=== PATIENT | female | born 1950 | race Hispanic/Latino ===

== ENCOUNTER 2019-12-11 06:14 | Inpatient (IN) | payer OTHER, BC ==
[2019-12-11] MEDS ORDERED: MORPHINE 2 MG/ML SYR ONE ×2 (06:40→07:09)
[2019-12-11] MEDS ORDERED: ONDANSETRON 4 MG/2 ML VIAL ONE (06:41)
[2019-12-11 06:45] LABS: Protime INR 0.9
[2019-12-11 06:46] LABS: Absolute Lymphocytes (CBC) 1.1 K/uL (0.7-4.9); Basophils % 0.1 % (0-1.3); Hematocrit 46.4 % (36.0-45.0); MPV 8.4 fL (7.6-11.3); RBC Red Blood Cell Count 4.88 M/uL (3.86-4.86)
[2019-12-11 06:58] LABS: ALT/SGPT 19 U/L (12-78); AST/SGOT 13 U/L (15-37); Albumin 3.8 g/dL (3.4-5.0); Alkaline Phosphatase 100 U/L (45-117); BUN Blood Urea Nitrogen 26 mg/dL (7-18); Bicarbonate 29 mmol/L (21-32); Bilirubin Direct 0.2 mg/dL (0-0.2); Bilirubin Total 0.6 mg/dL (0.2-1.0); Glucose Level 258 mg/dL (74-106); Magnesium 2.6 mg/dL (1.8-2.4); NT PRO-BNP 312 pg/mL (<125); Potassium 4.3 mmol/L (3.5-5.1); Protein, Total 7.5 g/dL (6.4-8.2); Sodium Level 135 mmol/L (136-145); Troponin (Emerg Dept Use Only) < 0.02 ng/mL (0.0-0.045)
[2019-12-11] MEDS ORDERED: MORPHINE 4 MG/ML SYR ONE (07:51)
[2019-12-11] MEDS ORDERED: METHYLPREDNISOLONE 125 MG INJ ONE (08:07)
[2019-12-11] MEDS ORDERED: FAMOTIDINE 20 MG/2 ML VIAL IV ONE (08:07)
[2019-12-11] MEDS ORDERED: DIPHENHYDRAMINE 50 MG/ML VIAL ONE (08:07)
--- NOTE | 2019-12-11 08:44 | RAD REPORT ---
EXAM DESCRIPTION: Abbi Single View12/11/2019 6:45 am CLINICAL HISTORY: Chest pain COMPARISON: 2017 FINDINGS: Lungs are moderately hyperaerated consistent with COPD The lungs appear clear of acute infiltrate. The heart is normal size IMPRESSION: No acute abnormalities displayed
--- NOTE | 2019-12-11 08:51 | RAD REPORT ---
EXAM DESCRIPTION: CT - Chest For Pe Angio - 12/11/2019 8:21 am CLINICAL HISTORY: Chest pain COMPARISON: None. TECHNIQUE: Dynamically enhanced axial 3 mm thick images of the chest were obtained during administra tion of <100> mL Isovue 370 IV contrast. Coronal and oblique reconstruction images were generated and reviewed. Exam utilizes a protocol for optimal evaluation of pulmonary arterial tree. Maximum intensity projections 3D imaging was utilized All CT scans are performed using dose optimization technique as appropriate and may include automated exposure control or mA/KV adjustment according to patient size. FINDINGS: A pulmonary embolus is not seen. A thoracic aortic aneurysm is not noted. A pleural effusion is not seen. A pericardial effusion is not seen. A lung consolidation is not present. Lungs are moderately hyperaerated IMPRESSION: Negative for a pulmonary embolism.
--- NOTE | 2019-12-11 09:33 | EDPHYS ---
Physician Documentation [facility] Name: Kerry Early Age: 69 yrs Sex: Female : 1950 Arrival Date: 12/11/2019 Time: 06:15 Bed 6 Private MD: ED Physician Pacheco Salazar HPI: 12/10 06:32 This 69 yrs old Female presents to ER via Ambulatory with complaints of Chest jmm Pain, High Blood Pressure. 06:32 The patient or guardian reports chest pain that is located primarily in the substernal jmm area. Onset: this morning, at 05:00. The pain radiates to the left arm. Associated signs and symptoms: Pertinent negatives: shortness of breath. The chest pain is described as aching, a pressure. Duration: The patient or guardian reports a single episode, that is still ongoing. This is a 69 year old female with a history of DM, HTN that presents to the ED with complaints of chest pain which radiates to her left arm. Patient states she was moving furniture yesterday. Patient states pain is not worsened with exertion. . Historical: - Allergies: 06:27 Iodine; bb - Home Meds: 06:27 metformin 500 mg Oral tab 1 tab daily [Active]; nortriptyline 50 mg Oral cap 1 cap bb nightly [Active]; metoprolol tartrate 50 mg Oral tab 1 tab once daily [Active]; Cartia XT 300 mg Oral cp24 1 cap once daily [Active]; - PMHx: 06:27 brain aneurysm; COPD; Diabetes - NIDDM; Hypertension; Seizures; bb - PSHx: 06:27 brain aneurysm; Cholecystectomy; Tonsillectomy; bb - Immunization history:: Adult Immunizations up to date. - Social history:: Smoking status: Patient denies any tobacco usage or history of. ROS: 06:32 Constitutional: Negative for fever, chills, and weight loss, Respiratory: Negative for jmm shortness of breath, cough, wheezing, and pleuritic chest pain. 06:32 Cardiovascular: Positive for chest pain. 06:32 All other systems are negative. Exam: 06:32 Constitutional: This is a well developed, well nourished patient who is awake, alert, jmm and in no acute distress. Head/Face: atraumatic. Eyes: EOMI, no conjunctival erythema appreciated ENT: Moist Mucus Membranes Neck: Trachea midline, Supple 06:32 Abdomen/GI: Non distended, soft Back: Normal ROM Skin: General appearance color normal MS/ Extremity: Moves all extremities, no obvious deformities appreciated, no edema noted to the lower extremities Neuro: Awake and alert, normal gait Psych: Behavior is normal, Mood is normal, Patient is cooperative and pleasant 06:32 Chest/axilla: Inspection: normal, Palpation: tenderness, that is moderate, that totally reproduces the patient's complaints. 06:32 Cardiovascular: Rate: normal, Rhythm: regular, Pulses: no pulse deficits are appreciated. 06:32 Respiratory: the patient does not display signs of respiratory distress, Respirations: normal, Breath sounds: are clear throughout. Vital Signs: 06:23 BP 204 / 87; Pulse 65; Resp 16 S; Temp 96.9(TE); Pulse Ox 100% on R/A; Weight 72.57 kg bb (R); Height 5 ft. 2 in. (157.48 cm) (R); Pain 10/10; 07:05 BP 195 / 80; Pulse 68; Resp 16 S; Pulse Ox 97% on R/A; Pain 8/10; jl7 07:41 BP 201 / 86; Pulse 87; Resp 16 S; Pulse Ox 97% on R/A; Pain 8/10; jl7 07:53 BP 175 / 77 LA; jl7 07:55 BP 161 / 67 RA; jl7 08:36 BP 127 / 98; Pulse 64; Resp 16; Pulse Ox 98% on R/A; tw2 09:30 BP 152 / 60; Pulse 63; Resp 16 S; Pulse Ox 98% on R/A; Pain 4/10; jl7 06:23 Body Mass Index 29.26 (72.57 kg, 157.48 cm) bb MDM: 06:27 Patient medically screened. [facility] 09:31 The patient was given aspirin in the Emergency Department. Data reviewed: vital signs, [facility] nurses notes, lab test result(s), EKG, radiologic studies, CT scan, plain films. ED course: I discussed the patient with Dr. Ventura whom accepted admission. . 12/10 06:28 Order name: Basic Metabolic Panel [facility] 12/10 06:28 Order name: CBC with Diff [facility] 12/10 06:28 Order name: LFT's [facility] 12/10 06:28 Order name: Magnesium [facility] 12/10 06:28 Order name: NT PRO-BNP [facility] 12/10 06:28 Order name: PT-INR [facility] 12/10 06:28 Order name: Troponin (emerg Dept Use Only) [facility] 12/10 06:54 Order name: CBC with Automated Diff; Complete Time: 07:46 EDMS 12/10 06:59 Order name: Basic Metabolic Panel; Complete Time: 07:46 EDMS 12/10 06:59 Order name: Liver (Hepatic) Function; Complete Time: 07:46 EDMS 12/10 06:59 Order name: Troponin (Emerg Dept Use Only); Complete Time: 07:46 EDMS 12/10 06:59 Order name: NT PRO-BNP; Complete Time: 07:46 EDMS 12/10 06:59 Order name: Magnesium; Complete Time: 07:46 EDMS 12/10 07:02 Order name: Protime (+INR); Complete Time: 07:46 EDMS 12/10 06:28 Order name: XRAY Chest (1 view) [facility] 12/10 06:28 Order name: EKG; Complete Time: 06:29 [facility] 12/10 06:28 Order name: Cardiac monitoring; Complete Time: 06:30 [facility] 12/10 06:28 Order name: EKG - Nurse/Tech; Complete Time: 06:30 m 12/10 06:28 Order name: IV Saline Lock; Complete Time: 06:30 [facility] 12/10 06:28 Order name: Labs collected and sent; Complete Time: 06:30 [facility] 12/10 07:58 Order name: CT Chest For PE Angio [facility] 12/10 08:51 Order name: RAD; Complete Time: 10:48 EDMS 12/10 08:54 Order name: CT; Complete Time: 10:48 EDMS 12/10 06:28 Order name: O2 Per Protocol; Complete Time: 06:30 m 12/10 06:28 Order name: O2 Sat Monitoring; Complete Time: 06:30 jmm Administered Medications: 06:42 Drug: morphine 2 mg Route: IVP; Site: left antecubital; jd3 06:42 Drug: Zofran (Ondansetron) 4 mg Route: IVP; Site: left antecubital; jd3 09:05 Follow up: Response: No adverse reaction jl7 07:11 Drug: morphine 2 mg Route: IVP; Site: left antecubital; jl7 07:43 Follow up: Response: No adverse reaction; Pain is unchanged, physician notified jl7 07:50 Drug: morphine 4 mg Route: IVP; Site: left antecubital; jl7 08:20 Follow up: Response: No adverse reaction; Pain is decreased jl7 08:02 Drug: SOLU-Medrol 125 mg Route: IVP; Site: left antecubital; jl7 09:04 Follow up: Response: No adverse reaction jl7 08:04 Drug: diphenhydrAMINE 50 mg Route: IVP; Site: left antecubital; jl7 09:04 Follow up: Response: No adverse reaction jl7 08:06 Drug: Pepcid 20 mg Route: IVP; Site: left antecubital; jl7 09:04 Follow up: Response: No adverse reaction jl7 09:44 Drug: Aspirin Chewable Tablet 324 mg Route: PO; jl7 09:44 Follow up: Response: No adverse reaction jl7 Disposition: 16:38 Co-signature as Attending Physician, Pacheco Salazar MD I agree with the assessment and tw4 plan of care. Disposition: 12/11/19 09:33 Hospitalization ordered by Smith Ventura for Observation. Preliminary diagnosis is Chest pain, unspecified. - Bed requested for Telemetry/MedSurg (observation). - Status is Observation. jl7 - Condition is Stable. - Problem is new. - Symptoms have worsened. Signatures: Dispatcher [employer] EDMS Jacques Lopez PA PA [facility] Ruchi Caicedo RN RN Betsy Brumfield RN RN jl7 Shahid Cruz RN RN jd3 Wadley, Terrence, MD MD tw4 Lucero Mireles Corrections: (The following items were deleted from the chart) 09:46 09:33 Hospitalization Ordered by Smith Ventura MD for Observation. Preliminary diagnosis eb is Chest pain, unspecified. Bed requested for Telemetry/MedSurg (observation). Status is Observation. Condition is Stable. Problem is new. Symptoms have worsened. [facility] 10:10 09:46 12/11/2019 09:33 Hospitalization Ordered by Smith Ventura MD for Observation. jl7 Preliminary diagnosis is Chest pain, unspecified. Bed requested for Telemetry/MedSurg (observation). Status is Observation. Condition is Stable. Problem is new. Symptoms have worsened. eb
--- NOTE | 2019-12-11 09:33 | ER ---
Nurse's Notes [facility] Name: Kerry Early Age: 69 yrs Sex: Female : 1950 Arrival Date: 12/11/2019 Time: 06:15 Bed 6 Private MD: Diagnosis: Chest pain, unspecified Presentation: 12/10 06:23 Chief complaint: Patient states: she has been having chest pain this morning radiating bb to her left arm the pain is 10/10 and she is nauseous and light-headed. Coronavirus screen: The patient has NOT traveled to a country currently being monitored by the [facility] within the last 14 days. Proceed with normal triage procedures. Ebola Screen: No symptoms or risks identified at this time. Initial Sepsis Screen: Does the patient meet any 2 criteria? No. Patient's initial sepsis screen is negative. Does the patient have a suspected source of infection? No. Patient's initial sepsis screen is negative. Risk Assessment: Do you want to hurt yourself or someone else? Patient reports no desire to harm self or others. 06:23 Method Of Arrival: Ambulatory bb 06:23 Acuity: CLAUDIA 2 bb 06:40 Onset of symptoms was December 11, 2019. jd3 Historical: - Allergies: 06:27 Iodine; bb - Home Meds: 06:27 metformin 500 mg Oral tab 1 tab daily [Active]; nortriptyline 50 mg Oral cap 1 cap bb nightly [Active]; metoprolol tartrate 50 mg Oral tab 1 tab once daily [Active]; Cartia XT 300 mg Oral cp24 1 cap once daily [Active]; - PMHx: 06:27 brain aneurysm; COPD; Diabetes - NIDDM; Hypertension; Seizures; bb - PSHx: 06:27 brain aneurysm; Cholecystectomy; Tonsillectomy; bb - Immunization history:: Adult Immunizations up to date. - Social history:: Smoking status: Patient denies any tobacco usage or history of. Screenin:39 Abuse screen: Denies threats or abuse. Nutritional screening: No deficits noted. jd3 Tuberculosis screening: No symptoms or risk factors identified. Fall Risk IV access (20 points). Ambulatory Aid- None/Bed Rest/Nurse Assist (0 pts). Gait- Weak (10 pts.). Mental Status- Oriented to own ability (0 pts). Total Flowers Fall Scale indicates Low Risk Score (25-44 pts). Fall prevention measures have been instituted. Side Rails Up X 2 Placed close to Nursing Station Frequent Obs/Assesments occuring Family Present and informed to notify staff if they need to leave bedside. Assessment: 06:37 General: Appears in no apparent distress. uncomfortable, Behavior is calm, cooperative, jd3 appropriate for age. Pain: Complains of pain in chest Pain radiates to left scapular area and left arm Quality of pain is described as pressure, radiating, sharp, tender, Pain began suddenly. Neuro: Level of Consciousness is awake, alert, obeys commands, Oriented to person, place, time, situation. Cardiovascular: Reports chest pain, Heart tones S1 S2 present Capillary refill < 3 seconds Patient's skin is warm and dry. Rhythm is regular. Respiratory: Reports shortness of breath at rest Airway is patent Respiratory effort is even, unlabored, Respiratory pattern is regular, symmetrical, Breath sounds are clear bilaterally. Denies cough. GI: Abdomen is round non-distended, Bowel sounds present X 4 quads. Abd is soft and non tender X 4 quads. Reports nausea, Patient currently denies abdominal pain, constipation, diarrhea, vomiting. : No signs and/or symptoms were reported regarding the genitourinary system. EENT: No signs and/or symptoms were reported regarding the EENT system. Derm: Skin is intact, Skin is dry, Skin is normal, Skin temperature is warm. Musculoskeletal: Circulation, motion, and sensation intact. Range of motion: intact in all extremities. 07:10 Reassessment: Pain rated 8/10, medicated as ordered. jl7 07:55 Reassessment: Pt reports stabbing midsternal chest pain that is radiating to the left jl7 arm and straight through to under posterior left shoulder. Last BP checked, ERP notified and at bedside to assess pt. 08:30 Reassessment: Pain rated 6/10 Patient states feeling better. Patient states symptoms jl7 have improved. 09:30 Reassessment: Patient appears in no apparent distress at this time. Patient and/or jl7 family updated on plan of care and expected duration. Pain level reassessed. Patient is alert, oriented x 3, equal unlabored respirations, skin warm/dry/pink. pain rated 4/10 Patient states feeling better. Vital Signs: 06:23 BP 204 / 87; Pulse 65; Resp 16 S; Temp 96.9(TE); Pulse Ox 100% on R/A; Weight 72.57 kg bb (R); Height 5 ft. 2 in. (157.48 cm) (R); Pain 10/10; 07:05 BP 195 / 80; Pulse 68; Resp 16 S; Pulse Ox 97% on R/A; Pain 8/10; jl7 07:41 BP 201 / 86; Pulse 87; Resp 16 S; Pulse Ox 97% on R/A; Pain 8/10; jl7 07:53 BP 175 / 77 LA; jl7 07:55 BP 161 / 67 RA; jl7 08:36 BP 127 / 98; Pulse 64; Resp 16; Pulse Ox 98% on R/A; tw2 09:30 BP 152 / 60; Pulse 63; Resp 16 S; Pulse Ox 98% on R/A; Pain 4/10; jl7 06:23 Body Mass Index 29.26 (72.57 kg, 157.48 cm) ED Course: 06:15 Patient arrived in ED. cl3 06:16 Jacques Lopez PA is PHCP. jmm 06:16 Pacheco Salazar MD is Attending Physician. jmm 06:18 Shahid Cruz, HAYDEN is Primary Nurse. jd3 06:24 Triage completed. bb 06:27 Arm band placed on. EKG completed in triage. Results shown to MD. bb 06:36 Inserted saline lock: 20 gauge in left antecubital area, using aseptic technique. Blood jd3 collected. placed by Ruth ROSS. 06:39 Patient has correct armband on for positive identification. Placed in gown. Bed in low jd3 position. Call light in reach. Side rails up X 1. Adult w/ patient. monitoring specialist on. Pulse ox on. NIBP on. 06:39 Patient maintains SpO2 saturation greater than 95% on room air. jd3 09:30 No provider procedures requiring assistance completed. Patient admitted, IV remains in jl7 place. intact, No redness/swelling at site. 09:33 Smith Ventura MD is Hospitalizing Provider. [facility] Administered Medications: 06:42 Drug: morphine 2 mg Route: IVP; Site: left antecubital; jd3 06:42 Drug: Zofran (Ondansetron) 4 mg Route: IVP; Site: left antecubital; jd3 09:05 Follow up: Response: No adverse reaction jl7 07:11 Drug: morphine 2 mg Route: IVP; Site: left antecubital; jl7 07:43 Follow up: Response: No adverse reaction; Pain is unchanged, physician notified jl7 07:50 Drug: morphine 4 mg Route: IVP; Site: left antecubital; jl7 08:20 Follow up: Response: No adverse reaction; Pain is decreased jl7 08:02 Drug: SOLU-Medrol 125 mg Route: IVP; Site: left antecubital; jl7 09:04 Follow up: Response: No adverse reaction jl7 08:04 Drug: diphenhydrAMINE 50 mg Route: IVP; Site: left antecubital; jl7 09:04 Follow up: Response: No adverse reaction jl7 08:06 Drug: Pepcid 20 mg Route: IVP; Site: left antecubital; jl7 09:04 Follow up: Response: No adverse reaction jl7 09:44 Drug: Aspirin Chewable Tablet 324 mg Route: PO; jl7 09:44 Follow up: Response: No adverse reaction jl7 Outcome: 09:33 Decision to Hospitalize by Provider. renetta 10:01 Admitted to Tele accompanied by tech, via wheelchair, room 414, with chart, Report jl7 called to [place] 10:01 Condition: stable 10:01 Discharge instructions given to patient, family, Instructed on the need for admit, Demonstrated understanding of instructions. 10:10 Patient left the ED. jl7 Signatures: Jacques Lopez PA PA jmm Ballard, Brenda RN H[place]DEN bb Cassy Haynes RN RN tw2 Betsy Patterson RN RN jl7 Shahid Cruz RN RN jd3 Xuan Amos cl3 Corrections: (The following items were deleted from the chart) 06:42 06:37 Pain: Complains of pain in chest Pain radiates to left arm Quality of pain is jd3 described as pressure, radiating, sharp, tender, Pain began suddenly, jd3
[2019-12-11] MEDS ORDERED: MORPHINE 4 MG/ML SYR IV PRN (09:35)
[2019-12-11] MEDS ORDERED: ASPIRIN 81 MG CHEWABLE TABLET ONE (09:39)
[2019-12-11 10:44] VITALS: BMI 29.2
[2019-12-11] MEDS ORDERED: HYDRALAZINE HCL 20 MG/ML VIAL IV PRN (11:08)
[2019-12-11] MEDS: ALBUTEROL INHALER 60 PUFF/8 GM IH SCH ×3 (12:23→23:25)
[2019-12-11] MEDS ORDERED: GLUCAGON 1 MG/VIAL IM PRN (13:26)
[2019-12-11] MEDS ORDERED: D50W 25 GM/50 ML SYRINGE/VIAL IV PRN (13:26)
--- NOTE | 2019-12-11 13:45 | EKG ---
Test Date: 2019-12-11 Test Time: 06:25:00 Geophysical Laboratory Director: LAZARO MEASUREMENT RESULTS: Intervals: Rate: 68 LA: 104 QRSD: 80 QT: 394 QTc: 418 [place]: P: 41 LA: 104 QRS: 42 T: 31 INTERPRETIVE STATEMENTS: Sinus rhythm with short LA Otherwise normal ECG Compared to ECG 10/04/2016 03:18:04 Short LA interval now present Electronically Signed On 12-11-19 13:43:47 PRINTING TECHNICIAN by Kilo Alonso
[2019-12-11] MEDS: ACETAMINOPHEN 500 MG TAB PO PRN ×2 (15:27→22:30)
[2019-12-11] MEDS: INSULIN -REGULAR HUMAN 50 UNIT/0.5 ML ML SQ SCH ×2 (17:07→23:00)
--- NOTE | 2019-12-11 18:16 | CON ---
Identification: Ms. Early is 69. Reason For Consultation: Chest pain with abnormal troponin. History Of Present Illness: Ms. Early has a remote history of subarachnoid hemorrhage. She underwent an aneurysm clipping. This was all more than 20 years ago. Since then, there has been no central n ervous system problems. She has underlying diabetes. She has never had myocardial infarction or any cardiac surgeries or stents. She has underlying seizure disorder, diabetes, hypertension. Outpatient Medications: Metformin, Keppra, diltiazem, albuterol, Methylcobalamin and another multivi tamin, B6 complex with coenzyme Q10. Allergies: SHE REPORTS DRUG INTOLERANCE TO SPINACH, IODINE, NAPROXEN, AND TYLENOL. Physical Examination: General: She is 5 feet 2 inches, 160 pounds. Alert, oriented, pleasant, not in distress. Lungs: Clear. Cardiac: Within normal limits. Abdomen: Soft. Extremities: Normal. Diagnostic Data: Her electrocardiogram shows nonspecific changes. Her troponin when she first prese nted to the emergency room about 4 hours after the onset of her chest pain was 0.02 and 6 hours after that, it is 0.73. Impression And Plan: Ms. Early has had a non-ST elevation myocardial infarction and the recommendatio n is that she undergo a cardiac catheterization, possible stent. The patient seems to understand jennifer t and she seems to accept the potential benefits, indications, and risks of the procedure. She seems t o understand her diagnosis. LEIA/SAM Voice ID: [id number] Report ID: [id number]
--- NOTE | 2019-12-11 20:58 | HP ---
Date of Admission: 12/11/2019 Chief Complaint: Chest pain. History Of Present Illness: A 69-year-old female who is known to have multiple medical problems, was brought to the emergency room because of precordial chest pain and dizziness. The patient had a wor kup in the emergency room. She had normal troponin initially, however, it went up to 0.7. The patie nt has high risk factors including diabetes, previous stroke, hypertension. The patient is admitted. Past Medical History: Positive for type 2 diabetes, hypertension, hyperlipidemia, and CVA. Family History: Diabetes, hypertension present. Allergies: IODINE. Home Medicines: Metformin, nortriptyline, metoprolol, cardia. Other Medical Problems: Include history of brain aneurysm for which she had surgery, gallbladder robina steffany, tonsillectomy. Review of Systems: No history of fever, chills, rigors. Physical Examination: General: Revealed a 69-year-old female, alert and oriented for her age. HEENT: Negative. Neck: Supple. JVD negative. Chest: Clear. Heart: Regular. Abdomen: Soft, nontender. Extremities: No edema. Neurological: No deficits. Laboratory Data: White count normal. Chem profile, troponin 0.7, random blood sugar of 258. EKG report is not available. CT chest done in the emergency room negative for PE. Assessment: 1.Chest pain with mild elevation of troponin. 2.Hypertension. 3.Type 2 diabetes. 4.History of cerebrovascular accident and cerebral aneurysm. 5.Hyperlipidemia. Plan: The patient is already seen by Cardiology Service. The patient very likely will have cardiac cath Saturday. Meanwhile, the patient will be treated with beta blockers, aspirin. CHARITY/SAM Voice ID: [id number]
[2019-12-11] MEDS: ATORVASTATIN 80 MG TAB PO SCH (21:00)
[2019-12-11] MEDS: ENOXAPARIN 80 MG/0.8 ML SQ SCH (22:59)
[2019-12-11] MEDS: levETIRAcetam 500 MG TAB PO SCH (23:00)
[2019-12-11] MEDS: METOPROLOL TAR 50 MG TAB PO SCH (23:01)
[2019-12-12 05:57] LABS: Absolute Lymphocytes (CBC) 0.7 K/uL (0.7-4.9); Basophils % 0.3 % (0-1.3); Hematocrit 44.5 % (36.0-45.0); MPV 8.7 fL (7.6-11.3); RBC Red Blood Cell Count 4.68 M/uL (3.86-4.86)
[2019-12-12 06:03] LABS: Potassium 4.6 mmol/L (3.5-5.1)
[2019-12-12 08:22] LABS: Platelet Estimate ADEQ
[2019-12-12 08:23] LABS: Blood Morphology Comment NOT SEEN (NOT SEEN)
[2019-12-12] MEDS: INSULIN -REGULAR HUMAN 50 UNIT/0.5 ML ML SQ SCH ×4 (08:26→20:55)
[2019-12-12] MEDS: ACETAMINOPHEN 500 MG TAB PO PRN ×2 (08:29→20:50)
[2019-12-12] MEDS: METOPROLOL TAR 50 MG TAB PO SCH ×2 (08:29→20:51)
[2019-12-12] MEDS: AMLODIPINE 5 MG TAB PO SCH (08:30)
[2019-12-12] MEDS: ENOXAPARIN 80 MG/0.8 ML SQ SCH ×2 (08:30→20:49)
[2019-12-12] MEDS: ASPIRIN EC 81 MG TAB PO SCH (08:30)
[2019-12-12] MEDS: levETIRAcetam 500 MG TAB PO SCH ×2 (08:30→20:52)
[2019-12-12] MEDS: ALBUTEROL INHALER 60 PUFF/8 GM IH SCH ×4 (08:31→21:00)
[2019-12-12] MEDS ORDERED: DILTIAZEM HCL 120 MG SR CAP PO SCH (09:00)
--- NOTE | 2019-12-12 10:00 | PN ---
Mrs. Early is stable today. No further chest pain. Her troponins are staying about where they are. They are less than 1 and she is not having further chest pains. Our plan to do a cardiac cath Saturday is still viable. Her creatinine is 0.92. She seems to understand the procedure, its potential bene fits, indications, risks, and agrees to proceed. LEIA/SAM Voice ID: [id number] Report ID: [id number]
[2019-12-12] MEDS: ONDANSETRON 4 MG/2 ML VIAL IV PRN (15:14)
[2019-12-12] MEDS: ATORVASTATIN 80 MG TAB PO SCH (20:50)
--- NOTE | 2019-12-13 06:29 | EKG ---
Test Date: 2019-12-11 Test Time: 21:51:22 Ornamental Machine Operator: DINORAH MEASUREMENT RESULTS: Intervals: Rate: 56 TN: 96 QRSD: 76 QT: 412 QTc: 397 [place]: P: 25 TN: 96 QRS: 56 T: 102 INTERPRETIVE STATEMENTS: Sinus bradycardia with short TN T wave abnormality, consider lateral ischemia Abnormal ECG Compared to ECG 12/11/2019 21:48:59 T-wave abnormality now present Possible ischemia now present ST (T wave) deviation no longer present Electronically Signed On 12-13-19 06:28:37 CDT by Kilo Alonso
--- NOTE | 2019-12-13 06:29 | EKG ---
Test Date: 2019-12-11 Test Time: 21:48:59 Director For Beauty School: DINORAH MEASUREMENT RESULTS: Intervals: Rate: 56 GA: 94 QRSD: 78 QT: 424 QTc: 409 [place]: P: 25 GA: 94 QRS: 54 T: 98 INTERPRETIVE STATEMENTS: Sinus bradycardia with short GA Nonspecific ST and T wave abnormality Abnormal ECG Compared to ECG 12/11/2019 06:25:00 ST (T wave) deviation now present Sinus rhythm no longer present Electronically Signed On 12-13-19 06:28:40 CDT by Kilo Alonso
[2019-12-13] MEDS: ACETAMINOPHEN 500 MG TAB PO PRN (09:22)
[2019-12-13] MEDS: AMLODIPINE 5 MG TAB PO SCH (09:23)
[2019-12-13] MEDS: METOPROLOL TAR 50 MG TAB PO SCH ×2 (09:23→21:19)
[2019-12-13] MEDS: levETIRAcetam 500 MG TAB PO SCH ×2 (09:23→21:19)
[2019-12-13] MEDS: ASPIRIN EC 81 MG TAB PO SCH (09:23)
[2019-12-13] MEDS: INSULIN -REGULAR HUMAN 50 UNIT/0.5 ML ML SQ SCH ×4 (09:24→21:00)
[2019-12-13] MEDS: ENOXAPARIN 80 MG/0.8 ML SQ SCH (09:24)
[2019-12-13] MEDS: ALBUTEROL INHALER 60 PUFF/8 GM IH SCH ×4 (09:25→21:00)
--- NOTE | 2019-12-13 12:48 | EKG ---
Test Date: 2019-12-13 Test Time: 00:52:36 Utility Worker [employer]: RT MEASUREMENT RESULTS: Intervals: Rate: 65 OR: 100 QRSD: 82 QT: 410 QTc: 426 [place]: P: 35 OR: 100 QRS: 63 T: 108 INTERPRETIVE STATEMENTS: Sinus rhythm with short OR ST abnormality, possible digitalis effect Abnormal ECG Compared to ECG 12/11/2019 21:51:22 ST (T wave) deviation now present Sinus bradycardia no longer present T-wave abnormality no longer present Possible ischemia no longer present Electronically Signed On 12-13-19 12:48:14 CDT by Kilo Alonso
--- NOTE | 2019-12-13 17:50 | PN ---
Ms. Early has no more chest pain. She remains in sinus rhythm, mildly hypertensive and she has eviden ce of a recent myocardial infarction. We will plan to do a cardiac cath and possible stent tomorrow. I have described the procedure, its potential benefits, indications, risks, alternatives, and she a grees to proceed. We plan to do a cardiac cath tomorrow morning using the radial approach. We will give Mucomyst preop. We will keep her blood sugars under good control as we can. The lowest blood s ugar she has had in the hospital was 171. The patient seems to understand the procedure, its potenti al benefits, indications, risks, and agrees to proceed. LEIA/SAM Voice ID: [id number] Report ID: [id number]
[2019-12-13] MEDS: ONDANSETRON 4 MG/2 ML VIAL IV PRN (21:16)
[2019-12-13] MEDS: ATORVASTATIN 80 MG TAB PO SCH (21:18)
[2019-12-14] MEDS: ONDANSETRON 4 MG/2 ML VIAL IV PRN (06:22)
[2019-12-14] MEDS ORDERED: NA CHLORIDE 0.9% 1,000 ML ONE (06:23)
[2019-12-14] MEDS: METOPROLOL TAR 50 MG TAB PO SCH (06:23)
[2019-12-14] MEDS: ASPIRIN EC 81 MG TAB PO SCH (06:23)
[2019-12-14] MEDS: AMLODIPINE 5 MG TAB PO SCH (06:23)
[2019-12-14] MEDS: INSULIN -REGULAR HUMAN 50 UNIT/0.5 ML ML SQ SCH ×2 (07:30→11:30)
[2019-12-14] MEDS: levETIRAcetam 500 MG TAB PO SCH (08:04)
[2019-12-14] MEDS: ALBUTEROL INHALER 60 PUFF/8 GM IH SCH ×2 (08:04→13:00)
[2019-12-14] MEDS ORDERED: predniSONE 20 MG TAB PO ONE (10:14)
[2019-12-14] MEDS ORDERED: LIDOCAINE 1% MPF 30 ML VIAL ONE (12:16)
[2019-12-14] MEDS ORDERED: HEPA 1000U/500MLS 2,000 UNIT/1,000 ML BAG IV ONE (12:16)
[2019-12-14] MEDS ORDERED: HEPARIN 5000 UNIT/ML 1 ML VIAL ONE (13:40)
[2019-12-14] MEDS ORDERED: NICARDIPINE HCL 25 MG/10 ML IV ONE (13:41)
[2019-12-14] MEDS ORDERED: NA CHLORIDE 0.9% 0 ML ONE (13:41)
[2019-12-14] MEDS ORDERED: MIDAZOLAM HCL 2 MG/2 ML INJ ONE (13:41)
[2019-12-14] MEDS ORDERED: ATROPINE SULF 1 MG/10 ML SYR IV ONE (13:41)
[2019-12-14] MEDS ORDERED: NITROGLYCERIN 100 MCG/ML SYR (for cath lab use only) IV ONE (13:41)
[2019-12-14] MEDS ORDERED: FENTANYL CITR 100 MCG/2 ML ONE (13:41)
[2019-12-14] MEDS ORDERED: METHYLPREDNISOLONE 125 MG INJ ONE (13:43)
[2019-12-14] MEDS ORDERED: NITROGLYCERIN 0.4 MG/TAB SL PRN (14:11)
[2019-12-14 16:30] VITALS: O2SAT 98
[2019-12-14 16:32] VITALS: BP 148/65; TEMP 97.1
--- NOTE | 2019-12-14 23:30 | OP ---
Surgeon: Kilo Alonso MD Procedures: Left heart catheterization with coronary left ventricular angiography. Findings: Normal coronary arteries, normal left ventricular ejection fraction, mild systolic hyperte nsion, normal left ventricular end-diastolic pressure. Final Diagnoses: Myocardial infarction, acute coronary syndrome without atherosclerosis. The most l ikely diagnosis is coronary spasm. We will treat her as an outpatient with calcium blockers and p.r. n. nitroglycerin. Procedure In Detail: The patient was brought to the cardiac lab specialist in a fasting state sedated with Versed and fentanyl. Right radial approach was used. Tissues around the right radial artery were a nesthetized with 1% lidocaine. The artery was entered using a 21-gauge needle, cannulated with a 0.0 21 inch diameter guidewire, and a 5/6-Tongan Terumo radial sheath was placed. The wire and introduce r were removed. The sheath was flushed and a radial cocktail was given consisting of nicardipine, he clement, nitroglycerin. We guided a TIG catheter into the ascending aorta using fluoroscopy and a shor t radius J-tip Glidewire. We were able to use the TIG catheter to angiogram right and left coronarie s and left ventricle. At the end of the procedure, the catheter was withdrawn over the wire. The sh eath was flushed. Arterial waveforms were taken through the side port of the sheath and the sheath w as removed and the arteriotomy closed with a TR band. Complications: From the procedure, none. Estimated Blood Loss: 5 mL. LEIA/SAM Voice ID: [id number] Report ID: [id number]
== END 2019-12-14 17:23 | disposition home or self-care (01) | DRG 282 ==
LOC: ER 06:14 → ERHOLD 09:34 → 4TH 10:03 → OBSVTOIN 12-12 11:18
PROVIDERS: ADMIT Internal Medicine; ATTEND Internal Medicine
PROC: 4A023N7 Measurement of Cardiac Sampling and Pressure, Left Heart, Percutaneous Approach (ICD-10-PCS; principal; 2019-12-14)
PROC: B205YZZ Plain Radiography of Left Heart using Other Contrast (ICD-10-PCS; 2019-12-14)
PROC: B201YZZ Plain Radiography of Multiple Coronary Arteries using Other Contrast (ICD-10-PCS; 2019-12-14)
DX: I21.4 Non-ST elevation (NSTEMI) myocardial infarction (principal); I24.9 Acute ischemic heart disease, unspecified; E11.9 Type 2 diabetes mellitus without complications; I10 Essential (primary) hypertension; E78.5 Hyperlipidemia, unspecified; Z86.73 Personal history of transient ischemic attack (TIA), and cerebral infarction without residual deficits
CPT/HCPCS: 36415; 71045; 71275; 80048; 80076; 82947; 83735; 83880; 84484; 85025; 85610; 93005; 93458; 96374; 96375; 99285; C1893; G0378; J0583; J1200; J1644; J1650; J2250; J2270; J2405; J2930; J3010; J7030; J7512; Q9967

== ENCOUNTER 2020-08-26 17:09 | Emergency (ER) | payer OTHER, BC ==
--- OUTSIDE RECORDS SUMMARY | 2020-08-26 17:14 | XMS REPORT | Summary of Care ---
:1950 Author Organization [facility] Address [address] [place] [address] Care Team Providers Name Role Phone Pcp, Does Not Have A Primary Care Provider Reason for Referral Radiology Services (Routine) Status Reason Specialty Diagnoses / Referred By Referred To Procedures Contact Contact New Request Diagnostic Diagnoses Acute pain of left knee Savanah Cevallos, Radiology Procedures XR KNEE 3 VW LEFT [address] [address] Radiology Services (Routine) Status Reason Specialty Diagnoses / Referred By Referred To Procedures Contact Contact New Request Diagnostic Diagnoses Left leg pain Savanah Cevallos, Radiology Procedures XR TIBIA FIBULA 2 VW LEFT [address] [address] Reason for Visit Reason Comments INJECTION nora/shoulder depo (Routine) Status Reason Specialty Diagnoses / Referred By Referred To Procedures Contact Contact Authorized Orthopedic Surgery Diagnoses Right shoulder pain, unspecified chronicity Belcher, Procedures CONSULT/REFERRAL ORTHOPAEDIC SURGERY MD Dorita [address] [place] [address] Encounter Details Date Type Department Care Team Description 07/05/2020 Office Visit [facility] Orthopaedic Savanah Cevallos L eft leg pain (Primary Dx); Surgery- Patti Barcenas MD Acute pain of left knee [place] [address] [facility] [address] [facility] [id number] [place] [address] [phone] Allergies Active Allergy Reactions Severity Noted Date Comments Cauliflower Nausea and/or Vomiting 01/22/2017 Iodine And Iodide Anaphylaxis 11/29/2014 Containing Products Propoxyphene Rash 09/27/2014 N-Acetaminophen Iodine Rash 09/27/2014 Naproxen Anaphylaxis 01/21/2017 Spinach Hives 01/21/2017 Terazosin Unknown - See comments 08/10/2019 Muscl e ache, low blood pressure documented as of this encounter (statuses as of 07/06/2020) Medications Medication Sig Dispensed Refills Start Date End Date Status metFORMIN (GLUCOPHAGE) 0 11/17/2015 Active 500 mg tablet metoprolol succinate XL 0 11/16/2015 Active (TOPROL XL) 50 mg 24 hr tablet albuterol (PROVENTIL Inhale 2 Puffs 8.5 g 0 11/29/2015 Active HFA) 90 mcg/actuation every 6 (six) inhaler hours as needed for Wheezing or Shortness of Breath. nortriptyline 50 mg Take 1 capsule 30 capsule 6 07/27/2019 Active capsuleIndications: by mouth daily. 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 cyclobenzaprine 10 mg Take 10 mg by 0 Active tablet mouth 3 (three) times daily. amLODIPine 5 mg tablet TAKE 1 TABLET BY 0 12/16/2019 Active MOUTH ONCE DAILY IN THE MORNING CONTOUR NEXT TEST USE 1 STRIP TO 0 12/25/2019 Active STRIPS strip CHECK GLUCOSE ONCE DAILY IN THE MORNING nitroglycerin 0.4 mg DISSOLVE ONE 0 12/16/2019 Active sublingual tablet TABLET UNDER THE TONGUE EVERY 5 MINUTES NEEDED FOR CHEST PAIN. DO NOT EXCEED A TOTAL OF 3 DOSES IN 15 MINUTES Hospital, Clinic, or Ordered Dose Route Frequency Start Date End D ate Status Other Facility Administered Medication methylPREDNISolone 80 mg Intra-artic ONCE 07/05/2020 07/05/20 2 Ended acetate (DEPO-MEDROL) u 0 injection 80 mg methylPREDNISolone 80 mg Intra-artic ONCE 07/05/2020 07/05/20 2 Ended acetate (DEPO-MEDROL) u 0 injection 80 mg documented as of this encounter (statuses as of 07/06/2020) Active Problems Problem Noted Date COPD, moderate 01/19/2020 Seizure 01/21/2017 Esophageal reflux 03/16/2015 documented as of this encounter (statuses as of 07/06/2020) Immunizations Name Administration Dates Next Due Pneumococcal Polysaccharide, PPSV23 (PNEUMOVAX) 01/25/2017 documented as of this encounter Social History Tobacco Use Types Packs/Day Years Used Date Never Smoker Smokeless Tobacco: Never Used Alcohol Use Drinks/Week oz/Week Comments No Sex Assigned at Date Recorded Not on file COVID-19 Exposure Response Date Recorded In the last month, have you been in contact with No / Unsure 07/05/2020 1:28 PM CDT someone who was confirmed or suspected to have Coronavirus / COVID-19? documented as of this encounter Last Filed Vital Signs Vital Sign Reading Time Taken Comments Blood Pressure - - Pulse - - Temperature - - Respiratory Rate - - Oxygen Saturation - - Inhaled Oxygen Concentration - - Weight 74.3 kg (163 lb 12.8 oz) 07/05/2020 1:29 PM CDT Height 162.6 cm (5' 4.02") 07/05/2020 1:29 PM CDT Body Mass Index 28.1 07/05/2020 1:29 PM CDT documented in this encounter Progress Notes During, Mariela Reed - 07/05/2020 1:40 PM CDT CHIEF COMPLAINT: We were asked to see this patient to give my opinion regarding Becca Early, a female who presents with bilateral shoulder pain. HISTORY OF PRESENT ILLNESS Patient reports continued chronic pain of the bilateral shoulder. Patient has treated these symptomswith injections in the past with relief and presents for repeat Depo injection to the bilateral shoulder. Patient reports a recent fall and complains of left knee pain. Date of Injury/Duration: 2 years Mechanism of Injury: gradual Occupation: Disabled (nursing) Specific Shoulder Complaints Pain Location of Pain- Anterior Shoulder Extension: Elbow and Hand Previous [place]- none Previous Injury- none Past Medical History Past Medical History: Diagnosis Date Aneurysm, cerebral COPD (chronic obstructive pulmonary disease) Diabetes mellitus Diarrhea Gallstone Hypertension SLE (systemic lupus erythematosus) Stroke Past Surgical History Past Surgical History: Procedure Laterality Date ANEURYSM COILING CHOLECYSTECTOMY COILING (SHX) cerebral aneurism HYSTERECTOMY partil Allergies Allergies Allergen Reactions Cauliflower Nausea and/or Vomiting Contrast [Iodine And Iodide Containing Products] Anaphylaxis Darvocet A500 [Propoxyphene N-Acetaminophen] Rash Iodine Rash Naproxen Anaphylaxis Spinach Hives Terazosin Unknown - See comments Muscle ache, low blood pressure Medications Current Outpatient Medications Medication Sig Dispense Refill amLODIPine 5 mg tablet TAKE 1 TABLET BY MOUTH ONCE DAILY IN THE MORNING CONTOUR NEXT TEST STRIPS strip USE 1 STRIP TO CHECK GLUCOSE ONCE DAILY IN THE MORNING cyclobenzaprine 10 mg tablet Take 10 mg by mouth 3 (three) times daily. esomeprazole (NEXIUM) 20 mg capsule Take 40 mg by mouth daily before a meal. nitroglycerin 0.4 mg sublingual tablet DISSOLVE ONE TABLET UNDER THE TONGUE EVERY 5 MINUTES NEEDED FOR CHEST PAIN. DO NOT EXCEED A TOTAL OF 3 DOSES IN 15 MINUTES nortriptyline 50 mg capsule Take 1 capsule by mouth daily. 30 capsule 6 albuterol (PROVENTIL HFA) 90 mcg/actuation inhaler Inhale 2 Puffs every 6 (six) hours as needed for Wheezing or Shortness of Breath. 8.5 g metFORMIN (GLUCOPHAGE) 500 mg tablet 0 metoprolol succinate XL (TOPROL XL) 50 mg 24 hr tablet 0 No current facility-administered medications for this visit. Social History Social History Tobacco Use Smoking status: Never Smoker Smokeless tobacco: Never Used Substance Use Topics Alcohol use: No Drug use: No Family History Family History Problem Relation Age of Onset Coronary Heart Disease Father stomach Cancer Sister Mutiple cousins from brain tumor REVIEW OF SYSTEMS Neck Complaints: none Motor Sensory Complaints: none Elbow: none Wrist:none Hand: negative Cardio-Pulm: negative GI: negative : negative Constitutional: negative REVIEW OF SYSTEMS Patient denies constitutional symptoms, motor or sensory changes, cardiac and pulmonary symptoms, gastrointestinal and urinary symptoms or difficulties, and reports no calf pain or swelling. No acute changes in respiration, neurologic status, or psychiatric behavior. No acute changes to skin, vision, or mental status. PHYSICAL EXAMINATIONS Constitutional: alert and oriented x 3; no apparent distress, normal temperature HEENT: PERRLA; moist mucous membranes, appropriate muscular symmetry Respiratory: normal, without labor, appropriate exchange volumes, no rales Cardiovascular: appropriate capillary refill of extremities, regular rate, rhythm Abdomen: soft and non-tender, non-distressed, no abdominal extension Skin: skin color, texture and turgor are normal; no abnormal bruising, no rashes noted Neurologic: cranial nerves grossly intact; sensation grossly intact Psychiatric : no abnormal affect, appropriate, able to cooperate to baseline level Shoulder Examination: Skin: normal General Appearance: normal Muscle Tone: normal Atrophy Deltoid: negative Biceps (pipe): negative Spraspinatus Fossa: negative Infraspinatus Fossa: negative Palpation-Tenderness: Acromion: negative AC Joint: negative SC Joint: negative Clavicle: negative Subacromial: negative Deltoid Insertion: negative Proximal Biceps: negative Scapular: negative Range of Motion Passive Active FE ER IR Crepitation: Subacromial: negative Acromio-Clavicular: negative Glenohumeral: negative Scapular: negative Pain with Resisted Motion: Resisted Supraspinatus: Resisted External Rotation: Internal Rotation Behind Back: negative Shoulder Extension: negative Speeds Test: not done Yerguson's Test: negative Strength: Supraspinatus: External Rotators at Side: External Rotators at 90: Internal Rotation (lift off): normal Napoleons: normal Deltoids (three heads): normal Biceps: normal Triceps: normal Pectoralis H/F: normal Neurovascular Exam: Paresthesias to Distal Hands B/l Axillary Nerve: normal Suprascapular Nerve: normal Winging: normal Radial/Ulnar/Mediun Nerves: normal Impingement Tests: Neer: negative Dominguez: negative Cross Chest: negative Sub-acromial Inj. Test: negative Instability Exam: Anterior Apprehension /Relocation: normal Position of Humerus: normal Anterior Translation: normal Labral Click: negative Posterior-Superior Impingement: negative Posterior Apprehension / Relocation: negative Posterior Translation: normal Inferior Translation (Sulcus): normal Flowers's Test: negative 45 ABD: External Rotation test: negative and Internal Rotation test: negative Superior Labral Click Test: negative Medina: negative RADIOLOGY Xr Left Tibia Fibula 2v and Left knee 3v ordered 07/05/2020 ASSESSMENT R Shoulder Rotator cuff strain versus tear (MRI; SS, interstitial, partial) R Shoulder Impingement syndrome R Shoulder Anterior-inferior acromial spur R Shoulder Stiffness R Shoulder Adhesive capsulitis (r/o) L Shoulder Impingement syndrome R Cervical spine Upper extremity radiculopathy (r/o; MRI completed 2016) R Knee Contusion 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 Depo Medrol 80 mg (generic) injection performed to bilateral shoulder utilizing standard sterile technique. Non-operative and surgical care discussed in detail and offered. Patient desires to pursue/continuenon-operative measures. Precautions and instructions were discussed and reviewed in detail with patient and family/companions with patient at visit. These were understood by the patient and the important role of patient compliance in obtaining and optimizing successful outcome and avoiding complications of condition was emph asized. Patient, family/companions present at clinic visit, instructed on appropriate activity modification involving no aggressive/strenuous activities, indicated home exercises, indicated anti-inflammatory medicine or other over the counter analgesic, rest, and modalities following injection therapy. Patient will return to clinic in 12 weeks for re-evaluation and discussion of treatment options. Allfindings and diagnosis were discussed with patient at time of visit. Patient states they understand and are in agreement with the treatment plan at this time. Scribe's Attestation Mariela Strauss am scribing for, and in the presence of, Savanah Cevallos MD who performed the services described here-in. Mariela Glynn, July 05, 2020, 1:47 PM documented in this encounter Plan of Treatment Date Type Specialty Care Team Description 07/11/2020 Office Visit Pain Medicine Patti Aguilar MD [address] [facility] [address] [place] [phone] 08/01/2020 Office Visit Neurology Doirta Belcher MD [address] [place] [phone] 10/25/2020 Office Visit Orthopedic Surgery Savanah Cevallos MD [address] [facility] [address] [place] [phone] Health Maintenance Due Date Last Done Comments HEPATITIS C (HCV) SCREEN 1950 DTaP,Tdap,and Td Vaccines (1 - Tdap) 1970 COLON CANCER SCREENING ANNUAL FIT/FOBT 2001 COLON CANCER SCREENING FIT DNA EVERY 3 2001 YEARS COLON CANCER SCREENING SIGMOIDOSCOPY EVERY 2001 5 YEARS Zoster Recombinant Vaccine (SHINGRIX) (1 2001 of 2) Medicare Wellness Visit 2016 Osteoporosis Screening 2016 Breast Cancer Screening (MAMMOGRAM) 01/14/2018 01/14/2017, 08/05/2012 INFLUENZA VACCINE (#1) 2020 Depression Screening 12/06/2020 12/07/2019 COLONOSCOPY 10/08/2024 10/08/2014 Colorectal Cancer Screening 10/08/2024 PNEUMOCOCCAL VACCINES 65+ Completed 01/25/2017 documented as of this encounter Results XR KNEE 3 VW LEFT (07/05/2020 2:26 PM CDT) Specimen Impressions Performed At Impression: PACS/VR/DOSE 1. No acute osseous abnormality of the left knee is identified. RL: [id number] Electronically signed by Mauro Vega MD at 020 2:46 PM Narrative Performed At ORDERING PHYSICIAN: SAVANAH CEVALLOS PACS/VR/DOSE THREE VIEWS OF LEFT KNEE. DATE: 07/05/2020 CLINICAL HISTORY: Left knee pain. COMPARISON: None. FINDINGS: 3 views of the left knee demon strate no evidence for acute fracture, subluxation or destructive osseous lesion. No significant joint effusion is identified. Procedure Note [facility], Radiant Results Inft User - 2019 2:47 PM CDT ORDERING PHYSICIAN: SAVANAH CEVALLOS THREE VIEWS OF LEFT KNEE. DATE: 07/05/2020 CLINICAL HISTORY: Left knee pain. COMPARISON: None. FINDINGS: 3 views of the left knee demon strate no evidence for acute fracture, subluxation or destructive oss eous lesion. No significant joint effusion is identified. IMPRESSION Impression: 1. No acute osseous abnormality of the left knee is identified. RL: 2831 Performing Organization Address City/State/Zipcode Phone Number PACS/VR/DOSE XR TIBIA FIBULA 2 VW LEFT (07/05/2020 2:26 PM CDT) Specimen Impressions Performed At Impression: PACS/VR/DOSE 1. No acute osseous abnormality of the left tibia and fibula. RL: 2831 Electronically signed by Mauro Vega MD at 020 2:46 PM Narrative Performed At ORDERING PHYSICIAN: SAVANAH CEVALLOS PACS/VR/DOSE TWO VIEWS OF THE LEFT TIBIA-FIBULA DATE: 07/05/2020 CLINICAL INDICATIONS: Left lower leg yakelin n. COMPARISON: None FINDINGS: Frontal and lateral views of t he left tibia and fibula demonstrate no evidence for acute fractu re, subluxation or destructive osseous lesion. No significant soft tissue swelling or radiopaque foreign body is identified. Procedure Note [facility], Radiant Results Inft User - 2019 2:47 PM CDT ORDERING PHYSICIAN: SAVANAH CEVALLOS TWO VIEWS OF THE LEFT TIBIA-FIBULA DATE: 07/05/2020 CLINICAL INDICATIONS: Left lower leg yakelin n. COMPARISON: None FINDINGS: Frontal and lateral views of t he left tibia and fibula demonstrate no evidence for acute fractu re, subluxation or destructive osseous lesion. No significant soft tis shantell swelling or radiopaque foreign body is identified. IMPRESSION Impression: 1. No acute osseous abnormality of the left tibia and fibula. RL: 2831 Performing Organization Address [facility] PACS/VR/DOSE documented in this encounter Visit Diagnoses Diagnosis Left leg pain - Primary Pain in limb Acute pain of left knee documented in this encounter Administered Medications Medication Order MAR Action Action Date Dose Rate Site methylPREDNISolone acetate Given by Provider 07/05/2020 80 mg Left Shoulder (DEPO-MEDROL) injection 80 1:42 PM CDT mg 80 mg, Intra-articular, ONCE, 1 dose, 07/05/20 at 1445, Routine methylPREDNISolone acetate Given by Provider 07/05/2020 1:42 80 mg Right Shoulder (DEPO-MEDROL) injection 80 PM CDT mg 80 mg, Intra-articular, ONCE, 1 dose, 07/05/20 at 1445, Routine documented in this encounter Insurance Payer Benefit Plan / Subscriber ID Effective Phone Address T [facility] Group Dates MEDICARE MEDICARE PART A [id number] 2016-Pres [phone] [address] Medicare & B ent [id number] HAL[place] HAN[place] [phone] BCBS OF [facility] [id number] 2016-Pres [phone] [facility] ent [phone] [place] [address] documented as of this encounter
--- OUTSIDE RECORDS SUMMARY | 2020-08-26 17:14 | XMS REPORT | Summary of Care ---
:1950 Author Organization [facility] Address [address] [place] [address] Care Team Providers Name Role Phone Pcp, Does Not Have A Primary Care Provider Reason for Referral Radiology Services (Routine) Status Reason Specialty Diagnoses / Referred By Referred To Procedures Contact Contact New Request Diagnostic Diagnoses Acute pain of left knee Savanah Cevallos, Radiology Procedures XR KNEE 3 VW LEFT [address] [address] Radiology Services (Routine) Status Reason Specialty Diagnoses / Referred By Referred To Procedures Contact Contact New Request Diagnostic Diagnoses Left leg pain Savanah Cevallos, Radiology Procedures XR TIBIA FIBULA 2 VW LEFT [address] [address] Reason for Visit Reason Comments INJECTION nora/shoulder depo (Routine) Status Reason Specialty Diagnoses / Referred By Referred To Procedures Contact Contact Authorized Orthopedic Surgery Diagnoses Right shoulder pain, unspecified chronicity Belcher, Procedures CONSULT/REFERRAL ORTHOPAEDIC SURGERY MD Dorita [address] [place] [address] Encounter Details Date Type Department Care Team Description 07/05/2020 Office Visit [facility] Orthopaedic Savanah Cevallos L eft leg pain (Primary Dx); Surgery- Patti Barcenas MD Acute pain of left knee [place] [address] [facility] [address] [facility] [id number] [place] [address] [phone] Allergies Active Allergy Reactions Severity Noted Date [...] h/o Lupus (Rheumatology) Occ: Disabled (nursing) Resides: [place] Meds: Tramadol (seizures) Treatments: PT ([facility]), Injection B-SH PLAN/OPTIONS After full disclosure of [...] Visit Pain Medicine Patti Aguilar MD [address] [facility] [address] [place] [phone] 08/01/2020 Office Visit Neurology Dorita Belcher MD [address] [place] [phone] 10/25/2020 Office Visit Orthopedic Surgery Savanah Cevallos MD [address] [facility] [address] [place] [phone] Health Maintenance Due Date Last Done [...] and fibula. RL: 2831 Performing Organization Address City[facility]State[facility] PACS/VR/DOSE documented in this [...] / Subscriber ID Effective Phone Address T [facility] Group Dates MEDICARE MEDICARE PART A [id number] 2016-Pres [phone] [address] Medicare & B ent [id number] [place]AN[place] [address] BCBS OF [facility] [id number] 2016-Pres [phone] [facility] ent [phone] [place] [address] documented as of this encounter
--- OUTSIDE RECORDS SUMMARY | 2020-08-26 17:14 | XMS REPORT | Summary of Care ---
:1950 Author Organization [facility] Address [address] [place] [id number] Care Team Providers Name Role Phone Pcp, Does Not Have A Primary Care Provider Reason for Referral Radiology Services (Routine) Status Reason Specialty Diagnoses / Referred By Referred To Procedures Contact Contact New Request Diagnostic Diagnoses Acute pain of left knee Amari Cevallos, Radiology Procedures XR KNEE 3 VW LEFT [phone] [address] Radiology Services (Routine) Status Reason Specialty Diagnoses / Referred By Referred To Procedures Contact Contact New Request Diagnostic Diagnoses Left leg pain Amari Cevallos, Radiology Procedures XR TIBIA FIBULA 2 VW LEFT [phone] [address] Reason for Visit Radiology Services (Routine) Status Reason Specialty Diagnoses / Referred By Referred To Procedures Contact Contact New Request Diagnostic Diagnoses Left leg pain Amari Cevallos, Radiology Procedures XR TIBIA FIBULA 2 VW LEFT [phone] [address] Encounter Details Date Type Department Care Team Description 07/05/2020 Hospital Encounter [facility] Amari Cevallos MD Arrived [facility] Radiolo gy [address] [facility] [id number] [place] [address] [place], [place] [phone] Allergies Active Allergy Reactions Severity Noted Date [...] TOTAL OF 3 DOSES IN 15 MINUTES documented as of this encounter (statuses as [...] of this encounter Last Filed Vital Signs Not on filedocumented in this encounter Plan of Treatment Date Type Specialty Care Team Description 07/11/2020 Office Visit Pain Medicine Patti Aguilar MD [address] [place], [place] [address] 08/01/2020 Office Visit Neurology Dorita Belcher MD [address] [place], [place] [phone] 10/25/2020 Office Visit Orthopedic Surgery Amari Cevallos MD [address] [place], [place] [address] Health Maintenance Due Date Last Done [...] Completed 01/25/2017 documented as of this encounter Procedures Procedure Name Priority Date/Time Associated Diagnosis Comme nts XR TIBIA FIBULA 2 Routine 07/05/2020 2:26 PM Left leg pain Re sults for this VW LEFT CDT procedure are i n the results section. XR KNEE 3 VW LEFT Routine 07/05/2020 2:26 PM Acute pain of le ft Results for this CDT knee procedure are i n the results section. documented in this encounter Results XR KNEE 3 VW LEFT (07/05/2020 2:26 PM CDT) Specimen Impressions Performed At Impression: PACS/VR/DOSE 1. No acute osseous abnormality of the left knee is identified. RL: [id number] Electronically signed by Mauro Vega MD at 020 2:46 PM Narrative Performed At ORDERING PHYSICIAN: AMARI CEVALLOS PACS/VR/DOSE THREE VIEWS OF LEFT KNEE. DATE: 07/05/2020 CLINICAL HISTORY: Left knee pain. COMPARISON: None. FINDINGS: 3 views of the left knee demon strate no evidence for acute fracture, subluxation or destructive osseous lesion. No significant joint effusion is identified. Procedure Note [facility], Radiant Results Inft User - 2019 2:47 PM CDT ORDERING PHYSICIAN: AMARI CEVALLOS THREE VIEWS OF LEFT KNEE. DATE: [...] 2:46 PM Narrative Performed At ORDERING PHYSICIAN: AMARI CEVALLOS PACS/VR/DOSE TWO VIEWS OF THE LEFT [...] - 2019 2:47 PM CDT ORDERING PHYSICIAN: AMARI CEVALLOS TWO VIEWS OF THE LEFT TIBIA-FIBULA [...] and fibula. RL: [id number] Performing Organization Address City/State/Zipcode Phone Number PACS/VR/DOSE documented in this encounter Visit Diagnoses Diagnosis Left leg pain Pain in limb Acute pain of left knee documented in this encounter Insurance Payer Benefit Plan / Subscriber ID Effective Phone Address T ype Group Dates MEDICARE MEDICARE PART A [id number] 2016-Pres [phone] [address] Medicare & B ent [phone] [place] [id number] [employer] OF [employer] [id number] 2016-Pres [phone] [facility] TRADITIONAL ent [phone] [place] [address] documented as of this encounter
--- OUTSIDE RECORDS SUMMARY | 2020-08-26 17:14 | XMS REPORT | Continuity of Care Document ---
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 12/12/[address] Snoring (Symptom) Active 02/02/2014 [facility] Excessive Active 02/02/2014 [place] Sleepiness During Ph ysicians The Day (Daytime Somnolence) Ischemic Stroke Active 02/02/2014 [place] [facility] Systemic Lupus Active 02/02/2014 [place] Erythematosus Physic ians 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 [facility] aneurysm using Medic al bifurcation graft Ce ntevan, (procedure) OPIClemencia Ventura claros Cerebrovascular Resolved Problem 03/25/2018 [facility] accident [facility] (disorder) [place], YU Mooney nn Hypertensive Resolved Problem 03/25/2018 Adi as disorder, systemic M edical arterial Center, (disorder) YU Herm litzy Lupus Resolved Problem 03/25/2018 [facility] erythematosus Medica l (disorder) Center, YU Mooney nn AAA - Repair of Resolved Problem 12/15/2012 [facility] abdominal aortic Med ical aneurysm using Cente r bifurcation graft CVA - Resolved Problem 12/15/2012 [facility] Cerebrovascular [facility] accident Center HTN - Hypertension Resolved Problem 12/15/2012 [facility] [place] Lupus Resolved Problem 12/15/2012 [facility] [place] CVA Active [facility] [place] DORSOPATHY, Active [facility] SYSTEMIC LUPUS Active [facility] [place] ERYTHEMATOSUS, Medic al UNSPECIFIE Center Medications Medication Details Route Status Patient Ordering Order Source Instructions Provider Date Lisinopril 10 ; Start Active 01/16/ [place] MG Oral Tablet Date: 2012 Physician s 01/16/2013; End Date: (Active) ciprofloxacin 500 mg, 1 PO Active [place] [place] 500 mg oral tab, PO, 2012 Medical tablet [id number], 6 Center tab, Substitution Allowed, TAB atorvastatin 40 40 mg, 1 PO Active [facility] 12/13[facility] [place] mg oral tablet tab, PO, 2012 Medical QPM, 30 tab, Center Substitution Allowed, TAB aspirin 325 mg 325 mg, 1 PO Active [facility] 12/13[facility] [place] tablet, enteric tab, PO, 2012 Medical coated Daily, 30 Center tab, Substitution Allowed, ECTAB Toprol-XL 50 mg 50 mg, 1 PO No [facility] 12/13[facility] [place] oral tablet, tab, Route: Longer 2012 Medical extended PO, Drug Active Center release form: ERTAB, Daily, Start date: 12/13/12 9:00:00, Duration: 30 day, Stop date: 01/11/13 9:00:00 ciprofloxacin 500 mg, 1 PO No [facility] 12/13[facility] [place] tab, Route: Longer 2012 Medical PO, Drug Active Center form: TAB, [id number], Dosing Weight 78.182, kg, Start date: 12/13/12 8:00:00, Duration: 30 day, Stop date: 01/11/13 20:00:00 nortriptyline 75 mg, 3 PO No [facility] cap, Route: Longer 2012 Medical PO, Drug Active Center form: CAP, Bedtime, Dosing Weight 78.182, kg, Start date: 12/12/12 21:00:00, Duration: 30 day, Stop date: 01/10/13 21:00:00 atorvastatin 40 mg, 1 PO No Mike 12/12[facility] tab, Route: Longer 2012 Medical PO, Drug Active Center form: TAB, QPM, Dosing Weight 78.182, kg, Start date: 12/12/12 17:00:00, Duration: 30 day, Stop date: 01/10/13 17:00:00 Protonix 40 mg, 1 PO No [place] 12/12[facility] tab, Route: Longer 2012 Medical PO, Drug Active Center form: ECTAB, Before Dinner, Start date: 12/12/12 16:30:00, Duration: 30 day, Stop date: 01/10/13 16:30:00 Prevacid 30 mg, PO No [place] 03/08[facility] Route: PO, Longer 2012 Medical Drug form: Active Center DRC, Daily, Dosing Weight 78.182, kg, Start date: 12/12/12 9:00:00, Duration: 30 day, Stop date: 01/10/13 9:00:00 metFORmin 500 500 mg, 1 PO No [place] mg oral tablet tab, Route: Longer 2012 Medic al PO, Drug Active Center form: TAB, QAM, Dosing Weight 78.182, kg, Start date: 12/12/12 9:00:00, Duration: 30 day, Stop date: 01/10/13 9:00:00 famotidine 20 mg, 1 PO No [place] Bob[place] tab, Route: Longer 2012 Medical PO, Drug Active Center form: TAB, Q12H, Dosing Weight 78.182, kg, Start date: 12/12/12 9:00:00, Duration: 30 day, Stop date: 01/10/13 21:00:00 Saline Flush 5 ml, Route: IVP No [place] Adi as 0.9% IVP, Drug Longer 2012 Medical Form: INJ, Active Center Dosing Weight 78.182, kg, Q12H, Start date: 12/12/12 9:00:00, Duration: 30 day, Stop date: 01/10/13 21:00:00 aspirin 325 mg 325 mg, 1 PO No [place] Adia s tablet, enteric tab, Route: Longer 2012 Medi gina coated PO, Drug Active Center form: ECTAB, Daily, Dosing Weight 78.182, kg, Start date: 12/12/12 9:00:00, Duration: 30 day, Stop date: 01/10/13 9:00:00 Lovenox 40 mg, 0.4 SUB-Q No [place] Bobbi mL, Route: Longer 2012 Medical SUB-Q, Drug Active Center form: INJ, Q24H, Dosing Weight 78.182, kg, Start date: 12/12/12 8:00:00, Duration: 30 day, Stop date: 01/10/13 8:00:00 Rocephin 1 gm, Route: IVPB No [facility] [place] IVPB, Drug Longer 2012 Medical form: Active Center PDR/INJ, [id number], Dosing Weight 78.182, kg, Start date: 12/12/12 3:00:00, Duration: 30 day, Stop date: 01/10/13 3:00:00 insulin regular 5 unit, 0.05 SUB-Q No [place] 100 units/mL mL, Route: Longer 2012 Medical human SUB-Q, Drug Active Center recombinant form: SOLN, PRN, Dosing Weight 78.182, kg, PRN Abnormal Lab Result, Start date: 12/12/12 2:08:00, Duration: 30 day, Stop date: 01/11/13 3:07:00 Dextrose 50% 6.25 gm, IVP No [place] [facility] Syringe 12.5 mL, Longer 2012 Medical Route: IVP, Active [place] Drug Form: INJ, Dosing Weight 78.182, kg, PRN, PRN Abnormal Lab Result, Start date: 12/12/12 2:08:00, Duration: 30 day, Stop date: 01/11/13 3:07:00 tramadol 50 mg 50 mg, 1 PO No [place] [facility] oral tablet tab, Route: Longer 2012 Medical PO, Drug Active Center form: TAB, TID, Dosing Weight 78.182, kg, PRN as needed for pain, Start date: 12/12/12 2:05:00, Duration: 30 day, Stop date: 01/11/13 2:04:00 Ventolin HFA 90 3 puff, INHALATION No [place] mcg/inh Route: Longer 2012 Medical inhalation INHALATION, Active Center aerosol with Drug Form: adapter AERO/A, Dosing Weight 78.182, kg, Daily, PRN as needed for wheezing, Start date: 12/12/12 2:03:00, Duration: 30 day, Stop date: 01/11/13 2:02:00 ondansetron 4 mg, 2 mL, IVP No [place] [facility] Route: IVP, Longer 2012 Medical Drug form: Active Center INJ, Q8H, Dosing Weight 78.182, kg, PRN Nausea & Vomiting, Start date: 12/12/12 0:29:00, Duration: 30 day, Stop date: 01/11/13 0:28:00 bisacodyl 10 mg, 1 [place] No [place] [facility] supp, Route: Longer 2012 Medical [place], Drug Active Center form: SUPP, Daily, Dosing Weight 78.182, kg, PRN Constipation , Start date: 12/12/12 0:29:00, Duration: 30 day, Stop date: 01/11/13 0:28:00 acetaminophen 650 mg, 2 PO No [place] [facility] tab, Route: Longer 2012 Medical PO, Drug Active Center form: TAB, Q4H, Dosing Weight 78.182, kg, PRN Pain/Fever, Start date: 12/12/12 0:29:00, Duration: 30 day, Stop date: 01/11/13 0:28:00 Saline Flush 5 ml, Route: IVP No [place] Adi as 0.9% IVP, Drug Longer 2012 Medical Form: INJ, Active Center Dosing Weight 78.182, kg, PRN, PRN Line Flush, Start date: 12/12/12 0:29:00, Duration: 30 day, Stop date: 01/11/13 1:28:00 labetalol 10 mg, 2 mL, IVP No [place] [facility] Route: IVP, Longer 2012 Medical Drug form: Active Center INJ, Q10Min, Dosing Weight 78.182, kg, PRN Hypertension , Start date: 12/12/12 0:29:00, Duration: 30 day, Stop date: 01/11/13 1:28:00, For SBP > 180mmHg and/or DBP > 105mmHg Sodium Chloride 1,000 mL, IV No [place] Adi as 0.9% IV 1,000 Rate: 100 Longer 2012 Medical mL ml/hr, Active Center Infuse over: 10 hr, Route: IV, kg, Total Volume: 1,000, Start date: 12/12/12 0:29:00, Duration: 30 day, Stop date: 01/11/13 0:28:00 Omnipaque 80 mL, IVP No [place] [facility] 350mg/ml Route: IVP, Longer 2012 Medical Drug Form: Active Center SOLN, Dosing Weight 78.182, kg, ONCALL, STAT, Start date: 12/12/12 0:28:00, Duration: 1 doses or times, Dose = 2.2ml/kg, Max dose = 100ml -- "To be infused by Radiology Staff ONLY"Dose = 2.2ml/kg, Max dose = 100ml -- "To be infused by Radiology Staff ONLY" Unknown Home pre forte, BOTH EYES Active Adi as Medication BOTH EYES, 2012 Medical qWeek, Center Substitution Allowed Ventolin HFA 3 puff, INHALATION Active [place] INHALATION, 2012 Medical Daily, PRN, Center as needed for wheezing, Substitution Allowed, Maintenance tramadol 50 mg 50 mg, 1 PO Active [place] oral tablet tab, PO, 2012 Medical TID, PRN, 60 Center tab, for pain, Substitution Allowed, TAB Flexeril 10 mg 10 mg, 1 PO Active [place] oral tablet tab, PO, 2012 Medical Q8H, PRN, 30 Center tab, for spasm, Substitution Allowed, TAB promethazine 25 25 mg, 1 PO Active [place] mg oral tablet tab, PO, 2012 Medical TID, PRN, 60 Center tab, for motion sickness, Substitution Allowed, TAB nortriptyline 50 mg, 1 PO Active [place] 50 mg oral cap, PO, 2012 Medical capsule Bedtime, 270 Center cap, Substitution Allowed, CAP Prevacid 30 mg 30 mg, 1 PO Active [place] oral delayed cap, PO, 2012 Medical release capsule Daily, Center Substitution Allowed metoprolol 100 100 mg, 1 PO Active [place] mg oral tablet, tab, PO, 2012 Medical extended QAM, 30 tab, Center release Substitution Allowed metFORmin 500 500 mg, 1 PO Active [place] mg oral tablet tab, PO, 2012 Medical QAM, 30 tab, Center Substitution Allowed Cyclobenzaprine ; Start Active HCl 5 MG Oral Date: 2011 [facility] Tablet 08/11/2012; End Date: (Active) PredniSONE 5 MG ; Start Active Oral Tablet Date: 2007 [facility] 07/16/2008 (Active) Lansoprazole 30 ; Start Active MG Oral Capsule Date: 2005 Physicia ns Delayed Release 08/12/2006; End Date: (Active) TraMADol HCl ER ; Start Active 11/06/ [place] 100 MG Oral Date: 2005 [facility] Tablet Extended 08/12/2006; Release 24 Hour End Date: (Active) TraMADol HCl ER ; Start Active 08/12/ [place] 100 MG Oral Date: 2005 [facility] Tablet Extended 08/12/2006; Release 24 Hour End Date: (Active) Nortriptyline (Active) Active [place] HCl 50 MG Oral Physician s Capsule Ventolin HFA (Active) Active [place] 108 (90 Base) Physicians MCG/ACT Inhalation Aerosol Solution MetFORMIN HCl (Active) Active [place] 500 MG Oral [facility] Tablet Promethazine (Active) Active [place] HCl 25 MG Oral Physician s Tablet Carafate 1 (Active) Active [place] GM/10ML Oral [facility]icians Suspension Metoprolol (Active) Active [place] Succinate ER 50 Physicia ns MG Oral Tablet Extended Release 24 Hour Pravastatin (Active) Active [place] Sodium 40 MG [facility] Oral Tablet Allergies, Adverse Reactions, Alerts Substance Category Reaction Severity Reaction Status Date Comments S ource type Reported Prevacid CPDR drug drug Active [place] allergy allergy Physicia ns Aleve TABS drug drug Active [place] allergy allergy Physicia ns Iodine drug drug Active [facility] Crystals allergy allergy Physici ans nonsteroidal Assertion nausea Drug Active M H OPID antiinflammat allergy He rmann ory agent povidone Assertion rash Drug Active OP ID iodine allergy Nick topical Darvocet N Assertion rash Drug Active OPID allergy [place] Immunizations No Data Provided for This Section Results Order Name Results Value Reference Date Interpretation Comments Shira rce Range Microbiolog Culture: 12/13 [facility] y [facility] Center BEDSIDE Comment1 Notify 12/13 NA Bobbi GLUCOSE HAYDEN/ /2012 Medical TESTING Center BEDSIDE Gluc POC 129 70 - 99 12/13 HI <sup>1</sup>In [facility] terpretive Medical TESTING Data: Center Upper Reportable Limit: 200 mg/dL. BEDSIDE Comment1 Notify 12/13 NA [place] GLUCOSE HAYDEN/ /2012 Medical TESTING Center BEDSIDE Gluc POC 133 70 - 99 12/13 HI <sup>2</sup>In [facility] terpretive Medical TESTING Data: Center Upper Reportable Limit: 200 mg/dL. CHEMISTRY Hgb A1C 6.9 12/13 NA <sup>10</sup>I [place] nterpretive Medical Data: HbA1C% Center eAG(mg/dL) Interpretation
6.0 126 Very good control
6.5 140 Very good control
7.0 154 Good Control
7.5 169 Good Control
8.0 183 Marginal Control, take action to lower
8.5 197 Marginal Control, take action to lower
9.0 212 Poor Control, take action to lower
9.5 226 Poor Control, take action to lower
10.0 240 Poor Control, take action to lower CHEMISTRY Ca Norm 1.11 1.16 - 12/13 LOW [facility] 1. [facility] CHEMISTRY Ca Ion 1.12 1.16 - 12/13 [facility] . [facility] CHEMISTRY Ca Ion mgdL 4.48 4.65 - 12/13 [facility] . [facility] CHEMISTRY Ca Norm mgdL 4.44 4. - 12/13 [facility] . [facility] CHEMISTRY Phosphorus 3.4 2.5 - 4.5 12/13 Normal [facility] CHEMISTRY eGFR 69 12/13 NA <sup>4</sup>Re [facility] sulsarath Comment: Medical The eGFR is Center calculated using the CKD-EPI formula. In most young, healthy individuals the eGFR will be >90 mL/min/1.73m2. The eGFR declines with age. An eGFR of 60-89 may be normal in some populations, particularly the elderly, for whom the CKD-EPI formula has not been extensively validated. Use of the eGFR is not recommended in the following populations:&l t;br/>
Ind ividuals with unstable creatinine concentrations , including patients and those with serious co-morbid conditions.

Patient s with extremes in muscle mass or diet.

The data above are obtained from the National Kidney Disease Education Program (NKDEP) which additionally recommends that when the eGFR is used in patients with extremes of body mass index for purposes of drug dosing, the eGFR should be multiplied by the estimated BMI. CHEMISTRY Chloride Lvl 106 95 - 109 12/13 Normal [facility] CHEMISTRY CO2 26 24 - 32 12/13 Normal [facility] CHEMISTRY Sodium Lvl 143 135 - 145 03/ Normal Medical Center CHEMISTRY Calcium Lvl 8.4 8.5 - 10.5 03 LOW s Medical Center CHEMISTRY Glucose Lvl 119 70 - 99 12/13 [place] <sup>7</sup>In terpretive Medical Data: Adult Center reference range values reflect the clinical guidelines<br/ >of the [place] [employer]. CHEMISTRY Potassium Lvl 4.0 3.5 - 5.1 12/13 Normal Adi [facility] Center CHEMISTRY Creatinine 0.9 0.5 - 1.4 12/13 Normal [place] [facility] CHEMISTRY BUN 12 7 - 22 12/13 Normal [facility] CHEMISTRY AGAP 15.0 10.0 - 03 Normal [place] 20.0 [facility] Center CHEMISTRY Magnesium Lvl 2.2 1.8 - 2.4 12/13 Normal Medical [place] HEMATOLOGY Platelet 258 133 - 450 12/13 Normal Medical [place] HEMATOLOGY RDW 14.6 11.5 - 03 HI [place] 14.5 /2012 Medical Center HEMATOLOGY MCHC 34.4 32.0 - 03 Normal [place] 36.0 /2012 Medical Center HEMATOLOGY MPV 8.2 7.4 - 10.4 12/13 Normal [facility] HEMATOLOGY RBC 4.14 4.20 - 03/ LOW [place] 5.40 /2012 Medical Center HEMATOLOGY WBC 5.0 3.7 - 10.4 12/13 Normal Medical [place] HEMATOLOGY Hct 38.1 36.0 - 03 Normal [place] 48.0 /2012 Medical Center HEMATOLOGY Hgb 13.1 12.0 - 03/ Normal [place] 16.0 /2012 Medical Center HEMATOLOGY MCH 31.7 27.0 - 03/09 HI [place] 31.0 /2012 Medical Center HEMATOLOGY MCV 92.1 81.0 - 03/ Normal [place] 99.0 /2012 Medical Center HEMATOLOGY Monocytes # 0.3 0.0 - 0.8 03 Normal [facility] HEMATOLOGY Lymphocytes # 1.1 1.0 - 5.5 03 Normal [place] [facility] HEMATOLOGY Basophils # 0.1 0.0 - 0.2 03 Normal s [facility] HEMATOLOGY Eosinophils # 0.3 0.0 - 0.5 03 Normal [place] [facility] [place] HEMATOLOGY Segs 63.5 45.0 - 03 Normal [place] 75.0 /2012 Medical [place] HEMATOLOGY Monocytes 6.9 2.0 - 12.0 03/ Normal [facility] HEMATOLOGY Lymphocytes 21.6 20.0 - 03 Normal [place] 40.0 /2012 Medical [place] HEMATOLOGY Segs-Bands # 3.2 1.5 - 8.1 12/13 Normal Medical [place] HEMATOLOGY Basophils 1.1 0.0 - 1.0 03/ HI Medical [place] HEMATOLOGY Eosinophils 6.9 0.0 - 4.0 12/13 HI [facility] CHEMISTRY Ca Norm 1.17 1.16 - 12/13 Normal [place] 1. [facility] CHEMISTRY Ca Ion 1.15 1.16 - 12/13 LOW [place] 1. [facility] CHEMISTRY Ca Norm mgdL 4.68 4.65 - 12/13 Normal [facility] 5. [facility] CHEMISTRY Ca Ion mgdL 4.60 4.65 - 03 LOW [facility] 5. [facility] Center CHEMISTRY Phosphorus 3.3 2.5 - 4.5 12/13 Normal [facility] CHEMISTRY Chloride Lvl 104 95 - 109 12/13 Normal [facility] CHEMISTRY CO2 23 24 - 32 12/13 LOW [facility] CHEMISTRY Calcium Lvl 8.5 8.5 - 10.5 12/13 Normal [facility] CHEMISTRY AGAP 18.5 10.0 - 03 Normal 20.0 [facility] CHEMISTRY BUN 12 7 - 22 12/13 Normal [facility] CHEMISTRY Glucose Lvl 115 70 - 99 12/13 [place] <sup>8</sup>In terpretive Medical Data: Adult Center reference range values reflect the clinical guidelines<br/ >of the [place] [employer]. CHEMISTRY Creatinine 0.5 0.5 - 1.4 12/13 Normal [facility] CHEMISTRY eGFR 105 12/13 NA <sup>5</sup>Re sult Comment: Medical The eGFR is Center calculated using the CKD-EPI formula. In most young, healthy individuals the eGFR will be >90 mL/min/1.73m2. The eGFR declines with age. An eGFR of 60-89 may be normal in some populations, particularly the elderly, for whom the CKD-EPI formula has not been extensively validated. Use of the eGFR is not recommended in the following populations:&l t;br/>
Ind ividuals with unstable creatinine concentrations , including patients and those with serious co-morbid conditions.

Patient s with extremes in muscle mass or diet.

The data above are obtained from the National Kidney Disease Education Program (NKDEP) which additionally recommends that when the eGFR is used in patients with extremes of body mass index for purposes of drug dosing, the eGFR should be multiplied by the estimated BMI. CHEMISTRY Sodium Lvl 141 135 - 145 12/13 Normal [facility] CHEMISTRY Potassium Lvl 4.5 3.5 - 5.1 12/13 Normal [facility] CHEMISTRY Magnesium Lvl 2.2 1.8 - 2.4 12/13 Normal [facility] Medical [place] BEDSIDE Gluc POC 145 70 - 99 12/13 [place] <sup>3</sup>In [facility] GLUCOSE [facility] terpretive Medical TESTING Data: Center Upper Reportable Limit: 200 mg/dL. BEDSIDE Comment1 Notify 12/13 Located within [facility] GLUCOSE RN/MD Medical TESTING Center URINALYSIS UA 0.1 - 1.0 12/12 Located within [facility] Urobilinogen [facility] URINALYSIS UA RBC <1 0 - 2 12/12 Normal [facility] URINALYSIS UA Sq Epi Few /LPF Few 12/12 NA [facility] *NA* /2012 Medical (12/12/2012 05:40:02) Ce nter URINALYSIS UA WBC 1 0 - 5 12/12 Normal [facility] URINALYSIS UA Nitrite Negative Negative 12/12 Normal [facility] (12/12/2012 05:40:02) [facility] URINALYSIS UA Leuk Est Trace Negative 12/12 ABN [facility] *ABN* [facility] (12/12/2012 05:40:02) Ce nter URINALYSIS UA Blood Negative Negative 12/12 Normal [facility] (12/12/2012 05:40:02) [facility] URINALYSIS UA Bili Negative Negative 12/12 NA [facility] *NA Medical (12/12/2012 05:40:02) Ce nter URINALYSIS UA Ketones Negative mg/dL Negative 12/12 NA [facility] * Medical (12/12/2012 05:40:02) Ce nter URINALYSIS UA Glucose Negative mg/dL Negative 12/12 NA [facility] * [facility] (12/12/2012 05:40:02) Ce nter URINALYSIS UA Protein Negative mg/dL Negative 12/12 Normal [facility] (12/12/2012 05:40:02) Mt dical Center URINALYSIS UA pH 7.5 5.0 - 8.0 12/12 Normal [facility] URINALYSIS UA Spec Grav 1.046 <=1.030 12/12 HI [facility] URINALYSIS UA Turbidity Clear Clear 12/12 Normal [facility] (12/12/2012 05:40:02) [facility] UA Color Light Yellow Yellow 12/12 [facility] s * [facility] (12/12/2012 05:40:02) Ce nter CHEMISTRY CHD Risk 2.52 3.90 - 12/12 LOW [facility] 5.80 [facility] CHEMISTRY LDL 74 0 - 129 12/12 Normal [facility] CHEMISTRY Trig 115 0 - 200 12/12 Normal [facility] CHEMISTRY HDL 64 >=35 12/12 Normal [facility] CHEMISTRY Chol 161 120 - 200 12/12 Normal [facility] CHEMISTRY eGFR 69 12/12 NA <sup>6</sup>Re sult Comment: Medical The eGFR is Center calculated using the CKD-EPI formula. In most young, healthy individuals the eGFR will be >90 mL/min/1.73m2. The eGFR declines with age. An eGFR of 60-89 may be normal in some populations, particularly the elderly, for whom the CKD-EPI formula has not been extensively validated. Use of the eGFR is not recommended in the following populations:&l t;br/>
Ind ividuals with unstable creatinine concentrations , including patients and those with serious co-morbid conditions.

Patient s with extremes in muscle mass or diet.

The data above are obtained from the National Kidney Disease Education Program (NKDEP) which additionally recommends that when the eGFR is used in patients with extremes of body mass index for purposes of drug dosing, the eGFR should be multiplied by the estimated BMI. CHEMISTRY Chloride Lvl 104 95 - 109 03/ Normal [facility] CHEMISTRY CO2 27 24 - 32 03/ Normal [facility] CHEMISTRY Potassium Lvl 4.3 3.5 - 5.1 12/12 Normal [facility] CHEMISTRY Bili Total 0.3 0.2 - 1.3 / Normal [facility] CHEMISTRY AST 20 0 - 37 / Normal [facility] CHEMISTRY Total Protein 7.1 6.4 - 8.4 12/12 Normal [facility] CHEMISTRY Calcium Lvl 8.5 8.5 - 10.5 12/12 [facility] [place] CHEMISTRY Glucose Lvl 113 70 - 99 12/12 [place] <sup>9</sup>In terpretive Medical Data: Adult Center reference range values reflect the clinical guidelines<br/ >of the [place] [employer]. CHEMISTRY Alk Phos 111 39 - 136 / Normal [facility] CHEMISTRY Sodium Lvl 138 135 - 145 / Normal [facility] CHEMISTRY Creatinine 0.9 0.5 - 1.4 12/12 Normal [facility] l [facility] CHEMISTRY BUN 10 7 - 22 12/12 Normal [facility] CHEMISTRY Albumin Lvl 3.4 3.5 - 5.0 / LOW [facility] CHEMISTRY ALT 18 0 - 65 03/ Normal [facility] CHEMISTRY Globulin 3.7 2.0 - 4.0 / Normal [facility] CHEMISTRY AGAP 11.3 10.0 - 03/08 Normal [facility] 20.0 [facility] CHEMISTRY B/C Ratio 11 6 - 25 03/ Normal [facility] CHEMISTRY A/G Ratio 0.9 0.7 - 1.6 03/ Normal [facility] HEMATOLOGY Eosinophils # 0.3 0.0 - 0.5 / Normal [facility] HEMATOLOGY Lymphocytes # 1.1 1.0 - 5.5 03/ Normal [facility] HEMATOLOGY Monocytes # 0.4 0.0 - 0.8 03/ [place] [facility] HEMATOLOGY Basophils # 0.1 0.0 - 0.2 03/ [place] [facility] HEMATOLOGY Eosinophils 6.1 0.0 - 4.0 03/ [place] [facility] HEMATOLOGY Basophils 1.0 0.0 - 1.0 03/ Normal Medical [place] HEMATOLOGY Segs-Bands # 3.6 1.5 - 8.1 03/ Normal [facility] HEMATOLOGY Monocytes 6.4 2.0 - 12.0 03/ Normal Medical Center HEMATOLOGY Segs 65.9 45.0 - 03 Normal [place] 75.0 [facility] HEMATOLOGY Lymphocytes 20.6 20.0 - 03/08 Normal [place] 40.0 /2012 [facility] HEMATOLOGY WBC 5.5 3.7 - 10.4 12/12 [facility] HEMATOLOGY Hgb 13.5 12.0 - 03/08 Normal [place] 16.0 /2012 [facility] HEMATOLOGY RBC 4.38 4.20 - 0308 Normal [place] 5.40 /2012 [facility] HEMATOLOGY MCH 30.8 27.0 - 03/08 Normal [place] 31.0 /2012 [facility] HEMATOLOGY RDW 14.6 11.5 - 03 HI [place] 14.5 /2012 [facility] HEMATOLOGY MCHC 33.4 32.0 - 03/08 Normal [place] 36.0 /2012 [facility] HEMATOLOGY Hct 40.3 36.0 - 0308 Normal [place] 48.0 /2012 [facility] HEMATOLOGY MCV 92.0 81.0 - 03/08 Normal [place] 99.0 /2012 [facility] HEMATOLOGY MPV 8.2 7.4 - 10.4 03 Normal [facility] HEMATOLOGY Platelet 258 133 - 450 03 Normal [facility] Microbiolog Culture: 12/12 [place] [facility] [place] HEMATOLOGY Lymphocytes # 1.1 1.0 - 5.5 03/ [facility] HEMAT[facility]Y Monocytes # 0.3 0.0 - 0.8 03/ [facility] [place] [facility]EM[facility] Basophils # 0.0 0.0 - 0.2 03/ [place] [facility] HEMATOLOGY Eosinophils # 0.3 0.0 - 0.5 03/ [place] [facility] HEMATOLOGY Segs-Bands # 3.7 1.5 - 8.1 03/ Normal [place] /2012 [facility] HEMATOLOGY Basophils 0.7 0.0 - 1.0 / Normal /2012 [facility] HEMATOLOGY Eosinophils 5.7 0.0 - 4.0 / [place] [facility] HEMATOLOGY Monocytes 6.0 2.0 - 12.0 / Normal /2012 [facility] HEMATOLOGY Lymphocytes 21.2 20.0 - 03 Normal [place] 40.0 /2012 [facility] HEMATOLOGY Segs 66.4 45.0 - 03 Normal [place] 75.0 /2012 [facility] HEMATOLOGY PT 13.4 12.0 - 03 Normal [place] 14.7 /2012 [facility] HEMATOLOGY PTT 35.7 22.9 - 03 Normal <sup>12</sup>I [place] 35.8 /2012 nterpretive Medical Data: Heparin Center Therapeutic Range: 57 - 92 Seconds HEMATOLOGY INR 1.00 0.85 - 12/12 Normal <sup>11</sup>I [place] 1.17 /2012 nterpretive Medical Data: Center RECOMMENDED RANGES FOR PROTIME INR:
2.0-3.0 for most medical and surgical thromboembolic states.
2.5-3.5 for artificial heart valves and recurrent embolism.

INR SHOULD BE USED ONLY FOR PATIENTS ON STABLE ANTICOAGULANT THERAPY. HEMATOLOGY Platelet 292 133 - 450 / Normal /2012 [facility] HEMATOLOGY RDW 13.6 11.5 - 03 Normal [place] 14.5 /2012 [facility] HEMATOLOGY MCHC 33.5 32.0 - 03/ Normal [place] 36.0 /2012 [facility] HEMATOLOGY MCH 30.5 27.0 - 03/ Normal [place] 31.0 /2012 [facility] HEMATOLOGY RBC 4.45 4.20 - 03 Normal [place] 5.40 /2012 [facility] HEMATOLOGY WBC 5.4 3.7 - 10.4 / Normal /2012 [facility] HEMATOLOGY MPV 8.3 7.4 - 10.4 12/12 Normal [facility] /2012 [facility] HEMATOLOGY MCV 91.0 81.0 - 12/12 Normal [facility] 99.0 /2012 [facility] HEMATOLOGY Hct 40.5 36.0 - 12/12 Normal [facility] 48.0 /2012 [facility] HEMATOLOGY Hgb 13.6 12.0 - 12/12 Normal [facility] 16.0 /2012 [facility] Pathology Reports No Data Provided for This Section Diagnostic Reports Report Value Date Source Pelvis Transvaginal US EXAM: US PELVIS TRANSABDOMINAL 01/23/2018 [facility] Nick EXAM: US PELVIS TRANSVAGINAL DATE: 01/23/2018 12:40 PM CDT INDICATION: R19.00 Intra-a bdominal and pelvic swelling, mass and lump, unspecified site - R19.00 Intra-abdominal and pelvic swelling, mass and lump, unspecified site ADDITIONAL INFORMATION: A1 COMPARISON: None. TECHNIQUE: Multiplanar brenner scale and color Doppler ultrasound of the pelvis were obtained: Transabdominally through a distended urinary mendoza dder. Transvaginally postvoid. FINDINGS: Uterus/Myometrium: Size: 3.7 x 1.7 x 1.6 cm Orientation: Anteverted Echogenicity: Normal. Masses: Subcentimeter hypoec hoic structure in the uterine body measuring 4 x 3 x 5 mm. Cervix: Normal. Endometrium: Thickness: 0.4 cm; heterogenous Cysts/Masses: None. Right ovary: Surgically absent. Left ovary: Not definitely s een. Please see more details in the section titled adnexa below. Adnexa: Complex left adnexal cystic lesion with septations measuring 2.7 x 2.0 x 2.6 cm with no appreciable blood flow. There is also a solid structure in the region of the left adnexa measuring 2.8 x 1.8 x 2.8 cm with a suggestion of minimal flow. Free fluid: None. Other: None. IMPRESSION: 1. Left ovary is not defini tely seen, however there is a solid structure in the region in the region of the left adnexa measuring 2.8 x 1.8 x 2.8 cm with a suggestion of minimal flow could represent no rmal ovarian tissue or an ad nexal/ovarian mass. Recommend further evaluation with MR pelvis with and without contrast. 2. Complex left adnexal cys tic lesion containing septations measuring 2.7 x 2.0 x 2.6 cm could represent a complex cyst. This can be also be reassessed at the time of the MR pelvis as mentioned above in impression #1. 3. Subcentimeter uterine fibroid measuring up t o 5 mm. 4. Status post right oophorectomy. Spine lumbar wo contrast Exam: CT lumbar spine without contrast. 12/17/[address] DATE: 12/17/2017 INDICATION: Back pain and right hip pain. COMPARISON: MRI lumbar spine dated 01/09/2006 TECHNIQUE: Axial CT images o f the lumbar spine are obtained without contrast. Coronal and sagittal reformats are provided. FINDINGS: Vertebral bodies are of norm al height and shape. Mild levoscoliosis of the lumbar spine is centered at L4-L5. No acute fracture or subluxation. Cholecystectomy clips and he patic calcifications in the partially visualized prevertebral soft tissues. Calcification in the left upper quadrant lateral to the left adrenal gland on series 3 image 32 pr esumably a small calcified s plenic artery aneurysm versus vascular calcification. Note is made of the left adnexal hypodensity on series 3 image 112, measuring 2.8 x 2.6 x 2.1 cm. Levels not described below are deemed normal. L4-L5: Schmorl's node deform ity along the superior endplate of L5. The spinal canal is of normal caliber. Foramina are patent. L5-S1: Moderate loss of disc height is present posteriorly and on the right. Endplate osteophytes minimally indent the ventral thecal sac. Facet arthrosis is noted. Both foramina are patent. IMPRESSION: 1. No spinal canal stenosis or neural compromis e. 2. Left adnexal hypodensity likely represents ovarian cyst. Recommend pelvic ultrasound further evaluate and exclude neoplasm. Spine lumbar series DX EXAM: XR LUMBAR SPINE 5 VIEWS 04/25/2017 [facility] DATE: 04/25/2017 2:18 PM CDT Cent er INDICATION: Sciatica of the right side COMPARISON: Correlate with l umbar spine magnetic resonance imaging on 01/09/2006 TECHNIQUE: AP, lateral, con ed lateral, LPO and RPO radiographs of the lumbar spine FINDINGS: 5 non-rib bearing, lumbar-type vertebral bodies are present. Minimal disc height loss and marginal osteophyte formation is seen at the L4-L5 and L5- S1 vertebral levels, with disc height loss a symmetric to the right. Ther e is also mild facet arthrosis in the lower lumbar spine. Small osteophytes are present at the sacroiliac joints. Surgical clips are noted in the right upper quad rant. IMPRESSION: Mild degenerative disc disea se and facet arthrosis at the L4-L5 and L5-S1 vertebral levels, with disc height loss asymmetric to the right. Consultation Notes No Data Provided for This Section Discharge Summaries No Data Provided for This Section History and Physicals No Data Provided for This Section Vital Signs Vital Sign Value Date Comments Source Systolic (mm Hg) 133 12/13/2012 [facility] Respitory Rate 20 12/13/2012 [facility] Heart Rate 74 12/13/2012 [facility] Diastolic (mm Hg) 78 12/13/2012 [facility] Temperature Oral (F) 97.8 F 12/13/2012 [facility] Systolic (mm Hg) 155 12/13/2012 [facility] Diastolic (mm Hg) 86 12/13/2012 [facility] Systolic (mm Hg) 148 12/13/2012 [facility] Diastolic (mm Hg) 77 12/13/2012 [facility] Temperature Oral (F) 97.3 F 12/13/2012 [facility] Temperature Oral (F) 97.1 F 12/13/2012 [facility] Heart Rate 92 12/13/2012 [facility] Heart Rate 94 12/13/2012 [facility] Height 157.48 cm 12/12/2012 [facility] Weight 78.182 12/12/2012 [facility] [place] [facility] Height 157.48 cm 12/12/2012 [facility] [place] [facility] Weight 78.182 12/12/2012 [facility] [place] [facility] Encounters Location Location Encounter Encounter Reason Attending ADM DC Stat us Source Details Type Number For Provider Date Date Visit [facility] Inpatient [id number] GOKUL ESPINOZA 12/11 12/13 [place] [address] [employer] [facility] Center AUDIT [id number] 01/18 Physicia ns AUDIT [id number] 01/28 Physicia ns AUDIT [id number] 02/02 Physicia ns [facility] Outpatient [id number] Hitesh04/25 [place] 1 [facility] Outpt Diag [id number] Hitesh 07/01 07/02 [facility] [place] [facility] Outpt Diag [id number] Hitesh 12/17 12/18 [facility] Outpt Diag [id number] Hitesh 01/23 01/24 [facility] Procedures Procedure Code Date Perfomer Comments Source Gallbladder [id number] 10/07/2008 [place] [facility] Gallbladder [id number] 10/07/2008 [place] [facility] Abdomen [id number] 10/07/1996 cyst on tubes- [facility] incision<sup>1</[facility], [facility] [place] Ankle joint [id number] 10/07/1996 Tendon repair [facility] operations<sup>2</ Medica l sup> Center, [facility] [place] Abdomen incision [id number] 10/07/1996 1cyst on [facility] <sup>1</sup> tubes- [facility] Ankle joint [id number] 10/07/1996 2Tendon repair [facility] Medical <sup>2</sup> Center Exploratory [id number] 10/07/1974 ectopic [facility] laparotomy<sup>3</ pregnacy Medica l sup> Center, [facility] [place] Exploratory [id number] 10/07/1974 3ectopic [facility] laparotomy pregnacy Medical <sup>3</sup> Center Assessment and Plan No Data Provided for This Section Plan of Care Plan of Care Date Source [[facility]] LIPID PANEL 01/16/2013 01/18/2013 [place] [facility] Routine Social History Social History Date Source No data available for this 12/18/2017 [facility] [facility] section No data available for this 04/26/2017 [facility] section Never A Smoker (Active) 02/02/2014 [place] [facility] [place] Family History No Data Provided for This Section Advance Directives Order Name Results Value Date Source Advance Directives Advance Directives No Advance 02/02/2014 [place] [facility] Directives available. Advance Directives Advance Directives No Advance 01/28/2014 [place] [facility] Direct[place] available. Advance Directives Advance Directives No Advance 01/18/2013 [place] [facility] Direct[place] available. Functional Status No Data Provided for This Section
--- OUTSIDE RECORDS SUMMARY | 2020-08-26 17:14 | XMS REPORT | Summary of Care ---
:1950 Author Organization [facility] Address [address] [place] [address] Care Team Providers Name Role Phone Pcp, Does Not Have A Primary Care Provider Reason for Referral Radiology Services (Routine) Status Reason Specialty Diagnoses / Referred By Referred To Procedures Contact Contact New Request Diagnostic Diagnoses Acute pain of left knee Savanah Cevallos, Radiology Procedures XR KNEE 3 VW LEFT [address] [address] Radiology Services (Routine) Status Reason Specialty Diagnoses / Referred By Referred To Procedures Contact Contact New Request Diagnostic Diagnoses Left leg pain Savanah Cevallos, Radiology Procedures XR TIBIA FIBULA 2 VW LEFT [address] [address] Reason for Visit Reason Comments INJECTION nora/shoulder depo (Routine) Status Reason Specialty Diagnoses / Referred By Referred To Procedures Contact Contact Authorized Orthopedic Surgery Diagnoses Right shoulder pain, unspecified chronicity Belcher, Procedures CONSULT/REFERRAL ORTHOPAEDIC SURGERY MD Dorita [address] [place] [address] Encounter Details Date Type Department Care Team Description 07/05/2020 Office Visit [facility] Orthopaedic Savanah Cevallos L eft leg pain (Primary Dx); Surgery- Patti Barcenas MD Acute pain of left knee [place] [address] [facility] [address] [facility] [address] [place] [address] [phone] Allergies Active Allergy Reactions Severity Noted Date [...] h/o Lupus (Rheumatology) Occ: Disabled (nursing) Resides: [place] Meds: Tramadol (seizures) Treatments: PT ([facility]), Injection B-SH PLAN/OPTIONS After full disclosure [...] Visit Pain Medicine Patti Aguilar MD [address] [facility] [address] [place] [address] 08/01/2020 Office Visit Neurology Dorita Belcher MD [address] [place] [phone] 10/25/2020 Office Visit Orthopedic Surgery Savanah Cevallos MD [address] [facility] [address] [place] [address] Health Maintenance Due Date Last Done [...] / Subscriber ID Effective Phone Address T [employer] Dates MEDICARE MEDICARE PART A [id number] 2016-Pres [phone] [address] Medicare & B ent [id number] [place] [address] BCBS OF [facility] [id number] 2016-Pres [phone] [facility] ent [phone] [place] [address] documented as of this encounter
--- OUTSIDE RECORDS SUMMARY | 2020-08-26 17:15 | XMS REPORT | Summary of Care ---
:1950 Author Organization [facility] Address [address] [place] [address] Care Team Providers Name Role Phone Pcp, Does Not Have A Primary Care Provider Reason for Visit Reason Comments Notification Results Encounter Details Date Type Department Care Team Description 07/07/2020 Telephone [facility] Orthopaedic Eusebio Cevallos MD Notification; Results Surgery- [address] [facility] [place] [id number] [place] [address] [id number] [place] [id number] Allergies Active Allergy Reactions Severity Noted Date Comments Cauliflower Nausea and/or Vomiting 01/22/2017 Iodine And Iodide Anaphylaxis 11/29/2014 Containing Products Propoxyphene Rash 09/27/2014 N-Acetaminophen Iodine Rash 09/27/2014 Naproxen Anaphylaxis 01/21/2017 Spinach Hives 01/21/2017 Terazosin Unknown - See comments 08/10/2019 Muscl e ache, low blood pressure documented as of this encounter (statuses as of 07/08/2020) Medications Medication Sig Dispensed Refills Start Date [...] as of this encounter (statuses as of 07/08/2020) Active Problems Problem Noted Date COPD, moderate 01/19/2020 Seizure 01/21/2017 Esophageal reflux 03/16/2015 documented as of this encounter (statuses as of 07/08/2020) Immunizations Name Administration Dates Next Due Pneumococcal [...] Signs Not on filedocumented in this encounter Miscellaneous Notes Telephone Encounter - Carl Goins - 07/08/2020 10:58 AM CDTApt made for patient to come in to go over rad of left knee elephone Encounter - Owen Brower - 07/07/2020 2:13 PM CDTPatient called in regards to her Xray results . Please call patient documented in this encounter Plan of Treatment Date Type Specialty Care Team Description 07/11/2020 Office Visit Pain Medicine Doulatram, Gulsh an, MD [address] [facility] [address] [place], [place] [address] 07/26/2020 Office Visit Orthopedic Surgery Amari Cevallos MD [address] [facility] [address] [place], [place] [address] 08/01/2020 Office Visit Neurology Dorita Belcher MD [address] [place] [address] Jazmin Price ANP [address] [place] [phone] 10/25/2020 Office Visit Orthopedic Surgery Amari Cevallos MD [address] [facility] [address] [place], [place] [address] Health Maintenance Due Date [...] 01/25/2017 documented as of this encounter Results Not on filedocumented in this encounter Insurance Payer Benefit Plan / Subscriber ID Effective Phone Address T ype Group Dates MEDICARE MEDICARE PART A [id number] 2016-Pres [phone] [address] Medicare & B ent [id number] [place] [address] BS [facility] [id number] 2016-Pres [phone] [facility] [phone] [place] [address] documented as of this encounter
--- OUTSIDE RECORDS SUMMARY | 2020-08-26 17:15 | XMS REPORT | Summary of Care ---
:1950 Author Organization [facility] Address [address] [place] [address] Care Team Providers Name Role Phone Mitchell Mora MD Primary Care Provider Reason for Visit Reason Comments LAB WORK Auth/Cert Status Reason Specialty Diagnoses / Referred By Referred To Procedures Contact Contact Clinical Medical Procedures [facility] Lab Laboratory COVID TEST [address] [place] [address] Encounter Details Date Type Department Care Team Description 07/12/2020 Laboratory Only [facility] Megan Jensen MD [address] [place] [phone] COVID-19 (Primary Dx) Phlebotomy Only, Adc Test Lab-[address] [address] Allergies Active Allergy Reactions Severity Noted Date Comments Cauliflower Nausea and/or Vomiting 01/22/2017 Iodine And Iodide Anaphylaxis 11/29/2014 Containing Products Propoxyphene Rash 09/27/2014 N-Acetaminophen Iodine Rash 09/27/2014 Naproxen Anaphylaxis 01/21/2017 Spinach Hives 01/21/2017 Terazosin Unknown - See comments 08/10/2019 Muscl e ache, low blood pressure documented as of this encounter (statuses as of 07/12/2020) Medications Medication Sig Dispensed Refills Start Date [...] as of this encounter (statuses as of 07/12/2020) Active Problems Problem Noted Date COPD, moderate 01/19/2020 Seizure 01/21/2017 Esophageal reflux 03/16/2015 documented as of this encounter (statuses as of 07/12/2020) Immunizations Name Administration Dates Next Due Pneumococcal [...] Treatment Date Type Specialty Care Team Description 07/26/2020 Office Visit Orthopedic Surgery Amari Cevlalos MD [address] [place], [place] [address] 08/01/2020 Office Visit Neurology Dorita Belcher MD [address] [place] [address] Jazmin Price ANP [address] [place] [phone] 10/25/2020 Office Visit Orthopedic Surgery Amari Cevallos MD 301 [facility] [address] [place], [place] [address] [phone] Name Type Priority Associated Diagnoses Date/Ti me COVID-19 (PCR MOLECULAR LAB Routine COVID-19 03/2020 9:58 AM CDT TESTING) Name Type Priority Associated Diagnoses Order S chedule COVID-19 (PCR MOLECULAR LAB Routine COVID-19 Expe cted: 07/12/2020, TESTING) Expires: 2020 Health Maintenance Due Date Last Done Comments [...] Results Not on filedocumented in this encounter Visit Diagnoses Diagnosis COVID-19 - Primary documented in this encounter Additional Health Concerns Infection Onset Date Last Indicated Resolved Time COVID-19 Rule Out 07/12/2020 07/12/2020 documented as of this encounter Insurance Payer Benefit Plan / Subscriber ID Effective Phone Address T ype Group Dates MEDICARE MEDICARE PART A [id number] 2016-Pres [phone] [address] X Medicare & B ent [id number] HALI HANNA [address] BCBS [facility] [id number] 2016-Pres [phone] [facility] [employer] ent [phone] [place] [address] documented as of this encounter
--- OUTSIDE RECORDS SUMMARY | 2020-08-26 17:15 | XMS REPORT | Summary of Care ---
:1950 Author Organization [facility] Address [address] [place] [address] Care Team Providers Name Role Phone Mitchell Mora MD Primary Care Provider Reason for Visit Reason Comments LAB WORK Auth/Cert Status Reason Specialty Diagnoses / Referred By Referred To Procedures Contact Contact Clinical Medical Procedures [facility] Lab Laboratory COVID TEST [address] [place] [address] Encounter Details Date Type Department Care Team Description 07/12/2020 Laboratory Only [facility] Megan Jensen MD [address] [place] [phone] COVID-19 (Primary Dx) Phlebotomy Only, Adc Test Lab-[address] [address] Allergies Active Allergy Reactions Severity [...] Description 07/26/2020 Office Visit Orthopedic Surgery Amari Cevallos MD [address] [place], [place] [address] 08/01/2020 Office Visit Neurology Dorita Belcher MD [address] [place] [address] Jazmin Price ANP [address] [place] [phone] 10/25/2020 Office Visit Orthopedic Surgery Amari Cevallos MD 301 [facility] [address] [place], [place] [address] [phone] Name Type Priority Associated Diagnoses Date/Ti me [...] ype Group Dates MEDICARE MEDICARE PART A [id number] 2016-Pres [phone] [address] X Medicare & B ent [id number] [place] [address] BCBS [facility] [id number] 2016-Pres [phone] [address] [facility] TRADITIONAL ent [phone] [place] [address] documented as of this encounter
--- OUTSIDE RECORDS SUMMARY | 2020-08-26 17:16 | XMS REPORT | Summary of Care ---
:1950 Author Organization [facility] Address [address] [place] [id number] Care Team Providers Name Role Phone Mitchell Mora MD Primary Care Provider Reason for Referral (Routine) Status Reason Specialty Diagnoses / Referred By Referred To Procedures Contact Contact New Request Pain Medicine Diagnoses Acute pain of left knee Amari Cevallos, Procedures RE[facility]ERRAL [facility] [address] [place] [id number] MRI/CAT Scan (Routine) Status Reason Specialty Diagnoses / Referred By Referred To Procedures Contact Contact New Request Diagnostic Diagnoses Acute pain of left knee Amari Cevallos, Radiology Procedures MR KNEE LEFT WO CONTRAST [address] [place] [address] Reason for Visit Reason Comments Follow-up left knee pain Encounter Details Date Type Department Care Team Description 07/26/2020 Office Visit [facility] Orthopaedic Amari Cevallos A cute pain of left Surgery- [place] knee (Primary Dx) [place] [address] [place] [address] [address] [facility] [id number] [place] [phone] [id number] [phone] Allergies Active Allergy Reactions Severity Noted Date Comments Cauliflower Nausea and/or Vomiting 01/22/2017 Iodine And Iodide Anaphylaxis 11/29/2014 Containing Products Propoxyphene Rash 09/27/2014 N-Acetaminophen Iodine Rash 09/27/2014 Naproxen Anaphylaxis 01/21/2017 Spinach Hives 01/21/2017 Terazosin Unknown - See comments 08/10/2019 Muscl e ache, low blood pressure documented as of this encounter (statuses as of 07/26/2020) Medications Medication Sig Dispensed Refills Start Date [...] as of this encounter (statuses as of 07/26/2020) Active Problems Problem Noted Date COPD, moderate 01/19/2020 Seizure 01/21/2017 Esophageal reflux 03/16/2015 documented as of this encounter (statuses as of 07/26/2020) Immunizations Name Administration Dates Next Due Pneumococcal [...] Pressure - - Pulse - - Temperature 36.4 C (97.6 F) 07/26/2020 10:49 AM CDT Respiratory Rate - - Oxygen Saturation - - Inhaled Oxygen Concentration - - Weight 74.8 kg (165 lb) 07/26/2020 10:49 AM CDT Height 162.6 cm (5' 4.02") 07/26/2020 10:49 AM CDT Body Mass Index 28.3 07/26/2020 10:49 AM CDT documented in this encounter Progress Notes Lul Tavarez MD - 07/26/2020 10:50 AM CDTI, Lul Tavarez, personally interviewed, examined and/or ordered the services described in this doc umentation, as scribed by Mariela Glynn and it is both accurate and complete. Lul Tavarez MD uMariela gu - 07/26/2020 10:50 AM CDT CHIEF COMPLAINT: We were asked to see this patient to give my opinion regarding Becca Early, a female who presents with bilateral shoulder pain. HISTORY OF PRESENT ILLNESS Patient presents for follow up of bilateral shoulder. She reports her previous shoulder injections have been helpful. She complains of left knee pain after a fall in April 2020. She describes sciatic pain radiating fromthe lower back down to the ankle. Date of Injury/Duration: 2 years Mechanism of [...] appropriate, able to cooperate to baseline level Knee Exam: Knee Alignment: normal Skin / Temperature: normal Effusion: none Atrophy: negative Muscle Tone: normal ROM- Passive Extension: 0 Flexion: 105 ROM-Active Extension: 0 Flexion: 90 SLR: intact +Strength 5/5 +diffuse TTP at knee Instability (Hard / Soft end Points): General Ligament Laxity Anterior (Bao's / Drawer): normal AL (Pivot-Jerk Test): negative Varus (0/30): normal/normal Valgus (0/30): normal/normal Posterior (Lach / Drawer): normal PL ( 30 / 90 ): negative ERRT: negative Recurvatum: negative Anterior tibial step-off: normal Quad Active test: normal Flexibility: Hamstrings ( Ant. Pop. Angle): normal Heel Cords: normal Meniscal Exam: Joint Line Tenderness Medial: negative Joint Line Tenderness Lateral: negative Yvonne ( Sympt / Mech ): negative Stress Test: negative Patello-Femoral: Apprehension: negative Translation 0 ( Medial- normal/ Lateral- normal) 30 (Medial- normal/ Lateral- normal) Tracking: normal Q> 0: normal 90: normal FANNY: BAJA / ISHMAEL: VALG Fat Pad Tenderness: negative Plical Bands: negative Synovial Folds: negative Bone Palpation: Medial Femoral Condyle: negative Lateral Femoral Condyle: negative Fibular Head: negative Patella Femoral Articulation: negative medial/lateral Tibial Plateau: negative medial/lateral Epicondyles: negative medial/lateral Tibial Tubercle: negative Adduction Tibial Tubercle: negative Bursa/ Tendon Insertions/ Tendons: Patella Tenderness: negative Retinculum: negative medial/lateral VMO/VLO: negative Prepatella Bursa: negative Infrapatella Bursa: negative PES ANS: negative Popliteus: negative Biceps: negative Fibular Head: negative Semimembranosus: negative Gastrocnemius: negative medial/lateral Popliteal Space: negative Calf: negative Patella Femoral Crepitation: negative Tibial Femoral Crepitation: negative Neurovascular Status normal RADIOLOGY No New ASSESSMENT L LE Radiculopathy (MRI, 2019; L4-5 mild/mod, L NFN) Lumbar - sacral spine Degenerative disc disease L Knee Medial meniscus contusion versus tear L Knee Degenerative joint disease - moderate R Shoulder Rotator cuff strain versus tear [...] h/o Lupus (Rheumatology) Occ: Disabled (nursing) Resides: [place] Meds: Tramadol (seizures), Occasional prednisone Treatments: PT ([facility], [facility]), Injection B-SH, MRI LK, Anesthesia Pain (CLAUDIA) PLAN/OPTIONS MRI scan has been ordered for further evaluation/ assessment. Patient will follow-up in clinic for discussion with regard to study results, and for monitoring of clinical condition/ status. Left knee Patient referral for evaluation and definitive care to Anesthesia Pain Service - for evaluation and management of lower extremity radiculopathy; for consideration regarding CLAUDIA's / Patient agrees with referral for specific, specialist care, instructed to contact us if there is any delay or difficulties encountered in timely referral appointment and visit with specialist. Patient considering arthroscopy pending response to the implementation/continuation of non-operativemeasures, and status and desires upon follow-up evaluation. Knee Patient will return to clinic in 4-6 weeks for re-evaluation and discussion of treatment options. All findings and diagnosis were discussed with patient at time of visit. Patient states they understandand are in agreement with the treatment plan at this time. Scribe's Attestation Mariela Strauss am scribing for and in the presence of Amari Cevallos MD and resident Dr. Tavarez. Amari Cevallos MD performed the services described herein. Mariela Glynn, July 26, 2020, 11:47 AM documented in this encounter Plan of Treatment Date Type Specialty Care Team Description 08/01/2020 Office Visit Neurology Dorita Belcher MD [address] [place] [phone] Jazmin Price ANP [address] [place] [phone] 09/06/2020 Office Visit Orthopedic Surgery Amari Cevallos MD [address] [place], [place] [address] 10/25/2020 Office Visit Orthopedic Surgery Amari Cevallos MD [address] [place], [place] [address] Name Type Priority Associated Diagnoses Order S chedule MR KNEE LEFT WO IMAGING Routine Acute pain of left knee E xpected: 07/26/2020, CONTRAST Expires: 2020 Health Maintenance Due Date Last [...] filedocumented in this encounter Visit Diagnoses Diagnosis Acute pain of left knee - Primary documented in this encounter Insurance Payer Benefit Plan / Subscriber ID Effective Phone Address T ype Group Dates MEDICARE MEDICARE PART A [id number] 2016-Pres [phone] [address] Medicare & B ent [id number] HALI HANNA [phone] BCBS OF BCBS [id number] 2016-Pres [phone] O [address] [facility] TRADITIONAL ent [phone] [place] [address] documented as of this encounter
--- OUTSIDE RECORDS SUMMARY | 2020-08-26 17:16 | XMS REPORT | Summary of Care ---
:1950 Author Organization [facility] Address [address] [place] [address] Care Team Providers Name Role Phone Mitchell Mora MD Primary Care Provider Reason for Referral (Routine) Status Reason Specialty Diagnoses / Referred By Referred To Procedures Contact Contact New Request Pain Medicine Diagnoses Acute pain of left knee Amari Cevallos, Procedures [facility]AL [facility] [address] [place] [address] MRI/CAT Scan (Routine) Status Reason Specialty Diagnoses / Referred By Referred To Procedures Contact Contact New Request Diagnostic Diagnoses Acute pain of left knee Amari Cevallos, Radiology Procedures MR KNEE LEFT WO CONTRAST [address] [place] [address] Reason for Visit Reason Comments Follow-up left knee pain Encounter Details Date Type Department Care Team Description 07/26/2020 Office Visit [facility] Orthopaedic Amari Cevallos A cute pain of left Surgery- [place] knee (Primary Dx) [place] [address] [place] [address] 2240 [facility] [id number] [place] [phone] Allergies Active Allergy Reactions Severity Noted Date [...] MD - 07/26/2020 10:50 AM CDTI, Lul Taavrez, personally interviewed, examined and/or ordered the services [...] h/o Lupus (Rheumatology) Occ: Disabled (nursing) Resides: [place] Meds: Tramadol (seizures), Occasional prednisone Treatments: PT ([facility], [facility]), Injection B-SH, [...] 08/01/2020 Office Visit Neurology Dorita Belcher MD [address] [place] [phone] Jazmin Price ANP [address] [place] [phone] 09/06/2020 Office Visit Orthopedic Surgery Amari Cevallos MD [address] [place], [place] [address] 10/25/2020 Office Visit Orthopedic Surgery Amari Cevallos MD [address] [place], [place] [address] Name Type Priority Associated [...] ype Group Dates MEDICARE MEDICARE PART A [id number] 2016-Pres [phone] [address] [employer] [address] Medicare & B ent [id number] HAL[place] HAN[place] [phone] BCBS OF BCBS [id number] 2016-Pres [phone] [facility] TRADITIONAL ent [phone] [place] [address] documented as of this encounter
--- OUTSIDE RECORDS SUMMARY | 2020-08-26 17:16 | XMS REPORT | Summary of Care ---
:1950 Author Organization [facility] Address [address] [place] [address] Care Team Providers Name Role Phone Mitchell Mora MD Primary Care Provider Reason for Visit Reason Comments Follow-up Encounter Details Date Type Department Care Team Description 08/01/2020 Office Visit [facility] Dorita Belcher MD [address] [place] [address] Cervico-occipital neuralgia of left side (Primary Dx); Neurology, Jazmin Tyler ANP [address] [place] [address] Lumbosacral radiculopathy; [facility] Cervicalgia [address] [place] [address], 4th [place] [address] Allergies Active Allergy Reactions Severity Noted Date Comments Cauliflower Nausea and/or Vomiting 01/22/2017 Iodine And Iodide Anaphylaxis 11/29/2014 Containing Products Propoxyphene Rash 09/27/2014 N-Acetaminophen Iodine Rash 09/27/2014 Naproxen Anaphylaxis 01/21/2017 Spinach Hives 01/21/2017 Terazosin Unknown - See comments 08/10/2019 Muscl e ache, low blood pressure documented as of this encounter (statuses as of 08/25/2020) Medications Medication Sig Dispensed Refills Start Date [...] TOTAL OF 3 DOSES IN 15 MINUTES DULoxetine (CYMBALTA) Take 20 mg by 0 Active 20 mg capsule mouth daily. lidocaine 5 % (700 Apply 1 Patch to 30 Patch 08/01/2020 Active mg/patch) area(s) daily. patchIndications: Cervico-occipital neuralgia of left side cyclobenzaprine 10 mg Take 1 tablet by 90 tablet 11 08/01/2020 Active tabletIndications: mouth 3 (three) Cervico-occipital times daily as neuralgia of left side needed for Muscle Spasms. gabapentin 100 mg Take 1 capsule 90 capsule 11 08/01/2020 Active capsuleIndications: by mouth 3 Cervico-occipital (three) times neuralgia of left side, daily. Lumbosacral radiculopathy, Cervicalgia documented as of this encounter (statuses as of 08/25/2020) Active Problems Problem Noted Date COPD, moderate 01/19/2020 Seizure 01/21/2017 Esophageal reflux 03/16/2015 documented as of this encounter (statuses as of 08/25/2020) Immunizations Name Administration Dates Next Due Pneumococcal Polysaccharide, PPSV23 (PNEUMOVAX) 01/25/2017 documented as of this encounter Social History Tobacco Use Types Packs/Day Years Used Date Never Smoker Smokeless Tobacco: Never Used Alcohol Use Drinks/Week oz/Week Comments No Sex Assigned at Date Recorded Not on file COVID-19 Exposure Response Date Recorded In the last month, have you been in contact with No / Unsure 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 documented as of this encounter Last Filed Vital Signs Vital Sign Reading Time Taken Comments Blood Pressure 162/83 08/01/2020 10:43 AM CDT Pulse 76 08/01/2020 10:43 AM CDT Temperature 36.6 C (97.9 F) 08/01/2020 10:43 AM CDT Respiratory Rate - - Oxygen Saturation 95% 08/01/2020 10:43 AM CDT Inhaled Oxygen Concentration - - Weight 74.8 kg (164 lb 12.8 oz) 08/01/2020 10:43 AM CDT Height 157.5 cm (5' 2") 08/01/2020 10:43 AM CDT Body Mass Index 30.14 08/01/2020 10:43 AM CDT documented in this encounter Progress Notes Jazmin Price ANP - 08/01/2020 10:30 AM CDT NEUROLOGY CLINIC NOTE DATE OF SERVICE: 08/01/2020 11:00 VISIT TYPE: Follow up CHIEF COMPLAINTS: Headache, neck pain HISTORY OF PRESENT ILLNESS CURRENT HPI 08/01/2020: Kerry Early is a 70 year old female with PMH of chronic cervicalgia with right C5-C6 radiculopathy, chronic low back pain with left L4-L5 radiculopathy, and left paroxysmal trigeminal neuralgia seen today for follow up on same. Since last visit, she has been seen by orthopedic surgery for ongoing bilateral shoulder pain and referred to pain management for lumbar radiculopathy and chronic painissues. She has not seen pain management yet, but does have an appointment coming up for trigger point injections. She is no longer taking carbamazepine for left trigeminal neuralgia pain but continues to have frequent left facial pain shock like episodes as well as symptoms of cervico-occipital neuralgia, especially to the left side. In regard to her low back and neck pain with radicular symptoms, it has been unchanged since last visit, without reports of new or worsening weakness, saddle paraesthesias, gait difficulties, bowel/bladder incontinence or any other complaints. She is taking nortriptyline since last visit, without improvement of daily headaches that are holocranial and last hoursto all day without aggravating or alleviating factors. She would like to try something that would help her symptoms as they continue to impede her ability to perform ADLs and quality of life. PRIOR HPI 02/11/2020: Becca Early is a 69 year old female with Since the last visit, on 12/06/13 while doing PT, she fell across the fireplace and hit her head. Since than she has been having headaches, that are exacerbated by sleeping on the right side. No CT brainwas done. Facial pain: Well controlled. On tegretol. No side effects Neck pain radiating to the right arm: improved with therapy, but has mild symptoms. Back pain: Improved. Therapy has helped Headaches: Now after the fall, HAs on the right frontal area. Continues to take Nortriptyline 75 mg a dialy, Denies any side effects. No associated symptoms like vision changes, worsnening weakness and numbness or dizziness. Short term memory: Accepts to memory loss, lossing/misplacing things. Forgets conversations, and hasword finding difficulty: No worsening, Is taking the Vit B12 supplementation. Denies any other symptoms or concerns. Since the last 6 months, she has had multiple episodes that started with left leg "jordan horses" lasting an hour. Subsequently these progressed to cause intermittent episodes of intingling of the left face, difficulty swallowing, "electrical shock" like sensation that starts in the top of head and runs down the body, and left sided foot turning in and left arm "having no control". Before the onsetof tehse episodes she has a "hot and weird" feeling in throat. These were occuring a few times a week, but are getting more frequent now, and occur 3-4 times a day.She accepts to feelig confused and disoriented with some of tehse episodes. One of these events was witnessed by her PCP, and she was asked to follow with neurology RAYSHAWN. 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 She has had memeory problems, difficulty with coming up with names, residual right sided numbness since this event.In 2013, had lacunar stroke, with residual left sided weakness. (reports scanned in chart) PAST MEDICAL HISTORY Past Medical History: Diagnosis Date Aneurysm, cerebral COPD (chronic obstructive pulmonary disease) Diabetes mellitus Diarrhea Gallstone Hypertension SLE (systemic lupus erythematosus) Stroke PAST SURGICAL HISTORY Past Surgical History: Procedure Laterality Date ANEURYSM COILING CHOLECYSTECTOMY COILING (SHX) cerebral aneurism HYSTERECTOMY partil FAMILY HISTORY Family History Problem Relation Age of Onset Coronary Heart Disease Father stomach Cancer Sister Mutiple cousins from brain tumor SOCIAL HISTORY Social History Socioeconomic History Marital status: Spouse name: Not on file Number of children: Not on file Years of education: Not on file Highest education level: Not on file Occupational History Not on file Social Needs Financial resource strain: Not on file Food insecurity Worry: Not on file Inability: Not on file Transportation needs Medical: Not on file Non-medical: Not on file Tobacco Use Smoking status: Never Smoker Smokeless tobacco: Never Used Substance and Sexual Activity Alcohol use: No Drug use: No Sexual activity: Never Lifestyle Physical activity Days per week: Not on file Minutes per session: Not on file Stress: Not on file Relationships Social connections Talks on phone: Not on file Gets together: Not on file Attends judaism service: Not on file Active member of club or organization: Not on file Attends meetings of clubs or organizations: Not on file Relationship status: Not on file Intimate partner violence Fear of current or ex partner: Not on file Emotionally abused: Not on file Physically abused: Not on file Forced sexual activity: Not on file Other Topics Concern Not on file Social History Narrative Not on file Reviewed patient's family, surgical and social hx. HOME MEDICATIONS Current Outpatient Medications Medication Sig Dispense Refill DULoxetine (CYMBALTA) 20 mg capsule Take 20 mg by mouth daily. amLODIPine 5 mg tablet TAKE 1 [...] No current facility-administered medications for this visit. ALLERGY Allergies Allergen Reactions Cauliflower Nausea and/or Vomiting Contrast [Iodine And Iodide Containing Products] Anaphylaxis Darvocet A500 [Propoxyphene N-Acetaminophen] Rash Iodine Rash Naproxen Anaphylaxis Spinach Hives Terazosin Unknown - See comments Muscle ache, low blood pressure REVIEW OF SYSTEMS General: (-) fever, (-) chills, (-) weight change, (-) dizziness, (-) fatigue, (-) change in appetite Skin: (-) rash, (-) lesion HEENT: (+) headache, (-) change in hearing, (-) change in vision, (-) nasal discharge, (-) sore throat Neck: (+) pain, (-) difficulty swallowing, (-) mass Heme: (-) bleeding disorder Resp: (-) cough, (-) shortness of breath, (-) dyspnea on exertion Cardio: (-) chest pain, (-) palpitations, (-) syncope GI: (-) abdominal pain, (-) nausea, (-) vomiting, (-) diarrhea, (-) constipation, (-) melena, (-) hematochezia, (-) hematemesis : (-) dysuria, (-) hematuria, (-) increased frequency, (-) difficulty urinating, (-) difficulty initiating Endo: (-) heat intolerance, (-) diabetes, (-) cold intolerance, (-) polyuria, (- ) polydipsia, (-) renal insufficiency, (-) thyroid disease Neuro: See HPI Back: (+) pain, (-)spasms MONROE: (+) muscle pain, (-) joint pain, (-) claudication Psych: (-) anxiety, (-) depression, (-) psychiatric disorder PHYSICAL EXAM Vitals: 08/01/20 1043 BP: (!) 162/83 Pulse: 76 Temp: 36.6 C (97.9 F) TempSrc: Temporal Artery SpO2: 95% Weight: 164 lb 12.8 oz (74.8 kg) Height: 5' 2" (1.575 m) General: Alert and oriented x 4 (time, person, place and situation); no apparent distress. Mental Status: Consciousness, attention, concentration: normal, Stays focused and on task while being questioned. Speech/ Language: intact to comprehension, fluency, repetition and naming. Fund of knowledge: is congruent with level of education. Remote and recent memory: normal, can recall recent and distant memories Cranial Nerves: I. Not tested. II. PERRL. FOV full to confrontation. Discs visualized, no papilledema. III. IV., . Extraocular movements intact without nystagmus. V. Normal sensation in V1-3 distributions. VII. No facial droop noted. VIII. Hearing intact. IX., X. Palatal elevation and gag response present symmetrically. XI. Normal Strength of sternocleidomastoid and trapezius muscles bilaterally. XII. Tongue in midline. Motor: Tone: normal Bulk: normal STRENGTH Right Left Deltoid 5- 4+ Biceps 5- 4+ Triceps 5 - 4+ Wrist extensors 5- 4+ Interossei 5 5 Hip flexors 5 5 Knee flexors (hamstring) 5 5 Knee extensors (quadriceps) 5 5 Ankle dorsiflexors 5 5 Ankle plantar flexors 5 5 DTR's: Right Left Biceps 2+ 2+ Triceps 2+ 2+ Brachioradialis 2+ 2+ Patella 2+ 2+ Achilles 2+ 2+ Pathologic reflexes and signs: Simental: absent Babinski: absent Jaw Jerk: absent Cerebellar: Nystagmus: neg, FTN: nl, HTS:nl, Tremors: neg, Dysdiadochokinesia: neg Sensory: LT: intact, temperature: intact, PP: intact, proprioception: intact, Vibration: intact Gait: normal HEENT: pupils equal, round, reactive to light; extraocular movements intact; oropharynx clear; moistmucous membranes Lungs: clear to auscultation bilaterally Cardio: S1, S2 normal Extremities: no cyanosis, clubbing or edema Neck: supple, no carotid bruit, no JVD Abdomen: soft; non-tender; non-distended; normoactive bowel sounds heard LABS Laboratory Only on 07/12/2020 Component Date Value SARS-CoV-2 PCR 07/12/2020 Not Detected Student Teacher Visit on 02/25/2020 Component Date Value NA 02/25/2020 137 K 02/25/2020 5.0 CL 02/25/2020 103 CO2 TOTAL 02/25/2020 31 AGAP 02/25/2020 3 BUN 02/25/2020 17 GLUCOSE 02/25/2020 127* CREATININE 02/25/2020 0.76 TOTAL BILI 02/25/2020 0.5 CALCIUM 02/25/2020 9.4 T PROTEIN 02/25/2020 6.5 ALBUMIN 02/25/2020 3.9 ALK PHOS 02/25/2020 96 ALTv 02/25/2020 12 AST(SGOT) 02/25/2020 23 eGFR Calculation (Non-Af* 02/25/2020 75.7 eGFR Calculation (Macy* 02/25/2020 91.7 WBC 02/25/2020 5.66 RBC 02/25/2020 4.25 HGB 02/25/2020 13.5 HCT 02/25/2020 40.7 MCV 02/25/2020 95.8* MCH 02/25/2020 31.8 MCHC 02/25/2020 33.2 RDW-SD 02/25/2020 48.9 RDW-CV 02/25/2020 13.9 PLT 02/25/2020 261 MPV 02/25/2020 9.8 NRBC/100 WBC 02/25/2020 0.0 NRBC x10^3 02/25/2020 <0.01 GRAN MAT (NEUT) % 02/25/2020 69.5 IMM GRAN % 02/25/2020 0.40 LYMPH % 02/25/2020 19.8 MONO % 02/25/2020 7.6 EOS % 02/25/2020 1.8 BASO % 02/25/2020 0.9 GRAN MAT x10^3(ANC) 02/25/2020 3.94 IMM GRAN x10^3 02/25/2020 <0.03 LYMPH x10^3 02/25/2020 1.12* MONO x10^3 02/25/2020 0.43 EOS x10^3 02/25/2020 0.10 BASO x10^3 02/25/2020 0.05 RADIOLOGY Reviewed Xr Knee 3 Vw Left Result Date: 07/05/2020 Impression: 1. No acute osseous abnormality of the left knee is identified. RL: 2831 Electronicallysigned by Mauro Vega MD at 07/05/2020 2:46 PM Xr Tibia Fibula 2 Vw Left Result Date: 07/05/2020 Impression: 1. No acute osseous abnormality of the left tibia and fibula. RL: 2831 [employer] Kerry Early is a 70 year old female with: 1. Cervico-occipital neuralgia of left side - Continue duloxetine as per pain management - lidocaine 5 % (700 mg/patch) patch; Apply 1 Patch to area(s) daily. Dispense: 30 Patch; Refill: 11 - cyclobenzaprine 10 mg tablet; Take 1 tablet by mouth 3 (three) times daily as needed for Muscle Spasms. Dispense: 90 tablet; Refill: 11 - gabapentin 100 mg capsule; Take 1 capsule by mouth 3 (three) times daily. Dispense: 90 capsule; Refill: 11 2. Lumbosacral radiculopathy - gabapentin 100 mg capsule; Take 1 capsule by mouth 3 (three) times daily. Dispense: 90 capsule; Refill: 11 3. Cervicalgia - gabapentin 100 mg capsule; Take 1 capsule by mouth 3 (three) times daily. Dispense: 90 capsule; Refill: 11 RTC in 2 months documented in this encounter Plan of Treatment Date Type Specialty Care Team Description 09/06/2020 Office Visit Orthopedic Surgery Amari Cevallos MD [address] [facility] [address] [place] [address] 555 10/04/2020 Office Visit Neurology Jazmin Price A NP [address] [place] [phone] 10/25/2020 Office Visit Orthopedic Surgery Amari Cevallos MD [address] [facility] [address] [place] [address] 555 Health Maintenance Due Date Last Done [...] filedocumented in this encounter Visit Diagnoses Diagnosis Cervico-occipital neuralgia of left side - Primary Lumbosacral radiculopathy Thoracic or lumbosacral neuritis or radi culitis, unspecified Cervicalgia documented in this encounter Insurance Payer Benefit Plan / Subscriber ID Effective Phone Address T ype Group Dates MEDICARE MEDICARE PART A [id number] 2016-Pres [phone] [address] Medicare & B ent [phone] [id number] AIDE OJAIHALI [id number] BCBS OF BCBS [id number] 2016-Pres [phone] [facility] TRADITIONAL ent [id number] [id number] [place] [address] documented as of this encounter
--- OUTSIDE RECORDS SUMMARY | 2020-08-26 17:16 | XMS REPORT | Summary of Care ---
:1950 Author Organization [facility] Address [address] [place] [address] Care Team Providers Name Role Phone Mitchell Mora MD Primary Care Provider Reason for Referral MRI/CAT Scan (Routine) Status Reason Specialty Diagnoses / Referred By Referred To Procedures Contact Contact Closed Diagnostic Diagnoses Acute pain of left knee Amari Cevallos, Radiology Procedures MR KNEE LEFT WO CONTRAST [address] [address] Reason for Visit MRI/CAT Scan (Routine) Status Reason Specialty Diagnoses / Referred By Referred To Procedures Contact Contact Closed Diagnostic Diagnoses Acute pain of left knee Amari Cevallos, Radiology Procedures MR KNEE LEFT WO CONTRAST [address] [facility] [id number] [place], [place] [id number] Encounter Details Date Type Department Care Team Description 08/13/2020 [facility] Amari Cevallos MD Arrived [place] [facility] [address] [facility] [id number] [address] [place] [address] [place], [place] [phone] [address] [phone] Allergies Active Allergy Reactions Severity Noted Date Comments Cauliflower Nausea and/or Vomiting 01/22/2017 Iodine And Iodide Anaphylaxis 11/29/2014 Containing Products Propoxyphene Rash 09/27/2014 N-Acetaminophen Iodine Rash 09/27/2014 Naproxen Anaphylaxis 01/21/2017 Spinach Hives 01/21/2017 Terazosin Unknown - See comments 08/10/2019 Muscl e ache, low blood pressure documented as of this encounter (statuses as of 08/14/2020) Medications Medication Sig Dispensed Refills Start Date [...] as of this encounter (statuses as of 08/14/2020) Active Problems Problem Noted Date COPD, moderate 01/19/2020 Seizure 01/21/2017 Esophageal reflux 03/16/2015 documented as of this encounter (statuses as of 08/14/2020) Immunizations Name Administration Dates Next Due Pneumococcal Polysaccharide, PPSV23 (PNEUMOVAX) 01/25/2017 documented as of this encounter Social History Tobacco Use Types Packs/Day Years Used Date Never Smoker Smokeless Tobacco: Never Used Alcohol Use Drinks/Week oz/Week Comments No Sex Assigned at Date Recorded Not on file COVID-19 Exposure Response Date Recorded In the last month, have you been in contact with No / Unsure 08/01/2020 10:30 AM CDT someone who was confirmed or suspected to have Coronavirus / COVID-19? documented as of this encounter Last Filed Vital Signs Not on filedocumented in this encounter Plan of Treatment Date Type Specialty Care Team Description 09/06/2020 Office Visit Orthopedic Surgery Amari Cevallos MD [address] [facility] [address] [place] [address] 555 10/04/2020 Office Visit Neurology Jazmin Price A NP [address] [place] [address] [phone] 10/25/2020 Office Visit Orthopedic Surgery Amari Cevallos MD [address] [facility] [address] [place] [address] 555 Name Type Priority Associated Diagnoses Date/Ti me MR KNEE LEFT WO IMAGING Routine Acute pain of left knee 1 10/13/2019 5:59 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 Medicare & B ent [id number] HALI HANNA [phone] BCBS OF BCBS [id number] 2016-Pres [phone] [facility] TRADITIONAL ent [id number] [place] [address] documented as of this encounter
--- OUTSIDE RECORDS SUMMARY | 2020-08-26 17:16 | XMS REPORT | Summary of Care ---
:1950 Author Organization [facility] Address [address] [place] [address] Care Team Providers Name Role Phone Mitchell Mora MD Primary Care Provider Reason for Visit Reason Comments Follow-up Encounter Details Date Type Department Care Team Description 08/01/2020 Office Visit [facility] Dorita Belcher MD [address] [place] [address] Cervico-occipital neuralgia of left side (Primary Dx); Neurology, Jazmin Tyler ANP [address] [place] [address] Lumbosacral radiculopathy; [facility] Cervicalgia [address] [place] [address], 4[address] [place] [address] Allergies Active Allergy Reactions Severity [...] with No / Unsure 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 Medicare & B ent [id number] AIDE CHEYENNEHALI [phone] BCBS OF BCBS [id number] 2016-Pres [phone] [facility] TRADITIONAL ent [id number] [place] [address] documented as of this encounter
--- OUTSIDE RECORDS SUMMARY | 2020-08-26 17:17 | XMS REPORT | Summary of Care ---
:1950 Author Organization [facility] Address [address] [place] [address] Care Team Providers Name Role Phone Mitchell Mora MD Primary Care Provider Reason for Visit Reason Comments Follow-up Encounter Details Date Type Department Care Team Description 08/25/2020 Office Visit [facility] Jazmin Price A NP Visual hallucinations (Primary Dx); Neurology, [address] History o f cerebral aneurysm repair; [facility] History of ruptured arterial aneurysm; [address] [place] [address] [facility] 4th Floor [id number] [place] [address] [phone] [address] [phone] Allergies Active Allergy Reactions Severity Noted Date [...] (700 Apply 1 Patch to 30 Patch 11 08/01/2020 Active mg/patch) area(s) daily. patchIndications: Cervico-occipital [...] with No / Unsure 08/25/2020 3:29 PM FARMWORKER CRANBERRY someone who was confirmed or suspected to have Coronavirus / COVID-19? documented as of this encounter Last Filed Vital Signs Vital Sign Reading Time Taken Comments Blood Pressure 157/79 08/25/2020 3:28 PM FARMWORKER CRANBERRY Pulse 66 08/25/2020 3:28 PM FARMWORKER CRANBERRY Temperature 36.5 C (97.7 F) 08/25/2020 3:28 PM FARMWORKER CRANBERRY Respiratory Rate - - Oxygen Saturation 97% 08/25/2020 3:28 PM FARMWORKER CRANBERRY Inhaled Oxygen Concentration - - Weight 75.4 kg (166 lb 3.2 oz) 08/25/2020 3:28 PM FARMWORKER CRANBERRY Height 157.5 cm (5' 2") 08/25/2020 3:28 PM FARMWORKER CRANBERRY Body Mass Index 30.4 08/25/2020 3:28 PM FARMWORKER CRANBERRY documented in this encounter Progress Notes Jazmin Price ANP - 08/25/2020 3:00 PM CST NEUROLOGY CLINIC NOTE DATE OF SERVICE: 08/25/2020 15:31 VISIT TYPE: Follow up CHIEF COMPLAINTS: Visual changes HISTORY OF PRESENT ILLNESS CURRENT HPI 08/25/2020: Kerry Early is a 70 year old female with 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 She first noticed tracers at nighttime while watching TV and thought it was the television. However, when she closed he eyes, she saw large colorful flying insects, like very large mosquitos and spiders in both eyes, but predominantly the left. This has continued intermittently over the last 4 days but did progress to the daytime and seeing these insects with her eyes open (to both eyes, but again predominantly to the left). No associated aggravating or alleviating factors. No associated mentation changes; she is aware that hallucinations are not really there. No recent fever, illness, changes in urinary pattern or urine characteristics. Over the last 2 days she has been more off balance that usual; she noted yesterday evening when looking at the ground while walking that there appeared to be "paintball like" colorful splotches that were in both visual swan (L>>R) causing her to become concerned. She made an appointment with a local bridge mechanic and had an eye examinationthis morning which did not note any ocular pathology to explain her symptoms and was advised to follow up with neurologist today. She has also noted a worsening of pre-existing left upper outer quadrant visual field cut with a graying of this field, causing her to have to tilt her head to the right in order to see things in this region. No other focal neurological deficit; denies speech/swallowing difficulties, rotational vertigo, new/worsening weakness or sensory changes or any other neurologicalsymptom. She has been on low dose gabapentin that was started on 08/01/2020 and continues on 100mg TID in addition to cyclobenzaprine 10mg po TID prn for chronic neck and back pain with radicular symptoms. PRIOR HPI 08/01/2020: Kerry Early is a 70 [...] file Gets together: Not on file Attends buddhist service: Not on file Active member of [...] Current Outpatient Medications Medication Sig Dispense Refill cyclobenzaprine 10 mg tablet Take 1 tablet by mouth 3 (three) times daily as needed for Muscle Spasms. 90 tablet 11 gabapentin 100 mg capsule Take 1 capsule by mouth 3 (three) times daily. 90 capsule 11 lidocaine 5 % (700 mg/patch) patch Apply 1 Patch to area(s) daily. 30 Patch 11 DULoxetine (CYMBALTA) 20 mg capsule Take 20 [...] HEENT: (+) headache, (-) change in hearing, (+) change in vision, (-) nasal discharge, (-) [...] depression, (-) psychiatric disorder PHYSICAL EXAM Vitals: 08/25/20 1528 BP: (!) 157/79 Pulse: 66 Temp: 36.5 C (97.7 F) TempSrc: Temporal Artery SpO2: 97% Weight: 166 lb 3.2 oz (75.4 kg) Height: 5' 2" (1.575 m) General: [...] Not tested. II. PERRL. FOV full to confrontation with exception to visual field cut to left upper outer quadrant III. IV., . Extraocular movements intact without nystagmus. V. Normal sensation in V1-3 distributions. VII. No facial droop noted. VIII. Hearing intact. IX., X. Palatal elevation and gag response present symmetrically. XI. Normal Strength of sternocleidomastoid and trapezius muscles bilaterally. XII. Tongue in midline. Motor: Tone: normal Bulk: normal STRENGTH Right Left Deltoid 4+ 4+ Biceps 4+ 4+ Triceps 4+ 4+ Wrist extensors 4+ 4+ Interossei 4+ 4+ Hip flexors 5- 5- Knee flexors (hamstring) 5- 5- Knee extensors (quadriceps) 5- 5- Ankle dorsiflexors 5- 5- Ankle plantar flexors 5- 5- DTR's: Right Left Biceps 2+ 2+ Triceps [...] Date Value SARS-CoV-2 PCR 07/12/2020 Not Detected Chief Juvenile Probation Officer Visit on 02/25/2020 Component Date Value NA [...] 0.10 BASO x10^3 02/25/[address] head without contrast 02/25/2020:Redemonstration of the prior right frontal shunt tract with mineralization along its tract in the right anterior frontal lobe. Redemonstration of left occipital craniectomy with unchanged small pseudomeningocele and underlying left cerebellar encephalomalacia and left vertebral artery aneurysm clipping. Streak artifact from surgical clip limits the evaluation in the region. The ventricles and cerebral sulci are normal in caliber and configuration. No hydrocephalus and midline shift is present. The basal cisterns are unremarkable. There is no acute intracranial hemorrhage or significant mass effect. Scattered hypodensities in the periventricular and deep white matter are nonspecific, but likely represent microvascular ischemic changes. The mastoid air cells and paranasal air sinuses are clear. Bilateral pseudophakia. IMPRESSION No acute intracranial abnormality. No significant interval change compared to prior exam dated 02/18/18 CT head wo contrast 02/18/2018: Postsurgical changes of left occipital craniectomy for left vertebral artery aneurysm cliping and left cerebellar encephalomalacia are redemonstrated and unchanged. Streak artifact from the surgical clip limits the evaluation in the region. The ventricles and sulci are normal in caliber and configuration. No hydrocephalus. The basal cisterns are unremarkable. There is no acute intracranial abnormality such as hemorrhage, edema, mass effect, midline shift or pathological extra-axial fluid collection. The brenner-white matter differentiation is preserved. Aerated secretions noted in the right sphenoid sinus. The remainder of paranasal sinuses and mastoid air cells are clear. The calvarium and skull base are otherwise unremarkable. Personally interpreted by: ZENOBIA RAJAN MD /Signed/ ZENOBIA RAJAN MD IMPRESSION IMPRESSION: No acute intracranial abnormality. Unchanged left occipital craniectomy for left vertebral artery aneurysm clipping and left cerebellar encephalomalacia changes. . Xr Knee 3 Vw Left Result Date: [...] 70 year old female with PMH of left vertebral artery aneurysm with resultanthemorrhage/ICH/SAH s/p craniotomy and clipping with worsening of left upper outer quadrantanopsia, visual hallucinations and unsteady gait. Patient saw bridge mechanic today without ocular findings to explain symptoms. Will check CMP, CBC and UA now. We will also discontinue gabapentin, though unlikelyto be cause of symptoms as she is on low dose 100mg TID and has been taking for approximately 3 weeks without difficulties or side effects. If testing negative, advised to report to ED for further workup for stroke or BROADCAST DESIGNER pathology. : 1. Visual hallucinations - URINALYSIS; Future - COMP. METABOLIC PANEL (59769); Future - CBC WITH DIFF; Future - Stop gabapentin - Spoke with patient at 1909; given results of above labs. Advised to go to nearest hospital for further BROADCAST DESIGNER/stroke workup. Patient is agreeable to plan with all questions answered. 2. History of cerebral aneurysm repair 3. History of ruptured arterial aneurysm 4. Encephalomalacia RTC 10/04/2020 documented in this encounter Plan of Treatment Date Type Specialty Care Team Description 09/06/2020 Office Visit Orthopedic Surgery Amari Cevallos MD [address] [facility] [address] [place] [address] 77 555 10/04/2020 Office Visit Neurology Jazmin Price A [address] [phone] 10/25/2020 Office Visit Orthopedic Surgery Amari Cevallos MD [address] [facility] [address] [place] [address] 555 Health Maintenance Due Date Last Done [...] 01/25/2017 documented as of this encounter Results URINALYSIS (08/25/2020 4:25 PM FARMWORKER CRANBERRY) APPEARANCE Clear Clear [facility] COLOR Yellow Yellow [facility] PH 5.0 4.8 - 8.0 [facility] SP GRAVITY 1.028 1.003 - 1.030 [facility] GLU U QUAL Normal Normal [facility] BLOOD NegativeComment: Negative [facility] Interference from [facility] ascorbic acid [facility] cause false negative results. KETONES 5 mg/dL (A) Negative [facility] PROTEIN Negative Negative [facility] UROBILIN Normal Normal [facility] BILIRUBIN Negative Negative [facility] NITRITE Negative Negative [facility] LEUK BASHIR Negative Negative [facility] RBC/HPF 1 0 - 3 HPF [facility] WBC/HPF <1 0 - 5 HPF [facility] BACTERIA Negative Negative [facility] MUCOUS Moderate (A) Negative LPF [facility] SQ EPITH <1 <=2 HPF [facility] ASCORBIC ACID 40 mg/dL++ [facility] Specimen Urine - URINE, CLEAN CATCH Performing Organization Address City/State/Zipcode Phone Number [facility] CLIA: [id number] [place] [address] [facility] [address] CBC WITH DIFF (08/25/2020 4:21 PM FARMWORKER CRANBERRY) Pathologist Sig nature WBC 6.45 4.30 - 11.10 [facility] 10*3/L [facility] RBC 4.33 3.93 - 5.25 [facility] 10*6/L [facility] HGB 13.4 11.6 - 15.0 [facility] g/dL [facility] HCT 41.1 35.7 - 45.2 % [facility] MCV 94.9 80.6 - 95.5 fL [facility] MCH 30.9 25.9 - 32.8 pg [facility] MCHC 32.6 31.6 - 35.1 [facility] g/dL [facility] RDW-SD 47.8 39.0 - 49.9 fL [facility] RDW-CV 13.6 12.0 - 15.5 % [facility] PLT 288 166 - 358 [facility] 10*3/L [facility] MPV 9.8 9.5 - 12.9 fL [facility] NRBC/100 WBC 0.0 0.0 - 10.0 /100 [facility] WBCs [facility] NRBC x10^3 <0.01 10*3/L [facility] GRAN MAT (NEUT) % 74.8 % [facility] IMM GRAN % 0.50 % [facility] LYMPH % 16.7 % [facility] MONO % 5.6 % [facility] EOS % 1.6 % [facility] BASO % 0.8 % [facility] GRAN MAT x10^3(ANC) 4.83 1.88 - 7.09 [facility] 10*3/uL [facility] IMM GRAN x10^3 0.03 0.00 - 0.06 [facility] 10*3/uL [facility] LYMPH x10^3 1.08 (L) 1.32 - 3.29 [facility] 10*3/uL [facility] MONO x10^3 0.36 0.33 - 0.92 [facility] 10*3/uL [facility] EOS x10^3 0.10 0.03 - 0.39 [facility] 10*3/uL [facility] BASO x10^3 0.05 0.01 - 0.07 [facility] 10*3/uL [facility] Specimen Blood Performing Organization Address City/State/Zipcode Phone Number [facility] CLIA: [id number] [place] [address] [facility] [address] COMP. METABOLIC PANEL (19623) (08/25/2020 4:21 PM FARMWORKER CRANBERRY) [facility] NA 137 135 - 145 [facility] mmol/L [facility] K 4.3 3.5 - 5.0 [facility] mmol/L [facility] CL 99 98 - 108 mmol/L [facility] CO2 TOTAL 31 23 - 31 mmol/L [facility] AGAP 7 2 - 16 [facility] BUN 24 (H) 7 - 23 mg/dL [facility] GLUCOSE 118 (H) 70 - 110 mg/dL [facility] CREATININE 0.71 0.50 - 1.04 [facility] mg/dL [facility] TOTAL BILI 0.3 0.1 - 1.1 mg/dL [facility] CALCIUM 9.1 8.6 - 10.6 [facility] mg/dL [facility] T PROTEIN 6.8 6.3 - 8.2 g/dL [facility] ALBUMIN 4.1 3.5 - 5.0 g/dL [facility] ALK PHOS 101 34 - 122 U/L [facility] ALTv 12 5 - 35 U/L [facility] AST(SGOT) 21 13 - 40 U/L [facility] eGFR Calculation 81.6 mL/min/1.73m2 [facility] (Non- [facility] Nauruan) [facility] eGFR Calculation 98.9 mL/min/1.73m2 [facility] () [facility] Specimen Blood Narrative Performed At Association of Glomerular Filtration Rate [facility] (GFR) and Staging of Kidney Disease* [facility] + + --+ + | GFR (mL/min/1.73 m2) | With Kidney Damage | Without Kidney Damage + + --+ + | >90 | Stage one | Normal + + --+ + | 60-89 | Stage two | Decreased GFR + + --+ + | 30-59 | Stage three | Stage three + + --+ + | 15-29 | Stage four | Stage four + + --+ + | <15 (or dialysis) | Stage five | Stage five + + --+ + *Each stage assumes the associated GFR level has been in effect for at least three months. Stages 1 to 5, with or without kidney disease, indicate chronic kidney disease. Notes: Determination of stages one and two (with eGFR >59mL/min/1.73 m2) requires estimation of kidney damage for at least three months as defined by structural or functional abnormalities of the kidney, manifested by either: Pathological abnormalities or Markers of kidney damage (including abnormalities in the composition of the blood or urine or abnormalities in imaging tests). Performing Organization Address City/State/Zipcode Phone Number [facility] CLIA: [id number] [place] [address] [address] documented in this encounter Visit Diagnoses Diagnosis Visual hallucinations - Primary Psychophysical visual disturbances History of cerebral aneurysm repair Other postprocedural status History of ruptured arterial aneurysm Personal history of other diseases of ci rculatory system Encephalomalacia Other conditions of brain documented in this encounter Insurance Payer Benefit Plan / Subscriber ID Effective Phone Address T ype Group Dates MEDICARE MEDICARE PART A [id number] 2016-Pres [phone] [address] Medicare & B ent [phone] AIDE [place] [phone] BCBS [facility] [id number] 2016-Pres [phone] [facility] TRADITIONAL ent [phone] [place] [address] documented as of this encounter
--- OUTSIDE RECORDS SUMMARY | 2020-08-26 17:17 | XMS REPORT | Summary of Care ---
:1950 Author Organization [facility] Address [address] [place] [address] Care Team Providers Name Role Phone Mitchell Mora MD Primary Care Provider Reason for Visit Reason Comments LAB WORK Encounter Details Date Type Department Care Team Description 08/25/[address] [facility] Jazmin Price, ANP [address] [place] [address] Visual hallucinations Clinical Draw, [facility], [address] [phone] Allergies Active Allergy Reactions Severity Noted [...] with No / Unsure 08/25/2020 3:29 PM [employer]BEST[employer] SIDING MECHANIC someone who was confirmed or suspected to have Coronavirus / COVID-19? documented as of this encounter Last Filed Vital Signs Not on filedocumented in this encounter Nursing Notes Julia Aggarwal - 08/25/2020 4:30 PM CST Venipuncture collection performed by clean technique on the right anticubitus. Total of 1 attempts were made. Slight pressure and a bandage/dressing were applied to the site(s). The patient experiencedno complications. The following specimens were processed according to instructions and sent to [facility] laboratories per lab order on 08-25-20: Patient has been identified by and name and was provided with cup, antiseptic towelette, and clean catch instructions. 1 urine specimen(s) sent. Unpreserved 1 Urine Culture Aptima tube Other urine LT BLUE SST 1 RED LAV 1 PPT DK GREEN (LiHep) DK GREEN (SodH) PIKE DK BLUE (K2) DK BLUE (S) ACD Blood Culture NIPT/NTD documented in this encounter Plan of Treatment Date Type Specialty Care Team Description 09/06/2020 Office Visit Orthopedic Surgery Amari Cevallos MD [address] [facility] [address] [place] [address] 77 555 10/04/2020 Office Visit Neurology Jazmin Price A [employer] [address] [place] [address] [phone] 10/25/2020 Office Visit Orthopedic Surgery Amari Cevallos MD [address] [facility] [address] [place], [place] [address] 555 Name Type Priority Associated Diagnoses Date/Ti me CBC WITH DIFF LAB Routine Visual hallucinations 08/25 4:21 PM [employer]BE[employer] SIDING MECHANIC URINALYSIS LAB Routine Visual hallucinations 2019 4:25 PM [employer]BE[employer] SIDING MECHANIC COMP. METABOLIC PANEL LAB Routine Visual hallucinatio ns 08/25/2020 4:21 PM ASBESTOS SIDING MECHANIC ([id number]) Health Maintenance Due Date Last Done Comments [...] filedocumented in this encounter Visit Diagnoses Diagnosis Visual hallucinations Psychophysical visual disturbances documented in this encounter Insurance Payer Benefit Plan / Subscriber ID Effective Phone Address T ype Group Dates MEDICARE MEDICARE PART A [id number] 2016-Pres [phone] [address] Medicare & B ent [phone] [id number] HALI HAN[place] [address] BCBS OF [employer] [id number] 2016-Pres [phone] [facility] ent [phone] [place] [address] documented as of this encounter
--- OUTSIDE RECORDS SUMMARY | 2020-08-26 17:17 | XMS REPORT | Summary of Care ---
:1950 Author Organization [facility] Address [address] [place] [id number] Care Team Providers Name Role Phone Mitchell Mora MD Primary Care Provider Reason for Visit Reason Comments Follow-up Encounter Details Date Type Department Care Team Description 08/25/2020 Office Visit [facility] Jazmin Price A NP Visual hallucinations (Primary Dx); Neurology, [address] History o f cerebral aneurysm repair; [facility] History of ruptured arterial aneurysm; [address] [place] [address] [facility] 4[facility] [id number] [place] [address] [phone] Allergies Active Allergy Reactions Severity Noted Date [...] with No / Unsure 08/25/2020 3:29 PM RN GASTROENTEROLOGY someone who was confirmed or suspected to have Coronavirus / COVID-19? documented as of this encounter Last Filed Vital Signs Vital Sign Reading Time Taken Comments Blood Pressure 157/79 08/25/2020 3:28 PM RN GASTROENTEROLOGY Pulse 66 08/25/2020 3:28 PM RN GASTROENTEROLOGY Temperature 36.5 C (97.7 F) 08/25/2020 3:28 PM RN GASTROENTEROLOGY Respiratory Rate - - Oxygen Saturation 97% 08/25/2020 3:28 PM RN GASTROENTEROLOGY Inhaled Oxygen Concentration - - Weight 75.4 kg (166 lb 3.2 oz) 08/25/2020 3:28 PM RN GASTROENTEROLOGY Height 157.5 cm (5' 2") 08/25/2020 3:28 PM RN GASTROENTEROLOGY Body Mass Index 30.4 08/25/2020 3:28 PM RN GASTROENTEROLOGY documented in this encounter Progress Notes Jazmin [...] She made an appointment with a local m1a1 tank crewman and had an eye examinationthis morning which [...] file Gets together: Not on file Attends holiness service: Not on file Active member of [...] Date Value SARS-CoV-2 PCR 07/12/2020 Not Detected Professor Of Radiology Visit on 02/25/2020 Component Date Value NA [...] visual hallucinations and unsteady gait. Patient saw m1a1 tank crewman today without ocular findings to explain symptoms. Will check CMP, CBC and UA now. We will also discontinue gabapentin, though unlikelyto be cause of symptoms as she is on low dose 100mg TID and has been taking for approximately 3 weeks without difficulties or side effects. If testing negative, advised to report to ED for further workup for stroke or [employer] pathology. : 1. Visual hallucinations - URINALYSIS; Future - COMP. METABOLIC PANEL (99502); Future - CBC WITH DIFF; Future - Stop gabapentin - Spoke with patient at 1909; given results of above labs. Advised to go to nearest hospital for further [employer]/stroke workup. Patient is agreeable to plan with all questions answered. 2. History of cerebral aneurysm repair 3. History of ruptured arterial aneurysm 4. Encephalomalacia RTC 10/04/2020 documented in this encounter Plan of Treatment Date Type Specialty Care Team Description 09/06/2020 Office Visit Orthopedic Surgery Aamri Cevallos MD [address] [facility] [address] [place] [address] 77 [phone] 10/04/2020 Office Visit Neurology Jazmin Price A [address] [phone] 10/25/2020 Office Visit Orthopedic Surgery Amari Cevallos MD [address] [facility] [address] [place] [address] 555 Health Maintenance Due Date Last Done [...] this encounter Results URINALYSIS (08/25/2020 4:25 PM RN GASTROENTEROLOGY) APPEARANCE Clear Clear [facility] COLOR Yellow Yellow [facility] PH 5.0 4.8 - 8.0 [facility] SP GRAVITY 1.028 1.003 - 1.030 [facility] GLU U QUAL Normal Normal [facility] BLOOD NegativeComment: Negative [facility] Interference from [facility] ascorbic acid [place] [facility] cause false negative results. KETONES 5 mg/dL (A) Negative [facility] PROTEIN Negative Negative [facility] UROBILIN Normal Normal [facility] BILIRUBIN Negative Negative [facility] NITRITE Negative Negative [facility] LEUK BASHIR Negative Negative [facility] RBC/HPF 1 0 - 3 HPF [facility] WBC/HPF <1 0 - 5 HPF [facility] BACTERIA Negative Negative [facility] MUCOUS Moderate (A) Negative LPF [facility] SQ EPITH <1 <=2 HPF [facility] ASCORBIC ACID 40 mg/dL++ [facility] Specimen Urine - URINE, CLEAN CATCH Performing Organization Address City/State/Zipcode Phone Number [facility] CLIA: [id number] [place] [address] [facility] [address] CBC WITH DIFF (08/25/2020 4:21 PM RN GASTROENTEROLOGY) Pathologist Sig nature WBC 6.45 4.30 - 11.10 [facility] 10*3/L [facility] RBC 4.33 3.93 - 5.25 [facility] 10*6/L [facility] HGB 13.4 11.6 - 15.0 [facility] g/dL [facility] HCT 41.1 35.7 - 45.2 % [facility] MCV 94.9 80.6 - 95.5 fL [facility] MCH 30.9 25.9 - 32.8 pg [facility] MCHC 32.6 31.6 - 35.1 [facility] g/dL [facility] RDW-SD 47.8 39.0 - 49.9 fL [facility] RDW-CV 13.6 12.0 - 15.5 % [facility] PLT 288 166 - 358 [facility] 10*3/L [facility] MPV 9.8 9.5 - 12.9 fL [facility] NRBC/100 WBC 0.0 0.0 - 10.0 /100 [facility] WBCs [facility] NRBC x10^3 <0.01 10*3/L [facility] GRAN MAT (NEUT) % 74.8 % [facility] IMM GRAN % 0.50 % [facility] LYMPH % 16.7 % [facility] MONO % 5.6 % [facility] EOS % 1.6 % [facility] BASO % 0.8 % [facility] GRAN MAT x10^3(ANC) 4.83 1.88 - 7.09 [facility] 10*3/uL [facility] IMM GRAN x10^3 0.03 0.00 - 0.06 [facility] 10*3/uL [facility] LYMPH x10^3 1.08 (L) 1.32 - 3.29 [facility] 10*3/uL [facility] MONO x10^3 0.36 0.33 - 0.92 [facility] 10*3/uL [facility] EOS x10^3 0.10 0.03 - 0.39 [facility] 10*3/uL [facility] BASO x10^3 0.05 0.01 - 0.07 [facility] 10*3/uL [facility] Specimen Blood Performing Organization Address City/State/Zipcode Phone Number [facility] CLIA: [id number] [place] [address] [facility] [address] COMP. METABOLIC PANEL (03843) (08/25/2020 4:21 PM RN GASTROENTEROLOGY) [facility] NA 137 135 - 145 [facility] mmol/L [facility] K 4.3 3.5 - 5.0 [facility] mmol/L [facility] CL 99 98 - 108 mmol/L [facility] CO2 TOTAL 31 23 - 31 mmol/L [facility] AGAP 7 2 - 16 [facility] BUN 24 (H) 7 - 23 mg/dL [facility] GLUCOSE 118 (H) 70 - 110 mg/dL [facility] CREATININE 0.71 0.50 - 1.04 [facility] mg/dL [facility] TOTAL BILI 0.3 0.1 - 1.1 mg/dL [facility] CALCIUM 9.1 8.6 - 10.6 [facility] mg/dL [facility] T PROTEIN 6.8 6.3 - 8.2 g/dL [facility] ALBUMIN 4.1 3.5 - 5.0 g/dL [facility] ALK PHOS 101 34 - 122 U/L [facility] ALTv 12 5 - 35 U/L [facility] AST(SGOT) 21 13 - 40 U/L [facility] eGFR Calculation 81.6 mL/min/1.73m2 [facility] (Non- [facility] [place]) SARAH ANN eGFR Calculation 98.9 mL/min/1.73m2 [facility] () [facility] Specimen Blood Narrative Performed At Association of Glomerular Filtration Rate [facility] (GFR) and Staging of Kidney Disease* SARAH ANN + + --+ + | GFR (mL/min/1.73 [...] tests). Performing Organization Address City/State/Zipcode Phone Number [facility] CLIA: [id number] [place] [address] SERVICES-[address] documented in this encounter Visit Diagnoses [...] ype Group Dates MEDICARE MEDICARE PART A [id number] 2016-Pres [phone] P. O. RASTA X Medicare & B ent [phone] [place] [id number] BCBS [facility] [id number] 2016-Pres [phone] [facility] TRADITIONAL ent [phone] [place] [address] documented as of this encounter
[2020-08-26 19:48] LABS: Basophils % 0.7 % (0-1.3); Hematocrit 41.1 % (36.0-45.0); Lymphocytes % 18.7 % (15.3-44.8); MPV 8.2 fL (7.6-11.3); RBC Red Blood Cell Count 4.45 M/uL (3.86-4.86)
[2020-08-26 19:51] LABS: Protime INR 0.89
--- NOTE | 2020-08-26 19:55 | RAD REPORT ---
EXAM DESCRIPTION: CT - Head Brain Wo Cont - 08/26/2020 7:33 pm CLINICAL HISTORY: Headache;Visual disturbances COMPARISON: HEAD BRAIN W O CONTRAST dated 12/11/2012 TECHNIQUE: Axial 5 mm thick images of the head were obtained without IV contrast. All CT scans are performed using dose optimization technique as appropriate and may include automated exposure control or mA/KV adjustment according to patient size. FINDINGS: No intracranial hemorrhage, mass, edema or shift of mid-line structures. No acute cortical based infarction. No cortical edema or sulcal effacement. No significant atrophy or chronic ischemic changes seen. Physiologic calcifications are present. Left occipital and suboccipital craniectomy ch anges are present. There is volume loss in the left cerebellar hemisphere. Aneurysm clip is present n ear the expected path of the left vertebral artery. Posterior fossa findings are similar to the prior study. Mastoid air cells and visualized portions of the paranasal sinuses are clear. No acute bony findings. IMPRESSION: Negative non-contrast CT head examination for acute intracranial finding. Above detailed findings are similar to and 2013 study.
--- NOTE | 2020-08-26 19:58 | RAD REPORT ---
EXAM DESCRIPTION: RAD - Chest Single View - 08/26/2020 7:47 pm CLINICAL HISTORY: Hypertensive COMPARISON: Portable December 11, 2019 TECHNIQUE: AP portable chest image was obtained 08/26/2020 7:47 pm . FINDINGS: No focal mass or consolidation. No failure or volume overload findings. Interstitial clem ngs are mildly prominent but unchanged from comparison. Heart and vasculature are normal. No measurab le pleural effusion and no pneumothorax. No acute bony abnormality seen. No acute aortic findings tripp pected. IMPRESSION: No acute cardiopulmonary process. No significant interval change.
[2020-08-26 20:07] LABS: ALT/SGPT 19 U/L (12-78); AST/SGOT 18 U/L (15-37); Albumin 3.7 g/dL (3.4-5.0); Alkaline Phosphatase 104 U/L (45-117); BUN Blood Urea Nitrogen 21 mg/dL (7-18); Bicarbonate 31 mmol/L (21-32); Bilirubin Direct < 0.1 mg/dL (0-0.2); Bilirubin Total 0.2 mg/dL (0.2-1.0); Glucose Level 111 mg/dL (74-106); Magnesium 2.4 mg/dL (1.8-2.4); NT PRO-BNP 139 pg/mL (<125); Potassium 4.3 mmol/L (3.5-5.1); Protein, Total 7.3 g/dL (6.4-8.2); Sodium Level 142 mmol/L (136-145); Troponin (Emerg Dept Use Only) < 0.02 ng/mL (0.0-0.045)
--- NOTE | 2020-08-26 22:18 | EDPHYS ---
Physician Documentation [facility] Name: Kerry Early Age: 70 yrs Sex: Female : 1950 Arrival Date: 08/26/2020 Time: 17:13 Bed 17 Private MD: Smith Ventura R ED Physician Keshav Beasley HPI: 08/26 21:26 This 70 yrs old Female presents to ER via Ambulatory with complaints of Vision mh7 Problem, Nausea. 21:27 The patient presents to the emergency department with a vision problem, seeing variable mh7 objects. Onset: The symptoms/episode began/occurred 1 week(s) ago. Context: occurred at home, occurred while the patient was watching TV. Associated signs and symptoms: Pertinent positives: headache, nausea. Severity of symptoms: At their worst the symptoms were moderate 4 day(s) ago, in the emergency department the symptoms have improved moderately. The patient has been recently seen by a physician: cloth spreader screen printing, neurologist in the past 3 days. Historical: - Allergies: 17:39 Iodine; ss 17:39 Darvocet-N 100; ss 17:39 Naproxen; ss 17:39 Terazosin; ss - PMHx: 17:39 brain aneurysm; COPD; Diabetes - NIDDM; Hypertension; Seizures; GERD; ss - Immunization history:: Adult Immunizations up to date. - Social history:: Smoking status: Patient denies any tobacco usage or history of. ROS: 21:27 Constitutional: Negative for fever, chills, and weight loss, ENT: Negative for injury, mh7 pain, and discharge, Neck: Negative for injury, pain, and swelling, Cardiovascular: Negative for chest pain, palpitations, and edema, Respiratory: Negative for shortness of breath, cough, wheezing, and pleuritic chest pain, Back: Negative for injury and pain, : Negative for injury, bleeding, discharge, and swelling, MS/Extremity: Negative for injury and deformity, Skin: Negative for injury, rash, and discoloration, Psych: Negative for depression, anxiety, suicide ideation, homicidal ideation, and hallucinations, Allergy/Immunology: Negative for hives, rash, and allergies, Endocrine: Negative for neck swelling, polydipsia, polyuria, polyphagia, and marked weight changes, Hematologic/Lymphatic: Negative for swollen nodes, abnormal bleeding, and unusual bruising. Exam: 21:27 Constitutional: This is a well developed, well nourished patient who is awake, alert, mh7 and in no acute distress. Head/Face: Normocephalic, atraumatic. Eyes: Pupils equal round and reactive to light, extra-ocular motions intact. Lids and lashes normal. Conjunctiva and sclera are non-icteric and not injected. Cornea within normal limits. Periorbital areas with no swelling, redness, or edema. Neck: Trachea midline, no thyromegaly or masses palpated, and no cervical lymphadenopathy. Supple, full range of motion without nuchal rigidity, or vertebral point tenderness. No Meningismus. Chest/axilla: Normal chest wall appearance and motion. Nontender with no deformity. No lesions are appreciated. Cardiovascular: Regular rate and rhythm with a normal S1 and S2. No gallops, murmurs, or rubs. Normal PMI, no JVD. No pulse deficits. Respiratory: Lungs have equal breath sounds bilaterally, clear to auscultation and percussion. No rales, rhonchi or wheezes noted. No increased work of breathing, no retractions or nasal flaring. Abdomen/GI: Soft, non-tender, with normal bowel sounds. No distension or tympany. No guarding or rebound. No evidence of tenderness throughout. Back: No spinal tenderness. No costovertebral tenderness. Full range of motion. Skin: Warm, dry with normal turgor. Normal color with no rashes, no lesions, and no evidence of cellulitis. MS/ Extremity: Pulses equal, no cyanosis. Neurovascular intact. Full, normal range of motion. Neuro: Awake and alert, GCS 15, oriented to person, place, time, and situation. Cranial nerves II-XII grossly intact. Motor strength 5/5 in all extremities. Sensory grossly intact. Cerebellar exam normal. Normal gait. Psych: Awake, alert, with orientation to person, place and time. Behavior, mood, and affect are within normal limits. Vital Signs: 17:36 BP 151 / 69; Pulse 88; Resp 15; Temp 97.8(TE); Pulse Ox 99% on R/A; Weight 75.3 kg; ss Height 5 ft. 2 in. (157.48 cm); Pain 0/10; 18:49 BP 158 / 84; Pulse 69; Resp 17; Pulse Ox 98% on R/A; tw2 19:00 BP 147 / 71; Pulse 67; Resp 16; Pulse Ox 98% on R/A; jb4 21:00 BP 123 / 64; Pulse 65; Resp 16; Pulse Ox 98% on R/A; jb4 22:00 BP 116 / 68; Pulse 68; Resp 16; Pulse Ox 98% on R/A; jb4 22:30 BP 136 / 62; Pulse 65; Resp 16; Pulse Ox 98% on R/A; jb4 17:36 Body Mass Index 30.36 (75.30 kg, 157.48 cm) ss MDM: 19:15 Patient medically screened. 7 22:15 Data reviewed: vital signs, nurses notes, lab test result(s), cardiac enzymes, CBC, [facility] electrolytes, urinalysis, EKG, radiologic studies, CT scan, plain films. Data interpreted: Pulse oximetry: on room air is 98 %. Interpretation: normal. Counseling: I had a detailed discussion with the patient and/or guardian regarding: the historical points, exam findings, and any diagnostic results supporting the discharge/admit diagnosis, the presence of at least one elevated blood pressure reading (>120/80) during this emergency department visit, lab results, radiology results, the need for outpatient follow up, to return to the emergency department if symptoms worsen or persist or if there are any questions or concerns that arise at home. Response to treatment: the patient's symptoms have markedly improved after treatment. Refusal of service: The patient/guardian displays adequate decision making capability and despite a detailed discussion of alternatives, benefits, risks, and consequences refuses: Admission to the hospital for further work-up and treatment, Lumbar Puncture procedure. 08/26 19:17 Order name: Basic Metabolic Panel; Complete Time: 20:54 mh7 08/26 19:17 Order name: CBC with Diff; Complete Time: 20:54 mh7 08/26 19:17 Order name: LFT's; Complete Time: 20:54 mh7 08/26 19:17 Order name: Magnesium; Complete Time: 20:54 mh7 08/26 19:17 Order name: NT PRO-BNP; Complete Time: 20:54 mh7 08/26 19:17 Order name: PT-INR; Complete Time: 20:54 mh7 08/26 19:17 Order name: Troponin (emerg Dept Use Only); Complete Time: 20:54 7 08/26 19:17 Order name: XRAY Chest (1 view); Complete Time: 20:55 7 08/26 19:17 Order name: EKG; Complete Time: 19:18 7 08/26 19:17 Order name: Cardiac monitoring; Complete Time: 19:30 7 08/26 19:17 Order name: EKG - Nurse/Tech; Complete Time: 21:28 7 08/26 19:17 Order name: IV Saline Lock; Complete Time: 19:31 mh7 08/26 19:17 Order name: Labs collected and sent; Complete Time: 19:31 7 08/26 19:17 Order name: CT Head Brain wo Cont; Complete Time: 20:55 7 08/26 19:17 Order name: O2 Per Protocol; Complete Time: 19:31 mh7 08/26 19:17 Order name: O2 Sat Monitoring; Complete Time: 19:31 mh7 Administered Medications: No medications were administered Disposition: 08/26/20 22:17 Discharged to Home. Impression: Vision sensitivity deficiencies, Headache. - Condition is Stable. - Discharge Instructions: Blurred Vision, Adult, General Headache Without Cause. - Medication Reconciliation Form, Thank You Letter, Antibiotic Education, Prescription Opioid Use form. - Follow up: Private Physician; When: 1 - 2 days; Reason: Worsening of condition, Recheck today's complaints, Continuance of care, Re-evaluation by your physician. Follow up: Florencia Lou MD; When: 1 - 2 days; Reason: Worsening of condition, Recheck today's complaints, Continuance of care. Follow up: Andrés Landaverde MD; When: 1 - 2 days; Reason: Worsening of condition, Recheck today's complaints. - Problem is an ongoing problem. - Symptoms have improved. Signatures: Dispatcher [employer] EDMS Jazmin Espinoza RN RN ss Vern Thompson RN RN jb4 Keshav Beasley MD MD 7 Corrections: (The following items were deleted from the chart) 21:32 21:27 The patient presents to the emergency department with a vision problem, [facility]7 22:45 19:17 Urine Dipstick-Ancillary ordered. [facility]4 22:48 22:17 08/26/2020 22:17 Discharged to Home. Impression: Vision sensitivity deficiencies; jb4 Headache. Condition is Stable. Forms are Medication Reconciliation Form, Thank You Letter, Antibiotic Education, Prescription Opioid Use. Follow up: Private Physician; When: 1 - 2 days; Reason: Worsening of condition, Recheck today's complaints, Continuance of care, Re-evaluation by your physician. Follow up: Florencia Lou; When: 1 - 2 days; Reason: Worsening of condition, Recheck today's complaints, Continuance of care. Follow up: Andrés Landaverde; When: 1 - 2 days; Reason: Worsening of condition, Recheck today's complaints. Problem is an ongoing problem. Symptoms have improved. mh7
--- NOTE | 2020-08-26 22:18 | ER ---
Nurse's Notes [facility] Name: Kerry Early Age: 70 yrs Sex: Female : 1950 Arrival Date: 08/26/2020 Time: 17:13 Bed 17 Private MD: Smith Ventura R Diagnosis: Vision sensitivity deficiencies;Headache Presentation: 08/26 17:36 Chief complaint: Patient states: "It started a week ago. I started seeing splotches, ss then I started seeing different mosquitoes in different colors. I saw the eye doctor yesterday and she didn't believes that it was my eyes, so she told me to go to the neurologist, so I did, and she believed I was having a stroke so she told me to come to the ER. Coronavirus screen: Client denies travel out of the [place] in the last 14 days. Ebola Screen: Patient denies exposure to infectious person. Patient denies travel to an Ebola-affected area in the 21 days before illness onset. Initial Sepsis Screen: Does the patient meet any 2 criteria? No. Patient's initial sepsis screen is negative. Does the patient have a suspected source of infection? No. Patient's initial sepsis screen is negative. Risk Assessment: Do you want to hurt yourself or someone else? Patient reports no desire to harm self or others. Onset of symptoms was August 19, 2020. 17:36 Method Of Arrival: Ambulatory ss 17:36 Acuity: CLAUDIA 3 ss Historical: - Allergies: 17:39 Iodine; ss 17:39 Darvocet-N 100; ss 17:39 Naproxen; ss 17:39 Terazosin; ss - PMHx: 17:39 brain aneurysm; COPD; Diabetes - NIDDM; Hypertension; Seizures; GERD; ss - Immunization history:: Adult Immunizations up to date. - Social history:: Smoking status: Patient denies any tobacco usage or history of. Screenin:40 Abuse screen: Denies threats or abuse. Nutritional screening: No deficits noted. tw2 Tuberculosis screening: No symptoms or risk factors identified. Fall Risk Secondary diagnosis (15 points) impaired mobility. Assessment: 18:48 General: Appears in no apparent distress. well groomed, Behavior is calm, cooperative, tw2 appropriate for age. Pain: Denies pain. Neuro: Level of Consciousness is awake, alert, obeys commands, Oriented to person, place, time, situation. Neuro: Reports "seeing splotches and my neurologist told me to come here to get it checked out because i could be having another stroke, but this has been going on for a week". Cardiovascular: Heart tones S1 S2 Patient's skin is warm and dry. Respiratory: Airway is patent Respiratory effort is even, unlabored, Respiratory pattern is regular, symmetrical, Breath sounds are clear bilaterally. GI: No signs and/or symptoms were reported involving the gastrointestinal system. Abdomen is flat, Bowel sounds present X 4 quads. : No signs and/or symptoms were reported regarding the genitourinary system. EENT: No signs and/or symptoms were reported regarding the EENT system. Derm: No signs and/or symptoms reported regarding the dermatologic system. Musculoskeletal: Range of motion: intact in all extremities. 19:00 Reassessment: Patient appears in no apparent distress at this time. Patient and/or jb4 family updated on plan of care and expected duration. Pain level reassessed. Patient is alert, oriented x 3, equal unlabored respirations, skin warm/dry/pink. 20:00 Reassessment: Patient appears in no apparent distress at this time. Patient and/or jb4 family updated on plan of care and expected duration. Pain level reassessed. Patient is alert, oriented x 3, equal unlabored respirations, skin warm/dry/pink. 21:00 Reassessment: Patient appears in no apparent distress at this time. Patient and/or jb4 family updated on plan of care and expected duration. Pain level reassessed. Patient is alert, oriented x 3, equal unlabored respirations, skin warm/dry/pink. 22:00 Reassessment: Patient appears in no apparent distress at this time. Patient and/or jb4 family updated on plan of care and expected duration. Pain level reassessed. Patient is alert, oriented x 3, equal unlabored respirations, skin warm/dry/pink. 22:47 Reassessment: Patient appears in no apparent distress at this time. Patient and/or jb4 family updated on plan of care and expected duration. Pain level reassessed. Patient is alert, oriented x 3, equal unlabored respirations, skin warm/dry/pink. Vital Signs: 17:36 BP 151 / 69; Pulse 88; Resp 15; Temp 97.8(TE); Pulse Ox 99% on R/A; Weight 75.3 kg; ss Height 5 ft. 2 in. (157.48 cm); Pain 0/10; 18:49 BP 158 / 84; Pulse 69; Resp 17; Pulse Ox 98% on R/A; tw2 19:00 BP 147 / 71; Pulse 67; Resp 16; Pulse Ox 98% on R/A; jb4 21:00 BP 123 / 64; Pulse 65; Resp 16; Pulse Ox 98% on R/A; jb4 22:00 BP 116 / 68; Pulse 68; Resp 16; Pulse Ox 98% on R/A; jb4 22:30 BP 136 / 62; Pulse 65; Resp 16; Pulse Ox 98% on R/A; jb4 17:36 Body Mass Index 30.36 (75.30 kg, 157.48 cm) ED Course: 17:13 Patient arrived in ED. mr 17:13 Smith Ventura MD is Private Physician. mr 17:38 Triage completed. ss 17:39 Arm band placed on right wrist. ss 18:34 Placed in gown. Bed in low position. Pulse ox on. NIBP on. Warm blanket given. tw2 18:40 Cassy Haynes RN is Primary Nurse. tw2 19:00 Keshav Beasley MD is Attending Physician. mh7 19:00 Report given to HAYDEN Infante. tw2 19:12 Primary Nurse role handed off by Cassy Haynes RN eb 19:27 Initial lab(s) drawn, by il, sent to lab. Inserted saline lock: 20 gauge in right jp3 forearm, using aseptic technique. Blood collected. Patient maintains SpO2 saturation greater than 95% on room air. 19:33 CT Head Brain wo Cont In Process Unspecified. EDMS 19:47 XRAY Chest (1 view) In Process Unspecified. EDMS 19:50 Vern Thompson, RN is Primary Nurse. jb4 22:16 Florencia Lou MD is Referral Physician. mh7 22:17 Andrés Landaverde MD is Referral Physician. mh7 22:48 No provider procedures requiring assistance completed. IV discontinued, intact, jb4 bleeding controlled, No redness/swelling at site. Pressure dressing applied. Administered Medications: No medications were administered Outcome: 22:17 Discharge ordered by . mh7 22:48 Discharged to home ambulatory, with family. jb4 22:48 Condition: stable 22:48 Discharge instructions given to patient, Instructed on discharge instructions, follow up and referral plans. Demonstrated understanding of instructions, follow-up care. 22:48 Patient left the ED. jb4 Signatures: Dispatcher [employer] EDTN Celestina Raines AlexisJazmin, RN RN ss Cassy Haynes RN RN tw2 Vern Thompson RN RN jb4 Lucero Mireles Jacob jp3 Keshav Beasley MD MD mh7
[2020-08-27 09:36] VITALS: TEMP 97.8
[2020-08-27 09:37] VITALS: O2SAT 98
[2020-08-27 09:44] VITALS: BP 136/62
== END 2020-08-26 22:48 | disposition home or self-care (01) ==
LOC: ER 17:09
DX: R51.9 Headache, unspecified (principal); I10 Essential (primary) hypertension; Z88.5 Allergy status to narcotic agent; Z88.6 Allergy status to analgesic agent; Z88.8 Allergy status to other drugs, medicaments and biological substances; Z91.048 Other nonmedicinal substance allergy status
CPT/HCPCS: 36415; 70450; 71045; 80048; 80076; 83735; 83880; 84484; 85025; 85610; 93005; 99284

== ENCOUNTER 2020-11-15 17:20 | Emergency (ER) | payer OTHER, BC ==
[2020-11-15] MEDS ORDERED: DIPHENHYDRAMINE 25 MG TAB/CAP ONE (18:14)
[2020-11-15] MEDS ORDERED: FAMOTIDINE 20 MG TAB ONE (18:15)
--- NOTE | 2020-11-15 20:02 | EDPHYS ---
Physician Documentation [facility] Name: Kerry Early Age: 70 yrs Sex: Female : 1950 Arrival Date: 11/15/2020 Time: 17:22 Bed Waiting Private MD: ED Physician Masha Calero HPI: 11/15 20:03 This 70 yrs old Female presents to ER via Ambulatory with complaints of Rash. pm1 20:03 The patient's rash thought to be caused by medication, second series shot of covid pm1 vaccine. The rash is located on the face. The rash can be described as raised, itchy. Onset: The symptoms/episode began/occurred a few hours after vaccination shot. Associated signs and symptoms: Pertinent positives: itching, Pertinent negatives: burning sensation, difficulty breathing, swelling of lips, swelling of throat, swelling of tongue. Severity of symptoms: in the emergency department the symptoms have improved from medications given after triage. Treatment given at home: None. The patient has not experienced similar symptoms in the past. Historical: - Allergies: 17:53 Iodine; ll1 17:53 Naproxen; ll1 17:53 Terazosin; ll1 17:53 Darvocet-N 100; ll1 17:53 tramadol; ll1 - PMHx: 17:53 brain aneurysm; COPD; Diabetes - NIDDM; GERD; Hypertension; Seizures; ll1 17:53 Lupus; ll1 - PSHx: 17:53 Cholecystectomy; ll1 17:53 brain sx-aneurysm; ll1 - Immunization history:: Flu vaccine is up to date. - Social history:: Smoking status: Patient denies any tobacco usage or history of. ROS: 20:03 Constitutional: Negative for fever, chills, and weight loss. pm1 20:03 Cardiovascular: Negative for chest pain, palpitations, and edema, Respiratory: Negative for shortness of breath, cough, wheezing, and pleuritic chest pain, Abdomen/GI: Negative for abdominal pain, nausea, vomiting, diarrhea, and constipation, MS/Extremity: Negative for injury and deformity. 20:03 Neuro: Negative for headache, weakness, numbness, tingling, and seizure. 20:03 Skin: Positive for rash, to face and itching between webbing of fingers. Exam: 20:03 Constitutional: This is a well developed, well nourished patient who is awake, alert, pm1 and in no acute distress. Head/Face: Normocephalic, atraumatic. 20:03 Cardiovascular: Exam negative for acute changes, Rate: normal, Rhythm: regular, Pulses: no pulse deficits are appreciated. 20:03 Respiratory: Exam negative for acute changes, respiratory distress, shortness of breath. 20:03 Skin: Appearance: normal except for affected area, consistent with urticaria, on the left cheek. 20:03 Neuro: Exam negative for acute changes, Orientation: is normal, Mentation: is normal, Motor: is normal, moves all fours. Vital Signs: 17:49 BP 139 / 85; Pulse 93; Resp 17; Temp 97.6; Pulse Ox 98% ; Weight 71.67 kg; Height 5 ft. ll1 2 in. (157.48 cm); Pain 0/10; 17:49 Body Mass Index 28.90 (71.67 kg, 157.48 cm) ll1 MDM: 20:01 Data reviewed: vital signs. pm1 20:01 Counseling: I had a detailed discussion with the patient and/or guardian regarding: the pm1 historical points, exam findings, and any diagnostic results supporting the discharge/admit diagnosis, the need for outpatient follow up, to return to the emergency department if symptoms worsen or persist or if there are any questions or concerns that arise at home. 20:02 Patient medically screened. pm1 Administered Medications: 18:01 Drug: Benadryl 25 mg Route: PO; 1 20:25 Follow up: Response: No adverse reaction; RASS: Alert and Calm (0) 1 18:01 Drug: Pepcid 40 mg Route: PO; ll1 20:25 Follow up: Response: No adverse reaction; RASS: Alert and Calm (0) 1 20:05 Drug: SOLU-Medrol 125 mg Route: IM; Site: right gluteus; ll1 20:26 Follow up: Response: No adverse reaction; RASS: Alert and Calm (0) 1 Disposition: 11/16 06:59 Co-signature as Attending Physician, Masha Calero MD. ma2 Disposition: 11/15/20 20:02 Discharged to Home. Impression: Rash and other nonspecific skin eruption. - Condition is Stable. - Discharge Instructions: Rash. - Prescriptions for Benadryl 25 mg Oral Capsule - take 1 capsule by ORAL route every 6 hours As needed; 30 tablet. Pepcid 20 mg Oral Tablet - take 1 tablet by ORAL route every 12 hours for 10 days; 20 tablet. Medrol (Pedro) 4 mg Oral Tablets, Dose Pack - take 1 tablet by ORAL route as directed - follow package instructions; 1 packet. - Medication Reconciliation Form, Thank You Letter, Antibiotic Education, Prescription Opioid Use form. - Follow up: Emergency Department; When: As needed; Reason: Worsening of condition. Follow up: Private Physician; When: 2 - 3 days; Reason: Recheck today's complaints, Continuance of care, Re-evaluation by your physician. - Problem is new. - Symptoms have improved. Signatures: Lul Dias NP PROTOTYPE CARPENTER pm1 Masha Calero MD MD ma2 Ivelisse Amos RN RN ll1 Corrections: (The following items were deleted from the chart) 11/15 20:15 20:02 11/15/2020 20:02 Discharged to Home. Impression: Rash and other nonspecific skin ll1 eruption. Condition is Stable. Forms are Medication Reconciliation Form, Thank You Letter, Antibiotic Education, Prescription Opioid Use. Follow up: Emergency Department; When: As needed; Reason: Worsening of condition. Follow up: Private Physician; When: 2 - 3 days; Reason: Recheck today's complaints, Continuance of care, Re-evaluation by your physician. Problem is new. Symptoms have improved. pm1
--- NOTE | 2020-11-15 20:02 | ER ---
Nurse's Notes [facility] Name: Kerry Early Age: 70 yrs Sex: Female : 1950 Arrival Date: 11/15/2020 Time: 17:22 Bed Waiting Private MD: Diagnosis: Rash and other nonspecific skin eruption Presentation: 11/15 17:49 Chief complaint: Patient states: Received 2nd covid vaccine here today at 1530. 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 Throat feels funny. Coronavirus screen: Client denies travel out of the [place] in the last 14 days. At this time, the client does not indicate any symptoms associated with coronavirus-19. Ebola Screen: Patient denies travel to an Ebola-affected area in the 21 days before illness onset. Initial Sepsis Screen: Does the patient meet any 2 criteria? HR > 90 bpm. Does the patient have a suspected source of infection? Yes: Skin breakdown/wound. Risk Assessment: Do you want to hurt yourself or someone else? Patient reports no desire to harm self or others. Onset of symptoms was November 15, 2020. 17:49 Method Of Arrival: Ambulatory ll1 17:49 Acuity: CLAUDIA 3 ll1 Triage Assessment: 17:50 General: Appears uncomfortable, Behavior is calm, cooperative, appropriate for age. ll1 Pain: Denies pain. EENT: Oral mucosa is moist. Throat is clear Reports scratchy throat. Derm: Rash noted that is red, very light fine rash to face/mouth area. Reports itching. Historical: - Allergies: 17:53 Iodine; ll1 17:53 Naproxen; ll1 17:53 Terazosin; ll1 17:53 Darvocet-N 100; ll1 17:53 tramadol; ll1 - PMHx: 17:53 brain aneurysm; COPD; Diabetes - NIDDM; GERD; Hypertension; Seizures; ll1 17:53 Lupus; ll1 - PSHx: 17:53 Cholecystectomy; ll1 17:53 brain sx-aneurysm; ll1 - Immunization history:: Flu vaccine is up to date. - Social history:: Smoking status: Patient denies any tobacco usage or history of. Screenin:15 Abuse screen: Denies threats or abuse. Nutritional screening: No deficits noted. ll1 Tuberculosis screening: No symptoms or risk factors identified. Fall Risk None identified. Total Flowers Fall Scale indicates No Risk (0-24 pts). Assessment: 18:00 Reassessment: No changes from previously documented assessment. Patient and/or family ll1 updated on plan of care and expected duration. Pain level reassessed. Patient is alert, oriented x 3, equal unlabored respirations, skin warm/dry/pink. 19:00 Reassessment: no distress noted while waiting in the lobby. ll1 20:00 Reassessment: No changes from previously documented assessment. Patient and/or family ll1 updated on plan of care and expected duration. Pain level reassessed. Patient is alert, oriented x 3, equal unlabored respirations, skin warm/dry/pink. Patient states feeling better. Patient states symptoms have improved. Vital Signs: 17:49 BP 139 / 85; Pulse 93; Resp 17; Temp 97.6; Pulse Ox 98% ; Weight 71.67 kg; Height 5 ft. ll1 2 in. (157.48 cm); Pain 0/10; 17:49 Body Mass Index 28.90 (71.67 kg, 157.48 cm) ll1 ED Course: 17:22 Patient arrived in ED. as 17:52 Triage completed. ll1 17:53 Arm band placed on. ll1 18:00 Patient has correct armband on for positive identification. Cardiac monitoring not ll1 applicable on this patient. 20:01 Lul Dias NP is PHCP. pm1 20:01 Masha Calero MD is Attending Physician. pm1 20:15 No provider procedures requiring assistance completed. Patient did not have IV access ll1 during this emergency room visit. Administered Medications: 18:01 Drug: Benadryl 25 mg Route: PO; ll1 20:25 Follow up: Response: No adverse reaction; RASS: Alert and Calm (0) ll1 18:01 Drug: Pepcid 40 mg Route: PO; ll1 20:25 Follow up: Response: No adverse reaction; RASS: Alert and Calm (0) ll1 20:05 Drug: SOLU-Medrol 125 mg Route: IM; Site: right gluteus; ll1 20:26 Follow up: Response: No adverse reaction; RASS: Alert and Calm (0) ll1 Outcome: 20:02 Discharge ordered by . pm1 20:15 Patient left the ED. ll1 20:15 Discharged to home ambulatory. ll1 20:15 Condition: stable 20:15 Discharge instructions given to patient, Instructed on discharge instructions, follow up and referral plans. medication usage, Demonstrated understanding of instructions, follow-up care, medications, Prescriptions given X 3. Signatures: Alicja Velásquez Patrick, NP METAL CEILING HANGER pm1 Ivelisse Amos RN RN ll1
[2020-11-15 20:40] VITALS: BP 139/85; TEMP 97.6; O2SAT 98
== END 2020-11-15 20:15 | disposition home or self-care (01) ==
LOC: ER 17:20
DX: R21 Rash and other nonspecific skin eruption (principal); I10 Essential (primary) hypertension; Z88.5 Allergy status to narcotic agent; Z88.6 Allergy status to analgesic agent; Z88.8 Allergy status to other drugs, medicaments and biological substances; Z91.048 Other nonmedicinal substance allergy status
CPT/HCPCS: 96372; 99283; J2930

== ENCOUNTER 2022-06-18 11:00 | Day surgery (SDC) | payer OTHER, BC ==
[2022-06-15 11:38] LABS: Absolute Lymphocytes (CBC) 0.9 K/uL (0.7-4.9); Hematocrit 44.7 % (36.0-45.0); Lymphocytes % 19.1 % (15.3-44.8); MCV 93.5 fL (80-100); MPV 7.9 fL (7.6-11.3); RBC Red Blood Cell Count 4.78 M/uL (3.86-4.86)
[2022-06-15 11:41] LABS: Protime INR 0.89
[2022-06-15 11:52] LABS: SARS-CoV-2 Antigen Rapid Res Negative (Negative)
[2022-06-15 11:56] LABS: Potassium 4.5 mmol/L (3.5-5.1)
[~2022-06-18 11:00] MED LIST: HEPA 1000U/500MLS 2,000 UNIT/1,000 ML BAG IV ONE
[2022-06-18] MEDS ORDERED: NA CHLORIDE 0.9% 500 ML ONE (11:06)
[2022-06-18] MEDS ORDERED: FENTANYL CITR 100 MCG/2 ML ONE (11:15)
[2022-06-18] MEDS ORDERED: HEPARIN 5000 UNIT/ML 1 ML VIAL ONE (11:16)
[2022-06-18] MEDS ORDERED: HEPARIN 10,000 UNIT/10 ML VIAL IV ONE (11:16)
[2022-06-18] MEDS ORDERED: ATROPINE SULF 1 MG/10 ML SYR IV ONE (11:16)
[2022-06-18] MEDS ORDERED: VERAPAMIL HCL 10 MG/4 ML VIAL IV ONE (11:16)
[2022-06-18] MEDS ORDERED: NITROGLYCERIN 100 MCG/ML SYR (for cath lab use only) IV ONE (11:16)
[2022-06-18] MEDS ORDERED: MIDAZOLAM HCL 2 MG/2 ML INJ ONE ×2 (11:16→13:03)
[2022-06-18 11:27] VITALS: TEMP 97
[2022-06-18] MEDS ORDERED: HYDRALAZINE HCL 20 MG/ML VIAL ONE (13:29)
[2022-06-18 14:34] VITALS: O2SAT 98
[2022-06-18 15:08] VITALS: BP 127/66
--- NOTE | 2022-06-19 01:55 | OP ---
Date of Procedure: 06/18/2022 Surgeon: KERON MCKEE Procedure Performed: 1.Selective coronary angiogram. 2.Left heart catheterization. 3.Peripheral angiogram. Indication: 1.Significant claudication and lower extremity pain with abnormal Doppler. 2.Persistent chest pain on exertion. This was concerning for unstable angina, multivessel disease. Access: Right femoral artery 6-[place] closed with 6-[place] Angio-Seal. Complications: None. Estimated Blood Loss: Bleeding less than 10 mL. Total Sedation Time: 45 minutes, use of fentanyl and Versed. Description Of Procedure: After risks, benefits, and alternatives were explained, the patient agreed to proceed and signed informed consent. The patient was brought into cardiac catheterization [facility] and prepped and draped in usual sterile fashion. Then, we accessed right femoral artery using a micropuncture kit and ultrasound guidance and fluoroscopy and placed a 6-[place] slender sheath and t hen, I took a 6-[place] JL4 catheter into the aortic root, engaged left main. Then, exchanged for a 6 -[place] JR4 catheter, engaged the RCA, and the catheter was advanced over the wire into the LV. LVED P was measured and pullback, not requiring gradient. Then, exchanged for a straight pigtail that was placed in the distal aorta and did distal aortogram with runoff and then took an Omni Flush catheter into the distal left SFA to evaluate the vessels below the knee very well as she has severe symptoms and then removed the catheter and the sheath placed, 6-[place] Angio-Seal, for closure with good hemo stasis. Findings: Left heart catheterization: 1.Left main is large and normal. 2.LAD, moderate-sized and normal. Normal diagonal branches. 3.Left circumflex: This is a large size vessel and it is normal. Normal OM branches. 4.RCA: Large dominant and normal. 5.Elevated LVEDP at 21 mmHg. Peripheral angiogram: 1.Distal aorta is patent. 2.Bilateral iliac arteries are totally normal and no disease. 3.Bilateral common femoral arteries are normal. 4.Bilateral SFA is widely patent with no significant disease as well as bilateral profunda. 5.Zlrhz-rpl-atyd circulation is patent all the way to the toes with no significant stenosis. 6.Ktfda-orn-wkfg circulation on the left also is normal without any significant disease. Conclusion: 1.Normal coronary angiogram. 2.Normal peripheral angiogram. 3.Elevated LVEDP. Plan: Medical management and diuretics. SR/MODL Voice ID: [id number] Report ID: [id number]
== END 2022-06-18 15:30 | disposition home or self-care (01) ==
LOC: CCL 11:00
PROVIDERS: ATTEND Internal Medicine
DX: I73.9 Peripheral vascular disease, unspecified (principal); R07.9 Chest pain, unspecified; I51.7 Cardiomegaly; I34.1 Nonrheumatic mitral (valve) prolapse; I10 Essential (primary) hypertension; E78.00 Pure hypercholesterolemia, unspecified; J44.9 Chronic obstructive pulmonary disease, unspecified; E11.9 Type 2 diabetes mellitus without complications; Z79.899 Other long term (current) drug therapy; Z88.5 Allergy status to narcotic agent; Z88.8 Allergy status to other drugs, medicaments and biological substances; Z91.041 Radiographic dye allergy status; Z20.822 Contact with and (suspected) exposure to COVID-19
CPT/HCPCS: 85025; 80048; 36415; 85610; 82947; 85730; 75625; 36247; 93458; 76937; 87811; C1893; C1760; G0269; C1769; J0360; J1644 ×2; J2250; J3010; J7040; 36245

== ENCOUNTER 2023-03-26 12:40 | Emergency (ER) | payer OTHER, BC ==
[2023-03-26 14:17] LABS: Hematocrit 41.7 % (36.0-45.0); Lymphocytes % 17.1 % (15.3-44.8); MCV 93.6 fL (80-100); MPV 7.9 fL (7.6-11.3); RBC Red Blood Cell Count 4.46 M/uL (3.86-4.86)
[2023-03-26 14:23] LABS: Specific Gravity > 1.030 (1.005-1.030); Urine Bacteria None Seen /HPF (<20); Urine Bilirubin NEGATIVE (Negative); Urine Blood Negative (Negative); Urine Clarity Clear (Clear); Urine Color Yellow (Yellow); Urine Glucose TRACE (Negative); Urine Mucus Slight /HPF (None Seen); Urine Protein 1+ (Negative); Urine RBC <5 /HPF (None Seen); Urine Urobilinogen Normal (Normal); Urine pH 5.5 (5.0-7.0)
[2023-03-26 14:35] LABS: Albumin 3.6 g/dL (3.4-5.0); Bilirubin Total 0.3 mg/dL (0.2-1.0); Potassium 4.4 mEq/L (3.5-5.1); Protein, Total 7.1 g/dL (6.4-8.2)
[2023-03-26] MEDS ORDERED: DIPHENHYDRAMINE 50 MG/ML VIAL ONE (15:02)
[2023-03-26] MEDS ORDERED: METHYLPREDNISOLONE 125 MG INJ ONE (15:03)
--- NOTE | 2023-03-26 15:36 | RAD REPORT ---
EXAM DESCRIPTION: CT - Abdomen Pelvis W Contrast - 03/26/2023 3:05 pm CLINICAL HISTORY: Abdominal pain COMPARISON: 2018 TECHNIQUE: Computed axial tomography of the abdomen pelvis was obtained. 100 cc Isovue-300 was admin istered intravenously. Oral contrast was not requested which limits evaluation of bowel and appendix All CT scans are performed using dose optimization technique as appropriate and may include automated exposure control or mA/KV adjustment according to patient size. FINDINGS: Cholecystectomy The liver, spleen, pancreas, adrenals and kidneys are unremarkable 1.4 centimeter cystic mass right lateral upper pelvis unchanged from 2018 likely benign No evidence diverticulitis 1.9 centimeter left ovarian cyst mildly decreased in size is benign. No follow-up recommended. 2.5 centimeter soft tissue structure abutting the left aspect of the uterus without obvious change fr om the prior pelvic ultrasound and presumably subserosal fibroid IMPRESSION: No acute abnormality is displayed.
--- NOTE | 2023-03-26 15:40 | ER ---
Nurse's Notes [facility] Name: Kerry Early Age: 72 yrs Sex: Female : 1950 Arrival Date: 03/26/2023 Time: 12:40 Bed DIS2 Private MD: Diagnosis: Lower abdominal pain, unspecified;Other abdominal pain-Left lateral abdomen Presentation: 03/26 12:48 Chief complaint: Patient states: pain on left side radiating to back , started Saturday , iw went to physical therapy yesterday and pain got worse, when she urinates it still feels full under ribs. Coronavirus screen: At this time, the client does not indicate any symptoms associated with coronavirus-19. Ebola Screen: Patient negative for fever greater than or equal to 101.5 degrees Fahrenheit, and additional compatible Ebola Virus Disease symptoms Patient denies exposure to infectious person. Patient denies travel to an Ebola-affected area in the 21 days before illness onset. No symptoms or risks identified at this time. Initial Sepsis Screen: Does the patient meet any 2 criteria? No. Patient's initial sepsis screen is negative. Does the patient have a suspected source of infection? No. Patient's initial sepsis screen is negative. Risk Assessment: Do you want to hurt yourself or someone else? Patient reports no desire to harm self or others. Onset of symptoms was March 22, 2023. 12:48 Method Of Arrival: Ambulatory iw 12:48 Acuity: CLAUDIA 3 iw Historical: - Allergies: 12:50 Darvocet-N 100; iw 12:50 Iodine; iw 12:50 Naproxen; iw 12:50 Terazosin; iw 12:50 tramadol; iw - PMHx: 12:50 brain aneurysm; COPD; Diabetes - NIDDM; GERD; Hypertension; Lupus; Seizures; iw - Social history:: Smoking status: . Screenin:25 [facility] ED Fall Risk Assessment (Adult) History of falling in the last 3 months, mb9 including since admission No falls in past 3 months (0 pts) Confusion or Disorientation No (0 pts) Intoxicated or Sedated No (0 pts) Impaired Gait Yes (1 pt) Mobility Assist Device Used Yes (1 pt) Altered Elimination No (0 pt) Score/Fall Risk Level 0 - 2 = Low Risk Oriented to surroundings, Maintained a safe environment, Educated pt \T\ family on fall prevention, incl call for assistance when getting out of bed. Abuse screen: Denies threats or abuse. Nutritional screening: No deficits noted. Tuberculosis screening: No symptoms or risk factors identified. Assessment: 13:35 General: Appears in no apparent distress. Behavior is calm, cooperative. Pain: mb9 Complains of pain in abdomen Pain radiates to back Quality of pain is described as throbbing, Pain began suddenly. Neuro: Level of Consciousness is awake, alert, obeys commands, Oriented to person, place, time, situation, Appropriate for age. Respiratory: Airway is patent Respiratory effort is even, unlabored, Respiratory pattern is regular, symmetrical. GI: Abdomen is round non-distended, Bowel sounds present X 4 quads. Abd is soft and non tender X 4 quads. Patient currently denies diarrhea, nausea, vomiting. Derm: Skin is pink, warm \T\ dry. Musculoskeletal: Range of motion: intact in all extremities. 14:45 Reassessment: No changes from previously documented assessment. Patient and/or family mb9 updated on plan of care and expected duration. Pain level reassessed. Patient is alert, oriented x 3, equal unlabored respirations, skin warm/dry/pink. 16:20 Reassessment: No changes from previously documented assessment. Patient and/or family mb9 updated on plan of care and expected duration. Pain level reassessed. Patient is alert, oriented x 3, equal unlabored respirations, skin warm/dry/pink. Vital Signs: 12:48 BP 138 / 62; Pulse 71; Resp 16; Temp 97.9; Pulse Ox 98% on R/A; Weight 71.67 kg; Height iw 5 ft. 2 in. ; Pain 8/10; 15:35 BP 125 / 71; Pulse 68; Resp 16; Pulse Ox 100% on R/A; mb9 12:48 Body Mass Index 28.90 (71.67 kg, 157.48 cm) iw 12:48 Pain Scale: Adult iw ED Course: 12:46 Patient arrived in ED. im 12:50 Triage completed. iw 12:51 Arm band placed on. iw 12:54 Edy Centeno MD is Attending Physician. kdr 13:00 No provider procedures requiring assistance completed. Inserted saline lock: 20 gauge mb9 in left antecubital area, using aseptic technique. 14:14 Urinalysis w/ reflexes Sent. kj1 15:07 CT Abd/Pelvis - IV Contrast Only In Process Unspecified. EDMS 16:23 IV discontinued, intact, bleeding controlled, No redness/swelling at site. Pressure mb9 dressing applied. Administered Medications: 15:00 Drug: diphenhydrAMINE IVP 25 mg {Note: VO from Dr. Centeno .} Route: IVP; Site: left mb9 antecubital; 15:01 Drug: MethylPrednisoLONE IVP 125 mg {Note: VO from Dr. Centeno .} Route: IVP; Site: mb9 left antecubital; Medication: 16:23 VIS not applicable for this client. mb9 Outcome: 15:40 Discharge ordered by . ana maría 16:23 Discharged to home ambulatory. mb9 16:23 Condition: stable 16:23 Discharge instructions given to patient, Instructed on discharge instructions, follow up and referral plans. Demonstrated understanding of instructions, follow-up care, medications, Prescriptions given X 1. 16:24 Patient left the ED. mb9 Signatures: Dispatcher [employer] EDMS Edy Centeno MD MD kdr Williams, Irene, RN Alisha Bowers [email or web address] Celestina Navas RN RN mb9 Dorothy Fonseca
--- NOTE | 2023-03-26 15:40 | EDPHYS ---
Physician Documentation [facility] Name: Kerry Early Age: 72 yrs Sex: Female : 1950 Arrival Date: 03/26/2023 Time: 12:40 Bed DIS2 Private MD: ED Physician Edy Centeno HPI: 03/26 17:37 This 72 yrs old Female presents to ER via Ambulatory with complaints of kdr Abdominal Pain. 17:37 Patient states that she has had pain on her left flank and left lateral abdomen that kdr started on Saturday. She went to physical therapy yesterday and the pain seemed to get worse. When she urinates she still feels full under her ribs. Patient states that she feels like she has a mass or swelling on her left lateral abdominal area below her ribs. She does not otherwise appear ill or acutely toxic in any way. Onset: The symptoms/episode began/occurred suddenly, just prior to arrival. Severity of symptoms: At their worst the symptoms were mild moderate just prior to arrival, in the emergency department the symptoms. The patient has not experienced similar symptoms in the past. The patient has not recently seen a physician. Historical: - Allergies: 12:50 Darvocet-N 100; iw 12:50 Iodine; iw 12:50 Naproxen; iw 12:50 Terazosin; iw 12:50 tramadol; iw - PMHx: 12:50 brain aneurysm; COPD; Diabetes - NIDDM; GERD; Hypertension; Lupus; Seizures; iw - Social history:: Smoking status: . ROS: 17:37 Constitutional: Negative for fever, chills, and weight loss, Eyes: Negative for injury, kdr pain, redness, and discharge, ENT: Negative for injury, pain, and discharge, Neck: Negative for injury, pain, and swelling, Cardiovascular: Negative for chest pain, palpitations, and edema, Respiratory: Negative for shortness of breath, cough, wheezing, and pleuritic chest pain, Back: Negative for injury and pain, : Negative for injury, bleeding, discharge, and swelling, MS/Extremity: Negative for injury and deformity, Skin: Negative for injury, rash, and discoloration, Neuro: Negative for headache, weakness, numbness, tingling, and seizure activity. Psych: Negative for depression, anxiety, suicide ideation, homicidal ideation, and hallucinations, Allergy/Immunology: Negative for hives, rash, and allergies, Endocrine: Negative for neck swelling, polydipsia, polyuria, polyphagia, and marked weight changes, Hematologic/Lymphatic: Negative for swollen nodes, abnormal bleeding, and unusual bruising. 17:37 Abdomen/GI: Positive for abdominal pain, nausea, Negative for vomiting, diarrhea, constipation, abdominal cramps, abdominal distension, anorexia, dysphagia, hematemesis, black/tarry stool, rectal pain, rectal bleeding, bowel incontinence. Exam: 17:37 Constitutional: This is a well developed, well nourished patient who is awake, alert, kdr and in no acute distress. Head/Face: Normocephalic, atraumatic. Eyes: Pupils equal round and reactive to light, extra-ocular motions intact. Lids and lashes normal. Conjunctiva and sclera are non-icteric and not injected. Cornea within normal limits. Periorbital areas with no swelling, redness, or edema. Neck: Trachea midline, no thyromegaly or masses palpated, and no cervical lymphadenopathy. Supple, full range of motion without nuchal rigidity, or vertebral point tenderness. No Meningismus. Chest/axilla: Normal chest wall appearance and motion. Nontender with no deformity. No lesions are appreciated. Cardiovascular: Regular rate and rhythm with a normal S1 and S2. No gallops, murmurs, or rubs. Normal PMI, no JVD. No pulse deficits. Respiratory: Lungs have equal breath sounds bilaterally, clear to auscultation and percussion. No rales, rhonchi or wheezes noted. No increased work of breathing, no retractions or nasal flaring. Back: No spinal tenderness. No costovertebral tenderness. Full range of motion. Skin: Warm, dry with normal turgor. Normal color with no rashes, no lesions, and no evidence of cellulitis. MS/ Extremity: Pulses equal, no cyanosis. Neurovascular intact. Full, normal range of motion. Neuro: Awake and alert, GCS 15, oriented to person, place, time, and situation. Cranial nerves II-XII grossly intact. Motor strength 5/5 in all extremities. Sensory grossly intact. Cerebellar exam normal. Normal gait. Psych: Awake, alert, with orientation to person, place and time. Behavior, mood, and affect are within normal limits. 17:37 Abdomen/GI: Inspection: obese Bowel sounds: active, all quadrants, Palpation: soft, mild abdominal tenderness, in the anterior aspect of left lateral abdomen and left upper quadrant. Vital Signs: 12:48 BP 138 / 62; Pulse 71; Resp 16; Temp 97.9; Pulse Ox 98% on R/A; Weight 71.67 kg; Height iw 5 ft. 2 in. ; Pain 8/10; 15:35 BP 125 / 71; Pulse 68; Resp 16; Pulse Ox 100% on R/A; mb9 12:48 Body Mass Index 28.90 (71.67 kg, 157.48 cm) iw 12:48 Pain Scale: Adult iw MDM: 15:40 Patient medically screened. kdr 17:37 Data reviewed: vital signs, nurses notes, lab test result(s), radiologic studies. kdr 03/26 12:57 Order name: CBC with Diff; Complete Time: 14:43 kdr 03/26 12:57 Order name: CMP; Complete [facility]: [facility]:43 [facility] 03/26 12:57 Order name: Lipase; Complete Time: 14:43 [facility] 03/26 12:57 Order name: Urinalysis w/ reflexes; Complete Time: 14:43 [facility] 03/26 14:43 Order name: CT Abd/Pelvis - IV Contrast Only; Complete Time: 15:37 kdr 03/26 12:57 Order name: IV Saline Lock; Complete Time: 14:14 kdr 03/26 12:57 Order name: Labs collected and sent; Complete Time: 14:14 kdr Administered Medications: 15:00 Drug: diphenhydrAMINE IVP 25 mg {Note: VO from Dr. Centeno .} Route: IVP; Site: left mb9 antecubital; 15:01 Drug: MethylPrednisoLONE IVP 125 mg {Note: VO from Dr. Centeno .} Route: IVP; Site: 9 left antecubital; Disposition Summary: 03/26/23 15:40 Discharge Ordered Location: Home kdr Problem: new kdr Symptoms: have improved kdr Condition: Stable kdr Diagnosis - Lower abdominal pain, unspecified kdr - Other abdominal pain - Left lateral abdomen kdr Followup: kdr - With: Private Physician - When: 2 - 3 days - Reason: If symptoms return, Further diagnostic work-up, Recheck today's complaints, Continuance of care, Re-evaluation by your physician Discharge Instructions: - Discharge Summary Sheet kdr - Abdominal Pain, Adult, [id number] kdr Forms: - Medication Reconciliation Form kdr - Thank You Letter kdr Prescriptions: - dicyclomine 20 mg Oral tablet - take 1 tablet by ORAL route 3 times per day As needed; 12 tablet; Refills: 0, kdr Product Selection Permitted Signatures: Dispatcher [employer] Edy Garcia MD MD kdr Williams, Irene, RN RN iw Breneman, Mary Beth RN RN mb9
[2023-03-26 16:30] VITALS: TEMP 97.9
[2023-03-26 16:31] VITALS: BP 125/71; O2SAT 100
== END 2023-03-26 16:24 | disposition home or self-care (01) ==
LOC: ER 12:40
DX: R10.32 Left lower quadrant pain (principal); I10 Essential (primary) hypertension; E11.9 Type 2 diabetes mellitus without complications; J44.9 Chronic obstructive pulmonary disease, unspecified; Z88.5 Allergy status to narcotic agent; Z88.6 Allergy status to analgesic agent; Z88.8 Allergy status to other drugs, medicaments and biological substances; Z91.048 Other nonmedicinal substance allergy status
CPT/HCPCS: 85025; 81001; 36415; 83690; 80053; 74177; Q9967; J1200; J2930

== ENCOUNTER 2023-07-24 14:01 | Observation (INO) | payer OTHER, BC ==
--- OUTSIDE RECORDS SUMMARY | 2023-07-24 14:11 | XMS REPORT | Continuity of Care Document ---
:1950 Author Organization [facility] t Address [address] [place] [address] [address] [place] [address] Care Team Providers Name Role Phone PRATIBHA MOSLEY Primary Care Physician Unavailable Dudley Belcher Attending Clinician Unavailable HITESH MALAVE Attending Clinician Unavailable CLEVE JONES Attending Clinician Unavailable RADIOLOGY Attending Clinician Unavailable Radiology Attending Clinician Unavailable Pipes Cleve BANDA Attending Clinician Doctor Unassigned, [place] Attending Clinician Unavailable UNKNOWN, ATTENDING Attending Clinician Unavailable Only, Ang Db Test Attending Clinician Unavailable Lois Traore MD Attending Clinician LOIS TRAORE Attending Clinician Unavailable Lab, Adc Fam Pob I Attending Clinician Unavailable Mariah Ferris Attending Clinician MARIAH MARTINEZ Attending Clinician Unavailable Pritesh Leonardo RN Attending Clinician Unavailable ERWIN GARCIA Attending Clinician Unavailable Judy Rosado MD Attending Clinician Erwin Garcia MD Attending Clinician Steffi Gonzalez Attending Clinician STEFFI POOLE Attending Clinician Unavailable AMARI CEVALLOS Attending Clinician Unavailable Albert Torrez DO Attending Clinician ANICETO DICKINSON Attending Clinician Unavailable Ayleen Belcher MD Attending Clinician Amari Cevallos MD Attending Clinician Draw, Clc-Bls Lab Attending Clinician Unavailable AYLEEN BELCHER Attending Clinician Unavailable Only, Adc Test Attending Clinician Unavailable Madhu Washburn MD Attending Clinician MADHU WASHBURN Attending Clinician Unavailable GRANT KWOK Attending Clinician Unavailable Grant Kwok MD Attending Clinician Vls-Lab Attending Clinician Unavailable Vane Celaya MD Attending Clinician [phone] Pob[facility], [facility] Attending Clinician Unavailable ROSSANA MITCHELL JR Attending Clinician Unavailable Hitesh Malave Attending Clinician NADIA NAVAS Admitting Clinician Unavailable PONCHO CAM Admitting Clinician Unavailable ERWIN GARCIA Admitting Clinician Unavailable Erwin Garcia MD Admitting Clinician AMARI CEVALLOS Admitting Clinician Unavailable AYLEEN BELCHER Admitting Clinician Unavailable ROSSANA MITCHELL JR Admitting Clinician Unavailable Hitehs Malave Admitting Clinician Payers Payer Name Policy Type Policy Number Effective Date Expiration Date [place] MEDICARE PART A AND [id number] 2016 B 00:00:00 MEDICARE PART A \\T\\ [id number] 2016 B 00:00:00 [employer] TRADITIONAL [id number] 2016 00:00:00 Problems Condition Condition Condition Status Onset Resolution Last Treating Co mments Source Name Details Category Date Date Treatment Clinician Date Weakness Weakness Disease Active Unive rs 01-05 ity of 00:00: [address] COPD, COPD, Disease Active Univers moderate moderate 01-18 ity of 00:00: [address] M53.9 M53.9 Diagnosis Active 2017-04-25 Mem oria Active 04-25 14:00:00 l 04/25/2017 00:00: [place] FLANAGAN [address] Seizure Seizure Disease Active Univers 4-17 ity of 00:00: [place] 00 [facility] Esophageal Esophageal Disease Active U nivers reflux reflux 6-10 ity of 00:00: [place] 00 [facility] THALAMIC THALAMIC Diagnosis Active 2012-12-19 Memoria STROKE STROKE 12-11 21:44:00 l Active 00:00: Nick 12/11/2012 00 [facility] RIGHT RIGHT Diagnosis Active 2012-12-11 Mem oria SIDED SIDED 12-11 23:36:00 l STROKE STROKE 00:00: Nick Active 00 12/11/2012 [facility] Repair of Repair of Problem Resolve 2018-03-25 Memoria aortic aortic d 11:10:24 l aneurysm aneurysm [place] n using using bifurcatio bifurcatio n graft n graft (procedure (procedure ) ) Resolved Problem 03/25/2018 [facility] [place] [facility] YU Romero Cerebrovas Cerebrova Problem Resolve 2018-03-25 Memoria cular scular d 11:10:24 l accident accident [place] n (disorder) (disorder) Resolved Problem 03/25/2018 [facility] [place] [facility] YU Romero Hypertensi Hypertens Problem Resolve 2018-03-25 Memoria ve roberto d 11:10:24 l disorder, disorder, Herm litzy systemic systemic arterial arterial (disorder) (disorder) Resolved Problem 03/25/2018 [facility] [place] [facility] YU Romero Lupus Lupus Problem Resolve 2018-03-25 Sanchez maría erythemato erythemato d 11:10:24 l tripp tripp [place] (disorder) (disorder) Resolved Problem 03/25/2018 [facility] [place] [facility] YU Romero AAA - AAA - Problem Resolve 2012-12-15 Sanchez maría Repair of Repair of d 10:29:57 l abdominal abdominal Herm litzy aortic aortic aneurysm aneurysm using using bifurcatio bifurcatio n graft n graft Resolved Problem 12/15/2012 [facility] CVA - CVA - Problem Resolve 2012-12-15 Sanchez maría Cerebrovas Cerebrovas d 10:29:57 l cular cular Nick accident accident Resolved Problem 12/15/2012 [facility] HTN - HTN - Problem Resolve 2012-12-15 Sanchez maría Hypertensi Hypertensi d 10:29:57 l on on Nick Resolved Problem 12/15/2012 [facility] Lupus Lupus Problem Resolve 2012-12-15 Sanchez maría Resolved d 10:29:57 l Problem [place] 12/15/2012 [facility] CVA CVA Diagnosis Active 2012-12-19 Mem oria Active 21:44:00 l [facility] DORSOPATHY DORSOPATH Diagnosis Active 2017-04-25 Adi Naranjo, 14:00:00 l UNSPECIFIE UNSPECIFIE He rmann D D Active [facility] SYSTEMIC SYSTEMIC Diagnosis [facility] LUPUS 14:00:00 l ERYTHEMATO ERYTHEMATO He rmann TRIPP, TRIPP, UNSPECIFIE UNSPECIFIE Active [facility] History of Past Illness Condition Condition Condition Status Onset Resolution Last Treating Co mments Source Name Details Category Date Date Treatment Clinician Date Dorsopathy Dorsopath Problem 2017-2018-03-25 2018-03-25 adi Naranjo, 12-22 11:10:24 11:10:24 l unspecifie unspecifie 03:03: He rmann d d 44 12/22/2017 03/25/2018 YU Romero Allergies, Adverse Reactions, Alerts Allergy Allergy Status Severity Reaction(s) Onset Inactive Treating Comm ents Source Name Type Date Date Clinician Naproxen Propensi Active [place] ty to 05-04 Health adverse 00:00: reaction 00 s Naproxen Allergy Active [place] to 05-04 Health substanc 00:00: e 00 Terazosi Allergy Active Unknown 2018-10 Muscle [place] n to 04 ache, low Health substanc 00:00: blood e 00 pressureM uscle ache, low blood pressure TERAZOSI DRUG Active Unknown-Cmnt 2018-10 Un narendra N INGREDI 10-10 ity of 00:00: [place] 00 [facility] Terazosi Propensi Active Unknown - 2018-10 Muscle Uni vers n ty to See comments 04 ache, low i ty of adverse 00:00: blood [place] reaction 00 pressure Medica l s Branch CAULIFLO DRUG Active N/V Univers WER INGREDI 4-18 ity of 00:00: [place] 00 [facility] Cauliflo Propensi Active Nausea Univer s wer ty to and/or 4-18 ity of adverse Vomiting 00:00: [place] reaction 00 Medical s Branch NAPROXEN DRUG Active Anaphylaxis Uni vers INGREDI 4-17 ity of 00:00: [place] 00 [facility] SPINACH DRUG Active Hives 2017-0 Univers INGREDI 4-17 ity of 00:00: [place] 00 [facility] Naproxen Propensi Active Anaphylaxis 2017-0 U nivers ty to 4-17 ity of adverse 00:00: [place] reaction 00 Medical s Branch Spinach Propensi Active Hives 2017-0 Univers ty to 4-17 ity of adverse 00:00: [place] reaction 00 Medical s Branch Iodine Allergy Active Anaphylaxis 2015-0 [facility] to 2-23 Health substanc 00:00: e 00 IODINE Drug Active Anaphylaxis 2015-0 Unive rs AND Class 2-23 ity of IODIDE 00:00: [place] CONTAINI 00 Medical Branch PRODUCTS Iodine Propensi Active Anaphylaxis 2015-0 Uni vers And ty to 2-23 ity of Iodide adverse 00:00: [place] Containi reaction 00 Medica l s Branch Products PROPOXYP DRUG Active Rash 2013- Univers HENE 2-22 ity of N-ACETAM 00:00: [place] INOPHEN 00 Medical Branch IODINE DRUG Active Rash 2013- Univers INGREDI 2-22 ity of 00:00: [place] 00 [facility] Branch Propoxyp Propensi Active Rash 2013- Univer s hene ty to 2-22 ity of N-Acetam adverse 00:00: [place] inophen reaction 00 Medical s Branch Iodine Propensi Active Rash 2013- Univers ty to 2-22 ity of adverse 00:00: [place] reaction 00 Medical [facility] Darvocet Darvocet Active Memori a N N l Nick nonstero nonstero Active Memori a idal idal l antiinfl antiinfl [place] n ammatory ammatory agent agent povidone povidone Active Memori a iodine iodine l topical topical Nick Social History Social Habit Start Date Stop Date Quantity Comments Source Gender identity [facility] Sexual orientation Univer sity of [facility] Exposure to 2022-12-10 2022-12-20 Not sure University of SARS-CoV-2 (event) 00:00:00 08:49:00 [facility] History of Social 2022-12-20 2022-12-20 Univers ity of function 00:00:00 00:00:00 [facility] Tobacco use and 2022-12-20 2022-12-20 Smokeless Universit y of exposure 00:00:00 00:00:00 tobacco non-user [facility] dical [place] Alcohol intake 2022-12-20 2022-12-20 Current [facility] 00:00:00 00:00:00 non-drinker of [facility] alcohol Branch (finding) Sex Ass[birth year] At [birth year] [facility] 00:00:00 00:00:00 Smoking Status Start Date Stop Date Source Never smoked tobacco [facility] Medications Ordered Filled Start Stop Current Ordering Indication Dosage Frequency Signature Comments Components Source Medication Medication Date Date Medication? Clinician (SIG) Name Name cyanocobala 2020-10 Yes 1{capsu 1 capsule Univers min, 1-22 le} daily. ity of vitamin 10:52: [place] B-12, 1,000 39 [facility] cholecalcif 2020-10 Yes 1{tbl} Take 1 Un narendra jorge, 1-22 tablet by ity of vitamin D3, 10:52: mouth [place] 25 mcg 39 daily. Medical (1,000 Branch unit) tablet vitamin C 2020-10 Yes TAKE Univers with [place] 1-22 TABLET ity of hips 250 mg 10:52: 250mg [place] tablet 39 daily Medical Branch cyanocobala 2020-10 Yes 1{capsu 1 capsule Univers min, 1-22 le} daily. ity of vitamin 10:52: [place] B-12, 1,000 39 [facility] cholecalcif 2020-10 Yes 1{tbl} Take 1 Un narendra jorge, 1-22 tablet by ity of vitamin D3, 10:52: mouth [place] 25 mcg 39 daily. Medical (1,000 Branch unit) tablet vitamin C 2020-10 Yes TAKE Univers with [place] 1-22 TABLET ity of hips 250 mg 10:52: 250mg [place] tablet 39 daily Medical Branch cyanocobala 2020-10 Yes 1{capsu 1 capsule Univers min, 1-22 le} daily. ity of vitamin 10:52: [place] B-12, 1,000 39 [facility] cholecalcif 2020-10 Yes 1{tbl} Take 1 Un narendra jorge, 1-22 tablet by ity of vitamin D3, 10:52: mouth [place] 25 mcg 39 daily. Medical (1,000 Branch unit) tablet vitamin C 2020-10 Yes TAKE Univers with [place] 1-22 TABLET ity of hips 250 mg 10:52: 250mg [place] tablet 39 daily Medical Branch cyanocobala 2020-10 Yes 1{capsu 1 capsule Univers min, 1-22 le} daily. ity of vitamin 10:52: [place] B-12, 1,000 39 [facility] Branch cholecalcif 2020-10 Yes 1{tbl} Take 1 Un narendra jorge, 1-22 tablet by ity of vitamin D3, 10:52: mouth [place] 25 mcg 39 daily. Medical (1,000 Branch unit) tablet vitamin C 2020-10 Yes TAKE Univers with [place] 1-22 TABLET ity of hips 250 mg 10:52: 250mg [place] tablet 39 daily Medical Branch cyanocobala 2020-10 Yes 1{capsu 1 capsule Univers min, 1-22 le} daily. ity of vitamin 10:52: [place] B-12, 1,000 39 [facility] cholecalcif 2020-10 Yes 1{tbl} Take 1 Un narendra jorge, 1-22 tablet by ity of vitamin D3, 10:52: mouth [place] 25 mcg 39 daily. Medical (1,000 Branch unit) tablet vitamin C 2020-10 Yes TAKE Univers with [place] 1-22 TABLET ity of hips 250 mg 10:52: 250mg [place] tablet 39 daily Medical Branch cyanocobala 2020-10 Yes 1{capsu 1 capsule Univers min, 1-22 le} daily. ity of vitamin 10:52: [place] B-12, 1,000 39 [facility] Branch cholecalcif 2020-10 Yes 1{tbl} Take 1 Un narendra jorge, 1-22 tablet by ity of vitamin D3, 10:52: mouth [place] 25 mcg 39 daily. Medical (1,000 Branch unit) tablet vitamin C 2020-10 Yes TAKE Univers with [place] 1-22 TABLET ity of hips 250 mg 10:52: 250mg [place] tablet 39 daily Medical Branch cyanocobala 2020-10 Yes 1{capsu 1 capsule Univers min, 1-22 le} daily. ity of vitamin 10:52: [place] B-12, 1,000 39 Medical [facility] Branch cholecalcif 2020-10 Yes 1{tbl} Take 1 Un narendra jorge, 1-22 tablet by ity of vitamin D3, 10:52: mouth [place] 25 mcg 39 daily. Medical (1,000 Branch unit) tablet vitamin C 2020-10 Yes TAKE Univers with [place] 1-22 TABLET ity of hips 250 mg 10:52: 250mg [place] tablet 39 daily Medical [place] cyanocobala 2020-10 Yes 1{capsu 1 capsule Univers min, 1-22 le} daily. ity of vitamin 10:52: [place] B-12, 1,000 39 [facility] cholecalcif 2020-10 Yes 1{tbl} Take 1 Un narendra jorge, 1-22 tablet by ity of vitamin D3, 10:52: mouth [place] 25 mcg 39 daily. Medical (1,000 Branch unit) tablet vitamin C 2020-10 Yes TAKE Univers with [place] 1-22 TABLET ity of hips 250 mg 10:52: 250mg [place] tablet 39 daily Medical Branch cyanocobala 2020-10 Yes 1{capsu 1 capsule Univers min, 1-22 le} daily. ity of vitamin 10:52: [place] B-12, 1,000 39 [facility] cholecalcif 2020-10 Yes 1{tbl} Take 1 Un narendra jorge, 1-22 tablet by ity of vitamin D3, 10:52: mouth [place] 25 mcg 39 daily. Medical (1,000 Branch unit) tablet vitamin C 2020-10 Yes TAKE Univers with [place] 1-22 TABLET ity of hips 250 mg 10:52: 250mg [place] tablet 39 daily Medical [place] cyanocobala 2020-10 Yes 1{capsu 1 capsule Univers min, 1-22 le} daily. ity of vitamin 10:52: [place] B-12, 1,000 39 [facility] cholecalcif 2020-10 Yes 1{tbl} Take 1 Un narendra jorge, 1-22 tablet by ity of vitamin D3, 10:52: mouth [place] 25 mcg 39 daily. Medical (1,000 Branch unit) tablet vitamin C 2020-10 Yes TAKE Univers with [place] 1-22 TABLET ity of hips 250 mg 10:52: 250mg [place] tablet 39 daily Medical [place] cyanocobala 2020-10 Yes 1{capsu 1 capsule Univers min, 1-22 le} daily. ity of vitamin 10:52: [place] B-12, 1,000 39 Medical [facility] cholecalcif 2021-1 Yes 1{tbl} Take 1 Un narendra jorge, 1-22 tablet by ity of vitamin D3, 10:52: mouth [place] 25 mcg 39 daily. Medical (1,000 Branch unit) tablet vitamin C 2020-10 Yes TAKE Univers with [place] 1-22 TABLET ity of hips 250 mg 10:52: 250mg [place] tablet 39 daily Medical Branch cyanocobala 2020-10 Yes 1{capsu 1 capsule Univers min, 1-22 le} daily. ity of vitamin 10:52: [place] B-12, 1,000 39 Medical mcg Cap Branch cholecalcif 2020-10 Yes 1{tbl} Take 1 Un narendra jorge, 1-22 tablet by ity of vitamin D3, 10:52: mouth [place] 25 mcg 39 daily. Medical (1,000 Branch unit) tablet vitamin C 2020-10 Yes TAKE Univers with [place] 1-22 TABLET ity of hips 250 mg 10:52: 250mg [place] tablet 39 daily Medical Branch metoprolol 2020-10 Yes 50mg Take 50 mg U nivers tartrate 25 1-22 by mouth 2 it y of mg tablet 10:51: (two) [place] 41 times Medical daily. Branch metoprolol 2020-10 Yes 50mg Take 50 mg U nivers tartrate 25 1-22 by mouth 2 it y of mg tablet 10:51: (two) [place] 41 times Medical daily. Branch metoprolol 2020-10 Yes 50mg Take 50 mg U nivers tartrate 25 1-22 by mouth 2 it y of mg tablet 10:51: (two) [place] 41 times Medical daily. Branch metoprolol 2020-10 Yes 50mg Take 50 mg U nivers tartrate 25 1-22 by mouth 2 it y of mg tablet 10:51: (two) [place] 41 times Medical daily. Branch metoprolol 2020-10 Yes 50mg Take 50 mg U nivers tartrate 25 1-22 by mouth 2 it y of mg tablet 10:51: (two) [place] 41 times Medical daily. Branch metoprolol 2020-10 Yes 50mg Take 50 mg U nivers tartrate 25 1-22 by mouth 2 it y of mg tablet 10:51: (two) [place] 41 times Medical daily. Branch metoprolol 2020-10 Yes 50mg Take 50 mg U nivers tartrate 25 1-22 by mouth 2 it y of mg tablet 10:51: (two) [place] 41 times Medical daily. Branch metoprolol 2020-10 Yes 50mg Take 50 mg U nivers tartrate 25 1-22 by mouth 2 it y of mg tablet 10:51: (two) [place] 41 times Medical daily. Branch metoprolol 2020-10 Yes 50mg Take 50 mg U nivers tartrate 25 1-22 by mouth 2 it y of mg tablet 10:51: (two) [place] 41 times Medical daily. Branch metoprolol 2020-10 Yes 50mg Take 50 mg U nivers tartrate 25 1-22 by mouth 2 it y of mg tablet 10:51: (two) [place] 41 times Medical daily. Branch metoprolol 2020-10 Yes 50mg Take 50 mg U nivers tartrate 25 1-22 by mouth 2 it y of mg tablet 10:51: (two) [place] 41 times Medical daily. Branch metoprolol 2020-10 Yes 50mg Take 50 mg U nivers tartrate 25 1-22 by mouth 2 it y of mg tablet 10:51: (two) [place] 41 times Medical daily. Branch meclizine 2020-10 Yes [id number] 25mg Take 1 U nivers 25 mg 1-22 tablet by ity of tablet 00:00: mouth 3 00 (three) Medical times Branch daily as needed for Dizziness. meclizine 2020-10 Yes [id number] 25mg Take 1 U nivers 25 mg 1-22 tablet by ity of tablet 00:00: mouth 3 00 (three) Medical times Branch daily as needed for Dizziness. meclizine 2020-10 Yes [id number] 25mg Take 1 U nivers 25 mg 1-22 tablet by ity of tablet 00:00: mouth 3 [place] 00 (three) Medical times Branch daily as needed for Dizziness. meclizine 2020-10 Yes [id number] 25mg Take 1 U nivers 25 mg 1-22 tablet by ity of tablet 00:00: mouth 3 00 (three) Medical times Branch daily as needed for Dizziness. meclizine 2020-10 Yes [id number] 25mg Take 1 U nivers 25 mg 1-22 tablet by ity of tablet 00:00: mouth 3 00 (three) Medical times Branch daily as needed for Dizziness. meclizine 2020-10 Yes [id number] 25mg Take 1 U nivers 25 mg 1-22 tablet by ity of tablet 00:00: mouth 3 00 (three) Medical times Branch daily as needed for Dizziness. meclizine 2020-10 Yes [id number] 25mg Take 1 U nivers 25 mg 1-22 tablet by ity of tablet 00:00: mouth 3 [place] 00 (three) Medical times Branch daily as needed for Dizziness. meclizine 2020-10 Yes [id number] 25mg Take 1 U nivers 25 mg 1-22 tablet by ity of tablet 00:00: mouth 3 00 (three) Medical times Branch daily as needed for Dizziness. meclizine 2020-10 Yes [id number] 25mg Take 1 U nivers 25 mg 1-22 tablet by ity of tablet 00:00: mouth 3 00 (three) Medical times Branch daily as needed for Dizziness. meclizine 2020-10 Yes [id number] 25mg Take 1 U nivers 25 mg 1-22 tablet by ity of tablet 00:00: mouth 3 00 (three) Medical times Branch daily as needed for Dizziness. meclizine 2020-10 Yes [id number] 25mg Take 1 U nivers 25 mg 1-22 tablet by ity of tablet 00:00: mouth 3 00 (three) Medical times Branch daily as needed for Dizziness. meclizine 2020-10 Yes [id number] 25mg Take 1 U nivers 25 mg 1-22 tablet by ity of tablet 00:00: mouth 3 00 (three) Medical times Branch daily as needed for Dizziness. metoprolol 2020- No 50mg 50 mg. [place] tartrate 05-04 Health (Lopressor) 15:36: 00:00 50 MG 43 :00 tablet acetaminoph Yes TAKE 1 [facility] en 05-04 CAPSULE Health (Tylenol) 14:45: PRN 325 MG 29 capsule Ascorbic Yes TAKE UT Acid 05-04 TABLET Health (vitamin C) 14:45: 250mg 250 MG 29 daily tablet Black Yes [facility] Elderberry 05-04 Health (Sambucus 14:45: Elderberry) 29 50 MG/5ML syrup cholecalcif Yes TAKE 1 [facility] jorge 7-29 TABLET Health (Vitamin 14:45: DAILY D3) 25 MCG 29 (1000 UT) tablet Cyanocobala Yes TAKE 1 [facility] min (B-12) 05-04 CAPSULE Health 1000 MCG 14:45: DAILY capsule 29 esomeprazol Yes 40mg 40 mg. UT e (NexIUM) 05-[address] 14:45: capsule 29 metoprolol Yes 50mg Take 50 mg U T tartrate 05-04 by mouth. Health (Lopressor) 14:45: 25 MG 29 tablet albuterol Yes 2{puff} Q6H Inhale 2 U T 108 (90 - puffs Health Base) 14:45: every 6 MCG/ACT 29 (six) inhaler hours if needed for wheezing. azaTHIOprin 2021- No [id number] Take 2 [facility] e (Imuran) 05-04-30 tablets Healt h 50 MG 00:00: 04:59 (100 mg tablet 00 :00 total) by mouth 1 (one) time each day with breakfast AND 1 tablet (50 mg total) 1 (one) time each day with dinner. DULoxetine 2021- No [id number] 60mg QD Take 2 [facility] (Cymbalta) 05-04-30 capsules Heal th [address] 00:00: 04:59 (60 mg capsule 00 :00 total) by mouth 1 (one) time each day. glimepiride Yes TAKE 1 2 [facility] (Amaryl) 1 7-05 (ONE HALF) Hea lth MG tablet 00:00: TABLET BY 00 MOUTH ONCE DAILY IN THE EVENING lisinopriL Yes [id number] 10mg Take 1 U nivers 10 mg 4-03 tablet by ity of tablet 00:00: mouth [place] 00 daily. Medical Branch lisinopriL Yes [id number] 10mg Take 1 U nivers 10 mg 4-03 tablet by ity of tablet 00:00: mouth [place] 00 daily. Medical Branch lisinopriL Yes [id number] 10mg Take 1 U nivers 10 mg 4-03 tablet by ity of tablet 00:00: mouth [place] 00 daily. Medical Branch lisinopriL Yes [id number] 10mg Take 1 U nivers 10 mg 4-03 tablet by ity of tablet 00:00: mouth [place] 00 daily. Medical Branch lisinopriL Yes [id number] 10mg Take 1 U nivers 10 mg 4-03 tablet by ity of tablet 00:00: mouth [place] 00 daily. Medical Branch lisinopriL Yes [id number] 10mg Take 1 U nivers 10 mg 4-03 tablet by ity of tablet 00:00: mouth [place] 00 daily. Medical Branch lisinopriL Yes [id number] 10mg Take 1 U nivers 10 mg 4-03 tablet by ity of tablet 00:00: mouth [place] 00 daily. Medical Branch lisinopriL Yes [id number] 10mg Take 1 U nivers 10 mg 4-03 tablet by ity of tablet 00:00: mouth [place] 00 daily. Medical Branch lisinopriL Yes [id number] 10mg Take 1 U nivers 10 mg 4-03 tablet by ity of tablet 00:00: mouth [place] 00 daily. Medical Branch lisinopriL Yes [id number] 10mg Take 1 U nivers 10 mg 4-03 tablet by ity of tablet 00:00: mouth [place] 00 daily. Medical Branch lisinopriL Yes [id number] 10mg Take 1 U nivers 10 mg 4-03 tablet by ity of tablet 00:00: mouth [place] 00 daily. Medical Branch lisinopriL Yes [id number] 10mg Take 1 U nivers 10 mg 4-03 tablet by ity of tablet 00:00: mouth [place] 00 daily. Medical Branch esomeprazol Yes 40mg Take 40 mg Univers e (NEXIUM) 4-02 by mouth ity o f 20 mg 18:00: daily [place] capsule 40 before a Medical meal. Branch DULoxetine Yes 30mg Take 30 mg U nivers (CYMBALTA) 4-02 by mouth 2 ity of 30 mg 18:00: (two) [place] capsule 40 times Medical daily. Branch esomeprazol Yes 40mg Take 40 mg Univers e (NEXIUM) 4-02 by mouth ity o f 20 mg 18:00: daily [place] capsule 40 before a Medical meal. Branch DULoxetine 2021-0 Yes 30mg Take 30 mg U nivers (CYMBALTA) 4-02 by mouth 2 ity of 30 mg 18:00: (two) [place] capsule 40 times Medical daily. Branch esomeprazol 2020-0 Yes 40mg Take 40 mg Univers e (NEXIUM) 4-02 by mouth ity o f 20 mg 18:00: daily [place] capsule 40 before a Medical meal. Branch DULoxetine 2020-0 Yes 30mg Take 30 mg U nivers (CYMBALTA) 4-02 by mouth 2 ity of 30 mg 18:00: (two) [place] capsule 40 times Medical daily. Branch esomeprazol 2020-0 Yes 40mg Take 40 mg Univers e (NEXIUM) 4-02 by mouth ity o f 20 mg 18:00: daily [place] capsule 40 before a Medical meal. Branch DULoxetine 2020-0 Yes 30mg Take 30 mg U nivers (CYMBALTA) 4-02 by mouth 2 ity of 30 mg 18:00: (two) [place] capsule 40 times Medical daily. Branch esomeprazol 2020-0 Yes 40mg Take 40 mg Univers e (NEXIUM) 4-02 by mouth ity o f 20 mg 18:00: daily [place] capsule 40 before a Medical meal. Branch DULoxetine 2020-0 Yes 30mg Take 30 mg U nivers (CYMBALTA) 4-02 by mouth 2 ity of 30 mg 18:00: (two) [place] capsule 40 times Medical daily. Branch esomeprazol 2020-0 Yes 40mg Take 40 mg Univers e (NEXIUM) 4-02 by mouth ity o f 20 mg 18:00: daily [place] capsule 40 before a Medical meal. Branch DULoxetine 2020-0 Yes 30mg Take 30 mg U nivers (CYMBALTA) 4-02 by mouth 2 ity of 30 mg 18:00: (two) [place] capsule 40 times Medical daily. Branch esomeprazol 2020-0 Yes 40mg Take 40 mg Univers e (NEXIUM) 4-02 by mouth ity o f 20 mg 18:00: daily [place] capsule 40 before a Medical meal. Branch DULoxetine 1-0 Yes 30mg Take 30 mg U nivers (CYMBALTA) 4-02 by mouth 2 ity of 30 mg 18:00: (two) [place] capsule 40 times Medical daily. Branch esomeprazol 0 Yes 40mg Take 40 mg Univers e (NEXIUM) 4-02 by mouth ity o f 20 mg 18:00: daily [place] capsule 40 before a Medical meal. Branch DULoxetine 0 Yes 30mg Take 30 mg U nivers (CYMBALTA) 4-02 by mouth 2 ity of 30 mg 18:00: (two) [place] capsule 40 times Medical daily. Branch esomeprazol 0 Yes 40mg Take 40 mg Univers e (NEXIUM) 4-02 by mouth ity o f 20 mg 18:00: daily [place] capsule 40 before a Medical meal. Branch DULoxetine 0 Yes 30mg Take 30 mg U nivers (CYMBALTA) 4-02 by mouth 2 ity of 30 mg 18:00: (two) [place] capsule 40 times Medical daily. Branch esomeprazol 0 Yes 40mg Take 40 mg Univers e (NEXIUM) 4-02 by mouth ity o f 20 mg 18:00: daily [place] capsule 40 before a Medical meal. Branch DULoxetine 0 Yes 30mg Take 30 mg U nivers (CYMBALTA) 4-02 by mouth 2 ity of 30 mg 18:00: (two) [place] capsule 40 times Medical daily. Branch esomeprazol 0 Yes 40mg Take 40 mg [facility] (NEXIUM) 4-02 by mouth ity o f 20 mg 18:00: daily [place] capsule 40 before a Medical meal. Branch DULoxetine 0 Yes 30mg Take 30 mg U nivers (CYMBALTA) 4-02 by mouth 2 ity of 30 mg 18:00: (two) [place] capsule 40 times Medical daily. Branch esomeprazol 0 Yes 40mg Take 40 mg [facility] e (NEXIUM) 4-02 by mouth ity o f 20 mg 18:00: daily [place] capsule 40 before a Medical meal. Branch DULoxetine 0 Yes 30mg Take 30 mg U nivers (CYMBALTA) 4-02 by mouth 2 ity of 30 mg 18:00: (two) [place] capsule 40 times Medical daily. Branch aspirin 81 0 Yes 81mg 81 mg. [facility] chewable 4-02 Health tablet 00:00: 00 atorvastati 2021-0 Yes 20mg Take 20 mg [facility] n (Lipitor) 4-02 by mouth Heal th 20 MG 00:00: every tablet 00 night. lisinopril Yes 10mg QD Take 10 mg U T 10 MG 4-02 by mouth 1 Health tablet 00:00: (one) time 00 each day. 0.5 tabs daily atorvastati 0 Yes [id number] 20mg Take 1 [facility] n 20 mg 4-02 tablet by ity of tablet 00:00: mouth at [place] 00 bedtime. Medical Branch aspirin 81 Yes [id number] 81mg Take 1 U nivers mg chewable 4-02 tablet by ity of tablet 00:00: mouth [place] 00 daily. Medical Branch atorvastati Yes [id number] 20mg Take 1 [facility] n 20 mg 4-02 tablet by ity of tablet 00:00: mouth at [place] 00 bedtime. Medical Branch aspirin 81 Yes [id number] 81mg Take 1 U nivers mg chewable 4-02 tablet by ity of tablet 00:00: mouth [place] 00 daily. Medical Branch atorvastati Yes [id number] 20mg Take 1 [facility] n 20 mg 4-02 tablet by ity of tablet 00:00: mouth at [place] 00 bedtime. Medical Branch aspirin 81 Yes [id number] 81mg Take 1 U nivers mg chewable 4-02 tablet by ity of tablet 00:00: mouth [place] 00 daily. Medical Branch atorvastati Yes [id number] 20mg Take 1 [facility] n 20 mg 4-02 tablet by ity of tablet 00:00: mouth at [place] 00 bedtime. Medical Branch aspirin 81 0 Yes [id number] 81mg Take 1 U nivers mg chewable 4-02 tablet by ity of tablet 00:00: mouth [place] 00 daily. Medical Branch atorvastati Yes [id number] 20mg Take 1 [facility] n 20 mg 4-02 tablet by ity of tablet 00:00: mouth at [place] 00 bedtime. Medical Branch aspirin 81 0 Yes [id number] 81mg Take 1 U nivers mg chewable 4-02 tablet by ity of tablet 00:00: mouth [place] 00 daily. Medical Branch atorvastati Yes [id number] 20mg Take 1 [facility] n 20 mg 4-02 tablet by ity of tablet 00:00: mouth at [place] 00 bedtime. Medical Branch aspirin 81 0 Yes [id number] 81mg Take 1 U nivers mg chewable 4-02 tablet by ity of tablet 00:00: mouth [place] 00 daily. Medical Branch atorvastati 0 Yes [id number] 20mg Take 1 [facility] n 20 mg 4-02 tablet by ity of tablet 00:00: mouth at [place] 00 bedtime. Medical Branch aspirin 81 0 Yes [id number] 81mg Take 1 U nivers mg chewable 4-02 tablet by ity of tablet 00:00: mouth [place] 00 daily. Medical Branch atorvastati Yes [id number] 20mg Take 1 [facility] n 20 mg 4-02 tablet by ity of tablet 00:00: mouth at [place] 00 bedtime. Medical Branch aspirin 81 0 Yes [id number] 81mg Take 1 U nivers mg chewable 4-02 tablet by ity of tablet 00:00: mouth [place] 00 daily. Medical Branch atorvastati Yes [id number] 20mg Take 1 [facility] n 20 mg 4-02 tablet by ity of tablet 00:00: mouth at [place] 00 bedtime. Medical Branch aspirin 81 0 Yes [id number] 81mg Take 1 U nivers mg chewable 4-02 tablet by ity of tablet 00:00: mouth [place] 00 daily. Medical Branch atorvastati 0 Yes [id number] 20mg Take 1 [facility] n 20 mg 4-02 tablet by ity of tablet 00:00: mouth at [place] 00 bedtime. Medical Branch aspirin 81 0 Yes [id number] 81mg Take 1 U nivers mg chewable 4-02 tablet by ity of tablet 00:00: mouth [place] 00 daily. Medical Branch atorvastati 2020-0 Yes [id number] 20mg Take 1 [facility] n 20 mg 4-02 tablet by ity of tablet 00:00: mouth at [place] 00 bedtime. Medical Branch aspirin 81 2020-0 Yes [id number] 81mg Take 1 U nivers mg chewable 4-02 tablet by ity of tablet 00:00: mouth [place] 00 daily. Medical Branch atorvastati 2020-0 Yes [id number] 20mg Take 1 [facility] n 20 mg 4-02 tablet by ity of tablet 00:00: mouth at [place] [address] bedtime. Medical Branch aspirin 81 2020-0 Yes [id number] 81mg Take 1 U nivers mg chewable 4-02 tablet by ity of tablet 00:00: mouth [place] 00 daily. Medical Branch alendronate 2020-0 Yes 70mg Take 70 mg [facility] (Fosamax) 3-11 by mouth 1 Heal th 70 MG 00:00: (one) time tablet 00 per week. azaTHIOprin 2020-0 Yes 50mg Take 50 mg [facility] e 50 mg 3-11 by mouth ity of tablet 00:00: daily. [place] [facility] azaTHIOprin 2020-0 Yes 50mg Take 50 mg Univers e 50 mg 3-11 by mouth ity of tablet 00:00: daily. [place] [facility] azaTHIOprin 2020-0 Yes 50mg Take 50 mg Univers e 50 mg 3-11 by mouth ity of tablet 00:00: daily. [place] [facility] azaTHIOprin 2020-0 Yes 50mg Take 50 mg [facility] e 50 mg 3-11 by mouth ity of tablet 00:00: daily. [place] [facility] azaTHIOprin 2020-0 Yes 50mg Take 50 mg [facility] e 50 mg 3-11 by mouth ity of tablet 00:00: daily. [place] [facility] azaTHIOprin 2020-0 Yes 50mg Take 50 mg [facility] e 50 mg 3-11 by mouth ity of tablet 00:00: daily. [place] [facility] azaTHIOprin 2020-0 Yes 50mg Take 50 mg [facility] e 50 mg 3-11 by mouth ity of tablet 00:00: daily. [place] [facility] azaTHIOprin 2020-0 Yes 50mg Take 50 mg [facility] e 50 mg 3-11 by mouth ity of tablet 00:00: daily. [place] [facility] azaTHIOprin 2020-0 Yes 50mg Take 50 mg Univers e 50 mg 3-11 by mouth ity of tablet 00:00: daily. [address] azaTHIOprin 2020-0 Yes 50mg Take 50 mg [facility] e 50 mg 3-11 by mouth ity of tablet 00:00: daily. [address] azaTHIOprin 2020-0 Yes 50mg Take 50 mg [facility] e 50 mg 3-11 by mouth ity of tablet 00:00: daily. [address] azaTHIOprin 2020-0 Yes 50mg Take 50 mg [facility] e 50 mg 3-11 by mouth ity of tablet 00:00: daily. Medical Branch azaTHIOprin 2020- No 50mg Q.5D Take 50 mg [facility] e (Imuran) 12-15 by mouth 2 He alth 50 MG 00:00: 00:00 (two) tablet 00 :00 times a day. famotidine Yes TAKE 1 [facility] (Pepcid) 20 2-10 TABLET BY Hea lth MG tablet 00:00: MOUTH 00 EVERY 12 HOURS FOR 10 DAYS methylPREDN 2020- No TAKE BY [facility] ISolone 2-05-04 MOUTH Health (Medrol 00:00: 00:00 DIRECTED Dospak) 4 00 :00 ON INSIDE MG tablets OF PACKAGE amLODIPine Yes 5mg Take 5 mg [facility] (Norvasc) 5 1-08 by mouth 1 He alth MG tablet 00:00: (one) time 00 each day in the morning. 0.5 tab daily NORTRIPTYLI Yes [id number] Take 1 [facility] [place] 50 mg 1-08 capsule by ity o f capsule 00:00: mouth [place] daily [facility] [place] glimepiride Yes Univer s 1 mg tablet 1-08 ity of 00:00: [place] [facility] NORTRIPTYLI Yes [id number] Take 1 [facility] NE 50 mg 1-08 capsule by ity o f capsule 00:00: mouth [place] 00 daily [facility] Branch glimepiride Yes Univer s 1 mg tablet 1-08 ity of 00:00: [place] [facility] NORTRIPTYLI 0 Yes [id number] Take 1 [facility] NE 50 mg 1-08 capsule by ity o f capsule 00:00: mouth [place] 00 daily [facility] glimepiride Yes Univer s 1 mg tablet 1-08 ity of 00:00: [place] [facility] NORTRIPTYLI Yes [id number] Take 1 [facility] NE 50 mg 1-08 capsule by ity o f capsule 00:00: mouth once [place] 00 daily [facility] Branch glimepiride Yes Univer s 1 mg tablet 1-08 ity of 00:00: [place] [facility] NORTRIPTYLI 2020-0 Yes [id number] Take 1 [facility] NE 50 mg 1-08 capsule by ity o f capsule 00:00: mouth [place] daily [facility] glimepiride 2020-0 Yes Univer s 1 mg tablet 1-08 ity of 00:00: Medical Branch NORTRIPTYLI 2020-0 Yes [id number] Take 1 [facility] NE 50 mg 1-08 capsule by ity o f capsule 00:00: mouth once [place] daily [facility] glimepiride 2020-0 Yes Univer s 1 mg tablet 1-08 ity of 00:00: [place] [facility] NORTRIPTYLI 2020-0 Yes [id number] Take 1 [facility] NE 50 mg 1-08 capsule by ity o f capsule 00:00: mouth once [place] daily [facility] glimepiride 2020-0 Yes Univer s 1 mg tablet 1-08 ity of 00:00: [place] [facility] NORTRIPTYLI 2020-0 Yes [id number] Take 1 [facility] NE 50 mg 1-08 capsule by ity o f capsule 00:00: mouth once [place] daily [facility] glimepiride 2020-0 Yes Univer s 1 mg tablet 1-08 ity of 00:00: [place] [facility] NORTRIPTYLI 2020-0 Yes [id number] Take 1 [facility] NE 50 mg 1-08 capsule by ity o f capsule 00:00: mouth [place] daily [facility] glimepiride 2020-0 Yes Univer s 1 mg tablet 1-08 ity of 00:00: [place] [facility] NORTRIPTYLI 2020-0 Yes [id number] Take 1 [facility] NE 50 mg 1-08 capsule by ity o f capsule 00:00: mouth once [place] 00 daily Medical Branch glimepiride 2020-0 Yes Univer s 1 mg tablet 1-08 ity of 00:00: [place] [facility] NORTRIPTYLI 2020-0 Yes [id number] Take 1 [facility] NE 50 mg 1-08 capsule by ity o f capsule 00:00: mouth once [place] daily [facility] glimepiride 2020-0 Yes Univer s 1 mg tablet 1-08 ity of 00:00: [place] 00 Medical Branch NORTRIPTYLI Yes [id number] Take 1 [facility] NE 50 mg -08 capsule by ity o f capsule 00:00: mouth [place] 00 daily Medical Branch glimepiride Yes Univer s 1 mg tablet -08 ity of 00:00: [place] 00 Medical Branch cyclobenzap Yes 10mg Q.[id number] Take 10 mg [facility] rine 1-07 [id number] by mouth 3 Hea lth (Flexeril) 00:00: 3D (three) 10 MG 00 times a tablet day if needed. gabapentin 2019-10 Yes 100mg Take 100 [facility] (Neurontin) 0-26 mg by Health 100 MG 00:00: mouth. capsule 00 cyclobenzap 2019-10 Yes [id number] 10mg Take 1 Univers rine 10 mg 0-26 tablet by ity of tablet 00:00: mouth 3 [place] 00 (three) Medical times Branch daily as needed for Muscle Spasms. cyclobenzap 2019-10 Yes [id number] 10mg Take 1 [facility] rine 10 mg 0-26 tablet by ity of tablet 00:00: mouth 3 (three) Medical times Branch daily as needed for Muscle Spasms. cyclobenzap 2019-10 Yes [id number] 10mg Take 1 [facility] rine 10 mg 0-26 tablet by ity of tablet 00:00: mouth 3 [place] 00 (three) Medical times Branch daily as needed for Muscle Spasms. cyclobenzap 2019-10 Yes [id number] 10mg Take 1 [facility] rine 10 mg 0-26 tablet by ity of tablet 00:00: mouth 3 00 (three) Medical times Branch daily as needed for Muscle Spasms. cyclobenzap 2019-10 Yes [id number] 10mg Take 1 [facility] rine 10 mg 0-26 tablet by ity of tablet 00:00: mouth 3 [place] 00 (three) Medical times Branch daily as needed for Muscle Spasms. cyclobenzap 2019-10 Yes [id number] 10mg Take 1 [facility] rine 10 mg 0-26 tablet by ity of tablet 00:00: mouth 3 [place] 00 (three) Medical times Branch daily as needed for Muscle Spasms. cyclobenzap 2019-10 Yes [id number] 10mg Take 1 [facility] rine 10 mg 0-26 tablet by ity of tablet 00:00: mouth 3 00 (three) Medical times Branch daily as needed for Muscle Spasms. cyclobenzap 2019- Yes [id number] 10mg Take 1 [facility] rine 10 mg 0-26 tablet by ity of tablet 00:00: mouth 3 00 (three) Medical times Branch daily as needed for Muscle Spasms. cyclobenzap 2019- Yes [id number] 10mg Take 1 [facility] rine 10 mg 0-26 tablet by ity of tablet 00:00: mouth 3 00 (three) Medical times Branch daily as needed for Muscle Spasms. cyclobenzap 2019-10 Yes [id number] 10mg Take 1 [facility] rine 10 mg 0-26 tablet by ity of tablet 00:00: mouth 3 00 (three) Medical times Branch daily as needed for Muscle Spasms. cyclobenzap 2019-10 Yes [id number] 10mg Take 1 [facility] rine 10 mg 0-26 tablet by ity of tablet 00:00: mouth 3 00 (three) Medical times Branch daily as needed for Muscle Spasms. cyclobenzap 2019-10 Yes [id number] 10mg Take 1 Univers rine 10 mg 0-26 tablet by ity of tablet 00:00: mouth 3 00 (three) Medical times Branch daily as needed for Muscle Spasms. lidocaine 2019-10- No 1{patch Apply 1 U T (Lidoderm) 05-04 } patch Health 5 % patch 00:00: 00:00 topically. 00 :00 neomycin-po Yes APPLY INTO [facility] lymyxin-dex 9-08 LEFT EYE Heal th amethametha 00:00: TWICE A sone 00 DAY FOR (Polydex) ONE WEEK [id number] THEN ONCE .1 ointment DAILY FOR ophthalmic ONE WEEK ointment mupirocin Yes APPLY UT (Bactroban) 8-28 OINTMENT Heal th 2 % 00:00: TOPICALLY ointment 00 TWICE DAILY Lotemax SM 2019-0 Yes INSTILL 1 UT 0.38 % gel 7-30 DROP INTO Heal th 00:00: LEFT EYE 4 00 TIMES DAILY FOR 2 DAYS THEN INSTILL 1 DROP TWICE A DAY DULoxetine 2020- No 30mg 30 mg. [facility] (Cymbalta) 03-[address] 00:00: 00:00 capsule 00 :00 CONTOUR Yes USE 1 Univers NEXT TEST 3-20 STRIP TO ity of STRIPS 00:00: CHECK [place] strip 00 GLUCOSE Medical ONCE DAILY Branch IN THE MORNING CONTOUR Yes USE 1 Univers NEXT TEST 3-20 STRIP TO ity of STRIPS 00:00: CHECK [place] strip 00 GLUCOSE Medical ONCE DAILY Branch IN THE MORNING CONTOUR Yes USE 1 Univers NEXT TEST 3-20 STRIP TO ity of STRIPS 00:00: CHECK [place] strip 00 GLUCOSE Medical ONCE DAILY Branch IN THE MORNING CONTOUR Yes USE 1 Univers NEXT TEST 3-20 STRIP TO ity of STRIPS 00:00: CHECK [place] strip 00 GLUCOSE Medical ONCE DAILY Branch IN THE MORNING CONTOUR Yes USE 1 [facility] NEXT TEST 3-20 STRIP TO ity of STRIPS 00:00: CHECK [place] strip 00 GLUCOSE Medical ONCE DAILY Branch IN THE MORNING CONTOUR Yes USE 1 [facility] NEXT TEST 3-20 STRIP TO ity of STRIPS 00:00: CHECK [place] strip 00 GLUCOSE Medical ONCE DAILY Branch IN THE MORNING CONTOUR Yes USE 1 Univers NEXT TEST 3-20 STRIP TO ity of STRIPS 00:00: CHECK [place] strip 00 GLUCOSE Medical ONCE DAILY Branch IN THE MORNING CONTOUR Yes USE 1 Univers NEXT TEST 3-20 STRIP TO ity of STRIPS 00:00: CHECK [place] strip 00 GLUCOSE Medical ONCE DAILY Branch IN THE MORNING CONTOUR Yes USE 1 Univers NEXT TEST 3-20 STRIP TO ity of STRIPS 00:00: CHECK [place] strip 00 GLUCOSE Medical ONCE DAILY Branch IN THE MORNING CONTOUR Yes USE 1 Univers NEXT TEST 3-20 STRIP TO ity of STRIPS 00:00: CHECK [place] strip 00 GLUCOSE Medical ONCE DAILY Branch IN THE MORNING CONTOUR Yes USE 1 Univers NEXT TEST 3-20 STRIP TO ity of STRIPS 00:00: CHECK [place] strip 00 GLUCOSE Medical ONCE DAILY Branch IN THE MORNING CONTOUR Yes USE 1 Univers NEXT TEST 3-20 STRIP TO ity of STRIPS 00:00: CHECK [place] strip 00 GLUCOSE Medical ONCE DAILY Branch IN THE MORNING nitroglycer Yes DISSOLVE [facility] in 12-15 ONE TABLET [facility] [employer] (Nitrostat) 00:00: UNDER THE 0.4 MG SL 00 TONGUE tablet EVERY 5 MINUTES NEEDED FOR CHEST PAIN. DO NOT EXCEED A TOTAL OF 3 DOSES IN 15 MINUTES amLODIPine Yes TAKE 1 Unive rs 5 mg tablet 3-11 TABLET BY ity of 00:00: MOUTH ONCE [place] 00 DAILY IN [facility] THE [place] MORNING nitroglycer 2020-0 Yes DISSOLVE Un narendra in 0.4 mg 3-11 ONE TABLET ity of sublingual 00:00: UNDER THE [place] tablet 00 [facility] EVERY 5 Branch MINUTES NEEDED FOR CHEST PAIN. DO NOT EXCEED A TOTAL OF 3 DOSES IN 15 MINUTES amLODIPine 2020-0 Yes TAKE 1 Unive rs 5 mg tablet 3-11 TABLET BY ity of 00:00: MOUTH ONCE [place] 00 DAILY IN [facility] THE [place] MORNING nitroglycer 2019-0 Yes DISSOLVE Un narendra in 0.4 mg 3-11 ONE TABLET ity of sublingual 00:00: UNDER THE [place] tablet [facility] EVERY 5 Branch MINUTES NEEDED FOR CHEST PAIN. DO NOT EXCEED A TOTAL OF 3 DOSES IN 15 MINUTES amLODIPine 2019-0 Yes TAKE 1 Unive rs 5 mg tablet 3-11 TABLET BY ity of 00:00: MOUTH ONCE [place] 00 DAILY IN [facility] THE [place] MORNING nitroglycer 2019-0 Yes DISSOLVE Un narendra in 0.4 mg 3-11 ONE TABLET ity of sublingual 00:00: UNDER THE [place] tablet [facility] EVERY 5 Branch MINUTES NEEDED FOR CHEST PAIN. DO NOT EXCEED A TOTAL OF 3 DOSES IN 15 MINUTES amLODIPine 2020-0 Yes TAKE 1 Unive rs 5 mg tablet 3-11 TABLET BY ity of 00:00: MOUTH ONCE [place] 00 DAILY IN [facility] THE [place] MORNING nitroglycer 2019-0 Yes DISSOLVE Un narendra in 0.4 mg 3-11 ONE TABLET ity of sublingual 00:00: UNDER THE [place] tablet [facility] EVERY 5 Branch MINUTES NEEDED FOR CHEST PAIN. DO NOT EXCEED A TOTAL OF 3 DOSES IN 15 MINUTES amLODIPine 2020-0 Yes TAKE 1 Unive rs 5 mg tablet 3-11 TABLET BY ity of 00:00: MOUTH ONCE [place] 00 DAILY IN [facility] THE [place] MORNING nitroglycer 2020-0 Yes DISSOLVE Un narendra in 0.4 mg 3-11 ONE TABLET ity of sublingual 00:00: UNDER THE [place] tablet 00 [facility] EVERY 5 Branch MINUTES NEEDED FOR CHEST PAIN. DO NOT EXCEED A TOTAL OF 3 DOSES IN 15 MINUTES amLODIPine 2020-0 Yes TAKE 1 Unive rs 5 mg tablet 3-11 TABLET BY ity of 00:00: MOUTH ONCE [place] 00 DAILY IN [facility] THE [place] MORNING nitroglycer 2019-0 Yes DISSOLVE Un narendra in 0.4 mg 3-11 ONE TABLET ity of sublingual 00:00: UNDER THE [place] tablet 00 [facility] EVERY 5 Branch MINUTES NEEDED FOR CHEST PAIN. DO NOT EXCEED A TOTAL OF 3 DOSES IN 15 MINUTES amLODIPine 2020-0 Yes TAKE 1 Unive rs 5 mg tablet 3-11 TABLET BY ity of 00:00: MOUTH ONCE [place] 00 DAILY IN [facility] THE [place] MORNING nitroglycer 2019-0 Yes DISSOLVE Un narendra in 0.4 mg 3-11 ONE TABLET ity of sublingual 00:00: UNDER THE [place] tablet 00 [facility] EVERY 5 Branch MINUTES NEEDED FOR CHEST PAIN. DO NOT EXCEED A TOTAL OF 3 DOSES IN 15 MINUTES amLODIPine 2019-0 Yes TAKE 1 Unive rs 5 mg tablet 3-11 TABLET BY ity of 00:00: MOUTH ONCE [place] 00 DAILY IN [facility] THE [place] MORNING nitroglycer 2019-0 Yes DISSOLVE Un narendra in 0.4 mg 3-11 ONE TABLET ity of sublingual 00:00: UNDER THE [place] tablet [facility] EVERY 5 Branch MINUTES NEEDED FOR CHEST PAIN. DO NOT EXCEED A TOTAL OF 3 DOSES IN 15 MINUTES amLODIPine 2019-0 Yes TAKE 1 Unive rs 5 mg tablet 3-11 TABLET BY ity of 00:00: MOUTH ONCE [place] 00 DAILY IN [facility] THE [place] MORNING nitroglycer 2019-0 Yes DISSOLVE Un narendra in 0.4 mg 3-11 ONE TABLET ity of sublingual 00:00: UNDER THE [place] tablet [facility] EVERY 5 Branch MINUTES NEEDED FOR CHEST PAIN. DO NOT EXCEED A TOTAL OF 3 DOSES IN 15 MINUTES amLODIPine 2020-0 Yes TAKE 1 Unive rs 5 mg tablet 3-11 TABLET BY ity of 00:00: MOUTH ONCE [place] 00 DAILY IN [facility] THE [place] MORNING nitroglycer 2019-0 Yes DISSOLVE Un narendra in 0.4 mg 3-11 ONE TABLET ity of sublingual 00:00: UNDER THE [place] tablet 00 [facility] EVERY 5 Branch MINUTES NEEDED FOR CHEST PAIN. DO NOT EXCEED A TOTAL OF 3 DOSES IN 15 MINUTES amLODIPine 2019-0 Yes TAKE 1 Unive rs 5 mg tablet 3-11 TABLET BY ity of 00:00: MOUTH ONCE [place] 00 DAILY IN [facility] THE [place] MORNING nitroglycer 2019-0 Yes DISSOLVE Un narendra in 0.4 mg 3-11 ONE TABLET ity of sublingual 00:00: UNDER THE [place] tablet 00 TONGUE Medical EVERY 5 Branch MINUTES NEEDED FOR CHEST PAIN. DO NOT EXCEED A TOTAL OF 3 DOSES IN 15 MINUTES amLODIPine 2019- Yes TAKE 1 Unive rs 5 mg tablet 3-11 TABLET BY ity of 00:00: MOUTH ONCE [place] 00 DAILY IN Medical THE Branch MORNING nitroglycer 2019- Yes DISSOLVE Un narendra in 0.4 mg 3-11 ONE TABLET ity of sublingual 00:00: UNDER THE [place] tablet 00 TONGUE Medical EVERY 5 Branch MINUTES NEEDED FOR CHEST PAIN. DO NOT EXCEED A TOTAL OF 3 DOSES IN 15 MINUTES carBAMazepi 2018- Yes 200mg Take 200 U T ne XR 0-21 mg by Health (TEGretol 00:00: mouth. XR) 200 MG 00 12 hr tablet nortriptyli 2018-10 Yes 50mg 50 mg. [facility] ne 0-21 Health (Pamelor) 00:00: 50 MG 00 capsule albuterol Yes 2{puff} Inhale 2 U nivers (PROVENTIL 2-23 Puffs ity of HFA) 90 00:00: every 6 [place] mcg/actuati 00 (six) Medical on inhaler hours as Branc h needed for Wheezing or Shortness of Breath. albuterol Yes 2{puff} Inhale 2 U nivers (PROVENTIL 2-23 Puffs ity of HFA) 90 00:00: every 6 [place] mcg/actuati 00 (six) Medical on inhaler hours as Branc h needed for Wheezing or Shortness of Breath. albuterol Yes 2{puff} Inhale 2 U nivers (PROVENTIL 2-23 Puffs ity of HFA) 90 00:00: every 6 [place] mcg/actuati 00 (six) Medical on inhaler hours as Branc h needed for Wheezing or Shortness of Breath. albuterol 2015- Yes 2{puff} Inhale 2 U nivers (PROVENTIL 2-23 Puffs ity of HFA) 90 00:00: every 6 [place] mcg/actuati 00 (six) Medical on inhaler hours as Branc h needed for Wheezing or Shortness of Breath. albuterol Yes 2{puff} Inhale 2 U nivers (PROVENTIL 2-23 Puffs ity of HFA) 90 00:00: every 6 [place] mcg/actuati 00 (six) Medical on inhaler hours as Branc h needed for Wheezing or Shortness of Breath. albuterol Yes 2{puff} Inhale 2 U nivers (PROVENTIL 2-23 Puffs ity of HFA) 90 00:00: every 6 [place] mcg/actuati 00 (six) Medical on inhaler hours as Branc h needed for Wheezing or Shortness of Breath. albuterol Yes 2{puff} Inhale 2 U nivers (PROVENTIL 2-23 Puffs ity of HFA) 90 00:00: every 6 [place] mcg/actuati 00 (six) Medical on inhaler hours as Branc h needed for Wheezing or Shortness of Breath. albuterol Yes 2{puff} Inhale 2 U nivers (PROVENTIL 2-23 Puffs ity of HFA) 90 00:00: every 6 [place] mcg/actuati 00 (six) Medical on inhaler hours as Branc h needed for Wheezing or Shortness of Breath. albuterol Yes 2{puff} Inhale 2 U nivers (PROVENTIL 2-23 Puffs ity of HFA) 90 00:00: every 6 [place] mcg/actuati 00 (six) Medical on inhaler hours as Branc h needed for Wheezing or Shortness of Breath. albuterol Yes 2{puff} Inhale 2 U nivers (PROVENTIL 2-23 Puffs ity of HFA) 90 00:00: every 6 [place] mcg/actuati 00 (six) Medical on inhaler hours as Branc h needed for Wheezing or Shortness of Breath. albuterol Yes 2{puff} Inhale 2 U nivers (PROVENTIL 2-23 Puffs ity of HFA) 90 00:00: every 6 [place] mcg/actuati 00 (six) Medical on inhaler hours as Branc h needed for Wheezing or Shortness of Breath. albuterol Yes 2{puff} Inhale 2 U nivers (PROVENTIL 2-23 Puffs ity of HFA) 90 00:00: every 6 [place] mcg/actuati 00 (six) Medical on inhaler hours as Branc h needed for Wheezing or Shortness of Breath. ciprofloxac Yes Yehuda 500 mg, 1 Memoria in 500 mg 12-13 [facility] tab, PO, l oral tablet 20:34: [id number], 6 Nick 17 tab, Substituti on Allowed, TAB ciprofloxac 2012- Yes [place] 500 mg, 1 [facility] in 500 mg 12-13[facility] tab, PO, l oral tablet 20:34: [id number], 6 Nick 17 tab, Substituti on Allowed, TAB ciprofloxac Yes [place] 500 mg, 1 [facility] in 500 mg 12-13[facility] tab, PO, l oral tablet 20:34: [id number], 6 Nick 17 tab, Substituti on Allowed, TAB ciprofloxac 2012- Yes [place] 500 mg, 1 [facility] in 500 mg 12-13[facility] tab, PO, l oral tablet 20:34: [id number], 6 [place] 17 tab, Substituti on Allowed, TAB atorvastati Yes [place] 40 mg, 1 M emoria n 40 mg 12-13 [facility] tab, PO, l oral tablet 20:34: QPM, 30 Her claros 06 tab, Substituti on Allowed, TAB atorvastati Yes [place] 40 mg, 1 M emoria n 40 mg 12-13[facility] tab, PO, l oral tablet 20:34: QPM, 30 Her claros 06 tab, Substituti on Allowed, TAB atorvastati Yes [place] 40 mg, 1 M emoria n 40 mg 12-13[facility] tab, PO, l oral tablet 20:34: QPM, 30 Her claros 06 tab, Substituti on Allowed, TAB atorvastati Yes [place] 40 mg, 1 M emoria n 40 mg 12-13[facility] tab, PO, l oral tablet 20:34: QPM, 30 Her claros 06 tab, Substituti on Allowed, TAB aspirin 325 Yes [place] 325 mg, 1 Memoria mg tablet, 12-13 [facility] tab, PO, l enteric 20:33: Daily, 30 Jesica nn coated 27 tab, Substituti on Allowed, ECTAB aspirin 325 Yes [place] 325 mg, 1 Memoria mg tablet, 3-09 [facility] tab, PO, l enteric 20:33: Daily, 30 Jes[place] nn coated 27 tab, Substituti on Allowed, ECTAB aspirin 325 2012- Yes [place] 325 mg, 1 [facility]oria mg tablet, 12-13 [place] tab, PO, l enteric 20:33: Daily, 30 [place] nn coated 27 tab, Substituti on Allowed, ECTAB aspirin 325 Yes [place] 325 mg, 1 Memoria mg tablet, 12-13 [facility] tab, PO, l enteric 20:33: Daily, 30 Jes[place] nn coated 27 tab, Substituti on Allowed, ECTAB Toprol-XL 2012- No [place] 50 mg, 1 Mem oria 50 mg oral 12-13 [place] tab, l tablet, 15:00: Route: PO, Herm litzy extended 00 Drug form: release ERTAB, Daily, Start date: 12/13/12 9:00:00, Duration: 30 day, Stop date: 01/11/13 9:00:00 Toprol-XL 2012-0 No [place] 50 mg, 1 Mem oria 50 mg oral 12-13 [place] tab, l tablet, 15:00: Route: PO, Herm litzy extended 00 Drug form: release ERTAB, Daily, Start date: 12/13/12 9:00:00, Duration: 30 day, Stop date: 01/11/13 9:00:00 Toprol-XL 2012-0 No [place] 50 mg, 1 Mem oria 50 mg oral 12-13 [facility] tab, l tablet, 15:00: Route: PO, Herm litzy extended 00 Drug form: release ERTAB, Daily, Start date: 12/13/12 9:00:00, Duration: 30 day, Stop date: 01/11/13 9:00:00 Toprol-XL 2012-0 No Yehuda 50 mg, 1 Mem oria 50 mg oral 12-13 [facility] tab, l tablet, 15:00: Route: PO, Herm litzy extended 00 Drug form: release ERTAB, Daily, Start date: 12/13/12 9:00:00, Duration: 30 day, Stop date: 01/11/13 9:00:00 ciprofloxac 2012-0 No Yehuda 500 mg, 1 [facility] in 12-13 [facility] tab, l 14:00: Route: PO, Nick 00 Drug form: TAB, [id number], Dosing Weight 78.182, kg, Start date: 12/13/12 8:00:00, Duration: 30 day, Stop date: 01/11/13 20:00:00 ciprofloxac 2013-0 No Yehuda 500 mg, 1 [facility] in 12-13 [facility] tab, l 14:00: Route: PO, Nick 00 Drug form: TAB, [id number], Dosing Weight 78.182, kg, Start date: 12/13/12 8:00:00, Duration: 30 day, Stop date: 01/11/13 20:00:00 ciprofloxac 2013-0 No Yehuda 500 mg, 1 [facility] in 12-13 [facility] tab, l 14:00: Route: PO, Nick 00 Drug form: TAB, [id number], Dosing Weight 78.182, kg, Start date: 12/13/12 8:00:00, Duration: 30 day, Stop date: 01/11/13 20:00:00 ciprofloxac 2013-0 No Yehuda 500 mg, 1 [facility] in 12-13 [facility] tab, l 14:00: Route: PO, Nick 00 Drug form: TAB, [id number], Dosing Weight 78.182, kg, Start date: 12/13/12 8:00:00, Duration: 30 day, Stop date: 01/11/13 20:00:00 nortriptyli 2013-0 No Duaa 75 mg, 3 Me moria ne 12-13 [facility] cap, l 03:00: Route: PO, Nick 00 Drug form: CAP, Bedtime, Dosing Weight 78.182, kg, Start date: 12/12/12 21:00:00, Duration: 30 day, Stop date: 01/10/13 21:00:00 nortriptyli 2013-0 No Duaa 75 mg, 3 Me moria ne 12-13 [facility] cap, l 03:00: Route: PO, Nick 00 Drug form: CAP, Bedtime, Dosing Weight 78.182, kg, Start date: 12/12/12 21:00:00, Duration: 30 day, Stop date: 01/10/13 21:00:00 nortriptyli 2013-0 No Duaa 75 mg, 3 Me moria ne - Siva cap, l 03:00: Route: PO, [place] 00 Drug form: CAP, Bedtime, Dosing Weight 78.182, kg, Start date: 12/12/12 21:00:00, Duration: 30 day, Stop date: 01/10/13 21:00:00 nortriptyli 2013-0 No Duaa 75 mg, 3 Me moria ne - Siva cap, l 03:00: Route: PO, [place] 00 Drug form: CAP, Bedtime, Dosing Weight 78.182, kg, Start date: 12/12/12 21:00:00, Duration: 30 day, Stop date: 01/10/13 21:00:00 atorvastati 2013-0 No Loretta 40 mg, 1 M emoria n 3-08 [place] tab, l 23:00: Mike Route: PO, L[place] n 00 Drug form: TAB, QPM, Dosing Weight 78.182, kg, Start date: 12/12/12 17:00:00, Duration: 30 day, Stop date: 01/10/13 17:00:00 atorvastati 2013-0 No Loretta 40 mg, 1 M emoria n 3-08 [place] tab, l 23:00: Mike Route: PO, [place] n 00 Drug form: TAB, QPM, Dosing Weight 78.182, kg, Start date: 12/12/12 17:00:00, Duration: 30 day, Stop date: 01/10/13 17:00:00 atorvastati 2013-0 No Loretta 40 mg, 1 M emoria n 3-08 [place] tab, l 23:00: Mike Route: PO, [place] n 00 Drug form: TAB, QPM, Dosing Weight 78.182, kg, Start date: 12/12/12 17:00:00, Duration: 30 day, Stop date: 01/10/13 17:00:00 atorvastati 2013-0 No Loretta 40 mg, 1 M emoria n 3-08 [place] tab, l 23:00: Mike Route: PO, [place] n 00 Drug form: TAB, QPM, Dosing Weight 78.182, kg, Start date: 12/12/12 17:00:00, Duration: 30 day, Stop date: 01/10/13 17:00:00 Protonix 2012-0 No Yen Zeny 40 mg, 1 M emoria 3-08 [place] tab, l 22:30: Route: PO, Nick Drug form: ECTAB, Before Dinner, Start date: 12/12/12 16:30:00, Duration: 30 day, Stop date: 01/10/13 16:30:00 Protonix 2012-0 No Yen Zeny 40 mg, 1 M emoria 3-08 [place] tab, l 22:30: Route: PO, [place] 00 Drug form: ECTAB, Before Dinner, Start date: 12/12/12 16:30:00, Duration: 30 day, Stop date: 01/10/13 16:30:00 Protonix 2012-0 No Yen Zeny 40 mg, 1 M emoria 3-08 [place] tab, l 22:30: Route: PO, Nick 00 Drug form: ECTAB, Before Dinner, Start date: 12/12/12 16:30:00, Duration: 30 day, Stop date: 01/10/13 16:30:00 Protonix 2012-0 No Yen Zeny 40 mg, 1 M emoria 3-08 [place] tab, l 22:30: Route: PO, Inck 00 Drug form: ECTAB, Before Dinner, Start date: 12/12/12 16:30:00, Duration: 30 day, Stop date: 01/10/13 16:30:00 Prevacid 2012-0 No Yen Zeny 30 mg, Mem oria 308 [place] Route: PO, l 15:00: Drug form: [place] DRC, Daily, Dosing Weight 78.182, kg, Start date: 12/12/12 9:00:00, Duration: 30 day, Stop date: 01/10/13 9:00:00 metFORmin 2012-0 No Yehuda 500 mg, 1 Me moria 500 mg oral 08 [facility] tab, l tablet 15:00: Route: PO, Jesica nn Drug form: TAB, QAM, Dosing Weight 78.182, kg, Start date: 12/12/12 9:00:00, Duration: 30 day, Stop date: 01/10/13 9:00:00 famotidine 2012-0 No Yen Zeny 20 mg, 1 [facility] 3-08 [place] tab, l 15:00: Route: PO, [place] 00 Drug form: TAB, Q12H, Dosing Weight 78.182, kg, Start date: 12/12/12 9:00:00, Duration: 30 day, Stop date: 01/10/13 21:00:00 Saline 2012-0 No Yen Zeny 5 ml, Mem[facility] a Flush 0.9% 308 [place] Route: l 15:00: IVP, Drug Nick Form: INJ, Dosing Weight 78.182, kg, Q12H, Start date: 12/12/12 9:00:00, Duration: 30 day, Stop date: 01/10/13 21:00:00 aspirin 325 2012-0 No Yen Zeny 325 mg, 1 [facility] mg tablet, 3-08 [place] tab, l enteric 15:00: Route: PO, Herm litzy coated 00 Drug form: ECTAB, Daily, Dosing Weight 78.182, kg, Start date: 12/12/12 9:00:00, Duration: 30 day, Stop date: 01/10/13 9:00:00 Prevacid 2012-0 No Yen Zeyn 30 mg, Mem oria 3-08 [place] Route: PO, l 15:00: Drug form: Nick 00 DRC, Daily, Dosing Weight 78.182, kg, Start date: 12/12/12 9:00:00, Duration: 30 day, Stop date: 01/10/13 9:00:00 metFORmin 2012-0 No Yehuda 500 mg, 1 Me moria 500 mg oral 3-08 [facility] tab, l tablet 15:00: Route: PO, Jesica nn 00 Drug form: TAB, QAM, Dosing Weight 78.182, kg, Start date: 12/12/12 9:00:00, Duration: 30 day, Stop date: 01/10/13 9:00:00 famotidine 2012-0 No Yen Zeny 20 mg, 1 [facility] 3-08 [place] tab, l 15:00: Route: PO, [place] 00 Drug form: TAB, Q12H, Dosing Weight 78.182, kg, Start date: 12/12/12 9:00:00, Duration: 30 day, Stop date: 01/10/13 21:00:00 Saline 2012-0 No Yen Zeny 5 ml, [facility] a Flush 0.9% 3-08 [place] Route: l 15:00: IVP, Drug [place] 00 Form: INJ, Dosing Weight 78.182, kg, Q12H, Start date: 12/12/12 9:00:00, Duration: 30 day, Stop date: 01/10/13 21:00:00 aspirin 325 2012-0 No Yen Zeny 325 mg, 1 [facility] mg tablet, 3-08 [place] tab, l enteric 15:00: Route: PO, Herm litzy coated 00 Drug form: ECTAB, Daily, Dosing Weight 78.182, kg, Start date: 12/12/12 9:00:00, Duration: 30 day, Stop date: 01/10/13 9:00:00 Prevacid 2012-0 No Yen Zeny 30 mg, Mem oria 3-08 [place] Route: PO, l 15:00: Drug form: [place] 00 DRC, Daily, Dosing Weight 78.182, kg, Start date: 12/12/12 9:00:00, Duration: 30 day, Stop date: 01/10/13 9:00:00 metFORmin 2012-0 No Yehuda 500 mg, 1 Me moria 500 mg oral 3-08 [facility] tab, l tablet 15:00: Route: PO, Jescia nn 00 Drug form: TAB, QAM, Dosing Weight 78.182, kg, Start date: 12/12/12 9:00:00, Duration: 30 day, Stop date: 01/10/13 9:00:00 famotidine 2012-0 No Yen Zeny 20 mg, 1 [facility] 3-08 [place] tab, l 15:00: Route: PO, Nick 00 Drug form: TAB, Q12H, Dosing Weight 78.182, kg, Start date: 12/12/12 9:00:00, Duration: 30 day, Stop date: 01/10/13 21:00:00 Saline 2012-0 No Yen Zeny 5 ml, Mem[facility] a Flush 0.9% 3-08 [place] Route: l 15:00: IVP, Drug Nick 00 Form: INJ, Dosing Weight 78.182, kg, Q12H, Start date: 12/12/12 9:00:00, Duration: 30 day, Stop date: 01/10/13 21:00:00 aspirin 325 2012-0 No Yen Zeny 325 mg, 1 [facility] mg tablet, 3-08 [place] tab, l enteric 15:00: Route: PO, Herm litzy coated 00 Drug form: ECTAB, Daily, Dosing Weight 78.182, kg, Start date: 12/12/12 9:00:00, Duration: 30 day, Stop date: 01/10/13 9:00:00 Prevacid 2012-0 No Yen Zeny 30 mg, Mem oria 3-08 [place] Route: PO, l 15:00: Drug form: [place] 00 DRC, Daily, Dosing Weight 78.182, kg, Start date: 12/12/12 9:00:00, Duration: 30 day, Stop date: 01/10/13 9:00:00 metFORmin 2012-0 No Yehuda 500 mg, 1 Me moria 500 mg oral 3-08 [facility] tab, l tablet 15:00: Route: PO, Jesica nn 00 Drug form: TAB, QAM, Dosing Weight 78.182, kg, Start date: 12/12/12 9:00:00, Duration: 30 day, Stop date: 01/10/13 9:00:00 famotidine 2012-0 No Yen Zeny 20 mg, 1 [facility] 3-08 [place] tab, l 15:00: Route: PO, Nikc 00 Drug form: TAB, Q12H, Dosing Weight 78.182, kg, Start date: 12/12/12 9:00:00, Duration: 30 day, Stop date: 01/10/13 21:00:00 Saline 2012-0 No Yen Zeny 5 ml, [facility] a Flush 0.9% 308 [place] Route: l 15:00: IVP, Drug Nick 00 Form: INJ, Dosing Weight 78.182, kg, Q12H, Start date: 12/12/12 9:00:00, Duration: 30 day, Stop date: 01/10/13 21:00:00 aspirin 325 2012-0 No Yen Zeny 325 mg, 1 [facility] mg tablet, 3-08 [place] tab, l enteric 15:00: Route: PO, Herm litzy coated 00 Drug form: ECTAB, Daily, Dosing Weight 78.182, kg, Start date: 12/12/12 9:00:00, Duration: 30 day, Stop date: 01/10/13 9:00:00 Lovenox 2013-0 No Yen Zeny 40 mg, 0.4 [facility] 3-08 [place] mL, Route: l 14:00: SUB-Q, [place] 00 Drug form: INJ, Q24H, Dosing Weight 78.182, kg, Start date: 12/12/12 8:00:00, Duration: 30 day, Stop date: 01/10/13 8:00:00 Lovenox 2013-0 No Yen Zeny 40 mg, 0.4 [facility] 3-08 [place] mL, Route: l 14:00: SUB-Q, [place] 00 Drug form: INJ, Q24H, Dosing Weight 78.182, kg, Start date: 12/12/12 8:00:00, Duration: 30 day, Stop date: 01/10/13 8:00:00 Lovenox 2013-0 No Yen Zeny 40 mg, 0.4 [facility] 3-08 [place] mL, Route: l 14:00: SUB-Q, [place] 00 Drug form: INJ, Q24H, Dosing Weight 78.182, kg, Start date: 12/12/12 8:00:00, Duration: 30 day, Stop date: 01/10/13 8:00:00 Lovenox 2013-0 No Yen Zeny 40 mg, 0.4 [facility] 3-08 [place] mL, Route: l 14:00: SUB-Q, Drug form: INJ, Q24H, Dosing Weight 78.182, kg, Start date: 12/12/12 8:00:00, Duration: 30 day, Stop date: 01/10/13 8:00:00 Rocephin 2012-0 No Yehuda 1 gm, Memoria 12-12 [facility] Route: l 09:00: IVPB, Drug form: PDR/INJ, [id number], Dosing Weight 78.182, kg, Start date: 12/12/12 3:00:00, Duration: 30 day, Stop date: 01/10/13 3:00:00 Rocephin 2013-0 No Yehuda 1 gm, [facility] 3- [facility] Route: l 09:00: IVPB, Drug [place] 00 form: PDR/INJ, [id number], Dosing Weight 78.182, kg, Start date: 12/12/12 3:00:00, Duration: 30 day, Stop date: 01/10/13 3:00:00 Rocephin 2012-0 No Yehuda 1 gm, [facility] 12-12 [facility] Route: l 09:00: IVPB, Drug [place] 00 form: PDR/INJ, [id number], Dosing Weight 78.182, kg, Start date: 12/12/12 3:00:00, Duration: 30 day, Stop date: 01/10/13 3:00:00 Rocephin 2012-0 No Yehuda 1 gm, [facility] 12-12 [facility] Route: l 09:00: IVPB, Drug form: PDR/INJ, [id number], Dosing Weight 78.182, kg, Start date: 12/12/12 3:00:00, Duration: 30 day, Stop date: 01/10/13 3:00:00 insulin 2012-0 No Yen Zeny 5 unit, Mem oria regular 100 3-08 [place] 0.05 mL, l units/mL 08:08: Route: [place] human 00 SUB-Q, recombinant Drug form: SOLN, PRN, Dosing Weight 78.182, kg, PRN Abnormal Lab Result, Start date: 12/12/12 2:08:00, Duration: 30 day, Stop date: 01/11/13 3:07:00 Dextrose 2012-0 No Yen Zeny 6.25 gm, M emoria 50% Syringe 3-08 [place] 12.5 mL, l 08:08: Route: Nick 00 IVP, Drug Form: INJ, Dosing Weight 78.182, kg, PRN, PRN Abnormal Lab Result, Start date: 12/12/12 2:08:00, Duration: 30 day, Stop date: 01/11/13 3:07:00 insulin 2012-0 No Yen Zeny 5 unit, Mem oria regular 100 3-08 [place] 0.05 mL, l units/mL 08:08: Route: [place] human 00 SUB-Q, recombinant Drug form: SOLN, PRN, Dosing Weight 78.182, kg, PRN Abnormal Lab Result, Start date: 12/12/12 2:08:00, Duration: 30 day, Stop date: 01/11/13 3:07:00 Dextrose 2012-0 No Yen Zeny 6.25 gm, M emoria 50% Syringe 3-08 [place] 12.5 mL, l 08:08: Route: [place] 00 IVP, Drug Form: INJ, Dosing Weight 78.182, kg, PRN, PRN Abnormal Lab Result, Start date: 12/12/12 2:08:00, Duration: 30 day, Stop date: 01/11/13 3:07:00 insulin 2012-0 No Yen Zeny 5 unit, Mem oria regular 100 3-08 [place] 0.05 mL, l units/mL 08:08: Route: Nick human 00 SUB-Q, recombinant Drug form: SOLN, PRN, Dosing Weight 78.182, kg, PRN Abnormal Lab Result, Start date: 12/12/12 2:08:00, Duration: 30 day, Stop date: 01/11/13 3:07:00 Dextrose 2012-0 No Yen Zeny 6.25 gm, M emoria 50% Syringe 3-08 [place] 12.5 mL, l 08:08: Route: [place] 00 IVP, Drug Form: INJ, Dosing Weight 78.182, kg, PRN, PRN Abnormal Lab Result, Start date: 12/12/12 2:08:00, Duration: 30 day, Stop date: 01/11/13 3:07:00 insulin 2012-0 No Yen Zeny 5 unit, Mem oria regular 100 3-08 [place] 0.05 mL, l units/mL 08:08: Route: [place] human 00 SUB-Q, recombinant Drug form: SOLN, PRN, Dosing Weight 78.182, kg, PRN Abnormal Lab Result, Start date: 12/12/12 2:08:00, Duration: 30 day, Stop date: 01/11/13 3:07:00 Dextrose 2012-0 No Yen Zeny 6.25 gm, M emoria 50% Syringe 3-08 [place] 12.5 mL, l 08:08: Route: Nick 00 IVP, Drug Form: INJ, Dosing Weight 78.182, kg, PRN, PRN Abnormal Lab Result, Start date: 12/12/12 2:08:00, Duration: 30 day, Stop date: 01/11/13 3:07:00 tramadol 50 2012-0 No Yen Zeny 50 mg, 1 [facility] mg oral 3-08 [place] tab, l tablet 08:05: Route: PO, Jes[place] nn 00 Drug form: TAB, TID, Dosing Weight 78.182, kg, PRN as needed for pain, Start date: 12/12/12 2:05:00, Duration: 30 day, Stop date: 01/11/13 2:04:00 tramadol 50 2012-0 No Yen Zeny 50 mg, 1 [facility] mg oral 3-08 [place] tab, l tablet 08:05: Route: PO, Jes[place] nn 00 Drug form: TAB, TID, Dosing Weight 78.182, kg, PRN as needed for pain, Start date: 12/12/12 2:05:00, Duration: 30 day, Stop date: 01/11/13 2:04:00 tramadol 50 2012-0 No Yen Zeny 50 mg, 1 [facility] mg oral 3-08 [place] tab, l tablet 08:05: Route: PO, Jes[place] nn 00 Drug form: TAB, TID, Dosing Weight 78.182, kg, PRN as needed for pain, Start date: 12/12/12 2:05:00, Duration: 30 day, Stop date: 01/11/13 2:04:00 tramadol 50 2012-0 No Yen Zeny 50 mg, 1 [facility]oria mg oral 3-08 [place] tab, l tablet 08:05: Route: PO, Jes[place] nn 00 Drug form: TAB, TID, Dosing Weight 78.182, kg, PRN as needed for pain, Start date: 12/12/12 2:05:00, Duration: 30 day, Stop date: 01/11/13 2:04:00 Ventolin 2012-0 No Yen Zeny 3 puff, Me moria HFA 90 3-08 [place] Route: l mcg/inh 08:03: INHALATION Herm litzy inhalation 00 , Drug aerosol Form: with AERO/A, adapter Dosing Weight 78.182, kg, Daily, PRN as needed for wheezing, Start date: 12/12/12 2:03:00, Duration: 30 day, Stop date: 01/11/13 2:02:00 Ventolin 2012-0 No Yen Zeny 3 puff, Me moria HFA 90 3-08 [place] Route: l mcg/inh 08:03: INHALATION Herm litzy inhalation 00 , Drug aerosol Form: with AERO/A, adapter Dosing Weight 78.182, kg, Daily, PRN as needed for wheezing, Start date: 12/12/12 2:03:00, Duration: 30 day, Stop date: 01/11/13 2:02:00 Ventolin 2012-0 No Yen Zeny 3 puff, Me moria HFA 90 3-08 [place] Route: l mcg/inh 08:03: INHALATION Herm litzy inhalation 00 , Drug aerosol Form: with AERO/A, adapter Dosing Weight 78.182, kg, Daily, PRN as needed for wheezing, Start date: 12/12/12 2:03:00, Duration: 30 day, Stop date: 01/11/13 2:02:00 Ventolin 2012-0 No Yen Zeny 3 puff, Me moria HFA 90 3-08 [place] Route: l mcg/inh 08:03: INHALATION Herm litzy inhalation 00 , Drug aerosol Form: with AERO/A, adapter Dosing Weight 78.182, kg, Daily, PRN as needed for wheezing, Start date: 12/12/12 2:03:00, Duration: 30 day, Stop date: 01/11/13 2:02:00 ondansetron 2012-0 No Yen Zeny 4 mg, 2 [facility] 3-08 [place] mL, Route: l 06:29: IVP, Drug form: INJ, Q8H, Dosing Weight 78.182, kg, PRN Nausea & Vomiting, Start date: 12/12/12 0:29:00, Duration: 30 day, Stop date: 01/11/13 0:28:00 bisacodyl 2012-0 No Yen Zeny 10 mg, 1 [facility] 3-08 [place] supp, l 06:29: Route: KS, Nick 00 Drug form: SUPP, Daily, Dosing Weight 78.182, kg, PRN Constipati on, Start date: 12/12/12 0:29:00, Duration: 30 day, Stop date: 01/11/13 0:28:00 acetaminoph 2012-0 No Yen Zeny 650 mg, 2 Memoria en 3-08 [place] tab, l 06:29: Route: PO, Nick 00 Drug form: TAB, Q4H, Dosing Weight 78.182, kg, PRN Pain/Fever , Start date: 12/12/12 0:29:00, Duration: 30 day, Stop date: 01/11/13 0:28:00 Saline 2012- No Yen Zeny 5 ml, Memori a Flush 0.9% 3-08 [place] Route: l 06:29: IVP, Drug Nick 00 Form: INJ, Dosing Weight 78.182, kg, PRN, PRN Line Flush, Start date: 12/12/12 0:29:00, Duration: 30 day, Stop date: 01/11/13 1:28:00 labetalol No Yen Zeny 10 mg, 2 [facility] 3-08 [place] mL, Route: l 06:29: IVP, Drug Nick 00 form: INJ, Q10Min, Dosing Weight 78.182, kg, PRN Hypertensi on, Start date: 12/12/12 0:29:00, Duration: 30 day, Stop date: 01/11/13 1:28:00, For SBP > 180mmHg and/or DBP > 105mmHg Sodium No Yen Zeny 1,000 mL, Me moria Chloride 3-08 [place] Rate: 100 l 0.9% IV 06:29: ml/hr, [place] 1,000 mL 00 Infuse over: 10 hr, Route: IV, kg, Total Volume: 1,000, Start date: 12/12/12 0:29:00, Duration: 30 day, Stop date: 01/11/13 0:28:00 ondansetron No Yen Zeny 4 mg, 2 [facility] 3-08 [place] mL, Route: l 06:29: IVP, Drug Nick 00 form: INJ, Q8H, Dosing Weight 78.182, kg, PRN Nausea & Vomiting, Start date: 12/12/12 0:29:00, Duration: 30 day, Stop date: 01/11/13 0:28:00 bisacodyl 2012- No Yen Zeny 10 mg, 1 [facility] 3-08 [place] supp, l 06:29: Route: [place], Nick 00 Drug form: SUPP, Daily, Dosing Weight 78.182, kg, PRN Constipati on, Start date: 12/12/12 0:29:00, Duration: 30 day, Stop date: 01/11/13 0:28:00 acetaminoph 2012- No Yen Zeny 650 mg, 2 [facility]oria en 3-08 [place] tab, l 06:29: Route: PO, Drug form: TAB, Q4H, Dosing Weight 78.182, kg, PRN Pain/Fever , Start date: 12/12/12 0:29:00, Duration: 30 day, Stop date: 01/11/13 0:28:00 ondansetron No Yen Zeny 4 mg, 2 [facility] 3-08 [place] mL, Route: l 06:29: IVP, Drug form: INJ, Q8H, Dosing Weight 78.182, kg, PRN Nausea & Vomiting, Start date: 12/12/12 0:29:00, Duration: 30 day, Stop date: 01/11/13 0:28:00 Saline No Yen Zeny 5 ml, Memori a Flush 0.9% 3-08 [place] Route: l 06:29: IVP, Drug Form: INJ, Dosing Weight 78.182, kg, PRN, PRN Line Flush, Start date: 12/12/12 0:29:00, Duration: 30 day, Stop date: 01/11/13 1:28:00 labetalol No Yen Zeny 10 mg, 2 [facility] 3-08 [place] mL, Route: l 06:29: IVP, Drug form: INJ, Q10Min, Dosing Weight 78.182, kg, PRN Hypertensi on, Start date: 12/12/12 0:29:00, Duration: 30 day, Stop date: 01/11/13 1:28:00, For SBP > 180mmHg and/or DBP > 105mmHg Sodium No Yen Zeny 1,000 mL, Me moria Chloride 3-08 [place] Rate: 100 l 0.9% IV 06:29: ml/hr, Nick 1,000 mL 00 Infuse over: 10 hr, Route: IV, kg, Total Volume: 1,000, Start date: 12/12/12 0:29:00, Duration: 30 day, Stop date: 01/11/13 0:28:00 bisacodyl 2012-0 No Yen Zeny 10 mg, 1 [facility] 3-08 [place] supp, l 06:29: Route: [place], Nick 00 Drug form: SUPP, Daily, Dosing Weight 78.182, kg, PRN Constipati on, Start date: 12/12/12 0:29:00, Duration: 30 day, Stop date: 01/11/13 0:28:00 acetaminoph 2012- No Yen Zeny 650 mg, 2 [facility]oria en 3-08 [place] tab, l 06:29: Route: PO, [place] 00 Drug form: TAB, Q4H, Dosing Weight 78.182, kg, PRN Pain/Fever , Start date: 12/12/12 0:29:00, Duration: 30 day, Stop date: 01/11/13 0:28:00 Saline 2012- No Yen Zeny 5 ml, Memori a Flush 0.9% 308 [place] Route: l 06:29: IVP, Drug Form: INJ, Dosing Weight 78.182, kg, PRN, PRN Line Flush, Start date: 12/12/12 0:29:00, Duration: 30 day, Stop date: 01/11/13 1:28:00 labetalol 2012- No Yen Zeny 10 mg, 2 [facility] 3-08 [place] mL, Route: l 06:29: IVP, Drug form: INJ, Q10Min, Dosing Weight 78.182, kg, PRN Hypertensi on, Start date: 12/12/12 0:29:00, Duration: 30 day, Stop date: 01/11/13 1:28:00, For SBP > 180mmHg and/or DBP > 105mmHg Sodium 2012- No Yen Zeny 1,000 mL, Me moria Chloride 308 [place] Rate: 100 l 0.9% IV 06:29: ml/hr, Nick 1,000 mL 00 Infuse over: 10 hr, Route: IV, kg, Total Volume: 1,000, Start date: 12/12/12 0:29:00, Duration: 30 day, Stop date: 01/11/13 0:28:00 ondansetron 2012- No Yen Zeny 4 mg, 2 [facility] 3-08 [place] mL, Route: l 06:29: IVP, Drug form: INJ, Q8H, Dosing Weight 78.182, kg, PRN Nausea & Vomiting, Start date: 12/12/12 0:29:00, Duration: 30 day, Stop date: 01/11/13 0:28:00 bisacodyl 2012- No Yen Zeny 10 mg, 1 [facility] 3-08 [place] supp, l 06:29: Route: [place], Nick 00 Drug form: SUPP, Daily, Dosing Weight 78.182, kg, PRN Constipati on, Start date: 12/12/12 0:29:00, Duration: 30 day, Stop date: 01/11/13 0:28:00 acetaminoph 2012- No Yen Zeny 650 mg, 2 [facility] en 3-08 [place] tab, l 06:29: Route: PO, Drug form: TAB, Q4H, Dosing Weight 78.182, kg, PRN Pain/Fever , Start date: 12/12/12 0:29:00, Duration: 30 day, Stop date: 01/11/13 0:28:00 Saline 2012- No Yen Ezny 5 ml, Memori a Flush 0.9% 3-08 [place] Route: l 06:29: IVP, Drug Form: INJ, Dosing Weight 78.182, kg, PRN, PRN Line Flush, Start date: 12/12/12 0:29:00, Duration: 30 day, Stop date: 01/11/13 1:28:00 labetalol No Yen Zeny 10 mg, 2 [facility] 3-08 [place] mL, Route: l 06:29: IVP, Drug form: INJ, Q10Min, Dosing Weight 78.182, kg, PRN Hypertensi on, Start date: 12/12/12 0:29:00, Duration: 30 day, Stop date: 01/11/13 1:28:00, For SBP > 180mmHg and/or DBP > 105mmHg Sodium 2012- No Yen Zeny 1,000 mL, Me moria Chloride 3-08 [place] Rate: 100 l 0.9% IV 06:29: ml/hr, [place] 1,000 mL 00 Infuse over: 10 hr, Route: IV, kg, Total Volume: 1,000, Start date: 12/12/12 0:29:00, Duration: 30 day, Stop date: 01/11/13 0:28:00 Omnipaque 2012- No Génesis 80 mL, Sanchez maría 350mg/ml 12-12 [place] Route: l 06:28: IVP, Drug Nick Form: SOLN, Dosing Weight 78.182, kg, ONCALL, STAT, Start date: 12/12/12 0:28:00, Duration: 1 doses or times, Dose = 2.2ml/kg, Max dose = 100ml -- "To be infused by Radiology Staff ONLY"Dose = 2.2ml/kg, Max dose = 100ml -- "To be infused by Radiology Staff ONLY" Omnipaque No Génesis 80 mL, Sanchez maría 350mg/ml 12-12 [place] Route: l 06:28: IVP, Drug Nick Form: SOLN, Dosing Weight 78.182, kg, ONCALL, STAT, Start date: 12/12/12 0:28:00, Duration: 1 doses or times, Dose = 2.2ml/kg, Max dose = 100ml -- "To be infused by Radiology Staff ONLY"Dose = 2.2ml/kg, Max dose = 100ml -- "To be infused by Radiology Staff ONLY" Omnipaque No Génesis 80 mL, Sanchez maría 350mg/ml 12-12 [place] Route: l 06:28: IVP, Drug Nick Form: SOLN, Dosing Weight 78.182, kg, ONCALL, STAT, Start date: 12/12/12 0:28:00, Duration: 1 doses or times, Dose = 2.2ml/kg, Max dose = 100ml -- "To be infused by Radiology Staff ONLY"Dose = 2.2ml/kg, Max dose = 100ml -- "To be infused by Radiology Staff ONLY" Omnipaque 0 No Génesis 80 mL, Sanchez maría 350mg/ml 12-12 [place] Route: l 06:28: IVP, Drug [place] Form: SOLN, Dosing Weight 78.182, kg, ONCALL, STAT, Start date: 12/12/12 0:28:00, Duration: 1 doses or times, Dose = 2.2ml/kg, Max dose = 100ml -- "To be infused by Radiology Staff ONLY"Dose = 2.2ml/kg, Max dose = 100ml -- "To be infused by Radiology Staff ONLY" Unknown Yes pre forte, Sanchez maría Home 3-08 BOTH EYES, l Medication 04:30: qWeek, Jesica nn 21 Substituti on Allowed Unknown Yes pre forte, Sanchez maría Home 3-08 BOTH EYES, l Medication 04:30: qWeek, Jesica nn 21 Substituti on Allowed Unknown Yes pre forte, Sanchez maría Home 3-08 BOTH EYES, l Medication 04:30: qWeek, Jesica nn 21 Substituti on Allowed Unknown Yes pre forte, Sanchez maría Home 3-08 BOTH EYES, l Medication 04:30: qWeek, Jesica nn 21 Substituti on Allowed Ventolin Yes Yen Zeny 3 puff, Me moria HFA 3-08 [place] INHALATION l 04:28: , Daily, Nick 50 PRN, as needed for wheezing, Substituti on Allowed, Maintenanc e Ventolin Yes Yen Zeny 3 puff, Me moria HFA 3-08 [place] INHALATION l 04:28: , Daily, [place] 50 PRN, as needed for wheezing, Substituti on Allowed, Maintenanc e Ventolin Yes Yen Zeny 3 puff, Me moria HFA 3-08 [place] INHALATION l 04:28: , Daily, Nick 50 PRN, as needed for wheezing, Substituti on Allowed, Maintenanc e Ventolin Yes Yen Zeny 3 puff, Me moria HFA 3-08 [place] INHALATION l 04:28: , Daily, Nick 50 PRN, as needed for wheezing, Substituti on Allowed, Maintenanc e tramadol 50 Yes Yen Zeny 50 mg, 1 Memoria mg oral 3-08 [place] tab, PO, l tablet 04:28: TID, PRN, Lokesh n 28 60 tab, for pain, Substituti on Allowed, TAB tramadol 50 2013-0 Yes Yen Zeny 50 mg, 1 Memoria mg oral 3-08 [place] tab, PO, l tablet 04:28: TID, PRN, Lokesh davis 28 60 tab, for pain, Substituti on Allowed, TAB tramadol 50 2012-0 Yes Yen Zeny 50 mg, 1 Memoria mg oral 3-08 [place] tab, PO, l tablet 04:28: TID, PRN, Lokesh daivs 28 60 tab, for pain, Substituti on Allowed, TAB tramadol 50 2012-0 Yes Yen Zeny 50 mg, 1 Memoria mg oral 3-08 [place] tab, PO, l tablet 04:28: TID, PRN, Lokesh davis 28 60 tab, for pain, Substituti on Allowed, TAB Flexeril 10 2012-0 Yes 10 mg, 1 Me moria mg oral 3-08 tab, PO, l tablet 04:27: Q8H, PRN, Lokesh n 53 30 tab, for spasm, Substituti on Allowed, TAB Flexeril 10 2012-0 Yes 10 mg, 1 Me moria mg oral 3-08 tab, PO, l tablet 04:27: Q8H, PRN, Lokesh n 53 30 tab, for spasm, Substituti on Allowed, TAB Flexeril 10 2013-0 Yes 10 mg, 1 Me moria mg oral 3-08 tab, PO, l tablet 04:27: Q8H, PRN, Lokesh n 53 30 tab, for spasm, Substituti on Allowed, TAB Flexeril 10 2012-0 Yes 10 mg, 1 Me moria mg oral 3-08 tab, PO, l tablet 04:27: Q8H, PRN, Lokesh n 53 30 tab, for spasm, Substituti on Allowed, TAB promethazin 2013-0 Yes 25 mg, 1 Me moria e 25 mg 3-08 tab, PO, l oral tablet 04:27: TID, PRN, H ermann 31 60 tab, for motion sickness, Substituti on Allowed, TAB promethazin 2013-0 Yes 25 mg, 1 Me moria e 25 mg 3-08 tab, PO, l oral tablet 04:27: TID, PRN, H ermann 31 60 tab, for motion sickness, Substituti on Allowed, TAB promethazin Yes 25 mg, 1 Me moria e 25 mg 3-08 tab, PO, l oral tablet 04:27: TID, PRN, H ermann 31 60 tab, for motion sickness, Substituti on Allowed, TAB promethazin Yes 25 mg, 1 Me moria e 25 mg 3-08 tab, PO, l oral tablet 04:27: TID, PRN, H ermann 31 60 tab, for motion sickness, Substituti on Allowed, TAB nortriptyli Yes Yen Zeny 50 mg, 1 Memoria ne 50 mg 3-08 [place] cap, PO, l oral 04:26: Bedtime, [place] capsule 57 270 cap, Substituti on Allowed, CAP nortriptyli Yes Yen Zeny 50 mg, 1 Memoria ne 50 mg 3-08 [place] cap, PO, l oral 04:26: Bedtime, [place] capsule 57 270 cap, Substituti on Allowed, CAP nortriptyli Yes Yen Zeny 50 mg, 1 Memoria ne 50 mg 3-08 [place] cap, PO, l oral 04:26: Bedtime, [place] capsule 57 270 cap, Substituti on Allowed, CAP nortriptyli Yes Yen Zeny 50 mg, 1 Memoria ne 50 mg 3-08 [place] cap, PO, l oral 04:26: Bedtime, Nick capsule 57 270 cap, Substituti on Allowed, CAP Prevacid 30 Yes Yen Zeny 30 mg, 1 Memoria mg oral 3-08 [place] cap, PO, l delayed 04:26: Daily, Nick release 31 Substituti capsule on Allowed Prevacid 30 Yes Yen Zeny 30 mg, 1 Memoria mg oral 3-08 [place] cap, PO, l delayed 04:26: Daily, [place] release 31 Substituti capsule on Allowed Prevacid 30 Yes Yen Zeny 30 mg, 1 Memoria mg oral 3-08 [place] cap, PO, l delayed 04:26: Daily, Nick release 31 Substituti capsule on Allowed Prevacid 30 Yes Yen Zeny 30 mg, 1 Memoria mg oral 3-08 [place] cap, PO, l delayed 04:26: Daily, [place] release 31 Substituti capsule on Allowed metoprolol Yes 100 mg, 1 Me moria 100 mg oral 3-08 tab, PO, l tablet, 04:26: QAM, 30 Nick extended 09 tab, release Substituti on Allowed metoprolol Yes 100 mg, 1 Me moria 100 mg oral 3-08 tab, PO, l tablet, 04:26: QAM, 30 [place] extended 09 tab, release Substituti on Allowed metoprolol Yes 100 mg, 1 Me moria 100 mg oral 3-08 tab, PO, l tablet, 04:26: QAM, 30 [place] extended 09 tab, release Substituti on Allowed metoprolol Yes 100 mg, 1 Me moria 100 mg oral 3-08 tab, PO, l tablet, 04:26: QAM, 30 Nick extended 09 tab, release Substituti on Allowed metFORmin Yes Yen Zeny 500 mg, 1 Memoria 500 mg oral 3-08 [place] tab, PO, l tablet 04:25: QAM, 30 [place] 41 tab, Substituti on Allowed metFORmin Yes Yen Zeny 500 mg, 1 Memoria 500 mg oral 3-08 [place] tab, PO, l tablet 04:25: QAM, 30 [place] 41 tab, Substituti on Allowed metFORmin Yes Yen Zeny 500 mg, 1 Memoria 500 mg oral 3-08 [place] tab, PO, l tablet 04:25: QAM, 30 Nick 41 tab, Substituti on Allowed metFORmin Yes Yen Zeny 500 mg, 1 Memoria 500 mg oral 3-08 [place] tab, PO, l tablet 04:25: QAM, 30 [place] 41 tab, Substituti on Allowed Vital Signs Vital Name Observation Time Observation Value Comments Source Systolic blood 2022-12-20 13:58:00 176 mm[Hg] Ashley miller [facility] Diastolic blood 2022-12-20 13:58:00 91 mm[Hg] Missy mercado [facility] Heart rate 2022-12-20 13:58:00 72 /min General acute hospital Body height 2022-12-20 13:58:00 158.8 cm General acute hospital Body weight 2022-12-20 13:58:00 75.479 kg [facility] [place] BMI 2022-12-20 13:58:00 29.95 kg/m2 Universi ty [facility] [place] Oxygen saturation in 2022-12-20 13:58:00 99 /min University of Arterial blood by [facility] Pulse oximetry Branch Systolic blood 2021-11-30 15:42:00 157 mm[Hg] Univer [facility] Diastolic blood 2021-11-30 15:42:00 72 mm[Hg] Unive rsity of pressure [facility] Heart rate 2021-11-30 15:39:00 86 /min Universi ty [facility] Body temperature 2021-11-30 15:39:00 36.17 Dionne Univ ersity of [facility] Body height 2021-11-30 15:39:00 157.5 cm Universi ty [facility] Body weight 2021-11-30 15:39:00 76.386 kg Universi ty [facility] BMI 2021-11-30 15:39:00 30.80 kg/m2 Universi ty [facility] Oxygen saturation in 2021-11-30 15:39:00 96 /min University of Arterial blood by [facility] Pulse oximetry Branch Systolic blood 2021-05-04 14:34:00 154 mm[facility]Hg] [facility] Diastolic blood 2021-05-04 14:34:00 79 mm[Hg] [facility] Heart rate 2021-05-04 14:34:00 67 [facility] temperature 2021-05-04 14:34:00 35.33 Dionne [facility] Body weight 2021-05-04 14:34:00 [facility].245 [facility] BMI 2021-05-04 14:34:00 30.56 kg[facility]m2 [facility] Systolic (mm Hg) 2012-12-13 16:55:00 Sanchez aranda [place] Respitory Rate 2012-12-13 16:55:00 Trey al Nick Heart Rate 2012-12-13 16:55:00 [facility] Nick Diastolic (mm Hg) 2012-12-13 16:55:00 Mem orial [place] Temperature Oral (F) 2012-12-13 16:55:00 97.8 F [facility] Nick Systolic (mm Hg) 2012-12-13 16:00:00 Sanchez rial Nick Diastolic (mm Hg) 2012-12-13 16:00:00 Mem orial Nick Systolic (mm Hg) 2012-12-13 15:00:00 Sanchez rial Nick Diastolic (mm Hg) 2012-12-13 15:00:00 Mem orial Nick Temperature Oral (F) 2012-12-13 13:56:00 97.3 F [facility] [place] Temperature Oral (F) 2012-12-13 12:00:00 97.1 F [facility] [place] Heart Rate 2012-12-13 09:25:00 [facility] [place] Heart Rate 2012-12-13 09:10:00 [facility] Nick Height 2012-12-12 11:54:00 157.48 cm [facility] [place] Weight 2012-12-12 11:54:00 [facility] [place] Height 2012-12-12 03:36:00 157.48 cm [facility] Nick Weight 2012-12-12 03:36[facility]00 [facility] Procedure Date / Time Performing Clinician Source Performed BI CHAY GUIDED CORE 2023-04-26 17:32:54 Nadia Navas [facility] BREAST BIOPSY LEFT Medical Branc h BI ULTRASOUND BREAST 2023-03-27 19:00:00 Requisition, Paper [facility] COMPLETE LEFT Medical Branch BI DIAGNOSTIC 2023-03-27 18:31:23 Requisition, Paper [facility] TOMOSYNTHESIS BILATERAL Medical Branch ASSIGNMENT OF BENEFITS 2022-12-20 13:50:28 Doctor Unassigned, No [facility] Medical Branch BI US GUIDED CORE BREAST 2022-01-16 16:20:00 Poncho Cam [facility] BIOPSY RIGHT Medical Branch CONSENT/REFUSAL FOR 2022-01-16 14:46:50 Doctor Unassigned, No [facility] DIAGNOSIS AND TREATMENT Name Medical Branch ASSIGNMENT OF BENEFITS 2022-01-16 14:46:34 Doctor Unassigned, No [facility] Branch BI ULTRASOUND BREAST 2021-12-02 17:44:33 Requisition, Paper Univ [facility] COMPLETE BILATERAL Medical Branc h BI DIAGNOSTIC 2021-12-02 16:48:40 Requisition, Paper [facility] TOMOSYNTHESIS BILATERAL Medical Branch CONSENT/REFUSAL FOR 2021-12-02 15:20:43 Doctor Unassigned, No Un [facility] DIAGNOSIS AND TREATMENT Name [facility] ASSIGNMENT OF BENEFITS 2021-12-02 15:20:28 Doctor Unassigned, No [facility] Name [facility] Branch Gallbladder endoscopy 2008-10-07 06:00:00 Trey tavarez [place] Gallbladder endoscopy 2008-10-07 06:00:00 Trey Montes Abdomen 1996-10-07 06:00:00 [facility] incision<sup>1</sup> Ankle joint 1996-10-07 06:00:00 [facility] operations<sup>2</sup> Abdomen incision 1996-10-07 06:00:00 Saul Shipman rmann <sup>1</sup> Ankle joint operations 1996-10-07 06:00:00 Srinivasbruce nixon Romero <sup>2</sup> Exploratory 1974-10-07 06:00:00 Saul Ventura claros laparotomy<sup>3</sup> Exploratory laparotomy 1974-10-07 06:00:00 Flynn alicea [place] <sup>3</sup> Encounters Start End Encounter Admission Attending Care Care Encounter Source Date/Time Date/Time Type Type Clinicians Facility Department ID 2023-06-17 Outpatient Belcher, STLMLC [facility] [id number] Common 15:14:00 [facility] [address] [facility] 2023-01-16 Outpatient Belcher[facility] STLMLC [facility] [id number] Common 07:52:00 [facility] [address] [facility] 2022-12-14 Outpatient [facility] [id number] [place] 15:50:42 0310 [facility] 2022-12-10 Outpatient Belcher, STLMLC [facility] [id number] Common 08:44:05 [facility] [address] [facility] 2022-02-21 Outpatient [facility] [id number] [place] 11:13:[address] [place] [address] 2021-08-24 Outpatient FRIEDA [facility] [id number] [place] 09:06:31 [facility] 2021-08-06 Emergency [facility] [id number] Univers 10:04:43 [facility] 2021-05-04 Outpatient FRIEDA [facility] [id number] [place] 10:49:07 [facility] 2021-02-11 Outpatient FRIEDA, [facility] [id number] [place] 03:55:53 [facility] 2023-04-26 2023-04-26 Outpatient R RADIOLOGY [facility] [id number] Univers 10:59:07 23:59:00 ity of [facility] 2023-04-26 2023-04-26 Hospital Radiology [facility] 1.2.840.114 [id number] Univers 10:59:07 23:59:00 Encounter SPECIALTY [id number] ity [id number] [id number] Ia clifford [facility] 800 Branch [facility] 2023-03-27 2023-03-27 Hospital Radiology [facility] 1.2.840.114 [id number] Univers 12:45:39 23:59:00 Encounter [place] 350.1.13.10 ity [facility] [place].7.[place] [id number] [facility] 806 Branch 2023-03-27 2023-03-27 Outpatient R RADIOLOGY [facility] [id number] Univers 12:44:39 12:44:39 ity of [facility] 2023-03-27 2023-03-27 Hospital Radiology [facility] 1.2.840.114 [id number] Univers 12:44:39 12:44:39 Encounter [place] [id number] ity of [place] 4.2.7.2.686 [facility] [place] [id number] [facility] 800 Branch 2023-01-16 2023-01-16 Outpatient R RADIOLOGY [facility] [id number] Univers 00:00:00 00:00:00 ity of [facility] 2022-12-20 2022-12-20 Office Pipes, [facility] 1.2.840.114 [id number] Univers 09:00:00 09:30:00 Visit [facility] 350.1.13.10 it y [place] [id number] [facility] 092 Branch OFFICE BUILDING 2022-12-20 2022-12-20 Outpatient R PIPES, [facility] [id number] Univers 09:00:00 09:00:00 CLEVE ity of [facility] 2022-12-20 2022-12-20 Orders Doctor ROSSANA 1.2.840.114 [id number] Univers 00:00:00 00:00:00 Only Unassigned, JOSEPH 350.1.13.10 ity of [facility] 4.2.7.2.686 Adi as [id number] [facility] 009 Branch 2022-04-04 2022-04-04 Outpatient R PIPES, [facility] [id number] Univers 13:00:00 13:00:00 CLEVE ity [facility] 2022-01-16 2022-01-16 Outpatient R RADIOLOGY [facility] [id number] Univers 09:46:52 23:59:00 ity of [facility] 2022-01-16 2022-01-16 Hospital Radiology [facility] 1.2.840.114 [id number] Univers 09:46:52 23:59:00 Encounter [place] 350.1.13.10 ity of [place] 4.2.7.2.686 [facility] [id number] [facility] 806 [place] 2022-01-16 2022-01-16 Orders Doctor ROSSANA 1.2.840.114 [id number] Univers 00:00:00 00:00:00 Only Unassigned, JOSEPH 350.1.13.10 ity of [place] [facility] 4.2.7.2.686 Adi as [id number] [facility] 009 Branch 2021-12-02 2021-12-02 Hospital Radiology [facility] 1.2.840.114 [id number] Univers 09:21:14 23:59:00 Encounter [place] 350.1.13.10 ity of [facility] 4.2.7.2.[place] [id number] [facility] 806 Branch 2021-12-02 2021-12-02 Outpatient R RADIOLOGY [facility] [id number] Univers 09:20:25 09:20:25 ity of [facility] 2021-12-02 2021-12-02 Hospital Radiology [facility] 1.2.840.114 [id number] Univers 09:20:25 09:20:25 Encounter [place] 350.1.13.10 ity [facility] 4.2.7.2.[place] [id number] [facility] 800 Branch 2021-12-02 2021-12-02 Outpatient R RADIOLOGY [facility] [id number] Univers 00:00:00 00:00:00 ity of [facility] 2021-11-30 2021-11-30 Office Pipes, [facility] 1.2.840.114 [id number] Univers 09:30:00 10:00:00 Visit [facility] 350.1.13.10 it y of [place]2.7.2.[place] [id number] [facility] 092 [place] OFFICE BUILDING 2021-11-30 2021-11-30 Outpatient R PIPES, [facility] [id number] Univers 09:30:00 09:30:[address] [facility] 2021-11-30 2021-11-30 Outpatient R PIPES, [facility] [id number] Univers 09:30:00 09:30:00 [facility] ity [facility] 2021-10-27 2021-10-27 Outpatient R RADIOLOGY [facility] [id number] Univers 12:33:25 23:59:00 ity of [facility] 2021-10-27 2021-10-27 Hospital Radiology [facility] 1.2.840.114 [id number] Univers 12:33:25 23:59:00 Encounter Y HEALTH 350.1.13.10 ity of CLINICS [place].2.7.2.[place] [id number] [facility] 804 Branch 2021-10-15 2021-10-15 Outpatient R UNKNOWN, [facility] [id number] Univers 13:30:00 13:30:00 ATTENDING ity [facility] 2021-10-14 2021-10-14 Laboratory Only, Ang Db Test [facility] 1.2.8 40.114 [id number] Univers 15:00:00 15:15:00 Only León Lois HEALTH 350.1.13.10 ity of [place] 4.2.7.2.686 Adi as MALIK?BLEA [id number] Ia clifford [address] MEDICAL OFFICE BUILDING 2021-10-14 2021-10-14 Outpatient R SONG, [facility] [id number] Univers 15:00:00 15:00:00 LOIS ity of [facility] 2021-09-26 2021-09-26 Outpatient R RADIOLOGY [facility] [id number] Univers 09:58:58 23:59:00 ity of [facility] 2021-09-26 2021-09-26 Hospital Radiology [facility] 1.2.840.114 [id number] Univers 09:58:58 23:59:00 Encounter [place] 350.1.13.10 ity of [place].2.7.2.686 [place] [id number] [facility] 806 [place] 2021-09-26 2021-09-26 Orders Doctor ROSSANA 1.2.840.114 [id number] Univers 00:00:00 00:00:00 Only Unassigned, JOSEPH 350.1.13.10 ity of [facility] 4.2.7.2.686 Adi as [id number] [address] 2021-08-28 2021-08-28 Office Pipes, [facility] 1.2.840.114 [id number] Univers 10:41:41 11:33:46 Visit [facility] 350.1.13.10 it y of [place].2.[place] [id number] [place] 982512 [place] OFFICE BUILDING 2021-08-28 2021-08-28 Outpatient R PIP, [facility] [id number] Univers 10:30:00 11:33:46 CLEVE ity [facility] 2021-08-28 2021-08-28 Orders Doctor TRACY 1.2.840.114 [id number] Univers 00:00:00 00:00:00 Only Unassigned, JOSEPH 350.1.13.10 ity of [facility] 4.2.7.2.686 Adi as [id number] [address] 2021-05-04 2021-05-04 Office Alvarezasselma, ANA 6410 1.2.351.285 [id number] [place] 09:21:15 10:47:46 Visit Hitesh FUNK 350.1.13.58 Health 9.2.7.2.686 [id number] 2021-02-20 2021-02-20 Laboratory Lab, [facility] Fam Pob I [facility] 1.2. 840.114 [id number] [facility] 11:25:26 11:45:26 Only Julieta Martinezly [facility] 350.1.13.10 ity of [place] 4.2.7.2.686 Adi as Professio [phone] Ia dical [address] Office Building One 2021-02-20 2021-02-20 Laboratory Lab, [facility] 1.2.840.114 [id number] 11:25:26 11:45:26 Only Fam Pob I Health 350.1.13.10 [place] 4.2.7.2.686 Professio [id number] [place] [address] Office [facility] One 2021-02-20 2021-02-20 Outpatient R SKYE [facility] [id number] Univers 11:20:00 11:20:00 MARIAH montalvo o f [facility] 2021-02-13 2021-02-13 Orders Doctor ROSSANA Chan.2.840.114 [id number] Univers 00:00:00 00:00:00 Only Unassigned, JOSEPH 350.1.13.10 ity of [facility] 4.2.7.2.686 Adi as [id number] [address] 2021-02-13 2021-02-13 Orders Doctor TRACY 1.2.840.114 [id number] 00:00:00 00:00:00 Only Unassigned, JOSEPH 350.1.13.10 [facility] 4.2.7.2.686 [id number] 2021-01-18 2021-01-18 Orders Doctor ROSSANA Soto2.840.114 [id number] Univers 00:00:00 00:00:00 Only Unassigned, JOSEPH 350.1.13.10 ity of [facility] 4.2.7.2.686 Adi as [id number] [address] 2021-01-18 2021-01-18 Orders Doctor ROSSANA Soto2.840.114 [id number] 00:00:00 00:00:00 Only Unassigned, JOSEPH 350.1.13.10 [facility] 4.2.7.2.686 [id number] 2021-01-11 2021-01-11 Telephone Pipes, [facility] 1.2.488.041 [id number] Univers 00:00:00 00:00:00 Cleve Montoya 350.1.13.10 i ty of [place].2.7.2.[place] Profess[place] [phone] Ia dical [address] 2021-01-11 2021-01-11 Telephone Pipes, [facility] 1.2.323.665 [id number] 00:00:00 00:00:00 Cleve Montoya 350.1.13.10 [place] 4.2.7.2.686 Professio [id number] [address] 2021-01-09 2021-01-09 Transition Lisbeth Leonardo 1.2.840.114 [id number] Univers 00:00:00 00:00:00 of Care Pritesh Carlin Bahena 350.1.13.10 ity [facility] 4.2.7.2.686 [place] [id number] [facility] 403 [place] 2021-01-09 2021-01-09 Transition Lisbeth Leonardo 1.2.840.114 [id number] 00:00:00 00:00:00 of Care Pritesh Gridery 350.1.13.10 [place] 4.2.7.2.686 [id number] [facility] 2021-01-05 2021-01-06 Outpatient X JOSE, [facility] SANDY [id number] Univers 11:35:00 18:00:00 ERWIN ity of [facility] 2021-01-05 2021-01-06 Emergency SchJudy cee 1.2.8 40.114 [id number] Univers 11:35:00 18:00:00 Erwin Garcia 350.1.13.10 ity of [facility] 4.2.7.2.686 Adi as [id number] [facility] 098 [place] 2021-01-05 2021-01-06 Emergency Judy Rosado 1.2.8 40.114 [id number] 11:35:00 18:00:00 Erwin Garcia 350.1.13.10 Hospital 4.2.7.2.686 [id number] 2021-01-05 2021-01-05 Office Pipes, [facility] 1.2.840.114 [id number] Univers 09:32:11 10:19:37 Visit [facility] 350.1.13.10 it y of [place].2.[place] [id number] [address] Office Building 2021-01-05 2021-01-05 Office Pipes, [facility] 1.2.840.114 [id number] 09:32:11 10:19:37 Visit [facility] 350.1.13.10 [place] 4.2.7.2.686 [place] [phone] [place] [address] Office Building 2021-01-05 2021-01-05 Outpatient R KAREN [facility] [id number] Univers 09:30:00 09:30:00 [facility] 2020-12-27 2020-12-27 [facility] [id number] Univers 12:00:00 12:00:00 [facility] 2020-11-25 2020-11-25 Laboratory Lab, Adc Fam Pob I [facility] 1.2. 840.114 [id number] Univers 14:59:58 15:19:58 Only CamiSteffi [facility] 350.1.13.10 ity of [place] 4.2.7.2.686 Adi as Professio [phone] Ia dical [address] Office Building One 2020-11-25 2020-11-25 Outpatient Mitchell POOLE [facility] [id number] Univers 15:00:00 15:00:00 [facility] 2020-11-24 2020-11-24 Outpatient Mitchell CEVALLOS [facility] VLS [id number] Univers 08:42:00 08:42:00 AMARI [facility] 2020-10-25 2020-10-25 Outpatient R MART [facility] [id number] Univers 14:40:00 14:40:00 AMARI ity [facility] 2020-10-25 2020-10-25 Patient Shan [facility] 1.2.840.114 [id number] Univers 00:00:00 00:00:00 Outreach Albert PRIMARY 350.1.13.10 i ty of [place] C[place]2.7.2.686 [place] [id number] Ia dical [address] [place] [address] 2020-10-19 2020-10-19 [facility] [id number] Univers 09:40:00 09:40:00 ANICETO itadi [facility] 2020-10-13 2020-10-13 Refumesh Belcher [facility] 1.2.840.114 [id number] Univers 00:00:00 00:00:00 [facility] 350.1.13.10 i ty of [place] 4.2.7.2.686 [place] [id number] [place] [address] [place] Office Building 2020-10-04 2020-10-04 Outpatient R KAREN [facility] [id number] Univers 10:30:00 10:30:00 CLEVE montalvo [facility] 2020-09-20 2020-09-20 [facility] 1.2.840.114 [id number] Univers 08:56:09 10:10:56 Visit Amari Carlin SPECIALTY 350.1.13.10 ity of CARE 4.2.7.2.686 [place] [facility] [id number] Ia dical VICTORY 198 [facility] 2020-09-20 2020-09-20 Outpatient [facility] [id number] Univers 09:10:00 09:10:00 AMARI mrianday [facility] 2020-09-20 2020-09-20 Orders Doctor TRACY 1.2.840.114 [id number] Univers 00:00:00 00:00:00 Only Unassigned, JOSEPH 350.1.13.10 ity of [facility] 4.2.7.2.686 Adi as [id number] [place] [address] Branch 2020-09-06 2020-09-06 Outpatient [facility] [id number] Univers 11:30:00 11:30:00 AMARI montalvo [facility] 2020-08-29 2020-08-29 Orders Doctor ROSSANA 1.2.840.114 [id number] Univers 00:00:00 00:00:00 Only Unassigned, JOSEPH 350.1.13.10 ity of [facility] 4.2.7.2.686 Adi as [phone] [address] 2020-08-25 2020-08-25 Eyelet Punch Operator Draw, Clc-Bls Lab [facility] 1.2.8 40.114 [id number] Univers 16:01:44 16:16:44 Visit Pipes, appCREAR 350.1.13.10 ity of [place] [id number] [facility] 353 [place] Office Building 2020-08-25 2020-08-25 Office Pipes, [facility] 1.2.840.114 [id number] Univers 15:11:10 16:00:32 Visit Cle[facility] 350.1.13.10 it y of [place].2.686 [place] [id number] [facility] 092 [place] Office Building 2020-08-25 2020-08-25 Outpatient Mitchell JONES [facility] [id number] Univers 15:00:00 15:00:00 CLEVE adi [facility] 2020-08-13 2020-08-13 [facility] 1.2.840.114 [id number] Univers 17:00:00 23:59:00 Encounter Amari MEZA 350.1.13.10 ity [phone] [place] amenadaysi AARON 804 [facility] 2020-08-13 2020-08-13 Outpatient Mitchell CEVALLOS [facility] [id number] Univers 17:00:00 17:00:00 AMARI montalvo [facility] 2020-08-04 2020-08-04 Outpatient Mitchell CEVALLOS [facility] [id number] Univers 10:00:00 10:00:00 AMARI montalvo [facility] 2020-08-01 2020-08-01 Office [place], [facility] [id number] Univers 10:25:49 11:47:53 Visit Ayleen Belcher [id number] [id number] [phone] [facility] [address] 2020-08-01 2020-08-01 Outpatient R SULEMNA [facility] [id number] Univers 10:30:00 10:30:00 AYLEEN ity o f [facility] 2020-07-26 2020-07-26 Office [facility] [id number] Univers 10:43:25 11:37:55 Visit Amari A SPECIALTY [id number] [id number] AT [phone] [address] 2020-07-26 2020-07-26 Outpatient R MART [facility] [id number] Univers 10:50:00 10:50:00 [facility]-07-12 2020-07-12 Laboratory Only, Adc Test [facility] 1.2.840. 114 [id number] Univers 09:39:19 09:54:19 Only Madhu [place] 350.1.13.10 [place] [phone] [address] 2020-07-12 2020-07-12 Outpatient R WU [facility] [id number] Univers 09:30:00 09:30:00 MADHU montalvo [facility] 2020-07-11 2020-07-11 Outpatient R RISSA [facility] [id number] Univers 10:00:00 10:00:00 GRANT itadi [facility] 2020-07-07 2020-07-07 [facility] [place] 1.2.166.072 [id number] Univers 00:00:00 00:00:00 Amari A PRIMARY 350.1.13.10 it y [id number] [phone] [address] 2020-07-05 2020-07-06 Office [facility] [place] 1.2.840.114 [id number] Univers 13:25:59 10:30:51 Visit Amari A SPECIALTY 350.1.13.10 [id number] [phone] Ia clifford WALKER 198 [facility] 2020-07-05 2020-07-05 Hospital [facility] 1.2.840.114 [id number] Univers 14:05:09 23:59:00 Encounter Amari A SPECIALTY 350.1.13.10 [id number] [phone] Ia amenadaysi KENNYAdi 809 [facility] 2020-07-05 2020-07-05 Outpatient [facility] [id number] Univers 13:40:00 13:40:00 AMARI [facility] 2020-03-18 2020-04-15 Office [facility] [place] 1.2.840.114 [id number] Univers 08:45:21 07:53:55 Visit Amari Carlin SPECIALTY 350.1.13.10 ity of CARE 4.2.7.2.686 [facility] AT [phone] Ia amenaar EFRAÍN 198 [facility] 2020-04-11 2020-04-11 Office [facility] [place] 1.2.840.114 [id number] Univers 09:19:29 10:46:02 Visit Grant LEAPEC 350.1.13.10 ity of IALTY 4.2.7.2.686 [facility] [phone] [facility] AND BRYANT [address] [place] [facility] 2020-04-11 2020-04-11 Outpatient Mitchell KWOK [facility] [id number] Univers 09:30:00 09:30:00 GRANT montalvo [facility] 2020-04-11 2020-04-11 Orders Doctor TRACY 1.2.840.114 [id number] Univers 00:00:00 00:00:00 Only Unassigned, JOSEPH 350.1.13.10 ity of [facility] 4.2.7.2.686 Adi as [phone] [facility] [address] 2020-03-18 2020-03-18 Outpatient Mitchell CEVALLOS [facility] [id number] Univers 09:20:00 09:20:00 AMARI ity of [facility] 2020-02-25 2020-02-25 Outpatient R SULEMAN [facility] [id number] Univers 10:34:09 23:59:00 KAMKAUSHIK ity o f [facility] 2020-02-25 2020-02-25 Hospital Suleman [facility] 1.2.840.114 [id number] Univers 10:34:00 23:59:00 Encounter Sukhwindernj SPECIALTY 350.1.13.10 [place] [phone] Ia amenadaysi KENNYAdi 801 [facility] 2020-02-25 2020-02-25 Eyelet Punch Operator Vls-Lab [facility] 1.2.840.114 [id number] Univers 09:52:31 10:07:31 Visit Juanjo Belcherkaushik SPECIALTY 350.1.13.10 it[place] [phone] Ia clifford WALKER 353 [facility] 2020-02-11 2020-02-11 Outpatient R SULEMAN [facility] [id number] Univers 11:30:00 11:30:00 AYLEEN itadi jacome [facility] 2020-02-11 2020-02-11 Telemedici [facility] [place] 1.2.840.114 [id number] Univers 07:42:08 08:12:08 ne Visit [facility] Health 350.1.13.10 [id number] [phone] [facility] [address] Building 2020-01-20 2020-01-20 Telephone Yomi TRACY 1.2.840.114 [id number] Univers 00:00:00 00:00:00 , Vane RUIZ 350.1.13.10 ity of [facility] 4.2.7.2.686 Adi as [phone] [address] 2020-01-19 2020-01-19 Urgent Pob1, Acute Care Clinic [facility] 1. 2.840.114 [id number] Univers 15:17:45 15:37:45 Care Vane Celaya [facility] 350.1 .13.10 ity of [place] 4.2.7.2.686 Adi as Professio [phone] Ia dical nal [address] Building One 2020-01-19 2020-01-19 Outpatient R [facility] [id number] Univers 15:20:00 15:20:00 ity of [facility] 2020-01-19 2020-01-19 Outpatient R [facility] [id number] Univers 14:20:00 14:20:00 ity of [facility] 2019-12-07 2019-12-07 Office [facility] [place] 1.2.840.114 [id number] Univers 09:28:37 11:05:14 Visit Grant [facility] 350.1.13.10 ity of [place] [phone] [address] [facility]ABETES [facility] 2019-12-07 2019-12-07 [facility] [id number] Univers 09:30:00 09:30:00 [facility] ity [facility] 2019-12-07 2019-12-07 Orders Doctor ROSSANA 1.2.840.114 [id number] Univers 00:00:00 00:00:00 Only Unassigned, JOSEPH 350.1.13.10 ity of [facility] 4.2.7.2.686 Adi as [phone] [facility] [address] 2019-12-04 2019-12-04 Office Dharmesh Cevallos 1.2.840.114 [id number] Univers 10:02:45 15:09:20 Visit Amari Carlin Pediatric 350.1.13.10 ity of [place] [phone] [facility] Primary [address] [facility] 2019-12-04 2019-12-04 Outpatient R [facility] [id number] Univers 11:38:26 11:38:00 ity of [facility] 2019-12-04 2019-12-04 Hospital Dharmesh Cevallos 1.2.840.114 [id number] Univers 11:38:00 11:38:00 Encounter Amari Carlin Pediatric 350.1.13.10 it[place] [phone] [facility] Primary [address] Care Clinic 2019-12-04 2019-12-04 Hospital Dharmesh Cevallos 1.2.840.114 [id number] Univers 11:38:00 11:38:00 Encounter Amari A Pediatric 350.1.13.10 ity of [place] and [place] [id number] [facility] Primary [address] Care [facility] 2019-12-04 2019-12-04 Outpatient R MART [facility] [id number] Univers 10:20:00 10:20:00 AMARI montalvo of [facility] 2019-12-04 2019-12-04 Orders Doctor ROSSANA 1.2.840.114 [id number] Univers 00:00:00 00:00:00 Only Unassigned, JOSEPH 350.1.13.10 ity of [facility] 4.2.7.2.686 Adi as [phone] [facility] [address] 2019-10-05 2019-10-05 Office Rissa [facility] 1.2.840.114 [id number] Univers 09:28:52 10:39:32 Visit Grant PRICE 350.1.13.10 it[place] [phone] [facility] [address] DI[facility]ES [facility] 2019-10-05 2019-10-05 Orders Doctor ROSSANA 1.2.840.114 [id number] Univers 00:00:00 00:00:00 Only Unassigned, JOSEPH 350.1.13.10 ity of [facility] 4.2.7.2.686 Adi as [phone] [facility] [address] 2019-09-14 2019-09-14 Outpatient R STEPHEN DUNCAN [facility] [id number] Univers 08:53:44 23:59:00 ROSSANA montalvo of [facility] 2018-01-23 2018-01-24 Outpt Diag nullFlavo [facility] [id number] Memoria 17:09:00 04:59:00 Services r Outpatient 02 l Imaging Nick Romero 2018-01-23 2018-01-24 Outpt Diag nullFlavo [facility] [id number] Memoria 17:09:00 04:59:00 Services r Outpatient 02 l Imaging [facility] 2018-01-23 2018-01-23 Outpatient Assassi, MHOIH [facility] [id number] 12:09:00 23:59:00 [facility] 2017-12-17 2017-12-18 Outpt Diag nullFlavo [facility] [id number] Memoria 18:08:00 04:59:00 Services r Outpatient 01 l Imaging [facility] 2017-12-17 2017-12-18 Outpt Diag nullFlavo [facility] [id number] Memoria 18:08:00 04:59:00 Services r Outpatient 01 l Imaging [facility] 2017-12-17 2017-12-17 Outpatient Assassi, MHOIH [facility] [id number] 13:08:00 23:59:00 [facility] 2017-07-01 2017-07-02 Outpt Diag nullFlavo [facility] [id number] Memoria 16:36:00 04:59:00 Services r Outpatient 00 l Imaging [facility] 2017-07-01 2017-07-02 Outpt Diag nullFlavo [facility] [id number] Memoria 16:36:00 04:59:00 Services r Outpatient 00 l Imaging [facility] 2017-07-01 2017-07-01 Outpatient Assassi, MHOIH [facility] [id number] 11:36:00 23:59:00 [facility] 2017-04-25 2017-04-26 Outpatient nullFlavo [facility] [id number] Memoria 18:48:00 04:59:00 r [place] [facility] 2017-04-25 2017-04-26 Outpatient nullFlavo [facility] 3631 [id number] Memoria 18:48:00 04:59:00 r [place] [facility] 2017-04-25 2017-04-25 [facility] [id number] 13:48:00 23:59:00 Hitesh 2012-12-11 2012-12-13 Inpatient nullFlavo [facility] [id number] Memoria 20:04:00 18:02:[address] 2012-12-11 2012-12-13 Inpatient nullFlavo Bobbi [id number] Memoria 20:04:00 18:02:00 r [facility] 66 l [facility] Results Test Description Test Time Test Comments Results Result Comments Source Microbiology 2012-12-13 17:00:00 Test Item Value Reference Range Interpretation Comme nts Culture: Urine (test code = Culture: Urine) [facility]05 17:00:00 Test Item Value Reference Range Interpretation Comments Culture: Urine (test code = Culture: Urine) [facility]cp1708-75-15 17:00:00 Test Item Value Reference Range Interpretation Comments Culture: Urine (test code = Culture: Urine) [facility]McluuriFqwtkykvfrlf2064-73-42 17:00:00 Test Item Value Reference Range Interpretation Comments Culture: Urine (test code = Culture: Urine) [facility] GLUCOSE [id number] 13:35:00 Test Item Value Reference Range Interpretation Comments Comment1 (test code = Comment1) Notify RN/ [facility] GLUCOSE [id number] 13:35:00 Test Item Value Reference Range Interpretation Comments Gluc POC Lifscn (test code = Gluc POC 129 70-99 H Lifscn) [facility] GLUCOSE [id number] 13:35:00 Test Item Value Reference Range Interpretation Comments Comment1 (test code = Comment1) Notify RN/ [facility] GLUCOSE [id number] 13:35:00 Test Item Value Reference Range Interpretation Comments Gluc POC Lifscn (test code = Gluc POC 129 70-99 H Lifscn) [facility] GLUCOSE [id number] 13:35:00 Test Item Value Reference Range Interpretation Comments Comment1 (test code = Comment1) Notify RN/ [facility] GLUCOSE [id number] 13:35:00 Test Item Value Reference Range Interpretation Comments Gluc POC Lifscn (test code = Gluc POC 129 70-99 H Lifscn) [facility] GLUCOSE [id number] 13:35:00 Test Item Value Reference Range Interpretation Comments Comment1 (test code = Comment1) Notify RN/ [facility] GLUCOSE [id number] 13:35:00 Test Item Value Reference Range Interpretation Comments Gluc POC Lifscn (test code = Gluc POC 129 70-99 H Lifscn) [facility] GLUCOSE [id number] 12:41:00 Test Item Value Reference Range Interpretation Comments Comment1 (test code = Comment1) Notify RN/ [facility] GLUCOSE [id number] 12:41:00 Test Item Value Reference Range Interpretation Comments Gluc POC Lifscn (test code = Gluc POC 133 70-99 H Lifscn) [facility] GLUCOSE [id number] 12:41:00 Test Item Value Reference Range Interpretation Comments Comment1 (test code = Comment1) Notify RN/ [facility] GLUCOSE [id number] 12:41:00 Test Item Value Reference Range Interpretation Comments Gluc POC Lifscn (test code = Gluc POC 133 70-99 H Lifscn) [facility] GLUCOSE [id number] 12:41:00 Test Item Value Reference Range Interpretation Comments Comment1 (test code = Comment1) Notify RN/ [facility] GLUCOSE [id number] 12:41:00 Test Item Value Reference Range Interpretation Comments Gluc POC Lifscn (test code = Gluc POC 133 70-99 H Lifscn) [facility] GLUCOSE [id number] 12:41:00 Test Item Value Reference Range Interpretation Comments Comment1 (test code = Comment1) Notify RN/ [facility] GLUCOSE [id number] 12:41:00 Test Item Value Reference Range Interpretation Comments Gluc POC Lifscn (test code = Gluc POC 133 70-99 H Lifscn) [facility] CenterSswulhkDCXLSIDHO4545-53-62 10:50:00 Test Item Value Reference Range Interpretation Comments Hgb A1C (test code = Hgb A1C) 6.9 [facility] CenterQtiwhtoHSBVPUNSM1589-14-13 10:50:00 Test Item Value Reference Range Interpretation Comments Ca Norm (test code = Ca Norm) 1.11 1.16-1.30 L [facility] CenterVnemxtyOJEVTQIGD4087-72-01 10:50:00 Test Item Value Reference Range Interpretation Comments Ca Ion (test code = Ca Ion) 1.12 1.16-1.30 L [facility] CenterIpogjejHTVMPXMFV8038-97-95 10:50:00 Test Item Value Reference Range Interpretation Comments Ca Ion mgdL (test code = Ca Ion mgdL) 4.48 4.65-5.20 L [facility] CenterZjbjocxNOKJPIYFI7908-64-48 10:50:00 Test Item Value Reference Range Interpretation Comments Ca Norm mgdL (test code = Ca Norm mgdL) 4.44 4.65-5.20 L [facility] CenterYzliuqjMESFDGDQT7371-06-36 10:50:00 Test Item Value Reference Range Interpretation Comments Phosphorus (test code = Phosphorus) 3.4 2.5-4.5 N [facility] CenterAdnwsjfKQLRJNSUY9737-86-05 10:50:00 Test Item Value Reference Range Interpretation Comments eGFR (test code = eGFR) 69 [facility] CenterSfmcvytFFDJWSVKC5089-36-02 10:50:00 Test Item Value Reference Range Interpretation Comments Chloride Lvl (test code = Chloride Lvl) 106 95-109 N [facility] CenterQqujrnjGJMKJZXVU2510-08-21 10:50:00 Test Item Value Reference Range Interpretation Comments CO2 (test code = CO2) 26 24-32 N [facility] CenterYdzknisXMMOSQPUP2033-22-95 10:50:00 Test Item Value Reference Range Interpretation Comments Sodium Lvl (test code = Sodium Lvl) 143 135-145 N [facility] CenterWbjwcgbFOYIUGPKQ5213-27-09 10:50:00 Test Item Value Reference Range Interpretation Comments Calcium Lvl (test code = Calcium Lvl) 8.4 8.5-10.5 L [facility] CenterHrwxgwiFSONLNUTQ9891-18-55 10:50:00 Test Item Value Reference Range Interpretation Comments Glucose Lvl (test code = Glucose Lvl) 119 70-99 H [facility] CenterBeuyaicFPXGKSCJA7037-08-53 10:50:00 Test Item Value Reference Range Interpretation Comments Potassium Lvl (test code = Potassium 4.0 3.5-5.1 N Lvl) [facility] CenterNujcvgfDHGDHBFGB6247-94-14 10:50:00 Test Item Value Reference Range Interpretation Comments Creatinine Lvl (test code = Creatinine 0.9 0.5-1.4 N Lvl) [facility] CenterNhgcixpPTYOMXAST7710-77-74 10:50:00 Test Item Value Reference Range Interpretation Comments BUN (test code = BUN) 12 7-22 N [facility] CenterWxtarhbHBZUKHTZP8826-56-69 10:50:00 Test Item Value Reference Range Interpretation Comments AGAP (test code = AGAP) 15.0 10.0-20.0 N [facility] CenterFfgnivnVNGCKXCLE6981-92-81 10:50:00 Test Item Value Reference Range Interpretation Comments Magnesium Lvl (test code = Magnesium 2.2 1.8-2.4 N Lvl) [facility]NqpeuxmJFFKBVSQVG4791-99-82 10:50:00 Test Item Value Reference Range Interpretation Comments Platelet (test code = Platelet) 258 133-450 N [facility]aleVvwauhsLUUBQDEBFO3155-64-96 10:50:00 Test Item Value Reference Range Interpretation Comments RDW (test code = RDW) 14.6 11.5-14.5 H [facility]aleHbhuzbeAIHNGQCRAM8893-17-06 10:50:00 Test Item Value Reference Range Interpretation Comments MCHC (test code = MCHC) 34.4 32.0-36.0 N [facility]valeZildarxJHJEWKSYSO6673-33-13 10:50:00 Test Item Value Reference Range Interpretation Comments MPV (test code = MPV) 8.2 7.4-10.4 N [facility]aleGjizxotCNMTTTTFWN3296-57-35 10:50:00 Test Item Value Reference Range Interpretation Comments RBC (test code = RBC) 4.14 4.20-5.40 L [facility]aleQdwzekqHENXZPAUPD3855-02-37 10:50:00 Test Item Value Reference Range Interpretation Comments WBC (test code = WBC) 5.0 3.7-10.4 N [facility]aleKhbbmcqVDUPCAKNRF8529-70-19 10:50:00 Test Item Value Reference Range Interpretation Comments Hct (test code = Hct) 38.1 36.0-48.0 N [facility]valeLrkdhqpLZGAJFRMWD3954-27-70 10:50:00 Test Item Value Reference Range Interpretation Comments Hgb (test code = Hgb) 13.1 12.0-16.0 N [facility]valeDvvsxtfBIGWQWYOEO7425-26-07 10:50:00 Test Item Value Reference Range Interpretation Comments MCH (test code = MCH) 31.7 pg 27.0-31.0 H [facility]valeGkdjllwGTUUDSRKPO2398-86-96 10:50:00 Test Item Value Reference Range Interpretation Comments MCV (test code = MCV) 92.1 81.0-99.0 N [facility]valeCtdvoulKNCSDUUEPH4228-92-28 10:50:00 Test Item Value Reference Range Interpretation Comments Monocytes # (test code 0.3 See_Comment N [Aut omated message] The = Monocytes #) system which generated this result tra nsmitted reference range : <=0.8. The reference r chang was not used to int erpret this result as normal/abnormal . [facility] SunnyvaleFpcjkirLCSKDRRFHC1039-40-61 10:50:00 Test Item Value Reference Range Interpretation Comments Lymphocytes # (test code = Lymphocytes 1.1 1.0-5.5 N #) [facility] SunnyvaleBauxixuYCRJPRJXUW7837-83-51 10:50:00 Test Item Value Reference Range Interpretation Comments Basophils # (test code 0.1 See_Comment N [Aut omated message] The = Basophils #) system which generated this result tra nsmitted reference range : <=0.2. The reference r chang was not used to int erpret this result as normal/abnormal . [facility] SunnyvaleNufakwfDFFNKCAJHA3895-44-57 10:50:00 Test Item Value Reference Range Interpretation Comments Eosinophils # (test code 0.3 See_Comment N [A utomated message] The = Eosinophils #) system whic h generated this result tra nsmitted reference range : <=0.5. The reference r chang was not used to int erpret this result as normal/abnormal . [facility] SunnyvaleUpvnxpsZVUJIXOPFU3998-37-65 10:50:00 Test Item Value Reference Range Interpretation Comments Segs (test code = Segs) 63.5 45.0-75.0 N [facility] SunnyvaleJxujrqhHDWMTGGOOA0766-30-00 10:50:00 Test Item Value Reference Range Interpretation Comments Monocytes (test code = Monocytes) 6.9 2.0-12.0 N [facility] SunnyvaleUbtioisVECQYNKSVF4020-23-56 10:50:00 Test Item Value Reference Range Interpretation Comments Lymphocytes (test code = Lymphocytes) 21.6 20.0-40.0 N [facility]valeBcwqzgxEFBUWQCAFP2593-37-59 10:50:00 Test Item Value Reference Range Interpretation Comments Segs-Bands # (test code = Segs-Bands #) 3.2 1.5-8.1 N [facility] SunnyvaleSxzfplrNYCFLORVQY2535-76-72 10:50:00 Test Item Value Reference Range Interpretation Comments Basophils (test code = 1.1 See_Comment H [Aut omated message] The Basophils) system which ge nerated this result tra nsmitted reference range : <=1.0. The reference r chang was not used to int erpret this result as normal/abnormal . [facility] SunnyvaleZmmpebnHPIJGRHLOK5431-98-73 10:50:00 Test Item Value Reference Range Interpretation Comments Basophils (test code = Basophils) 1.1 <=1.0 H [facility] SurgeryKqqbwvuZYTNUXDFGK0797-89-88 10:50:00 Test Item Value Reference Range Interpretation Comments Eosinophils (test code = Eosinophils) 6.9 <=4.0 H [facility] CenterZggxcniKIXKCWYEW3900-58-18 10:50:00 Test Item Value Reference Range Interpretation Comments Hgb A1C (test code = Hgb A1C) 6.9 [facility] CenterUzyffdkGJDFJKQZF6989-50-70 10:50:00 Test Item Value Reference Range Interpretation Comments Ca Norm (test code = Ca Norm) 1.11 1.16-1.30 L [facility] CenterFujukgiYBILDGARO8290-79-70 10:50:00 Test Item Value Reference Range Interpretation Comments Ca Ion (test code = Ca Ion) 1.12 1.16-1.30 L [facility] CenterLfdwtlyCQCVQLMIA7328-07-73 10:50:00 Test Item Value Reference Range Interpretation Comments Ca Ion mgdL (test code = Ca Ion mgdL) 4.48 4.65-5.20 L [facility] CenterPncvtgxXREKHPOXP2917-76-36 10:50:00 Test Item Value Reference Range Interpretation Comments Ca Norm mgdL (test code = Ca Norm mgdL) 4.44 4.65-5.20 L [facility] CenterMfebelrQGXJDDDTT9722-16-53 10:50:00 Test Item Value Reference Range Interpretation Comments Phosphorus (test code = Phosphorus) 3.4 2.5-4.5 N [facility] CenterXgiyfywYCNBUFXBZ8872-69-25 10:50:00 Test Item Value Reference Range Interpretation Comments eGFR (test code = eGFR) 69 [facility] CenterOxanjfwPBXLPGPTE5688-65-85 10:50:00 Test Item Value Reference Range Interpretation Comments Chloride Lvl (test code = Chloride Lvl) 106 95-109 N [facility] CenterXsuefotVMTFXBPTP4243-13-39 10:50:00 Test Item Value Reference Range Interpretation Comments CO2 (test code = CO2) 26 24-32 N [facility] CenterVmvfgasRTMSBHUAS9381-14-75 10:50:00 Test Item Value Reference Range Interpretation Comments Sodium Lvl (test code = Sodium Lvl) 143 135-145 N [facility] CenterIybzgkcAUFPTUKGX3139-01-83 10:50:00 Test Item Value Reference Range Interpretation Comments Calcium Lvl (test code = Calcium Lvl) 8.4 8.5-10.5 L [facility] CenterLpfzaoqXMREQNNIQ0632-57-03 10:50:00 Test Item Value Reference Range Interpretation Comments Glucose Lvl (test code = Glucose Lvl) 119 70-99 H [facility] CenterRysctmaTMKCZDBFI8603-18-14 10:50:00 Test Item Value Reference Range Interpretation Comments Potassium Lvl (test code = Potassium 4.0 3.5-5.1 N Lvl) [facility] CenterTqkemgvHPRRNWSEX8876-84-42 10:50:00 Test Item Value Reference Range Interpretation Comments Creatinine Lvl (test code = Creatinine 0.9 0.5-1.4 N Lvl) [facility] CenterYegrgaiOKBGJGEZO2888-15-23 10:50:00 Test Item Value Reference Range Interpretation Comments BUN (test code = BUN) 12 7-22 N [facility] CenterWeqbefvTKTUOKJGK0608-40-44 10:50:00 Test Item Value Reference Range Interpretation Comments AGAP (test code = AGAP) 15.0 10.0-20.0 N [facility] CenterJzkoalwGWOXVQKEK6931-93-28 10:50:00 Test Item Value Reference Range Interpretation Comments Magnesium Lvl (test code = Magnesium 2.2 1.8-2.4 N Lvl) [facility]aleQsrxejwWEAUZAFSAV3536-98-81 10:50:00 Test Item Value Reference Range Interpretation Comments Platelet (test code = Platelet) 258 133-450 N [facility] SunnyvaleAxwbryaMFHWPISUDF9714-63-84 10:50:00 Test Item Value Reference Range Interpretation Comments RDW (test code = RDW) 14.6 11.5-14.5 H [facility] SunnyvaleGcznkooEDRCLLMCLE8512-81-54 10:50:00 Test Item Value Reference Range Interpretation Comments MCHC (test code = MCHC) 34.4 32.0-36.0 N [facility] [facility]aleCwrcuxlLRZHGCXPQE0606-95-17 10:50:00 Test Item Value Reference Range Interpretation Comments MPV (test code = MPV) 8.2 7.4-10.4 N [facility]aleAbakgngUTNCNSATHH9286-00-06 10:50:00 Test Item Value Reference Range Interpretation Comments RBC (test code = RBC) 4.14 4.20-5.40 L [facility]aleXgrffruWBKPVJHULC9004-95-46 10:50:00 Test Item Value Reference Range Interpretation Comments WBC (test code = WBC) 5.0 3.7-10.4 N [facility]aleEmqconiFTAKOPXIFL6469-84-59 10:50:00 Test Item Value Reference Range Interpretation Comments Hct (test code = Hct) 38.1 36.0-48.0 N [facility]aleDbptknmIKZLHSNKLM5466-59-77 10:50:00 Test Item Value Reference Range Interpretation Comments Hgb (test code = Hgb) 13.1 12.0-16.0 N [facility]aleCaratsjUNNANYUXQE7596-89-35 10:50:00 Test Item Value Reference Range Interpretation Comments MCH (test code = MCH) 31.7 pg 27.0-31.0 H [facility]aleUxyvxtyBOBCSPQACK1195-46-46 10:50:00 Test Item Value Reference Range Interpretation Comments MCV (test code = MCV) 92.1 81.0-99.0 N [facility]aleXvrwtsoLQRYLOBIHN3656-01-85 10:50:00 Test Item Value Reference Range Interpretation Comments Monocytes # (test code = Monocytes #) 0.3 <=0.8 N [facility]aleKjjmbeqQTTURLFXHM4277-09-37 10:50:00 Test Item Value Reference Range Interpretation Comments Lymphocytes # (test code = Lymphocytes 1.1 1.0-5.5 N #) [facility]aleEnsgytrJGSIJOEHHR7420-58-71 10:50:00 Test Item Value Reference Range Interpretation Comments Basophils # (test code = Basophils #) 0.1 <=0.2 N [facility]aleRjvoixjQPORNLDCNG1460-37-05 10:50:00 Test Item Value Reference Range Interpretation Comments Eosinophils # (test code = Eosinophils 0.3 <=0.5 N #) [facility]alePbimlemPDZNJIILKR3034-00-64 10:50:00 Test Item Value Reference Range Interpretation Comments Segs (test code = Segs) 63.5 45.0-75.0 N [facility]aleTzcbchwJIQAQSYDST7177-75-99 10:50:00 Test Item Value Reference Range Interpretation Comments Monocytes (test code = Monocytes) 6.9 2.0-12.0 N [facility]aleStuvibbJEQGTDAXHC9277-34-82 10:50:00 Test Item Value Reference Range Interpretation Comments Lymphocytes (test code = Lymphocytes) 21.6 20.0-40.0 N [facility]aleHlimftuKDVKLLQUNA6231-14-14 10:50:00 Test Item Value Reference Range Interpretation Comments Segs-Bands # (test code = Segs-Bands #) 3.2 1.5-8.1 N [facility]aleTudlypsCYHRWWFEGH5211-24-16 10:50:00 Test Item Value Reference Range Interpretation Comments Eosinophils (test code = 6.9 See_Comment H [A utomated message] The Eosinophils) system which ge nerated this result tra nsmitted reference range : <=4.0. The reference r chang was not used to int erpret this result as normal/abnormal . [facility] CenterVobkouqBHYSXKJIO3805-24-66 10:50:00 Test Item Value Reference Range Interpretation Comments Hgb A1C (test code = Hgb A1C) 6.9 [facility] CenterHiogonzXLVCJWSKP1595-73-86 10:50:00 Test Item Value Reference Range Interpretation Comments Ca Norm (test code = Ca Norm) 1.11 1.16-1.30 L [facility] CenterDyijjhqPNIAMPQOU7537-89-57 10:50:00 Test Item Value Reference Range Interpretation Comments Ca Ion (test code = Ca Ion) 1.12 1.16-1.30 L [facility] CenterSidvudaGDKBWUBZS1328-50-79 10:50:00 Test Item Value Reference Range Interpretation Comments Ca Ion mgdL (test code = Ca Ion mgdL) 4.48 4.65-5.20 L [facility] CenterFlllnalQSWKRRMFA5376-39-51 10:50:00 Test Item Value Reference Range Interpretation Comments Ca Norm mgdL (test code = Ca Norm mgdL) 4.44 4.65-5.20 L [facility] CenterYmtnzxpQNKULNRNZ2108-61-24 10:50:00 Test Item Value Reference Range Interpretation Comments Phosphorus (test code = Phosphorus) 3.4 2.5-4.5 N [facility] CenterArizbkvSREGYLBWY1750-78-15 10:50:00 Test Item Value Reference Range Interpretation Comments eGFR (test code = eGFR) 69 [facility] CenterGhvnshgLHTNBPYHM2024-55-82 10:50:00 Test Item Value Reference Range Interpretation Comments Chloride Lvl (test code = Chloride Lvl) 106 95-109 N [facility] CenterLjdcgklEZUVDUPGE8677-06-27 10:50:00 Test Item Value Reference Range Interpretation Comments CO2 (test code = CO2) 26 24-32 N [facility] CenterHmmurksNZXXACISC6609-15-74 10:50:00 Test Item Value Reference Range Interpretation Comments Sodium Lvl (test code = Sodium Lvl) 143 135-145 N [facility] CenterOeglcgrQUJCEDZWX7823-30-96 10:50:00 Test Item Value Reference Range Interpretation Comments Calcium Lvl (test code = Calcium Lvl) 8.4 8.5-10.5 L [facility] CenterRhpcserUDFSHDFIL4486-72-40 10:50:00 Test Item Value Reference Range Interpretation Comments Glucose Lvl (test code = Glucose Lvl) 119 70-99 H [facility] CenterJlvwmkgZKEGJUMQK4673-39-07 10:50:00 Test Item Value Reference Range Interpretation Comments Potassium Lvl (test code = Potassium 4.0 3.5-5.1 N Lvl) [facility] CenterWrtrfqsYBMAFAPXG6080-26-39 10:50:00 Test Item Value Reference Range Interpretation Comments Creatinine Lvl (test code = Creatinine 0.9 0.5-1.4 N Lvl) [facility] CenterTirdjraKLFXDQDKK6111-99-88 10:50:00 Test Item Value Reference Range Interpretation Comments BUN (test code = BUN) 12 7-22 N [facility] CenterHcepznmDZKTMEJTO9378-56-14 10:50:00 Test Item Value Reference Range Interpretation Comments AGAP (test code = AGAP) 15.0 10.0-20.0 N [facility] CenterOqqttmrAOBNVSYQX0621-51-33 10:50:00 Test Item Value Reference Range Interpretation Comments Magnesium Lvl (test code = Magnesium 2.2 1.8-2.4 N Lvl) [facility]aleZumqjosLSHDLLFPDG5259-19-41 10:50:00 Test Item Value Reference Range Interpretation Comments Platelet (test code = Platelet) 258 133-450 N [facility]aleSryjbehBIKXQBXRVQ6575-96-08 10:50:00 Test Item Value Reference Range Interpretation Comments RDW (test code = RDW) 14.6 11.5-14.5 H [facility]aleKovkthbJIGMSLRDDV1909-26-20 10:50:00 Test Item Value Reference Range Interpretation Comments MCHC (test code = MCHC) 34.4 32.0-36.0 N [facility]aleRgvsgwpHRUAKOXOTB6346-77-60 10:50:00 Test Item Value Reference Range Interpretation Comments MPV (test code = MPV) 8.2 7.4-10.4 N [facility]aleCqyktxwVXNNTTNLNZ1965-97-71 10:50:00 Test Item Value Reference Range Interpretation Comments RBC (test code = RBC) 4.14 4.20-5.40 L [facility]aleNxfkpboAJIYIYDSNZ8034-58-59 10:50:00 Test Item Value Reference Range Interpretation Comments WBC (test code = WBC) 5.0 3.7-10.4 N [facility]aleCczribfUECMAFPORA9556-03-48 10:50:00 Test Item Value Reference Range Interpretation Comments Hct (test code = Hct) 38.1 36.0-48.0 N [facility]aleIxysfbeGVCOYYOABV2046-51-51 10:50:00 Test Item Value Reference Range Interpretation Comments Hgb (test code = Hgb) 13.1 12.0-16.0 N [facility]alePdsrjjtOIMQSOEXNY8499-82-01 10:50:00 Test Item Value Reference Range Interpretation Comments MCH (test code = MCH) 31.7 pg 27.0-31.0 H [facility]aleGavxbneEFJDJKZBST7380-88-88 10:50:00 Test Item Value Reference Range Interpretation Comments MCV (test code = MCV) 92.1 81.0-99.0 N [facility]aleLhefsinRFUFVXDZIZ7535-79-19 10:50:00 Test Item Value Reference Range Interpretation Comments Monocytes # (test code 0.3 See_Comment N [Aut omated message] The = Monocytes #) system which generated this result tra nsmitted reference range : <=0.8. The reference r chang was not used to int erpret this result as normal/abnormal . [facility]aleAbzziuyCTNHHEGMXX8872-48-91 10:50:00 Test Item Value Reference Range Interpretation Comments Lymphocytes # (test code = Lymphocytes 1.1 1.0-5.5 N #) [facility]aleKzfsmynLCFLPIHIXQ7303-92-58 10:50:00 Test Item Value Reference Range Interpretation Comments Basophils # (test code 0.1 See_Comment N [Aut omated message] The = Basophils #) system which generated this result tra nsmitted reference range : <=0.2. The reference r chang was not used to int erpret this result as normal/abnormal . [facility]alePhsqenrUSGVOXYRHP7858-30-63 10:50:00 Test Item Value Reference Range Interpretation Comments Eosinophils # (test code 0.3 See_Comment N [A utomated message] The = Eosinophils #) system whic h generated this result tra nsmitted reference range : <=0.5. The reference r chang was not used to int erpret this result as normal/abnormal . [facility]aleGhyiqkbKZLWUUDMBK0448-76-09 10:50:00 Test Item Value Reference Range Interpretation Comments Segs (test code = Segs) 63.5 45.0-75.0 N [facility]aleEkaucdrNVIBYIHRJY6346-73-20 10:50:00 Test Item Value Reference Range Interpretation Comments Monocytes (test code = Monocytes) 6.9 2.0-12.0 N [facility]aleEemmpbsNFIXSWWUDH0356-93-01 10:50:00 Test Item Value Reference Range Interpretation Comments Lymphocytes (test code = Lymphocytes) 21.6 20.0-40.0 N [facility]aleDfirrrnBMDSKTJCCP2554-50-14 10:50:00 Test Item Value Reference Range Interpretation Comments Segs-Bands # (test code = Segs-Bands #) 3.2 1.5-8.1 N [facility]aleKgsfhfzZKONLHZMLN7317-41-21 10:50:00 Test Item Value Reference Range Interpretation Comments Basophils (test code = 1.1 See_Comment H [Aut omated message] The Basophils) system which ge nerated this result tra nsmitted reference range : <=1.0. The reference r chang was not used to int erpret this result as normal/abnormal . [facility]aleCtyehfnYOOZIMCJDT2802-32-36 10:50:00 Test Item Value Reference Range Interpretation Comments Eosinophils (test code = 6.9 See_Comment H [A utomated message] The Eosinophils) system which ge nerated this result tra nsmitted reference range : <=4.0. The reference r chang was not used to int erpret this result as normal/abnormal . [facility] CenterJxnmopzIWONXXAFN4739-03-42 10:50:00 Test Item Value Reference Range Interpretation Comments Hgb A1C (test code = Hgb A1C) 6.9 [facility] CenterUefpirqZRRDDZTTM3473-31-21 10:50:00 Test Item Value Reference Range Interpretation Comments Ca Norm (test code = Ca Norm) 1.11 1.16-1.30 L [facility] CenterKttpdxfIHVIIQNCP7503-36-69 10:50:00 Test Item Value Reference Range Interpretation Comments Ca Ion (test code = Ca Ion) 1.12 1.16-1.30 L [facility] CenterKdxplrkUWCTKYEYQ0453-10-05 10:50:00 Test Item Value Reference Range Interpretation Comments Ca Ion mgdL (test code = Ca Ion mgdL) 4.48 4.65-5.20 L [facility] CenterWqrdsnuDEUVJZRXT5315-05-97 10:50:00 Test Item Value Reference Range Interpretation Comments Ca Norm mgdL (test code = Ca Norm mgdL) 4.44 4.65-5.20 L [facility] CenterSrfleklSYAYXULPS4613-99-59 10:50:00 Test Item Value Reference Range Interpretation Comments Phosphorus (test code = Phosphorus) 3.4 2.5-4.5 N [facility] CenterRdysrqcCHCFJECJN9755-75-43 10:50:00 Test Item Value Reference Range Interpretation Comments eGFR (test code = eGFR) 69 [facility] CenterEkjpntlWZEJIECCC9942-13-21 10:50:00 Test Item Value Reference Range Interpretation Comments Chloride Lvl (test code = Chloride Lvl) 106 95-109 N [facility] CenterQaljhctGVWSTPSCH6577-43-83 10:50:00 Test Item Value Reference Range Interpretation Comments CO2 (test code = CO2) 26 24-32 N [facility] CenterNinfknsTQXECPMBA9118-86-15 10:50:00 Test Item Value Reference Range Interpretation Comments Sodium Lvl (test code = Sodium Lvl) 143 135-145 N [facility] CenterHicfcjiLDCLKBFUK4067-09-94 10:50:00 Test Item Value Reference Range Interpretation Comments Calcium Lvl (test code = Calcium Lvl) 8.4 8.5-10.5 L [facility] CenterGcevmvgTJPQICDKH5355-96-35 10:50:00 Test Item Value Reference Range Interpretation Comments Glucose Lvl (test code = Glucose Lvl) 119 70-99 H [facility] CenterFxzgpxuRYSVIFFOP1415-04-51 10:50:00 Test Item Value Reference Range Interpretation Comments Potassium Lvl (test code = Potassium 4.0 3.5-5.1 N Lvl) [facility] CenterPkosdpyMJFWWATWL9307-75-83 10:50:00 Test Item Value Reference Range Interpretation Comments Creatinine Lvl (test code = Creatinine 0.9 0.5-1.4 N Lvl) [facility] CenterLbhkduaEVUOCNMUQ4303-18-35 10:50:00 Test Item Value Reference Range Interpretation Comments BUN (test code = BUN) 12 7-22 N [facility] CenterGxtcvhjMNPQRUIHB4543-52-47 10:50:00 Test Item Value Reference Range Interpretation Comments AGAP (test code = AGAP) 15.0 10.0-20.0 N [facility] CenterSqqpbjwXPDRTHMMK7821-58-48 10:50:00 Test Item Value Reference Range Interpretation Comments Magnesium Lvl (test code = Magnesium 2.2 1.8-2.4 N Lvl) [facility]aleDeqsjgjMYQQNNSZBT8399-24-61 10:50:00 Test Item Value Reference Range Interpretation Comments Platelet (test code = Platelet) 258 133-450 N [facility]aleBazryokJJTEOESSDY2971-45-75 10:50:00 Test Item Value Reference Range Interpretation Comments RDW (test code = RDW) 14.6 11.5-14.5 H [facility]aleJyxdsknQDQAPXLLZS1060-03-34 10:50:00 Test Item Value Reference Range Interpretation Comments MCHC (test code = MCHC) 34.4 32.0-36.0 N [facility]aleYcitfrcTFYOAXIJWP1728-76-11 10:50:00 Test Item Value Reference Range Interpretation Comments MPV (test code = MPV) 8.2 7.4-10.4 N [facility]aleGykgwyvPCDBJUBZTF9440-05-12 10:50:00 Test Item Value Reference Range Interpretation Comments RBC (test code = RBC) 4.14 4.20-5.40 L [facility]aleKqjchgpPJIZVTGOFM9821-10-27 10:50:00 Test Item Value Reference Range Interpretation Comments WBC (test code = WBC) 5.0 3.7-10.4 N [facility]valeZsucqtqSUSZYUSIPK4372-40-94 10:50:00 Test Item Value Reference Range Interpretation Comments Hct (test code = Hct) 38.1 36.0-48.0 N [facility]aleSefqojwDJZBBUXXII1763-08-05 10:50:00 Test Item Value Reference Range Interpretation Comments Hgb (test code = Hgb) 13.1 12.0-16.0 N [facility]aleGsotynjUAVEYSEINK4157-65-32 10:50:00 Test Item Value Reference Range Interpretation Comments MCH (test code = MCH) 31.7 pg 27.0-31.0 H [facility]aleTzddhwzWRRGMPRBMR7553-83-73 10:50:00 Test Item Value Reference Range Interpretation Comments MCV (test code = MCV) 92.1 81.0-99.0 N [facility]alePtypijxVLEUJMVQCU1218-13-45 10:50:00 Test Item Value Reference Range Interpretation Comments Monocytes # (test code 0.3 See_Comment N [Aut omated message] The = Monocytes #) system which generated this result tra nsmitted reference range : <=0.8. The reference r chang was not used to int erpret this result as normal/abnormal . [facility]aleKobnjykTCNOPOYIZZ8556-40-42 10:50:00 Test Item Value Reference Range Interpretation Comments Lymphocytes # (test code = Lymphocytes 1.1 1.0-5.5 N #) [facility]aleCzilahxGQBBWHFQKA8617-43-06 10:50:00 Test Item Value Reference Range Interpretation Comments Basophils # (test code 0.1 See_Comment N [Aut omated message] The = Basophils #) system which generated this result tra nsmitted reference range : <=0.2. The reference r chang was not used to int erpret this result as normal/abnormal . [facility]aleRmmfdyiXATOWXKGGS1223-75-77 10:50:00 Test Item Value Reference Range Interpretation Comments Eosinophils # (test code 0.3 See_Comment N [A utomated message] The = Eosinophils #) system whic h generated this result tra nsmitted reference range : <=0.5. The reference r chang was not used to int erpret this result as normal/abnormal . [facility]aleKaenwdkXUIPUVOVNC5930-56-41 10:50:00 Test Item Value Reference Range Interpretation Comments Segs (test code = Segs) 63.5 45.0-75.0 N [facility]aleGmyqlzyHQNDISGENL9538-37-67 10:50:00 Test Item Value Reference Range Interpretation Comments Monocytes (test code = Monocytes) 6.9 2.0-12.0 N [facility]aleKlgubxkCIEAMERLAF5572-94-83 10:50:00 Test Item Value Reference Range Interpretation Comments Lymphocytes (test code = Lymphocytes) 21.6 20.0-40.0 N [facility]aleAwvvzahSQHVCSWDLQ2162-05-96 10:50:00 Test Item Value Reference Range Interpretation Comments Segs-Bands # (test code = Segs-Bands #) 3.2 1.5-8.1 N [facility]alePprqmbeQOSOTNSDRJ5761-87-16 10:50:00 Test Item Value Reference Range Interpretation Comments Basophils (test code = 1.1 See_Comment H [Aut omated message] The Basophils) system which ge nerated this result tra nsmitted reference range : <=1.0. The reference r chang was not used to int erpret this result as normal/abnormal . [facility]aleJbjwzmzIKVFBBSNSN0358-67-70 10:50:00 Test Item Value Reference Range Interpretation Comments Eosinophils (test code = 6.9 See_Comment H [A utomated message] The Eosinophils) system which ge nerated this result tra nsmitted reference range : <=4.0. The reference r chang was not used to int erpret this result as normal/abnormal . [facility] CenterSdxixgcMGCCHJWBS4566-61-41 07:21:00 Test Item Value Reference Range Interpretation Comments Ca Norm (test code = Ca Norm) 1.17 1.16-1.30 N [facility] CenterAupamnfGGQLQJYME1112-43-06 07:21:00 Test Item Value Reference Range Interpretation Comments Ca Ion (test code = Ca Ion) 1.15 1.16-1.30 L [facility] CenterVhweocxQOVYFRZJD7776-52-60 07:21:00 Test Item Value Reference Range Interpretation Comments Ca Norm mgdL (test code = Ca Norm mgdL) 4.68 4.65-5.20 N [facility] CenterLpsgpotXHEYQDNRX4484-98-92 07:21:00 Test Item Value Reference Range Interpretation Comments Ca Ion mgdL (test code = Ca Ion mgdL) 4.60 4.65-5.20 L [facility] CenterCyqaggiTVPZLHWPM4007-89-79 07:21:00 Test Item Value Reference Range Interpretation Comments Phosphorus (test code = Phosphorus) 3.3 2.5-4.5 N [facility] CenterGiklnbyASZNPIOSE7055-91-77 07:21:00 Test Item Value Reference Range Interpretation Comments Chloride Lvl (test code = Chloride Lvl) 104 95-109 N [facility] CenterXpplavbBDBDULGAY2549-60-72 07:21:00 Test Item Value Reference Range Interpretation Comments CO2 (test code = CO2) 23 24-32 L [facility] CenterNjlcdydOJQZTBFZK3031-35-91 07:21:00 Test Item Value Reference Range Interpretation Comments Calcium Lvl (test code = Calcium Lvl) 8.5 8.5-10.5 N [facility] CenterFxfmusoAQZYHTEMA6386-78-17 07:21:00 Test Item Value Reference Range Interpretation Comments AGAP (test code = AGAP) 18.5 10.0-20.0 N [facility] CenterCvicdeeOVEIDCRKF4109-28-97 07:21:00 Test Item Value Reference Range Interpretation Comments BUN (test code = BUN) 12 7-22 N [facility] CenterYioaaxwRCFTOWKJH1967-32-67 07:21:00 Test Item Value Reference Range Interpretation Comments Glucose Lvl (test code = Glucose Lvl) 115 70-99 H [facility] CenterLbrnyfnAOIAHKJGT5310-10-46 07:21:00 Test Item Value Reference Range Interpretation Comments Creatinine Lvl (test code = Creatinine 0.5 0.5-1.4 N Lvl) [facility] CenterUbbwivuTBPUSTIQA3077-26-35 07:21:00 Test Item Value Reference Range Interpretation Comments eGFR (test code = eGFR) 105 [facility] CenterUnvqlweGVZWBGBKT0771-87-85 07:21:00 Test Item Value Reference Range Interpretation Comments Sodium Lvl (test code = Sodium Lvl) 141 135-145 N [facility] CenterCzaldxfQTYCKNZYU8940-59-21 07:21:00 Test Item Value Reference Range Interpretation Comments Potassium Lvl (test code = Potassium 4.5 3.5-5.1 N Lvl) [facility] CenterPqzzzzmBMXYYVPMY1292-71-72 07:21:00 Test Item Value Reference Range Interpretation Comments Magnesium Lvl (test code = Magnesium 2.2 1.8-2.4 N Lvl) [facility] CenterXgxuugjWZEYUWZPS7653-59-59 07:21:00 Test Item Value Reference Range Interpretation Comments Ca Norm (test code = Ca Norm) 1.17 1.16-1.30 N [facility] CenterHgdfdstZBFGIGBOV8169-51-88 07:21:00 Test Item Value Reference Range Interpretation Comments Ca Ion (test code = Ca Ion) 1.15 1.16-1.30 L [facility] CenterXhfeyrgUTVXBOAKO1284-72-11 07:21:00 Test Item Value Reference Range Interpretation Comments Ca Norm mgdL (test code = Ca Norm mgdL) 4.68 4.65-5.20 N [facility] CenterPicatwpTYOSQXUUS8388-96-94 07:21:00 Test Item Value Reference Range Interpretation Comments Ca Ion mgdL (test code = Ca Ion mgdL) 4.60 4.65-5.20 L [facility] CenterVeuntybUPQJKWKAJ4925-30-84 07:21:00 Test Item Value Reference Range Interpretation Comments Phosphorus (test code = Phosphorus) 3.3 2.5-4.5 N [facility] CenterBsyxtuqPKTXAZHKV1787-56-68 07:21:00 Test Item Value Reference Range Interpretation Comments Chloride Lvl (test code = Chloride Lvl) 104 95-109 N [facility] CenterZvwmmuxZPSVJJPER1611-14-74 07:21:00 Test Item Value Reference Range Interpretation Comments CO2 (test code = CO2) 23 24-32 L [facility] CenterHcegbgcVRWXIFENA7262-22-98 07:21:00 Test Item Value Reference Range Interpretation Comments Calcium Lvl (test code = Calcium Lvl) 8.5 8.5-10.5 N [facility] CenterDfkfrofMHFVIBQQK6699-77-25 07:21:00 Test Item Value Reference Range Interpretation Comments AGAP (test code = AGAP) 18.5 10.0-20.0 N [facility] CenterJqzbhjiDEZSMCUUJ5092-65-54 07:21:00 Test Item Value Reference Range Interpretation Comments BUN (test code = BUN) 12 7-22 N [facility] CenterUacggcdVXKWFGIWP5376-22-12 07:21:00 Test Item Value Reference Range Interpretation Comments Glucose Lvl (test code = Glucose Lvl) 115 70-99 H [facility] CenterOntfcyuLJUUROPIU1317-56-81 07:21:00 Test Item Value Reference Range Interpretation Comments Creatinine Lvl (test code = Creatinine 0.5 0.5-1.4 N Lvl) [facility] CenterXzoaeadEFIUSGTCJ6763-80-37 07:21:00 Test Item Value Reference Range Interpretation Comments eGFR (test code = eGFR) 105 [facility] CenterUzwlngyYNOVNZJCS1587-17-86 07:21:00 Test Item Value Reference Range Interpretation Comments Sodium Lvl (test code = Sodium Lvl) 141 135-145 N [facility] CenterKxjkimjRXHARCMYY3839-29-40 07:21:00 Test Item Value Reference Range Interpretation Comments Potassium Lvl (test code = Potassium 4.5 3.5-5.1 N Lvl) [facility] CenterYhofomsQUDYJGOOB9922-29-71 07:21:00 Test Item Value Reference Range Interpretation Comments Magnesium Lvl (test code = Magnesium 2.2 1.8-2.4 N Lvl) [facility] CenterGktxhqvLWLVHYZIY3224-64-37 07:21:00 Test Item Value Reference Range Interpretation Comments Ca Norm (test code = Ca Norm) 1.17 1.16-1.30 N [facility] CenterHrrfnubVGAAEMZYG0269-27-28 07:21:00 Test Item Value Reference Range Interpretation Comments Ca Ion (test code = Ca Ion) 1.15 1.16-1.30 L [facility] CenterTudvygeFUVUJUBZA1514-37-47 07:21:00 Test Item Value Reference Range Interpretation Comments Ca Norm mgdL (test code = Ca Norm mgdL) 4.68 4.65-5.20 N [facility] CenterSvowvvoYUWJVPKYH2226-46-14 07:21:00 Test Item Value Reference Range Interpretation Comments Ca Ion mgdL (test code = Ca Ion mgdL) 4.60 4.65-5.20 L [facility] CenterStxcotfOOXKLNYCS9354-77-00 07:21:00 Test Item Value Reference Range Interpretation Comments Phosphorus (test code = Phosphorus) 3.3 2.5-4.5 N [facility] CenterGcbedpqXMTAJOUZR4226-21-51 07:21:00 Test Item Value Reference Range Interpretation Comments Chloride Lvl (test code = Chloride Lvl) 104 95-109 N [facility] CenterXoxbxjsUZQEEQJGQ7418-01-79 07:21:00 Test Item Value Reference Range Interpretation Comments CO2 (test code = CO2) 23 24-32 L [facility] CenterXgtyvwxRIQWZNBAU9790-73-95 07:21:00 Test Item Value Reference Range Interpretation Comments Calcium Lvl (test code = Calcium Lvl) 8.5 8.5-10.5 N [facility] CenterWxromuzWWAPULFHF7888-84-92 07:21:00 Test Item Value Reference Range Interpretation Comments AGAP (test code = AGAP) 18.5 10.0-20.0 N [facility] CenterJfevwazUUTQFESQR4759-24-02 07:21:00 Test Item Value Reference Range Interpretation Comments BUN (test code = BUN) 12 7-22 N [facility] CenterUfrhnxiGWVIVSPUX6140-54-41 07:21:00 Test Item Value Reference Range Interpretation Comments Glucose Lvl (test code = Glucose Lvl) 115 70-99 H [facility] CenterPqfxqukYTOCNYHME2839-31-66 07:21:00 Test Item Value Reference Range Interpretation Comments Creatinine Lvl (test code = Creatinine 0.5 0.5-1.4 N Lvl) [facility] CenterWufcokhPKIKUYCNG8157-30-00 07:21:00 Test Item Value Reference Range Interpretation Comments eGFR (test code = eGFR) 105 [facility] CenterMuocukuFGNWYVJWY5446-84-63 07:21:00 Test Item Value Reference Range Interpretation Comments Sodium Lvl (test code = Sodium Lvl) 141 135-145 N [facility] CenterGmzyydjOJQZFROTS3716-70-83 07:21:00 Test Item Value Reference Range Interpretation Comments Potassium Lvl (test code = Potassium 4.5 3.5-5.1 N Lvl) [facility] CenterYnferjuOQKQSIZKR5517-47-13 07:21:00 Test Item Value Reference Range Interpretation Comments Magnesium Lvl (test code = Magnesium 2.2 1.8-2.4 N Lvl) [facility] CenterXuvezzvZTOIVVRXJ9574-75-33 07:21:00 Test Item Value Reference Range Interpretation Comments Ca Norm (test code = Ca Norm) 1.17 1.16-1.30 N [facility] CenterFsqywlqLRWBVDITS8789-91-31 07:21:00 Test Item Value Reference Range Interpretation Comments Ca Ion (test code = Ca Ion) 1.15 1.16-1.30 L [facility] CenterMddycgsGHYTAGJCY7705-93-42 07:21:00 Test Item Value Reference Range Interpretation Comments Ca Norm mgdL (test code = Ca Norm mgdL) 4.68 4.65-5.20 N [facility] CenterYodqflxALLIFUGDS2983-67-34 07:21:00 Test Item Value Reference Range Interpretation Comments Ca Ion mgdL (test code = Ca Ion mgdL) 4.60 4.65-5.20 L [facility] CenterRtdwwvpDPCPKKZAE1523-40-29 07:21:00 Test Item Value Reference Range Interpretation Comments Phosphorus (test code = Phosphorus) 3.3 2.5-4.5 N [facility] CenterZvsnuzhKCFHZTJJL1169-43-87 07:21:00 Test Item Value Reference Range Interpretation Comments Chloride Lvl (test code = Chloride Lvl) 104 95-109 N [facility] CenterQkxmgtyJYTKDDUYS3011-86-61 07:21:00 Test Item Value Reference Range Interpretation Comments CO2 (test code = CO2) 23 24-32 L [facility] CenterSkkjxafRLLSXDYSP8816-27-23 07:21:00 Test Item Value Reference Range Interpretation Comments Calcium Lvl (test code = Calcium Lvl) 8.5 8.5-10.5 N [facility] CenterVsgeixgBFNBIMRVP5159-80-75 07:21:00 Test Item Value Reference Range Interpretation Comments AGAP (test code = AGAP) 18.5 10.0-20.0 N [facility] CenterZahtydsMQIANEYST1230-60-34 07:21:00 Test Item Value Reference Range Interpretation Comments BUN (test code = BUN) 12 7-22 N [facility] CenterUgyzndtGPSWZNVZH4175-14-15 07:21:00 Test Item Value Reference Range Interpretation Comments Glucose Lvl (test code = Glucose Lvl) 115 70-99 H [facility] CenterDviumljQGMYNMMAG9463-74-11 07:21:00 Test Item Value Reference Range Interpretation Comments Creatinine Lvl (test code = Creatinine 0.5 0.5-1.4 N Lvl) [facility] CenterUhbdqxdIZJHFIZXR1094-90-58 07:21:00 Test Item Value Reference Range Interpretation Comments eGFR (test code = eGFR) 105 [facility] CenterSufecjsOHBUXTWWQ5223-62-14 07:21:00 Test Item Value Reference Range Interpretation Comments Sodium Lvl (test code = Sodium Lvl) 141 135-145 N [facility] CenterFlhcozrKASHPUKLQ6611-77-32 07:21:00 Test Item Value Reference Range Interpretation Comments Potassium Lvl (test code = Potassium 4.5 3.5-5.1 N Lvl) [facility] CenterSeytyulEUFOKLVKA5932-86-49 07:21:00 Test Item Value Reference Range Interpretation Comments Magnesium Lvl (test code = Magnesium 2.2 1.8-2.4 N Lvl) [facility] GLUCOSE AVNODZX2681-69-17 02:46:00 Test Item Value Reference Range Interpretation Comments Gluc POC Lifscn (test code = Gluc POC 145 70-99 H Lifscn) [facility] GLUCOSE WWVAMJC5361-91-66 02:46:00 Test Item Value Reference Range Interpretation Comments Comment1 (test code = Comment1) Notify RN/ [facility] GLUCOSE ENDUNMT9884-72-80 02:46:00 Test Item Value Reference Range Interpretation Comments Gluc POC Lifscn (test code = Gluc POC 145 70-99 H Lifscn) [facility] GLUCOSE PRNRECP5331-05-61 02:46:00 Test Item Value Reference Range Interpretation Comments Comment1 (test code = Comment1) Notify RN/ [facility] GLUCOSE KSPQDSV7335-50-42 02:46:00 Test Item Value Reference Range Interpretation Comments Gluc POC Lifscn (test code = Gluc POC 145 70-99 H Lifscn) [facility] GLUCOSE OTRFAVT0172-83-60 02:46:00 Test Item Value Reference Range Interpretation Comments Comment1 (test code = Comment1) Notify RN/ [facility] GLUCOSE SZYSBTI6068-29-28 02:46:00 Test Item Value Reference Range Interpretation Comments Gluc POC Lifscn (test code = Gluc POC 145 70-99 H Lifscn) [facility] GLUCOSE ANUAAOI7521-63-40 02:46:00 Test Item Value Reference Range Interpretation Comments Comment1 (test code = Comment1) Notify RN/MD [facility]TlxyhhiEJOXXZHVJE6690-88-12 11:40:02 Test Item Value Reference Range Interpretation Comments UA Urobilinogen (test code *NA*(12/12/2012 0.1-1.0 = UA Urobilinogen) 05:40:02) [facility]iscoUgxqdxfIWPTAWJBYR1696-94-46 11:40:02 Test Item Value Reference Range Interpretation Comments UA RBC (test code = no gt See_Comment N [Automa ashley message] The UA RBC) system which ge nerated this result transmit ashley reference range : <=2. The reference range was not used to interpr et this result as roopa l/abnormal. [facility] FriscoJacnmyuTZIBVKIRLB7628-48-72 11:40:02 Test Item Value Reference Range Interpretation Comments UA Sq Epi (test code = Few /LPF UA Sq Epi) *NA*(12/12/2012 05:40:02) [facility] FriscoKnfvrrkJFLZSEJRQX1631-67-58 11:40:02 Test Item Value Reference Range Interpretation Comments UA WBC (test code = 1 See_Comment N [Automa ashley message] The UA WBC) system which ge nerated this result transmit ashley reference range : <=5. The reference range was not used to interpr et this result as roopa l/abnormal. [facility] TaylorBgaqtobITMQKVEWBV3121-61-34 11:40:02 Test Item Value Reference Range Interpretation Comments UA Nitrite (test code Negative (12/12/2012 N = UA Nitrite) 05:40:02) [facility] FriscoMkuhsetUNWFUMPNTK0393-56-41 11:40:02 Test Item Value Reference Range Interpretation Comments UA Leuk Est (test code Trace *ABN*(12/12/2012 A = UA Leuk Est) 05:40:02) [facility] FriscoLoprjyjPQYODJGUAU4632-01-30 11:40:02 Test Item Value Reference Range Interpretation Comments UA Blood (test code = Negative (12/12/2012 N UA Blood) 05:40:02) [facility]IulhzvmHGASYZQYYR6947-89-15 11:40:02 Test Item Value Reference Range Interpretation Comments UA Bili (test code = Negative *NA*(12/12/2012 UA Bili) 05:40:02) [facility] HospitalWwysgsqYZSVKACZRF1726-33-40 11:40:02 Test Item Value Reference Range Interpretation Comments UA Ketones (test code Negative mg/dL = UA Ketones) *NA*(12/12/2012 05:40:02) [facility] HospitalOhcocgyPZYNXMMQTQ2119-82-36 11:40:02 Test Item Value Reference Range Interpretation Comments UA Glucose (test code Negative mg/dL = UA Glucose) *NA*(12/12/2012 05:40:02) [facility] HospitalOzwvdvmSCQAPFHLUE1318-61-94 11:40:02 Test Item Value Reference Range Interpretation Comments UA Protein (test code Negative mg/dL N = UA Protein) (12/12/2012 05:40:02) [facility] HospitalTatpglmPFDUCOFQOT4932-63-67 11:40:02 Test Item Value Reference Range Interpretation Comments UA pH (test code = UA pH) 7.5 5.0-8.0 N [facility] HospitalWiqaooiGXTEXSZJGI7644-21-74 11:40:02 Test Item Value Reference Range Interpretation Comments UA Spec Grav (test code = UA Spec Grav) 1.046 H [facility] HospitalMjmkfhfGWXOKSBBEA3285-10-15 11:40:02 Test Item Value Reference Range Interpretation Comments UA Turbidity (test code = Clear (12/12/2012 N UA Turbidity) 05:40:02) [facility] HospitalWvfbuhzAOLESUPSHB3221-10-88 11:40:02 Test Item Value Reference Range Interpretation Comments UA Color (test code = Light Yellow UA Color) *NA*(12/12/2012 05:40:02) [facility] HospitalPvbbttvSTOVBDCSMP9888-93-99 11:40:02 Test Item Value Reference Range Interpretation Comments UA Urobilinogen (test code *NA*(12/12/2012 0.1-1.0 = UA Urobilinogen) 05:40:02) [facility] HospitalInpwajnVEDONPFSYM8230-12-19 11:40:02 Test Item Value Reference Range Interpretation Comments UA RBC (test code = no gt See_Comment N [Automa ashley message] The UA RBC) system which ge nerated this result transmit ashley reference range : <=2. The reference range was not used to interpr et this result as roopa l/abnormal. [facility] HospitalJipjpfmZRGXTGNSQY7444-54-31 11:40:02 Test Item Value Reference Range Interpretation Comments UA Sq Epi (test code = Few /LPF UA Sq Epi) *NA*(12/12/2012 05:40:02) [facility] HospitalNdrwqjlBDPDYETZTH2441-36-44 11:40:02 Test Item Value Reference Range Interpretation Comments UA WBC (test code = 1 See_Comment N [Automa ashley message] The UA WBC) system which ge nerated this result transmit ashley reference range : <=5. The reference range was not used to interpr et this result as roopa l/abnormal. [facility] HospitalSadffiiBZQGNBNFNB6301-16-35 11:40:02 Test Item Value Reference Range Interpretation Comments UA Nitrite (test code Negative (12/12/2012 N = UA Nitrite) 05:40:02) [facility] HospitalRhsoneoQRRIVULFZI4688-71-75 11:40:02 Test Item Value Reference Range Interpretation Comments UA Leuk Est (test code Trace *ABN*(12/12/2012 A = UA Leuk Est) 05:40:02) [facility] HospitalLifdtwrJGVNPPIMBA3306-72-07 11:40:02 Test Item Value Reference Range Interpretation Comments UA Blood (test code = Negative (12/12/2012 N UA Blood) 05:40:02) [facility] HospitalCvtxwvhULIRLCQMYB6179-71-55 11:40:02 Test Item Value Reference Range Interpretation Comments UA Bili (test code = Negative *NA*(12/12/2012 UA Bili) 05:40:02) [facility] HospitalDwasvvfRMKSOTTGZN0312-24-47 11:40:02 Test Item Value Reference Range Interpretation Comments UA Ketones (test code Negative mg/dL = UA Ketones) *NA*(12/12/2012 05:40:02) [facility] HospitalVaushsnSQNFIAXGND7940-49-68 11:40:02 Test Item Value Reference Range Interpretation Comments UA Glucose (test code Negative mg/dL = UA Glucose) *NA*(12/12/2012 05:40:02) [facility] HospitalQffbhkySDYBGIVVBD1386-21-54 11:40:02 Test Item Value Reference Range Interpretation Comments UA Protein (test code Negative mg/dL N = UA Protein) (12/12/2012 05:40:02) [facility]iscoCpnmoyoGXPQHJMMSC2874-95-25 11:40:02 Test Item Value Reference Range Interpretation Comments UA pH (test code = UA pH) 7.5 5.0-8.0 N [facility] FriscoSqdopoqERNFNTMBSN1792-29-02 11:40:02 Test Item Value Reference Range Interpretation Comments UA Spec Grav (test code = UA Spec Grav) 1.046 H [facility] FriscoXxahtqnRHNHFKXKEA0892-07-84 11:40:02 Test Item Value Reference Range Interpretation Comments UA Turbidity (test code = Clear (12/12/2012 N UA Turbidity) 05:40:02) [facility] HospitalEybfwtlMDOINEYYRQ7200-74-71 11:40:02 Test Item Value Reference Range Interpretation Comments UA Color (test code = Light Yellow UA Color) *NA*(12/12/2012 05:40:02) [facility] HospitalSusrbxeKOVANOTURE5021-91-78 11:40:02 Test Item Value Reference Range Interpretation Comments UA Urobilinogen (test code *NA*(12/12/2012 0.1-1.0 = UA Urobilinogen) 05:40:02) [facility] HospitalWtzusixBHSCMTUFES6420-95-51 11:40:02 Test Item Value Reference Range Interpretation Comments UA RBC (test code = no gt See_Comment N [Automa ashley message] The UA RBC) system which ge nerated this result transmit ashley reference range : <=2. The reference range was not used to interpr et this result as roopa l/abnormal. [facility] TaylorKedpyfsTXAKHJURHR3944-53-68 11:40:02 Test Item Value Reference Range Interpretation Comments UA Sq Epi (test code = Few /LPF UA Sq Epi) *NA*(12/12/2012 05:40:02) [facility] HospitalUwepllcMAOPMFZQWL6104-57-44 11:40:02 Test Item Value Reference Range Interpretation Comments UA WBC (test code = 1 See_Comment N [Automa ashley message] The UA WBC) system which ge nerated this result transmit ashley reference range : <=5. The reference range was not used to interpr et this result as roopa l/abnormal. [facility] FriscoZvwzdhvXHSZYEJLQU3542-82-67 11:40:02 Test Item Value Reference Range Interpretation Comments UA Nitrite (test code Negative (12/12/2012 N = UA Nitrite) 05:40:02) [facility]iscoMzgqkuxCAJOTWJUYJ2068-83-98 11:40:02 Test Item Value Reference Range Interpretation Comments UA Leuk Est (test code Trace *ABN*(12/12/2012 A = UA Leuk Est) 05:40:02) [facility] HospitalSpnqxaaQIGCFFGPIB7491-32-92 11:40:02 Test Item Value Reference Range Interpretation Comments UA Blood (test code = Negative (12/12/2012 N UA Blood) 05:40:02) [facility] HospitalVwjpiwvCQYHDHLIXX8310-89-64 11:40:02 Test Item Value Reference Range Interpretation Comments UA Bili (test code = Negative *NA*(12/12/2012 UA Bili) 05:40:02) [facility] HospitalPjtjjadGABDXMYYPW4834-69-47 11:40:02 Test Item Value Reference Range Interpretation Comments UA Ketones (test code Negative mg/dL = UA Ketones) *NA*(12/12/2012 05:40:02) [facility] HospitalEyzhlqfVBMGFFAZWA7407-11-43 11:40:02 Test Item Value Reference Range Interpretation Comments UA Glucose (test code Negative mg/dL = UA Glucose) *NA*(12/12/2012 05:40:02) [facility] HospitalBlfaoxvXXDHZVRSRT6492-03-49 11:40:02 Test Item Value Reference Range Interpretation Comments UA Protein (test code Negative mg/dL N = UA Protein) (12/12/2012 05:40:02) [facility] HospitalRwdjquhIVZMEAYAUL2245-76-17 11:40:02 Test Item Value Reference Range Interpretation Comments UA pH (test code = UA pH) 7.5 5.0-8.0 N [facility] HospitalZxdvgrjSQEETFJPON2211-94-31 11:40:02 Test Item Value Reference Range Interpretation Comments UA Spec Grav (test code = UA Spec Grav) 1.046 H [facility] FriscoOxdsabcLFIPMJTEEK9874-03-19 11:40:02 Test Item Value Reference Range Interpretation Comments UA Turbidity (test code = Clear (12/12/2012 N UA Turbidity) 05:40:02) [facility] HospitalNcogrtxZHFQDTQOWV5884-77-75 11:40:02 Test Item Value Reference Range Interpretation Comments UA Color (test code = Light Yellow UA Color) *NA*(12/12/2012 05:40:02) [facility] HospitalBaxktdjXLVQUPADQN1435-96-70 11:40:02 Test Item Value Reference Range Interpretation Comments UA Urobilinogen (test code *NA*(12/12/2012 0.1-1.0 = UA Urobilinogen) 05:40:02) [facility] HospitalDmudpxsEISMWKNTRF6358-69-31 11:40:02 Test Item Value Reference Range Interpretation Comments UA RBC (test code = UA RBC) no gt <=2 N [facility] HospitalAnubkatIZPQLZHPDH5401-01-05 11:40:02 Test Item Value Reference Range Interpretation Comments UA Sq Epi (test code = Few /LPF UA Sq Epi) *NA*(12/12/2012 05:40:02) [facility] HospitalQpzpmtdHGRYNHLPDS6244-98-82 11:40:02 Test Item Value Reference Range Interpretation Comments UA WBC (test code = UA WBC) 1 <=5 N [facility] HospitalPyzwzxbZLURRHQCUI8694-03-13 11:40:02 Test Item Value Reference Range Interpretation Comments UA Nitrite (test code Negative (12/12/2012 N = UA Nitrite) 05:40:02) [facility] HospitalVrsqnepQFGMOUECPM9913-75-13 11:40:02 Test Item Value Reference Range Interpretation Comments UA Leuk Est (test code Trace *ABN*(12/12/2012 A = UA Leuk Est) 05:40:02) [facility] HospitalSbrahihRHMFOWNBVD9145-78-56 11:40:02 Test Item Value Reference Range Interpretation Comments UA Blood (test code = Negative (12/12/2012 N UA Blood) 05:40:02) [facility] HospitalBlibkzwXWQEJLVOGV0290-16-99 11:40:02 Test Item Value Reference Range Interpretation Comments UA Bili (test code = Negative *NA*(12/12/2012 UA Bili) 05:40:02) [facility] HospitalOrskjuzYSVCMDZDNB8898-30-18 11:40:02 Test Item Value Reference Range Interpretation Comments UA Ketones (test code Negative mg/dL = UA Ketones) *NA*(12/12/2012 05:40:02) [facility] HospitalKiyqlbtQOSDXRORES7639-71-20 11:40:02 Test Item Value Reference Range Interpretation Comments UA Glucose (test code Negative mg/dL = UA Glucose) *NA*(12/12/2012 05:40:02) [facility] HospitalHgctyrjXYEQSZMXDA4849-50-09 11:40:02 Test Item Value Reference Range Interpretation Comments UA Protein (test code Negative mg/dL N = UA Protein) (12/12/2012 05:40:02) [facility] FriscoZysioswPRBLPBXLKW5015-94-59 11:40:02 Test Item Value Reference Range Interpretation Comments UA pH (test code = UA pH) 7.5 5.0-8.0 N [facility] HospitalPqvlsteYSBUDPMAKX3446-82-80 11:40:02 Test Item Value Reference Range Interpretation Comments UA Spec Grav (test code = UA Spec Grav) 1.046 H [facility] HospitalWjbawvsMVSERNJQKX0213-31-96 11:40:02 Test Item Value Reference Range Interpretation Comments UA Turbidity (test code = Clear (12/12/2012 N UA Turbidity) 05:40:02) [facility] HospitalHocdhtxZDSMWBXSRY8759-06-72 11:40:02 Test Item Value Reference Range Interpretation Comments UA Color (test code = Light Yellow UA Color) *NA*(12/12/2012 05:40:02) [facility] CenterGqoevcdYHQZWQHCF0452-97-54 11:40:00 Test Item Value Reference Range Interpretation Comments CHD Risk (test code = CHD Risk) 2.52 3.90-5.80 L [facility] CenterQskvcluZJQWIARES6884-91-19 11:40:00 Test Item Value Reference Range Interpretation Comments LDL (test code = LDL) 74 See_Comment N [Auto mated message] The system which ge nerated this result transmit ashley reference range : <=129. The reference range was not used to interpr et this result as roopa l/abnormal. [facility] CenterZqvzzncNOGVUMDNZ4290-60-75 11:40:00 Test Item Value Reference Range Interpretation Comments Trig (test code = 115 See_Comment N [Automate d message] The Trig) system which ge nerated this result transmit ashley reference range : <=200. The reference range was not used to interpr et this result as roopa l/abnormal. [facility] CenterGupdooxPQJGDAAAZ3238-82-10 11:40:00 Test Item Value Reference Range Interpretation Comments HDL (test code = HDL) 64 N [facility] CenterJzvwtaoBVCFIYUNB5950-64-80 11:40:00 Test Item Value Reference Range Interpretation Comments Chol (test code = Chol) 161 120-200 N [facility] TaylorKcoyjrdPUDVSZUZQ0024-47-50 11:40:00 Test Item Value Reference Range Interpretation Comments eGFR (test code = eGFR) 69 [facility] CenterYpbcloxVNJXXGVKR5871-84-33 11:40:00 Test Item Value Reference Range Interpretation Comments Chloride Lvl (test code = Chloride Lvl) 104 95-109 N [facility] CenterKaplundKMRAHECZN1590-24-13 11:40:00 Test Item Value Reference Range Interpretation Comments CO2 (test code = CO2) 27 24-32 N [facility] CenterYuscdtxXWLALKAVD4167-69-26 11:40:00 Test Item Value Reference Range Interpretation Comments Potassium Lvl (test code = Potassium 4.3 3.5-5.1 N Lvl) [facility] CenterAsigxeoCBBZTTQFC0615-83-34 11:40:00 Test Item Value Reference Range Interpretation Comments Bili Total (test code = Bili Total) 0.3 0.2-1.3 N [facility] CenterUkrebsaYYDFSPIPM3175-13-85 11:40:00 Test Item Value Reference Range Interpretation Comments AST (test code = AST) 20 See_Comment N [Auto mated message] The system which ge nerated this result transmit ashley reference range : <=37. The reference range was not used to interpr et this result as roopa l/abnormal. [facility] CenterSvyocmxLWPWMKMJD7024-32-84 11:40:00 Test Item Value Reference Range Interpretation Comments Total Protein (test code = Total 7.1 6.4-8.4 N Protein) [facility] CenterKjpinitLZZRTBYQU4967-33-26 11:40:00 Test Item Value Reference Range Interpretation Comments Calcium Lvl (test code = Calcium Lvl) 8.5 8.5-10.5 N [facility] CenterPemrqxiHZRFROTJO8890-97-14 11:40:00 Test Item Value Reference Range Interpretation Comments Glucose Lvl (test code = Glucose Lvl) 113 70-99 H [facility] CenterTfoolonJDXSQERCM2287-48-33 11:40:00 Test Item Value Reference Range Interpretation Comments Alk Phos (test code = Alk Phos) 111 39-136 N [facility] CenterHzlklynUFQKJQSJI6965-26-71 11:40:00 Test Item Value Reference Range Interpretation Comments Sodium Lvl (test code = Sodium Lvl) 138 135-145 N [facility] CenterNifnzriBHCJIBDFO1617-27-42 11:40:00 Test Item Value Reference Range Interpretation Comments Creatinine Lvl (test code = Creatinine 0.9 0.5-1.4 N Lvl) [facility] CenterTtotvrkMBPMEAAFA7493-91-60 11:40:00 Test Item Value Reference Range Interpretation Comments BUN (test code = BUN) 10 7-22 N [facility] CenterLcdoqheTEUPFBKBC0454-38-88 11:40:00 Test Item Value Reference Range Interpretation Comments Albumin Lvl (test code = Albumin Lvl) 3.4 3.5-5.0 L [facility] CenterDxxfenvLOHTPTDEI4015-02-63 11:40:00 Test Item Value Reference Range Interpretation Comments ALT (test code = ALT) 18 See_Comment N [Auto mated message] The system which ge nerated this result transmit ashley reference range : <=65. The reference range was not used to interpr et this result as roopa l/abnormal. [facility] CenterXlmqulxNMJPKBIDP9559-10-29 11:40:00 Test Item Value Reference Range Interpretation Comments Globulin (test code = Globulin) 3.7 2.0-4.0 N [facility] CenterIvurrykDNOUYEVCA2572-95-07 11:40:00 Test Item Value Reference Range Interpretation Comments AGAP (test code = AGAP) 11.3 10.0-20.0 N [facility] CenterYsmvkplJWWLPMFLH6863-32-52 11:40:00 Test Item Value Reference Range Interpretation Comments B/C Ratio (test code = B/C Ratio) 11 6-25 N [facility] CenterCqotlleAPKRQWKOC6126-56-18 11:40:00 Test Item Value Reference Range Interpretation Comments A/G Ratio (test code = A/G Ratio) 0.9 0.7-1.6 N [facility]VqbujbyDSGZBOWMBT4913-44-51 11:40:00 Test Item Value Reference Range Interpretation Comments Eosinophils # (test code 0.3 See_Comment N [A utomated message] The = Eosinophils #) system whic h generated this result tra nsmitted reference range : <=0.5. The reference r chang was not used to int erpret this result as normal/abnormal . [facility]aleRxlomfuBFTYVCQPWI9802-37-38 11:40:00 Test Item Value Reference Range Interpretation Comments Lymphocytes # (test code = Lymphocytes 1.1 1.0-5.5 N #) [facility]aleEohuhvxUZVZYEJBXT0497-03-29 11:40:00 Test Item Value Reference Range Interpretation Comments Monocytes # (test code 0.4 See_Comment N [Aut omated message] The = Monocytes #) system which generated this result tra nsmitted reference range : <=0.8. The reference r chang was not used to int erpret this result as normal/abnormal . [facility]aleBessynrRFNNSUFLCW1330-12-80 11:40:00 Test Item Value Reference Range Interpretation Comments Basophils # (test code 0.1 See_Comment N [Aut omated message] The = Basophils #) system which generated this result tra nsmitted reference range : <=0.2. The reference r chang was not used to int erpret this result as normal/abnormal . [facility]aleTktckomFHFOGMNHCA6109-97-48 11:40:00 Test Item Value Reference Range Interpretation Comments Eosinophils (test code = 6.1 See_Comment H [A utomated message] The Eosinophils) system which ge nerated this result tra nsmitted reference range : <=4.0. The reference r chang was not used to int erpret this result as normal/abnormal . [facility]aleQlaqcxmYSHTQUBAOY3934-64-71 11:40:00 Test Item Value Reference Range Interpretation Comments Basophils (test code = 1.0 See_Comment N [Aut omated message] The Basophils) system which ge nerated this result tra nsmitted reference range : <=1.0. The reference r chang was not used to int erpret this result as normal/abnormal . [facility]aleKphbfjkUATHEBGNAE0939-27-07 11:40:00 Test Item Value Reference Range Interpretation Comments Segs-Bands # (test code = Segs-Bands #) 3.6 1.5-8.1 N [facility]aleVcnrtpsXSHJOWKHWP3303-86-85 11:40:00 Test Item Value Reference Range Interpretation Comments Monocytes (test code = Monocytes) 6.4 2.0-12.0 N [facility]aleYphexjlGOLKXAODAE2129-75-53 11:40:00 Test Item Value Reference Range Interpretation Comments Segs (test code = Segs) 65.9 45.0-75.0 N [facility]aleCuafhrpDKDDFJPLNL1026-61-07 11:40:00 Test Item Value Reference Range Interpretation Comments Lymphocytes (test code = Lymphocytes) 20.6 20.0-40.0 N [facility]aleUmizekeAOLIVIRMYM4662-67-12 11:40:00 Test Item Value Reference Range Interpretation Comments WBC (test code = WBC) 5.5 3.7-10.4 N [facility]aleQdtbvtzDXOPRADYYU9424-88-80 11:40:00 Test Item Value Reference Range Interpretation Comments Hgb (test code = Hgb) 13.5 12.0-16.0 N [facility]aleUeptuawZFIFHZHYBG1611-78-04 11:40:00 Test Item Value Reference Range Interpretation Comments RBC (test code = RBC) 4.38 4.20-5.40 N [facility]aleQtqlctoAKEWAQRYVA2537-50-43 11:40:00 Test Item Value Reference Range Interpretation Comments MCH (test code = MCH) 30.8 pg 27.0-31.0 N [facility]aleDbntpoqFAIDFMTRUL7534-18-95 11:40:00 Test Item Value Reference Range Interpretation Comments RDW (test code = RDW) 14.6 11.5-14.5 H [facility]aleHfxuksqHKZLFOTTKM0287-67-06 11:40:00 Test Item Value Reference Range Interpretation Comments MCHC (test code = MCHC) 33.4 32.0-36.0 N [facility]aleMpaxvxvUETTCXWFFH6298-31-33 11:40:00 Test Item Value Reference Range Interpretation Comments Hct (test code = Hct) 40.3 36.0-48.0 N [facility]aleWbsmedkFKDWIJZRUU2815-68-35 11:40:00 Test Item Value Reference Range Interpretation Comments MCV (test code = MCV) 92.0 81.0-99.0 N [facility]aleQouogudCJJFYZHYZL3138-16-73 11:40:00 Test Item Value Reference Range Interpretation Comments MPV (test code = MPV) 8.2 7.4-10.4 N [facility]aleAxcitrrBXXTPYQSDQ3129-55-20 11:40:00 Test Item Value Reference Range Interpretation Comments Platelet (test code = Platelet) 258 133-450 N [facility] CenterIczieusJMXFXCNVP9611-14-92 11:40:00 Test Item Value Reference Range Interpretation Comments CHD Risk (test code = CHD Risk) 2.52 3.90-5.80 L [facility] CenterLaopwzdIDPIUNIBW1375-90-90 11:40:00 Test Item Value Reference Range Interpretation Comments LDL (test code = LDL) 74 See_Comment N [Auto mated message] The system which ge nerated this result transmit ashley reference range : <=129. The reference range was not used to interpr et this result as roopa l/abnormal. [facility]ZhfuhoqQTMMMCFGZ5089-03-37 11:40:00 Test Item Value Reference Range Interpretation Comments Trig (test code = 115 See_Comment N [Automate d message] The Trig) system which nerated this result transmit ashley reference range : <=200. The reference range was not used to interpr et this result as roopa l/abnormal. [facility] CenterDtcqybsYHIRNATVP4825-01-46 11:40:00 Test Item Value Reference Range Interpretation Comments HDL (test code = HDL) 64 N [facility] CenterMwkbxsgXBURTDBWW3196-01-39 11:40:00 Test Item Value Reference Range Interpretation Comments Chol (test code = Chol) 161 120-200 N [facility] CenterDbbrnfdYEMVUKUOC1543-49-11 11:40:00 Test Item Value Reference Range Interpretation Comments eGFR (test code = eGFR) 69 [facility] CenterBlpxjtmRFXWBQGLM1550-91-36 11:40:00 Test Item Value Reference Range Interpretation Comments Chloride Lvl (test code = Chloride Lvl) 104 95-109 N [facility] CenterOnoluaoPXYXJZZUX8429-52-83 11:40:00 Test Item Value Reference Range Interpretation Comments CO2 (test code = CO2) 27 24-32 N [facility] CenterYyieuykURQNQSTRN7231-65-04 11:40:00 Test Item Value Reference Range Interpretation Comments Potassium Lvl (test code = Potassium 4.3 3.5-5.1 N Lvl) [facility] CenterXuxoixnTRXKOVTOI2899-51-84 11:40:00 Test Item Value Reference Range Interpretation Comments Bili Total (test code = Bili Total) 0.3 0.2-1.3 N [facility] CenterXwctfekVHKZZIRRH4897-53-05 11:40:00 Test Item Value Reference Range Interpretation Comments AST (test code = AST) 20 See_Comment N [Auto mated message] The system which ge nerated this result transmit ashley reference range : <=37. The reference range was not used to interpr et this result as roopa l/abnormal. [facility] CenterIdjyjqtBJLIVQDQM8957-59-96 11:40:00 Test Item Value Reference Range Interpretation Comments Total Protein (test code = Total 7.1 6.4-8.4 N Protein) [facility] CenterDpeiqchPTRKOMGQZ7844-78-10 11:40:00 Test Item Value Reference Range Interpretation Comments Calcium Lvl (test code = Calcium Lvl) 8.5 8.5-10.5 N [facility] CenterEmiirdjYBPYABETW4876-36-45 11:40:00 Test Item Value Reference Range Interpretation Comments Glucose Lvl (test code = Glucose Lvl) 113 70-99 H [facility] CenterGdpgireNOEOWILND4546-87-70 11:40:00 Test Item Value Reference Range Interpretation Comments Alk Phos (test code = Alk Phos) 111 39-136 N [facility] CenterMvywwunNOLXVRZSD4709-65-18 11:40:00 Test Item Value Reference Range Interpretation Comments Sodium Lvl (test code = Sodium Lvl) 138 135-145 N [facility] CenterMjmlkwdUDCPYKPEE7025-68-23 11:40:00 Test Item Value Reference Range Interpretation Comments Creatinine Lvl (test code = Creatinine 0.9 0.5-1.4 N Lvl) [facility] CenterBmofociTOMTZXUCU8500-13-86 11:40:00 Test Item Value Reference Range Interpretation Comments BUN (test code = BUN) 10 7-22 N [facility] CenterRqjaljxIMJQZUIHS3844-76-26 11:40:00 Test Item Value Reference Range Interpretation Comments Albumin Lvl (test code = Albumin Lvl) 3.4 3.5-5.0 L [facility] CenterSiutqqgKMWKEKUOL3197-05-62 11:40:00 Test Item Value Reference Range Interpretation Comments ALT (test code = ALT) 18 See_Comment N [Auto mated message] The system which ge nerated this result transmit ashley reference range : <=65. The reference range was not used to interpr et this result as roopa l/abnormal. [facility] CenterCbucurrLVWOCXSYG3224-50-75 11:40:00 Test Item Value Reference Range Interpretation Comments Globulin (test code = Globulin) 3.7 2.0-4.0 N [facility] CenterLwsxafnTHJOGVIYL7869-72-60 11:40:00 Test Item Value Reference Range Interpretation Comments AGAP (test code = AGAP) 11.3 10.0-20.0 N [facility] CenterDltxshuIXMRVLUFQ0100-56-63 11:40:00 Test Item Value Reference Range Interpretation Comments B/C Ratio (test code = B/C Ratio) 11 6-25 N [facility] CenterCgqkfvgBQQDCTCFG6343-01-03 11:40:00 Test Item Value Reference Range Interpretation Comments A/G Ratio (test code = A/G Ratio) 0.9 0.7-1.6 N [facility]aleMppbsekHUPAWAIVFE6482-62-45 11:40:00 Test Item Value Reference Range Interpretation Comments Eosinophils # (test code 0.3 See_Comment N [A utomated message] The = Eosinophils #) system whic h generated this result tra nsmitted reference range : <=0.5. The reference r chang was not used to int erpret this result as normal/abnormal . [facility]aleVbrzjxdUOYKVHGOLR8645-95-96 11:40:00 Test Item Value Reference Range Interpretation Comments Lymphocytes # (test code = Lymphocytes 1.1 1.0-5.5 N #) [facility]aleIpdiamtIGIWZUMNIF6307-38-01 11:40:00 Test Item Value Reference Range Interpretation Comments Monocytes # (test code 0.4 See_Comment N [Aut omated message] The = Monocytes #) system which generated this result tra nsmitted reference range : <=0.8. The reference r chang was not used to int erpret this result as normal/abnormal . [facility]aleSfzzwvrITNKTIAJNH0966-18-55 11:40:00 Test Item Value Reference Range Interpretation Comments Basophils # (test code 0.1 See_Comment N [Aut omated message] The = Basophils #) system which generated this result tra nsmitted reference range : <=0.2. The reference r chang was not used to int erpret this result as normal/abnormal . [facility]aleNqtfjmoZCFQFGCYXD7431-99-18 11:40:00 Test Item Value Reference Range Interpretation Comments Eosinophils (test code = 6.1 See_Comment H [A utomated message] The Eosinophils) system which ge nerated this result tra nsmitted reference range : <=4.0. The reference r chang was not used to int erpret this result as normal/abnormal . [facility]aleAsqoykaDPSHNSJQXQ1856-34-96 11:40:00 Test Item Value Reference Range Interpretation Comments Basophils (test code = 1.0 See_Comment N [Aut omated message] The Basophils) system which ge nerated this result tra nsmitted reference range : <=1.0. The reference r chang was not used to int erpret this result as normal/abnormal . [facility]alePyshndcJDMXBPVNCT2494-07-65 11:40:00 Test Item Value Reference Range Interpretation Comments Segs-Bands # (test code = Segs-Bands #) 3.6 1.5-8.1 N [facility]aleCmmjgbqLSSCDSXQFU0081-73-48 11:40:00 Test Item Value Reference Range Interpretation Comments Monocytes (test code = Monocytes) 6.4 2.0-12.0 N [facility]aleLowntquYEWRMBFICL7893-53-24 11:40:00 Test Item Value Reference Range Interpretation Comments Segs (test code = Segs) 65.9 45.0-75.0 N [facility]aleYyexemqZRNBGSBXWE0462-36-74 11:40:00 Test Item Value Reference Range Interpretation Comments Lymphocytes (test code = Lymphocytes) 20.6 20.0-40.0 N [facility]aleAcbkacnQRNMJJXFLK8677-75-95 11:40:00 Test Item Value Reference Range Interpretation Comments WBC (test code = WBC) 5.5 3.7-10.4 N [facility]aleOjqmflrWRBZCIQZOD3631-28-45 11:40:00 Test Item Value Reference Range Interpretation Comments Hgb (test code = Hgb) 13.5 12.0-16.0 N [facility]aleKxbsahwLIQLPRKEXU3635-48-63 11:40:00 Test Item Value Reference Range Interpretation Comments RBC (test code = RBC) 4.38 4.20-5.40 N [facility]aleCcibjpcYMZBFUBPWA8596-89-90 11:40:00 Test Item Value Reference Range Interpretation Comments MCH (test code = MCH) 30.8 pg 27.0-31.0 N [facility]valeZzfibtdBGRQLIKXGA5171-84-78 11:40:00 Test Item Value Reference Range Interpretation Comments RDW (test code = RDW) 14.6 11.5-14.5 H [facility]aleAkhomezFZRHCTERQC4477-70-92 11:40:00 Test Item Value Reference Range Interpretation Comments MCHC (test code = MCHC) 33.4 32.0-36.0 N [facility]aleVjtizijQMSWPFIJIX1923-39-26 11:40:00 Test Item Value Reference Range Interpretation Comments Hct (test code = Hct) 40.3 36.0-48.0 N [facility]aleHdznjvxHIFYSCVZKA5730-24-86 11:40:00 Test Item Value Reference Range Interpretation Comments MCV (test code = MCV) 92.0 81.0-99.0 N [facility]aleDxqnnokIOZPQIRRWF6893-09-52 11:40:00 Test Item Value Reference Range Interpretation Comments MPV (test code = MPV) 8.2 7.4-10.4 N [facility] SurgeryIajpxfkAZPJAVKNKF6889-28-66 11:40:00 Test Item Value Reference Range Interpretation Comments Platelet (test code = Platelet) 258 133-450 N [facility] CenterMupejixEEGWTHKEL6760-25-04 11:40:00 Test Item Value Reference Range Interpretation Comments CHD Risk (test code = CHD Risk) 2.52 3.90-5.80 L [facility] CenterBdyhbntYFGHVPLTZ6495-76-88 11:40:00 Test Item Value Reference Range Interpretation Comments LDL (test code = LDL) 74 See_Comment N [Auto mated message] The system which ge nerated this result transmit ashley reference range : <=129. The reference range was not used to interpr et this result as roopa l/abnormal. [facility] CenterEnuygynACPFHJYSY7799-18-08 11:40:00 Test Item Value Reference Range Interpretation Comments Trig (test code = 115 See_Comment N [Automate d message] The Trig) system which ge nerated this result transmit ashley reference range : <=200. The reference range was not used to interpr et this result as roopa l/abnormal. [facility] CenterJxcezmcLDWJUCKLK8250-85-17 11:40:00 Test Item Value Reference Range Interpretation Comments HDL (test code = HDL) 64 N [facility] CenterBgbbwglGIABEDKDA3011-75-07 11:40:00 Test Item Value Reference Range Interpretation Comments Chol (test code = Chol) 161 120-200 N [facility] CenterRprtehnVTAXCLAIR5884-45-46 11:40:00 Test Item Value Reference Range Interpretation Comments eGFR (test code = eGFR) 69 [facility] CenterInpftsdQMIQQWTUC6244-81-32 11:40:00 Test Item Value Reference Range Interpretation Comments Chloride Lvl (test code = Chloride Lvl) 104 95-109 N [facility] CenterLgutxafGIEKIZQAK3235-37-16 11:40:00 Test Item Value Reference Range Interpretation Comments CO2 (test code = CO2) 27 24-32 N [facility] CenterCijzofgSYSVWZNIW9521-64-26 11:40:00 Test Item Value Reference Range Interpretation Comments Potassium Lvl (test code = Potassium 4.3 3.5-5.1 N Lvl) [facility] CenterNzpdsrqNHQZGANJQ2976-93-76 11:40:00 Test Item Value Reference Range Interpretation Comments Bili Total (test code = Bili Total) 0.3 0.2-1.3 N [facility] CenterBjonbwgZVVDOPSHA7648-42-99 11:40:00 Test Item Value Reference Range Interpretation Comments AST (test code = AST) 20 See_Comment N [Auto mated message] The system which ge nerated this result transmit ashley reference range : <=37. The reference range was not used to interpr et this result as roopa l/abnormal. [facility] CenterNdcoaavUCLXCOFSQ5807-19-42 11:40:00 Test Item Value Reference Range Interpretation Comments Total Protein (test code = Total 7.1 6.4-8.4 N Protein) [facility] CenterDsmubvtVNITDLEQC8481-78-52 11:40:00 Test Item Value Reference Range Interpretation Comments Calcium Lvl (test code = Calcium Lvl) 8.5 8.5-10.5 N [facility] CenterJefsetbEAIPECEVA2672-04-34 11:40:00 Test Item Value Reference Range Interpretation Comments Glucose Lvl (test code = Glucose Lvl) 113 70-99 H [facility] CenterWfplqruNATBMRBGY0479-65-91 11:40:00 Test Item Value Reference Range Interpretation Comments Alk Phos (test code = Alk Phos) 111 39-136 N [facility] CenterIdnbgfnCGOPMFBYA5044-48-84 11:40:00 Test Item Value Reference Range Interpretation Comments Sodium Lvl (test code = Sodium Lvl) 138 135-145 N [facility] CenterBqzvaeiIPJFVDUEO4811-29-70 11:40:00 Test Item Value Reference Range Interpretation Comments Creatinine Lvl (test code = Creatinine 0.9 0.5-1.4 N Lvl) [facility] CenterNfvvqljSBJPENNYH1297-16-61 11:40:00 Test Item Value Reference Range Interpretation Comments BUN (test code = BUN) 10 7-22 N [facility] CenterIktbxvsMNGIWQWZS7766-07-48 11:40:00 Test Item Value Reference Range Interpretation Comments Albumin Lvl (test code = Albumin Lvl) 3.4 3.5-5.0 L [facility] CenterYfenlphIFUYSTTGN3189-48-77 11:40:00 Test Item Value Reference Range Interpretation Comments ALT (test code = ALT) 18 See_Comment N [Auto mated message] The system which ge nerated this result transmit ashley reference range : <=65. The reference range was not used to interpr et this result as roopa l/abnormal. [facility] CenterYgbqtlgPICHVRIWS1375-66-74 11:40:00 Test Item Value Reference Range Interpretation Comments Globulin (test code = Globulin) 3.7 2.0-4.0 N [facility] CenterHbbcrbhUHTYUWILB7152-58-87 11:40:00 Test Item Value Reference Range Interpretation Comments AGAP (test code = AGAP) 11.3 10.0-20.0 N [facility] CenterEvxxemoETYAHPYIQ7627-24-35 11:40:00 Test Item Value Reference Range Interpretation Comments B/C Ratio (test code = B/C Ratio) 11 6-25 N [facility] CenterDoqrnmqDXVERZABP4907-43-76 11:40:00 Test Item Value Reference Range Interpretation Comments A/G Ratio (test code = A/G Ratio) 0.9 0.7-1.6 N [facility]aleJxabkbkMBBRCUTGSV7531-70-16 11:40:00 Test Item Value Reference Range Interpretation Comments Eosinophils # (test code 0.3 See_Comment N [A utomated message] The = Eosinophils #) system whic h generated this result tra nsmitted reference range : <=0.5. The reference r chang was not used to int erpret this result as normal/abnormal . [facility]aleHcyhnwzZJPVVZJQBX2521-50-90 11:40:00 Test Item Value Reference Range Interpretation Comments Lymphocytes # (test code = Lymphocytes 1.1 1.0-5.5 N #) [facility]aleOldgaksGFIHPWWFRO5662-03-02 11:40:00 Test Item Value Reference Range Interpretation Comments Monocytes # (test code 0.4 See_Comment N [Aut omated message] The = Monocytes #) system which generated this result tra nsmitted reference range : <=0.8. The reference r chang was not used to int erpret this result as normal/abnormal . [facility]valeLdpwywaMFNJMANMTI6521-30-93 11:40:00 Test Item Value Reference Range Interpretation Comments Basophils # (test code 0.1 See_Comment N [Aut omated message] The = Basophils #) system which generated this result tra nsmitted reference range : <=0.2. The reference r chang was not used to int erpret this result as normal/abnormal . [facility]aleSpndnxgZOOLRPPCOL0377-39-32 11:40:00 Test Item Value Reference Range Interpretation Comments Eosinophils (test code = 6.1 See_Comment H [A utomated message] The Eosinophils) system which ge nerated this result tra nsmitted reference range : <=4.0. The reference r chang was not used to int erpret this result as normal/abnormal . [facility]aleXxxmlcdTGFAKAFFOE8711-01-42 11:40:00 Test Item Value Reference Range Interpretation Comments Basophils (test code = 1.0 See_Comment N [Aut omated message] The Basophils) system which ge nerated this result tra nsmitted reference range : <=1.0. The reference r chang was not used to int erpret this result as normal/abnormal . [facility]aleWmahsyuPITDYZIWKX5048-22-33 11:40:00 Test Item Value Reference Range Interpretation Comments Segs-Bands # (test code = Segs-Bands #) 3.6 1.5-8.1 N [facility]aleTsgwrdhFLNLODOGOO7705-04-87 11:40:00 Test Item Value Reference Range Interpretation Comments Monocytes (test code = Monocytes) 6.4 2.0-12.0 N [facility]aleUcrysdgMWSUGIOMKR1163-41-24 11:40:00 Test Item Value Reference Range Interpretation Comments Segs (test code = Segs) 65.9 45.0-75.0 N [facility]valeZpiysmsXAILPHGEME4936-85-71 11:40:00 Test Item Value Reference Range Interpretation Comments Lymphocytes (test code = Lymphocytes) 20.6 20.0-40.0 N [facility]aleHfvlsnsRYRWDQDAZN4200-49-88 11:40:00 Test Item Value Reference Range Interpretation Comments WBC (test code = WBC) 5.5 3.7-10.4 N [facility]aleJayrilrZAISPKBUFW3871-07-55 11:40:00 Test Item Value Reference Range Interpretation Comments Hgb (test code = Hgb) 13.5 12.0-16.0 N [facility]aleJsgxyogRVPDSTMOQR7146-11-01 11:40:00 Test Item Value Reference Range Interpretation Comments RBC (test code = RBC) 4.38 4.20-5.40 N [facility]aleQvwoabcDIQQXHQJYF9303-09-51 11:40:00 Test Item Value Reference Range Interpretation Comments MCH (test code = MCH) 30.8 pg 27.0-31.0 N [facility]aleIhzxfktPELNLNVPGW2823-80-78 11:40:00 Test Item Value Reference Range Interpretation Comments RDW (test code = RDW) 14.6 11.5-14.5 H [facility]aleVlckufnOFYZGJURAY8529-09-87 11:40:00 Test Item Value Reference Range Interpretation Comments MCHC (test code = MCHC) 33.4 32.0-36.0 N [facility]aleFeorhghDMDPBZNSEW9636-14-71 11:40:00 Test Item Value Reference Range Interpretation Comments Hct (test code = Hct) 40.3 36.0-48.0 N [facility]aleJetrmnoYWNRTQHWSL3420-23-38 11:40:00 Test Item Value Reference Range Interpretation Comments MCV (test code = MCV) 92.0 81.0-99.0 N [facility]valeUixyajnKMCRQIUCEF7310-92-76 11:40:00 Test Item Value Reference Range Interpretation Comments MPV (test code = MPV) 8.2 7.4-10.4 N [facility]valeVuiaotmNUEGEDIBYT9591-35-87 11:40:00 Test Item Value Reference Range Interpretation Comments Platelet (test code = Platelet) 258 133-450 N [facility] CenterBccynjrZCXTXBKCT9344-43-74 11:40:00 Test Item Value Reference Range Interpretation Comments CHD Risk (test code = CHD Risk) 2.52 3.90-5.80 L [facility] CenterKsxqosdCRRRTEKVC0359-36-31 11:40:00 Test Item Value Reference Range Interpretation Comments LDL (test code = LDL) 74 <=129 N [facility] CenterGzinjtsVZYJZUTWK5699-09-05 11:40:00 Test Item Value Reference Range Interpretation Comments Trig (test code = Trig) 115 <=200 N [facility] CenterMyfgfawQSBZKIMKW2728-28-96 11:40:00 Test Item Value Reference Range Interpretation Comments HDL (test code = HDL) 64 N [facility] CenterStrftwrLHMEISREI1265-23-55 11:40:00 Test Item Value Reference Range Interpretation Comments Chol (test code = Chol) 161 120-200 N [facility] CenterJvnkbfgEAJMJFXEA0139-67-15 11:40:00 Test Item Value Reference Range Interpretation Comments eGFR (test code = eGFR) 69 [facility]WhoozxkPMVBTCOLF2982-57-19 11:40:00 Test Item Value Reference Range Interpretation Comments Chloride Lvl (test code = Chloride Lvl) 104 95-109 N [facility] CenterIksmbxpOMRDIJHKE1413-05-66 11:40:00 Test Item Value Reference Range Interpretation Comments CO2 (test code = CO2) 27 24-32 N [facility] CenterPmmvrupQXMLIPARS4453-79-26 11:40:00 Test Item Value Reference Range Interpretation Comments Potassium Lvl (test code = Potassium 4.3 3.5-5.1 N Lvl) [facility] CenterPefjqiwQVPRGJAUV3185-92-17 11:40:00 Test Item Value Reference Range Interpretation Comments Bili Total (test code = Bili Total) 0.3 0.2-1.3 N [facility] CenterQspednuPSRKVUXHP1209-38-78 11:40:00 Test Item Value Reference Range Interpretation Comments AST (test code = AST) 20 <=37 N [facility] CenterVdnliulUIDKXXJKJ2681-56-04 11:40:00 Test Item Value Reference Range Interpretation Comments Total Protein (test code = Total 7.1 6.4-8.4 N Protein) [facility] CenterTrkqbriDOKJDQVPN6992-57-70 11:40:00 Test Item Value Reference Range Interpretation Comments Calcium Lvl (test code = Calcium Lvl) 8.5 8.5-10.5 N [facility] CenterUqkzvraZGTBLISBL6430-00-62 11:40:00 Test Item Value Reference Range Interpretation Comments Glucose Lvl (test code = Glucose Lvl) 113 70-99 H [facility] CenterOcukhxkZMCCCDTOU1003-59-87 11:40:00 Test Item Value Reference Range Interpretation Comments Alk Phos (test code = Alk Phos) 111 39-136 N [facility] CenterQhhqylwRIGQQUOWF7576-05-98 11:40:00 Test Item Value Reference Range Interpretation Comments Sodium Lvl (test code = Sodium Lvl) 138 135-145 N [facility] CenterMqzklelPDZHGGYWM1651-12-48 11:40:00 Test Item Value Reference Range Interpretation Comments Creatinine Lvl (test code = Creatinine 0.9 0.5-1.4 N Lvl) [facility] CenterGdbwielYAZBIHDNO2369-82-55 11:40:00 Test Item Value Reference Range Interpretation Comments BUN (test code = BUN) 10 7-22 N [facility] CenterGxcshquWAWTYBCDB4012-65-86 11:40:00 Test Item Value Reference Range Interpretation Comments Albumin Lvl (test code = Albumin Lvl) 3.4 3.5-5.0 L [facility] CenterBqoixuhDRTFBIQWU9077-83-73 11:40:00 Test Item Value Reference Range Interpretation Comments ALT (test code = ALT) 18 <=65 N [facility] CenterXxhctefQMSVKECCJ1644-46-11 11:40:00 Test Item Value Reference Range Interpretation Comments Globulin (test code = Globulin) 3.7 2.0-4.0 N [facility] CenterAbbtttyOINWYVLGH5348-22-47 11:40:00 Test Item Value Reference Range Interpretation Comments AGAP (test code = AGAP) 11.3 10.0-20.0 N [facility] CenterDshczkuEJEJYAFQU2378-50-24 11:40:00 Test Item Value Reference Range Interpretation Comments B/C Ratio (test code = B/C Ratio) 11 6-25 N [facility] CenterFrczcplHHFHQQATS7696-96-79 11:40:00 Test Item Value Reference Range Interpretation Comments A/G Ratio (test code = A/G Ratio) 0.9 0.7-1.6 N [facility]aleSfqkfhhEOAMJKNVZW6059-54-67 11:40:00 Test Item Value Reference Range Interpretation Comments Eosinophils # (test code = Eosinophils 0.3 <=0.5 N #) [facility]alePyzsfshZBPXPFVBVT8720-81-21 11:40:00 Test Item Value Reference Range Interpretation Comments Lymphocytes # (test code = Lymphocytes 1.1 1.0-5.5 N #) [facility]valeVlvvpszIIGHOIJBTC4190-39-53 11:40:00 Test Item Value Reference Range Interpretation Comments Monocytes # (test code = Monocytes #) 0.4 <=0.8 N [facility]valeLkgauvmVUGVHETXBG8183-99-31 11:40:00 Test Item Value Reference Range Interpretation Comments Basophils # (test code = Basophils #) 0.1 <=0.2 N [facility]aleIipdzzgJQXEYHLNWA4966-17-07 11:40:00 Test Item Value Reference Range Interpretation Comments Eosinophils (test code = Eosinophils) 6.1 <=4.0 H [facility]valeLwygwedDOYHPMOPYL7334-17-47 11:40:00 Test Item Value Reference Range Interpretation Comments Basophils (test code = Basophils) 1.0 <=1.0 N [facility]valeSvxhppaBSNEEOWHAZ1140-09-34 11:40:00 Test Item Value Reference Range Interpretation Comments Segs-Bands # (test code = Segs-Bands #) 3.6 1.5-8.1 N [facility]aleOnfywqoWERZZEXWKJ8728-32-37 11:40:00 Test Item Value Reference Range Interpretation Comments Monocytes (test code = Monocytes) 6.4 2.0-12.0 N [facility]aleGwyceifUMEUGZZJLZ3473-51-50 11:40:00 Test Item Value Reference Range Interpretation Comments Segs (test code = Segs) 65.9 45.0-75.0 N [facility]valeZkwjhqlSROTQKQRXP9176-78-65 11:40:00 Test Item Value Reference Range Interpretation Comments Lymphocytes (test code = Lymphocytes) 20.6 20.0-40.0 N [facility] SunnyvaleLbeopnkESCVTXWLWH8297-47-27 11:40:00 Test Item Value Reference Range Interpretation Comments WBC (test code = WBC) 5.5 3.7-10.4 N [facility]valeRngufloOPNDKBACXQ3709-80-13 11:40:00 Test Item Value Reference Range Interpretation Comments Hgb (test code = Hgb) 13.5 12.0-16.0 N [facility]valeSipnnmiVVLYKTVJHU4832-49-71 11:40:00 Test Item Value Reference Range Interpretation Comments RBC (test code = RBC) 4.38 4.20-5.40 N [facility]valeDezhyruJZQREJTXOB5639-84-62 11:40:00 Test Item Value Reference Range Interpretation Comments MCH (test code = MCH) 30.8 pg 27.0-31.0 N [facility]valeAudizmyNCFVTTEDDX6829-00-50 11:40:00 Test Item Value Reference Range Interpretation Comments RDW (test code = RDW) 14.6 11.5-14.5 H [facility]valeKvszjkpUDRRSTSANK4446-44-68 11:40:00 Test Item Value Reference Range Interpretation Comments MCHC (test code = MCHC) 33.4 32.0-36.0 N [facility] SunnyvaleZqnltqqOQHMQNRIIV1439-49-65 11:40:00 Test Item Value Reference Range Interpretation Comments Hct (test code = Hct) 40.3 36.0-48.0 N [facility]aleAztpppeXDVNUPGGSB4319-80-84 11:40:00 Test Item Value Reference Range Interpretation Comments MCV (test code = MCV) 92.0 81.0-99.0 N [facility]valeLxvwfqwRGRSYUTRUT4131-40-51 11:40:00 Test Item Value Reference Range Interpretation Comments MPV (test code = MPV) 8.2 7.4-10.4 N [facility]valeCofaczlLEDPOPEFWO9988-29-85 11:40:00 Test Item Value Reference Range Interpretation Comments Platelet (test code = Platelet) 258 133-450 N [facility] TaylorErnguscLxgsnujrazek0238-23-09 06:31:00 Test Item Value Reference Range Interpretation Comments Culture: Urine (test code = Culture: Urine) [facility] SouthSbgqucfLburxhommcti1576-11-80 06:31:00 Test Item Value Reference Range Interpretation Comments Culture: Urine (test code = Culture: Urine) [facility] SouthTdbblmcFuhtngxjywme7678-93-10 06:31:00 Test Item Value Reference Range Interpretation Comments Culture: Urine (test code = Culture: Urine) [facility] SouthWiwfyooGxomnjxayoys4895-56-39 06:31:00 Test Item Value Reference Range Interpretation Comments Culture: Urine (test code = Culture: Urine) [facility]aleQcnibxbTZNPFPYJYM4629-95-98 04:40:00 Test Item Value Reference Range Interpretation Comments Lymphocytes # (test code = Lymphocytes 1.1 1.0-5.5 N #) [facility] SunnyvaleIgfjbccSHDUYTPNQX1377-76-11 04:40:00 Test Item Value Reference Range Interpretation Comments Monocytes # (test code 0.3 See_Comment N [Aut omated message] The = Monocytes #) system which generated this result tra nsmitted reference range : <=0.8. The reference r chang was not used to int erpret this result as normal/abnormal . [facility] SunnyvaleVdxxrxtSOSXOYHSCD0439-68-12 04:40:00 Test Item Value Reference Range Interpretation Comments Basophils # (test code 0.0 See_Comment N [Aut omated message] The = Basophils #) system which generated this result tra nsmitted reference range : <=0.2. The reference r chang was not used to int erpret this result as normal/abnormal . [facility]aleQqanqvqFDKSIMNVUX2126-45-43 04:40:00 Test Item Value Reference Range Interpretation Comments Eosinophils # (test code 0.3 See_Comment N [A utomated message] The = Eosinophils #) system whic h generated this result tra nsmitted reference range : <=0.5. The reference r chang was not used to int erpret this result as normal/abnormal . [facility] SunnyvaleLqljnbdETWLIKUHUI5357-11-60 04:40:00 Test Item Value Reference Range Interpretation Comments Segs-Bands # (test code = Segs-Bands #) 3.7 1.5-8.1 N [facility]valeEnpbmoaBLMRHUZDCE1244-84-53 04:40:00 Test Item Value Reference Range Interpretation Comments Basophils (test code = 0.7 See_Comment N [Aut omated message] The Basophils) system which ge nerated this result tra nsmitted reference range : <=1.0. The reference r chang was not used to int erpret this result as normal/abnormal . [facility] SunnyvaleCthkjpcNBSEFUBKAE0393-98-24 04:40:00 Test Item Value Reference Range Interpretation Comments Eosinophils (test code = 5.7 See_Comment H [A utomated message] The Eosinophils) system which ge nerated this result tra nsmitted reference range : <=4.0. The reference r chang was not used to int erpret this result as normal/abnormal . [facility]valeAdimhwqNKLTCRUSTT6533-18-26 04:40:00 Test Item Value Reference Range Interpretation Comments Monocytes (test code = Monocytes) 6.0 2.0-12.0 N [facility] SunnyvalePtbtigxJKPJJONJWQ1830-41-85 04:40:00 Test Item Value Reference Range Interpretation Comments Lymphocytes (test code = Lymphocytes) 21.2 20.0-40.0 N [facility] SunnyvaleVixhcvnTMILYENSMZ7061-73-60 04:40:00 Test Item Value Reference Range Interpretation Comments Segs (test code = Segs) 66.4 45.0-75.0 N [facility] SunnyvaleAatngyiQWKEGWHHJQ0813-31-65 04:40:00 Test Item Value Reference Range Interpretation Comments PT (test code = PT) 13.4 s 12.0-14.7 N [facility]valeVxmfblwVSQZEIQVJJ9108-26-69 04:40:00 Test Item Value Reference Range Interpretation Comments PTT (test code = PTT) 35.7 s 22.9-35.8 N [facility] SunnyvaleNuwpgdjBAAFEPANUC3320-95-62 04:40:00 Test Item Value Reference Range Interpretation Comments INR (test code = INR) 1.00 0.85-1.17 N [facility]valeHguawsnTOXKLFTZUG9556-02-74 04:40:00 Test Item Value Reference Range Interpretation Comments Platelet (test code = Platelet) 292 133-450 N [facility] SunnyvaleGatzhfpSUUSUUNOEB2078-36-77 04:40:00 Test Item Value Reference Range Interpretation Comments RDW (test code = RDW) 13.6 11.5-14.5 N [facility]valeVzmiomnWJDTZJYZHW7461-67-43 04:40:00 Test Item Value Reference Range Interpretation Comments MCHC (test code = MCHC) 33.5 32.0-36.0 N [facility] SunnyvaleQbexntsKIUINZHEAS8032-94-13 04:40:00 Test Item Value Reference Range Interpretation Comments MCH (test code = MCH) 30.5 pg 27.0-31.0 N [facility] SunnyvaleIvqfsbrKNSTTPRELF6504-86-88 04:40:00 Test Item Value Reference Range Interpretation Comments RBC (test code = RBC) 4.45 4.20-5.40 N [facility] SunnyvaleBagiieqFYCPDREWFJ4654-94-08 04:40:00 Test Item Value Reference Range Interpretation Comments WBC (test code = WBC) 5.4 3.7-10.4 N [facility] SunnyvaleGvniayrIANBJOSJKL9570-81-07 04:40:00 Test Item Value Reference Range Interpretation Comments MPV (test code = MPV) 8.3 7.4-10.4 N [facility] SunnyvaleNnxxcboYFJKZANJTM9594-83-10 04:40:00 Test Item Value Reference Range Interpretation Comments MCV (test code = MCV) 91.0 81.0-99.0 N [facility] SunnyvaleLwehadsUVTMXEBTGH5857-52-20 04:40:00 Test Item Value Reference Range Interpretation Comments Hct (test code = Hct) 40.5 36.0-48.0 N [facility]valeHgrsmsnXQUHFWAMTB4467-76-08 04:40:00 Test Item Value Reference Range Interpretation Comments Hgb (test code = Hgb) 13.6 12.0-16.0 N [facility]valeSpyzcckPKCUYEUSXK4616-13-70 04:40:00 Test Item Value Reference Range Interpretation Comments Lymphocytes # (test code = Lymphocytes 1.1 1.0-5.5 N #) [facility]valePkdcgcaOUVXZALTLQ9306-20-62 04:40:00 Test Item Value Reference Range Interpretation Comments Monocytes # (test code 0.3 See_Comment N [Aut omated message] The = Monocytes #) system which generated this result tra nsmitted reference range : <=0.8. The reference r chang was not used to int erpret this result as normal/abnormal . [facility] SunnyvaleYuhxuptBJMXOOINKU1545-18-31 04:40:00 Test Item Value Reference Range Interpretation Comments Basophils # (test code 0.0 See_Comment N [Aut omated message] The = Basophils #) system which generated this result tra nsmitted reference range : <=0.2. The reference r chang was not used to int erpret this result as normal/abnormal . [facility]valeWigjtddLGDGDOUBBS2933-14-44 04:40:00 Test Item Value Reference Range Interpretation Comments Eosinophils # (test code 0.3 See_Comment N [A utomated message] The = Eosinophils #) system whic h generated this result tra nsmitted reference range : <=0.5. The reference r chang was not used to int erpret this result as normal/abnormal . [facility] SunnyvaleXhkhmbgNYCFSGWFEY6434-48-89 04:40:00 Test Item Value Reference Range Interpretation Comments Segs-Bands # (test code = Segs-Bands #) 3.7 1.5-8.1 N [facility]valeChjgpsvHOECATIARE2956-22-10 04:40:00 Test Item Value Reference Range Interpretation Comments Basophils (test code = 0.7 See_Comment N [Aut omated message] The Basophils) system which ge nerated this result tra nsmitted reference range : <=1.0. The reference r chang was not used to int erpret this result as normal/abnormal . [facility]valeEbsiskzNZOFDCYJIA9676-55-66 04:40:00 Test Item Value Reference Range Interpretation Comments Eosinophils (test code = 5.7 See_Comment H [A utomated message] The Eosinophils) system which ge nerated this result tra nsmitted reference range : <=4.0. The reference r chang was not used to int erpret this result as normal/abnormal . [facility]valeJoimalhNCATQCTWNL9879-85-50 04:40:00 Test Item Value Reference Range Interpretation Comments Monocytes (test code = Monocytes) 6.0 2.0-12.0 N [facility]valeHdtuilfFHCBNUQSBP5347-96-79 04:40:00 Test Item Value Reference Range Interpretation Comments Lymphocytes (test code = Lymphocytes) 21.2 20.0-40.0 N [facility]valeSmeucwpHYPHYODAVG3459-27-81 04:40:00 Test Item Value Reference Range Interpretation Comments Segs (test code = Segs) 66.4 45.0-75.0 N [facility]valeKezxpolBIIFCLAFVM7170-33-91 04:40:00 Test Item Value Reference Range Interpretation Comments PT (test code = PT) 13.4 s 12.0-14.7 N [facility]valeCukerqpMXPSOTSGMN0705-24-18 04:40:00 Test Item Value Reference Range Interpretation Comments PTT (test code = PTT) 35.7 s 22.9-35.8 N [place] 923083-03-08 04:40:00 Test Item Value Reference Range Interpretation Comments INR (test code = INR) 1.00 0.85-1.17 N [facility]aleJamnjgmJDZWJNMJSR3355-05-08 04:40:00 Test Item Value Reference Range Interpretation Comments Platelet (test code = Platelet) 292 133-450 N [facility]valeAtwkkskUFAUYTNLJB6622-59-76 04:40:00 Test Item Value Reference Range Interpretation Comments RDW (test code = RDW) 13.6 11.5-14.5 N [facility] SunnyvaleLuqtmoqLIGYRPFJQZ6371-41-17 04:40:00 Test Item Value Reference Range Interpretation Comments MCHC (test code = MCHC) 33.5 32.0-36.0 N [facility] SunnyvaleZoxcgknGNUDFWUTLJ5672-03-89 04:40:00 Test Item Value Reference Range Interpretation Comments MCH (test code = MCH) 30.5 pg 27.0-31.0 N [facility]valeTyjbwsoTCQRPWOJCT6053-69-03 04:40:00 Test Item Value Reference Range Interpretation Comments RBC (test code = RBC) 4.45 4.20-5.40 N [facility] SunnyvaleJzqltcbVMUMFCEMZK4012-79-90 04:40:00 Test Item Value Reference Range Interpretation Comments WBC (test code = WBC) 5.4 3.7-10.4 N [facility]valeGoenpdeSFTSMQAZBR6716-91-27 04:40:00 Test Item Value Reference Range Interpretation Comments MPV (test code = MPV) 8.3 7.4-10.4 N [facility] SunnyvaleNlbkociXGVZOGJZTR7430-88-12 04:40:00 Test Item Value Reference Range Interpretation Comments MCV (test code = MCV) 91.0 81.0-99.0 N [facility] SunnyvaleImlylchMIBXODCECW3126-81-92 04:40:00 Test Item Value Reference Range Interpretation Comments Hct (test code = Hct) 40.5 36.0-48.0 N [facility]valeSrlmvxvBQSGUVFXBG8106-28-56 04:40:00 Test Item Value Reference Range Interpretation Comments Hgb (test code = Hgb) 13.6 12.0-16.0 N [facility] SunnyvaleDfifdoaCFINCFRUYS2835-97-46 04:40:00 Test Item Value Reference Range Interpretation Comments Lymphocytes # (test code = Lymphocytes 1.1 1.0-5.5 N #) [facility] SunnyvaleXkdawquMIMVYGGITS8111-21-51 04:40:00 Test Item Value Reference Range Interpretation Comments Monocytes # (test code 0.3 See_Comment N [Aut omated message] The = Monocytes #) system which generated this result tra nsmitted reference range : <=0.8. The reference r chang was not used to int erpret this result as normal/abnormal . [facility] SunnyvaleUxyvynxESEWEMDFDB7234-85-53 04:40:00 Test Item Value Reference Range Interpretation Comments Basophils # (test code 0.0 See_Comment N [Aut omated message] The = Basophils #) system which generated this result tra nsmitted reference range : <=0.2. The reference r chang was not used to int erpret this result as normal/abnormal . [facility]valeYnpmcbbPHXYYYPLHW5367-62-24 04:40:00 Test Item Value Reference Range Interpretation Comments Eosinophils # (test code 0.3 See_Comment N [A utomated message] The = Eosinophils #) system whic h generated this result tra nsmitted reference range : <=0.5. The reference r chang was not used to int erpret this result as normal/abnormal . [facility]valeQgcxkpoGAALGQSRQE4270-67-79 04:40:00 Test Item Value Reference Range Interpretation Comments Segs-Bands # (test code = Segs-Bands #) 3.7 1.5-8.1 N [facility]valeThjuescTALBHRTEHC8774-15-15 04:40:00 Test Item Value Reference Range Interpretation Comments Basophils (test code = 0.7 See_Comment N [Aut omated message] The Basophils) system which ge nerated this result tra nsmitted reference range : <=1.0. The reference r chang was not used to int erpret this result as normal/abnormal . [facility]valeFwhbejtYEABCLSQEL3529-16-17 04:40:00 Test Item Value Reference Range Interpretation Comments Eosinophils (test code = 5.7 See_Comment H [A utomated message] The Eosinophils) system which ge nerated this result tra nsmitted reference range : <=4.0. The reference r chang was not used to int erpret this result as normal/abnormal . [facility]valeYwfqbfbLOGSOENVRX2450-55-23 04:40:00 Test Item Value Reference Range Interpretation Comments Monocytes (test code = Monocytes) 6.0 2.0-12.0 N [facility] SunnyvaleLqpfdrhMUNRPYBNGG3936-18-40 04:40:00 Test Item Value Reference Range Interpretation Comments Lymphocytes (test code = Lymphocytes) 21.2 20.0-40.0 N [facility]valeYbusnjtCRQNPDSRTU2474-27-26 04:40:00 Test Item Value Reference Range Interpretation Comments Segs (test code = Segs) 66.4 45.0-75.0 N [facility]valeYllwmrxZVOGCVZOQR1592-00-02 04:40:00 Test Item Value Reference Range Interpretation Comments PT (test code = PT) 13.4 s 12.0-14.7 N [place] 923083-03-08 04:40:00 Test Item Value Reference Range Interpretation Comments PTT (test code = PTT) 35.7 s 22.9-35.8 N [facility] SunnyvaleMcnlvnrNEXHQMDNRQ9285-89-68 04:40:00 Test Item Value Reference Range Interpretation Comments INR (test code = INR) 1.00 0.85-1.17 N [facility] SunnyvaleHlmrrblUSWANYVZZA1761-10-27 04:40:00 Test Item Value Reference Range Interpretation Comments Platelet (test code = Platelet) 292 133-450 N [facility] SunnyvaleMteinuhGGLROYVFZC6521-90-82 04:40:00 Test Item Value Reference Range Interpretation Comments RDW (test code = RDW) 13.6 11.5-14.5 N [facility] SunnyvaleMuyttnjVVZKYCXTNR2436-74-98 04:40:00 Test Item Value Reference Range Interpretation Comments MCHC (test code = MCHC) 33.5 32.0-36.0 N [facility] SunnyvaleMwqokucVIDSLVVAHH5162-87-42 04:40:00 Test Item Value Reference Range Interpretation Comments MCH (test code = MCH) 30.5 pg 27.0-31.0 N [facility] SunnyvaleRhxcoimHVKYXTYFBK2685-51-99 04:40:00 Test Item Value Reference Range Interpretation Comments RBC (test code = RBC) 4.45 4.20-5.40 N [facility] SunnyvaleHilgowuXBSRWIFFCJ1877-21-90 04:40:00 Test Item Value Reference Range Interpretation Comments WBC (test code = WBC) 5.4 3.7-10.4 N [facility] SunnyvaleIibogwmHGRIKZWEZM2231-76-11 04:40:00 Test Item Value Reference Range Interpretation Comments MPV (test code = MPV) 8.3 7.4-10.4 N [place] 923083-03-08 04:40:00 Test Item Value Reference Range Interpretation Comments MCV (test code = MCV) 91.0 81.0-99.0 N [facility] SunnyvaleUjhnairWHVDEBUNAH4410-78-69 04:40:00 Test Item Value Reference Range Interpretation Comments Hct (test code = Hct) 40.5 36.0-48.0 N [facility] SunnyvaleWfiurjjYPKIOGMZEN1297-59-26 04:40:00 Test Item Value Reference Range Interpretation Comments Hgb (test code = Hgb) 13.6 12.0-16.0 N [facility] SunnyvaleLfwthmnGHBNAQPIML8137-04-85 04:40:00 Test Item Value Reference Range Interpretation Comments Lymphocytes # (test code = Lymphocytes 1.1 1.0-5.5 N #) [facility] SunnyvaleDcnklfdUUUJHNOLZH4114-60-08 04:40:00 Test Item Value Reference Range Interpretation Comments Monocytes # (test code = Monocytes #) 0.3 <=0.8 N [place] [address]-03-08 04:40:00 Test Item Value Reference Range Interpretation Comments Basophils # (test code = Basophils #) 0.0 <=0.2 N [place] 923083-03-08 04:40:00 Test Item Value Reference Range Interpretation Comments Eosinophils # (test code = Eosinophils 0.3 <=0.5 N #) [facility] SunnyvaleHjhskgeVUFACHTDIJ5317-29-55 04:40:00 Test Item Value Reference Range Interpretation Comments Segs-Bands # (test code = Segs-Bands #) 3.7 1.5-8.1 N [facility]valeRamkqmzWRWRYHXZRX2647-08-64 04:40:00 Test Item Value Reference Range Interpretation Comments Basophils (test code = Basophils) 0.7 <=1.0 N [place] [id number] 04:40:00 Test Item Value Reference Range Interpretation Comments Eosinophils (test code = Eosinophils) 5.7 <=4.0 H [id number] 04:40:00 Test Item Value Reference Range Interpretation Comments Monocytes (test code = Monocytes) 6.0 2.0-12.0 N [id number] 04:40:00 Test Item Value Reference Range Interpretation Comments Lymphocytes (test code = Lymphocytes) 21.2 20.0-40.0 N [place] [id number] 04:40:00 Test Item Value Reference Range Interpretation Comments Segs (test code = Segs) 66.4 45.0-75.0 N [id number] 04:40:00 Test Item Value Reference Range Interpretation Comments PT (test code = PT) 13.4 s 12.0-14.7 N [id number] 04:40:00 Test Item Value Reference Range Interpretation Comments PTT (test code = PTT) 35.7 s 22.9-35.8 N [id number] 04:40:00 Test Item Value Reference Range Interpretation Comments INR (test code = INR) 1.00 0.85-1.17 N [id number] 04:40:00 Test Item Value Reference Range Interpretation Comments Platelet (test code = Platelet) 292 133-450 N [id number] 04:40:00 Test Item Value Reference Range Interpretation Comments RDW (test code = RDW) 13.6 11.5-14.5 N [id number] 04:40:00 Test Item Value Reference Range Interpretation Comments MCHC (test code = MCHC) 33.5 32.0-36.0 N [id number] 04:40:00 Test Item Value Reference Range Interpretation Comments MCH (test code = MCH) 30.5 pg 27.0-31.0 N [id number] 04:40:00 Test Item Value Reference Range Interpretation Comments RBC (test code = RBC) 4.45 4.20-5.40 N [id number] 04:40:00 Test Item Value Reference Range Interpretation Comments WBC (test code = WBC) 5.4 3.7-10.4 N [id number] 04:40:00 Test Item Value Reference Range Interpretation Comments MPV (test code = MPV) 8.3 7.4-10.4 N [id number] 04:40:00 Test Item Value Reference Range Interpretation Comments MCV (test code = MCV) 91.0 81.0-99.0 N [id number] 04:40:00 Test Item Value Reference Range Interpretation Comments Hct (test code = Hct) 40.5 36.0-48.0 N [facility] [id number] 04:40:00 Test Item Value Reference Range Interpretation Comments Hgb (test code = Hgb) 13.6 12.0-16.0 N [facility]
[2023-07-24 14:53] LABS: Lymphocytes % 17.7 % (15.3-44.8); MCV 94.1 fL (80-100); MPV 7.8 fL (7.6-11.3); Platelets 263 thou/uL (152-406); RBC Red Blood Cell Count 4.26 M/uL (3.86-4.86)
--- NOTE | 2023-07-24 14:54 | RAD REPORT ---
EXAM DESCRIPTION: RADChest Single View07/24/2023 2:46 pm CLINICAL HISTORY: CHEST PAIN COMPARISON: Chest Pa And Lat (2 Views) dated 03/26/2022; Chest Single View dated 08/26/2020; Chest Si ngle View dated 12/11/2019; Chest Pa And Lat (2 Views) dated 06/02/2018 TECHNIQUE: Portable AP view of the chest. FINDINGS: The lungs are clear. No pneumothorax or effusion. The cardiomediastinal contours are unre markable. IMPRESSION: No acute cardiopulmonary process.
[2023-07-24] MEDS ORDERED: NITROGLYCERIN 0.4 MG/TAB SL ONE (14:56)
[2023-07-24 15:16] LABS: ALT/SGPT 17 U/L (13-56); AST/SGOT 15 U/L (15-37); Albumin 3.4 g/dL (3.4-5.0); Alkaline Phosphatase 100 U/L (45-117); BUN Blood Urea Nitrogen 21 mg/dL (7-18); Bicarbonate 26 mEq/L (21-32); Bilirubin Total 0.3 mg/dL (0.2-1.0); Glomerular Filtration Rate 53 ml/min (=/>90); Glucose Level 190 mg/dL (74-106); Magnesium 2.4 mg/dL (1.6-2.4); NT PRO-BNP 125 pg/mL (<125); Potassium 4.3 mEq/L (3.5-5.1); Protein, Total 7.2 g/dL (6.4-8.2); Sodium Level 135 mEq/L (136-145); Troponin High Sensitivity 6.1 pg/mL (<58.9)
[2023-07-24 15:17] LABS: Bilirubin Direct < 0.1 mg/dL (0-0.2); Bilirubin Indirect, Calculated ND mg/dL (0.2-0.8)
--- NOTE | 2023-07-24 15:23 | EDPHYS ---
Physician Documentation [facility] Name: Kerry Early Age: 73 yrs Sex: Female : 1950 Arrival Date: 07/24/2023 Time: 14:01 Bed 18 Private MD: ED Physician Dwight Belcher HPI: 07/24 14:22 This 73 yrs old Female presents to ER via Ambulatory with complaints of sp3 Abnormal Lab Results, Sent by Dr. Elliott. 14:22 74-year-old female with a history of cardiac disease, COPD, diabetes, hypertension, sp3 lupus, prior brain aneurysm presents to the ED referred by Dr. Elliott for abnormal stress test. Patient is having 2 out of 10 chest pain currently with no other symptoms. Patient denies headache, fever, URI symptoms, shortness of breath, back pain, abdominal pain, nausea, vomiting, diarrhea, syncope, near syncope, rash, travel history, known sick contacts, or any other signs or symptoms on ROS at this time.. Historical: - Allergies: 14:09 Darvocet-N 100; mb9 14:09 Iodine; mb9 14:09 Naproxen; mb9 14:09 Terazosin; mb9 14:09 tramadol; mb9 - PMHx: 14:09 brain aneurysm; COPD; Diabetes - NIDDM; GERD; Hypertension; Lupus; Seizures; mb9 - PSHx: 14:09 Cholecystectomy; Tonsillectomy; Total abdominal hysterectomy; mb9 - Immunization history:: Adult Immunizations up to date. - Social history:: Smoking status: Patient denies any tobacco usage or history of. ROS: 14:23 Constitutional: Negative for fever, chills, and weight loss, Eyes: Negative for injury, sp3 pain, redness, and discharge, ENT: Negative for injury, pain, and discharge, Neck: Negative for injury, pain, and swelling, Respiratory: Negative for shortness of breath, cough, wheezing, and pleuritic chest pain, Abdomen/GI: Negative for abdominal pain, nausea, vomiting, diarrhea, and constipation, Back: Negative for injury and pain, MS/Extremity: Negative for injury and deformity, Skin: Negative for injury, rash, and discoloration, Neuro: Negative for headache, weakness, numbness, tingling, and seizure, Psych: Negative for depression, anxiety, suicide ideation, homicidal ideation, and hallucinations, Allergy/Immunology: Negative for hives, rash, and allergies, Endocrine: Negative for neck swelling, polydipsia, polyuria, polyphagia, and marked weight changes, Hematologic/Lymphatic: Negative for swollen nodes, abnormal bleeding, and unusual bruising, 14:23 All other systems are negative, Exam: 14:23 Constitutional: This is a well developed, well nourished patient who is awake, alert, sp3 and in no acute distress. Head/Face: Normocephalic, atraumatic. Eyes: Pupils equal round and reactive to light, extra-ocular motions intact. Lids and lashes normal. Conjunctiva and sclera are non-icteric and not injected. Cornea within normal limits. Periorbital areas with no swelling, redness, or edema. Neck: Trachea midline, no thyromegaly or masses palpated, and no cervical lymphadenopathy. Supple, full range of motion without nuchal rigidity, or vertebral point tenderness. No Meningismus. Chest/axilla: Normal chest wall appearance and motion. Nontender with no deformity. No lesions are appreciated. Respiratory: Lungs have equal breath sounds bilaterally, clear to auscultation and percussion. No rales, rhonchi or wheezes noted. No increased work of breathing, no retractions or nasal flaring. Abdomen/GI: Soft, non-tender, with normal bowel sounds. No distension or tympany. No guarding or rebound. No evidence of tenderness throughout. Back: No spinal tenderness. No costovertebral tenderness. Full range of motion. Skin: Warm, dry with normal turgor. Normal color with no rashes, no lesions, and no evidence of cellulitis. MS/ Extremity: Pulses equal, no cyanosis. Neurovascular intact. Full, normal range of motion. Neuro: Awake and alert, GCS 15, oriented to person, place, time, and situation. Cranial nerves II-XII grossly intact. Motor strength 5/5 in all extremities. Sensory grossly intact. Cerebellar exam normal. Normal gait. Psych: Awake, alert, with orientation to person, place and time. Behavior, mood, and affect are within normal limits. 14:23 Cardiovascular: Regular rate and rhythm with a normal S1 and S2. No gallops, murmurs, or rubs. Normal PMI, no JVD. No pulse deficits. 14:58 ECG was reviewed by the Attending Physician. EKG demonstrates normal sinus rhythm at 80 sp3 bpm with normal intervals, normal QRS, normal axis, nonspecific diffuse ST/T changes without evidence of acute ischemia. Vital Signs: 14:08 BP 127 / 84; Pulse 92; Resp 18; Temp 98.2; Pulse Ox 97% on R/A; Weight 74.84 kg; Height mb9 5 ft. 2 in. ; 15:00 BP 125 / 70; Pulse 81; Resp 16; Pulse Ox 96% on R/A; db 16:00 BP 142 / 67; Pulse 74; Resp 16; Pulse Ox 98% on R/A; db 17:00 BP 126 / 94; Pulse 72; Resp 16; Pulse Ox 99% on R/A; db 18:00 BP 141 / 70; Pulse 80; Resp 16; Pulse Ox 98% on R/A; db 18:30 BP 140 / 51; Pulse 72; Resp 16; Pulse Ox 97% on R/A; db 19:30 BP 150 / 64; Pulse 70; Resp 17; Pulse Ox 99% ; jj7 14:08 Body Mass Index 30.18 (74.84 kg, 157.48 cm) mb9 MDM: 14:05 Patient medically screened. sp3 14:24 Data reviewed: vital signs, nurses notes, lab test result(s), EKG, radiologic studies. sp3 ED course: 73-year-old female with extensive past medical history who failed outpatient stress test now here for mild chest pain. We will assess with laboratory values, EKG, chest x-ray. If troponin is negative we will admit patient for routine admission and if positive Dr. Elliott has asked for a call for stepped up intervention with probable catheterization. Patient will be admitted regardless.. 07/24 14:05 Order name: Basic Metabolic Panel; Complete Time: 15:21 sp3 07/24 14:05 Order name: CBC with Diff; Complete Time: 15:21 sp3 07/24 14:05 Order name: LFT's; Complete Time: 15:21 sp3 07/24 14:05 Order name: Magnesium; Complete Time: 15:21 sp3 07/24 14:05 Order name: NT PRO-BNP; Complete Time: 15:21 sp3 07/24 14:05 Order name: PT-INR; Complete Time: 15:21 sp3 07/24 14:05 Order name: Troponin HS; Complete Time: 15:21 sp3 07/24 16:32 Order name: T4 Free EDMS 07/24 16:32 Order name: Thyroid Stimulating Hormone EDMS 07/24 16:32 Order name: Basic Metabolic Panel EDMS 07/24 16:32 Order name: Basic Metabolic Panel EDMS 07/24 16:32 Order name: CBC with Automated Diff EDMS 07/24 16:32 Order name: CBC with Automated Diff EDMS 07/24 16:32 Order name: Lipid Profile EDMS 07/24 16:32 Order name: Lipid Profile EDMS 07/24 16:32 Order name: Magnesium EDMS 07/24 16:32 Order name: Magnesium EDMS 07/24 16:32 Order name: Phosphorus EDMS 07/24 16:32 Order name: Phosphorus EDMS 07/24 16:32 Order name: Troponin High Sensitivity EDMS 07/24 16:33 Order name: Troponin High Sensitivity EDMS 07/24 16:33 Order name: Troponin High Sensitivity EDMS 07/24 14:05 Order name: XRAY Chest (1 view); Complete Time: 14:58 sp3 07/24 15:26 Order name: CL CARDIAC CATH - REQUEST EDMS 07/24 14:05 Order name: EKG; Complete Time: 14:06 sp3 07/24 14:05 Order name: Cardiac monitoring; Complete Time: 14:39 sp3 07/24 14:05 Order name: EKG - Nurse/Tech; Complete Time: 14:39 sp3 07/24 14:05 Order name: IV Saline Lock; Complete Time: 14:39 sp3 07/24 14:05 Order name: Labs collected and sent; Complete Time: 14:39 sp3 07/24 14:05 Order name: O2 Per Protocol; Complete Time: 14:39 sp3 07/24 14:05 Order name: O2 Sat Monitoring; Complete Time: 14:39 sp3 Administered Medications: 14:44 Drug: Nitroglycerin Sublingual 0.4 mg Sublingual once Route: Sublingual; db 16:23 Drug: Acetaminophen PO 650 mg PO once Route: PO; db Disposition Summary: 07/24/23 15:22 Hospitalization Ordered Notes: Hospitalization Status: Inpatient Admission sp3 Provider: Masha Blake sp3 Location: Telemetry/MedSurg (Inpatient) sp3 Condition: Stable sp3 Problem: an acute exacerbation sp3 Symptoms: have worsened sp3 Bed/Room Type: Standard sp3 Room Assignment: 411(07/24/23 18:12) bd Diagnosis - Failed outpatient stress test, chest pain sp3 Forms: - Medication Reconciliation Form sp3 - SBAR form sp3 - Leadership Thank You Letter sp3 Signatures: Dispatcher [employer] EDMS Manasa Chairez Setul, MD MD sp3 Kirsten Vegas RN RN db Celestina Navas RN RN mb9 Corrections: (The following items were deleted from the chart) 18:12 15:22 sp3 bd
--- NOTE | 2023-07-24 15:23 | ER ---
Nurse's Notes [facility] Name: Kerry Early Age: 73 yrs Sex: Female : 1950 Arrival Date: 07/24/2023 Time: 14:01 Bed 18 Private MD: Diagnosis: Failed outpatient stress test, chest pain Presentation: 07/24 14:08 Chief complaint: Patient states: "I went to have a stress test done at Dr. Elliott 9 office. It was irregular and Dr. Elliott told me to come here. I feel like I have pressure in my chest". Coronavirus screen: Vaccine status: Patient reports receiving the 2nd dose of the covid vaccine. Ebola Screen: No symptoms or risks identified at this time. Initial Sepsis Screen: Does the patient meet any 2 criteria? No. Patient's initial sepsis screen is negative. Does the patient have a suspected source of infection? No. Patient's initial sepsis screen is negative. Risk Assessment: Do you want to hurt yourself or someone else? Patient reports no desire to harm self or others. Onset of symptoms was July 24, 2023. 14:08 Method Of Arrival: Ambulatory 9 14:08 Acuity: CLAUDIA 3 mb9 Triage Assessment: 14:10 General: Appears in no apparent distress. Behavior is calm, cooperative. Pain: mb9 Complains of pain in chest Pain currently is 2 out of 10 on a pain scale. Quality of pain is described as pressure, Pain began suddenly, Is continuous. Neuro: Cherry Agitation-Sedation Scale (RASS): 0 - Alert and Calm Level of Consciousness is awake, alert, obeys commands, Oriented to person, place, time, situation, Appropriate for age. Cardiovascular: Reports chest pain. Respiratory: Airway is patent Respiratory effort is even, unlabored, Respiratory pattern is regular, symmetrical. GI: Reports nausea. Derm: Skin is pink, warm \\T\\ dry. Historical: - Allergies: 14:09 Darvocet-N 100; mb9 14:09 Iodine; mb9 14:09 Naproxen; mb9 14:09 Terazosin; mb9 14:09 tramadol; mb9 - PMHx: 14:09 brain aneurysm; COPD; Diabetes - NIDDM; GERD; Hypertension; Lupus; Seizures; mb9 - PSHx: 14:09 Cholecystectomy; Tonsillectomy; Total abdominal hysterectomy; mb9 - Immunization history:: Adult Immunizations up to date. - Social history:: Smoking status: Patient denies any tobacco usage or history of. Screenin:[facility] ED Fall Risk Assessment (Adult) History of falling in the last 3 months, db including since admission Yes- single mechanical fall (1 pt) Confusion or Disorientation No (0 pts) Intoxicated or Sedated No (0 pts) Impaired Gait No (0 pts) Mobility Assist Device Used No (0 pt) Altered Elimination No (0 pt) Score/Fall Risk Level 0 - 2 = Low Risk Oriented to surroundings, Maintained a safe environment. Abuse screen: Denies threats or abuse. Denies injuries from another. Nutritional screening: No deficits noted. Tuberculosis screening: No symptoms or risk factors identified. Assessment: 16:18 Reassessment: Patient appears in no apparent distress at this time. Patient and/or db family updated on plan of care and expected duration. Pain level reassessed. Patient is alert, oriented x 3, equal unlabored respirations, skin warm/dry/pink. PT COMPLAINS OF HEADACHE 5/10 AFTER NITROGLYCERIN SBL. General: Appears. Neuro: Level of Consciousness is awake, alert, obeys commands, Oriented to person, place, time, situation. Respiratory: Airway is patent Respiratory effort is even, unlabored, Respiratory pattern is regular, symmetrical. 17:30 Reassessment: Patient appears in no apparent distress at this time. Patient and/or db family updated on plan of care and expected duration. Pain level reassessed. Patient is alert, oriented x 3, equal unlabored respirations, skin warm/dry/pink. 18:27 Reassessment: ATTEMPTED TO CALL REPORT FOR PT GOING TO 411. FLOOR STATES NURSE WILL NOT db ARRIVE TILL NEXT SHIFT AND WILL TAKE REPORT THEN. 18:30 Reassessment: Patient appears in no apparent distress at this time. Patient and/or db family updated on plan of care and expected duration. Pain level reassessed. Patient is alert, oriented x 3, equal unlabored respirations, skin warm/dry/pink. 19:07 Reassessment: Patient and/or family updated on plan of care and expected duration. Pain jj7 level reassessed. ASSUMED CARE OF PT. PT SLEEPING IN BED. NO DISTRESS NOTED. VS STABLE. CALL VERGARA IN REACH.EASILY AROUSED TO VERBAL STIMULI. 19:27 Reassessment: ATTEMPTED REPORT TO M/S. NURSE STATES TO CALL BACK IN 3-5 MINUTES. [facility] Vital Signs: 14:08 BP 127 / 84; Pulse 92; Resp 18; Temp 98.2; Pulse Ox 97% on R/A; Weight 74.84 kg; Height mb9 5 ft. 2 in. ; 15:00 BP 125 / 70; Pulse 81; Resp 16; Pulse Ox 96% on R/A; db 16:00 BP 142 / 67; Pulse 74; Resp 16; Pulse Ox 98% on R/A; db 17:00 BP 126 / 94; Pulse 72; Resp 16; Pulse Ox 99% on R/A; db 18:00 BP 141 / 70; Pulse 80; Resp 16; Pulse Ox 98% on R/A; db 18:30 BP 140 / 51; Pulse 72; Resp 16; Pulse Ox 97% on R/A; db 19:30 BP 150 / 64; Pulse 70; Resp 17; Pulse Ox 99% ; jj7 14:08 Body Mass Index 30.18 (74.84 kg, 157.48 cm) mb9 ED Course: 14:04 Patient arrived in ED. im 14:04 Dwight Belcher MD is Attending Physician. sp3 14:09 Triage completed. mb9 14:10 Arm band placed on. mb9 14:21 Kirsten Vegas RN is Primary Nurse. db 14:48 XRAY Chest (1 view) In Process Unspecified. EDMS 15:22 Masha Blake MD is Hospitalizing Provider. sp3 16:30 Inserted saline lock: 22 gauge in right antecubital area, using aseptic technique. db Blood collected. 19:07 Patient has correct armband on for positive identification. Bed in low position. Call db light in reach. Side rails up X 1. Report given to HAYDEN ROMEO. Client placed on continuous cardiac and pulse oximetry monitoring. NIBP monitoring applied. Warm blanket given. 19:41 No provider procedures requiring assistance completed. Patient admitted, IV remains in [address] place. 19:42 Provided Education on: HOSPITAL ENVIRONMENT. j Administered Medications: 14:44 Drug: Nitroglycerin Sublingual 0.4 mg Sublingual once Route: Sublingual; db 16:23 Drug: Acetaminophen PO 650 mg PO once Route: PO; db Medication: 19:42 VIS not applicable for this client. neal Outcome: 15:22 Decision to Hospitalize by Provider. sp3 19:41 Admitted to Med/surg accompanied by tech, via wheelchair, room 411, Report called to neal TANG RN 19:41 Condition: good 20:03 Patient left the ED. as6 Signatures: Dispatcher [employer] EDDwight Claudio MD MD sp3 Zhou Kay RN RN as6 Harvey Lemus RN RN jjKirsten Gordon RN RN Celestina Glass RN RN mb9 Dorothy Fonseca Corrections: (The following items were deleted from the chart) 19:07 19:06 Inserted saline lock: 22 gauge in right antecubital area, using aseptic db technique. Blood collected. db
[2023-07-24] MEDS: INSULIN REGULAR (HUMAN) 100 UNIT/ML SQ SCH ×2 (16:30→21:00)
[2023-07-24] MEDS ORDERED: NITROGLYCERIN 0.4 MG/TAB SL PRN (16:31)
[2023-07-24] MEDS ORDERED: ACETAMINOPHEN 325 MG TABLET ONE (16:34)
[2023-07-24] MEDS: ASPIRIN EC 81 MG TAB PO SCH (17:00)
--- NOTE | 2023-07-24 18:49 | P.HP ---
Certification for Inpatient Patient admitted to: Observation With expected LOS: >2 Midnights Patient will require the following post-hospital care: None Practitioner: I am a practitioner with admitting privileges, knowledge of patient current condition, hospital course, and medical plan of care. Services: Services provided to patient in accordance with Admission requirements found in Title 42 Section 412.3 of the Code of Federal Regulations Patient History Date of Service: 07/24/23 Reason for admission: failed outpatient nuclear stress test History of Present Illness: Kerry Early is a 73 year old female with Pmhx brain aneurysm repaired surgically, COPD, NIDDM, GERD, hypertension, lupus, seizures who presented to the ED due to a failed outpatient nuclear stress test. Dr. Elliott sent Kerry to the ED preparation for a heart cath tomorrow morning. Kerry complains of nausea, headache, SOB, CP, dizziness, chills, PND, and orthopnea. She reports taking a nitroglycerin at least once every other week. Months ago she needed to take 3 for chest pain relief and 1 night. Chest pain has been noticed in the last 3 weeks, echo has been performed approximately 1 month ago. Initial vitals BP 127/94, heart rate 92, respirations 18, temp 98.2, pulse ox 97% on room air. Significant labs troponin 6.1 with redraw pending, BUN over creatinine 21/1.11, serum glucose 190. Chest x-ray showing no acute cardiopulmonary process. Kerry will be admitted to hospitalist service for further evaluation and treatment of chest pain rule out ACS. Allergies spinach Allergy (Unknown, Verified 01/16/17 13:24) unknown terazosin Allergy (Verified 06/15/22 10:56) Hives/Rash iodine Adverse Reaction (Intermediate, Verified 01/15/17 23:03) RASH/THROAT CLOSES naproxen sodium [From Aleve] Adverse Reaction (Intermediate, Verified 01/15/17 23:03) RASH/ EYES SWELL acetaminophen [From Darvocet-N 100] Adverse Reaction (Verified 01/15/17 23:03) RASH/ ITCHY THROAT propoxyphene napsylate [From Darvocet-N 100] Adverse Reaction (Verified 01/15/17 23:03) RASH/ ITCHY THROAT Home Medications: Albuterol Sulfate [Proventil Hfa] 1 puff IN PRN 10/04/16 Levetiracetam [Keppra] 1,000 mg PO BID* 10/04/16 Albuterol Sulfate [Proair Hfa] 2 puff IH QID #1 hfa.aer.ad 01/19/17 B6/FA/B12/Co Q10/Herb No.225 [Healthy Heart Complex Tablet] 1 tab PO DAILY 12/11/19 Mecobalamin [B12 Active] 1 tab PO DAILY 12/11/19 Multivitamin [Multivitamins] 1 cap PO DAILY 12/11/19 - Past Medical/Surgical History Diabetic: Yes -: Hypertension -: Seizures -: COPD -: Aneurysm -: DM -: Mitral valve prolapse -: Brain Surgery -: Hysterectomy -: Cholecystectomy -: Appendectomy -: Foot SX - Family History Father -: Hypertension, Diabetes, Cancer Mother -: Heart disease, Hypertension, Diabetes - Social History Alcohol use: No CD- Drugs: No Caffeine use: No Review of Systems General: Chills, Other (BATEMAN) Respiratory: Shortness of Breath Cardiovascular: Chest Pain (and heaviness), Orthopnea, Paroxysmal Noc. Dyspnea Neurological: Other (dizziness) Physical Examination - Physical Exam General: Alert, In no apparent distress, Oriented x3 HEENT: Atraumatic, Normocephalic, PERRLA Neck: Supple, 2+ carotid pulse no bruit, JVD not distended Respiratory: Clear to auscultation bilaterally, Normal air movement Cardiovascular: No edema, Normal pulses, Regular rate/rhythm, Normal S1 S2 Capillary refill: <2 Seconds Gastrointestinal: Normal bowel sounds Musculoskeletal: No clubbing, No swelling, No contractures Integumentary: No rashes, No breakdown, No significant lesion, No tenderness/swelling Neurological: Normal speech, Normal strength at 5/5 x4 extr, Normal tone - Studies Laboratory Data (last 24 hrs) 07/24/23 07/24/23 07/24/23 14:35 14:35 14:35 WBC 5.40 Hgb 13.5 Hct 40.0 Plt Count 263 PT 11.0 INR 1.00 Sodium 135 L Potassium 4.3 BUN 21 H Creatinine 1.11 H Glucose 190 H Magnesium 2.4 Total Bilirubin 0.3 AST 15 ALT 17 Alkaline Phosphatase 100 Assessment and Plan - Plan Assessment and plan Chest pain rule out ACS -failed outpatient nuclear stress test -Dr Elliott requested admission for heart cath in the AM -NPO after midnight -asa, statin, lovenox 1mg/kg once NIDDM -Accucheck with SSI HTN -restart home medication when available Lupus -restart home medication when available -supportive care DVT ppx: SCD for heart cath in the AM Full code LOS 2 days Discharge Plan: Home Plan to discharge in: 48 Hours - Advance Directives Does patient have a Living Will: No Does patient have a Durable POA for Healthcare: No Time Spent Managing Pts Care (In Minutes): 55
[2023-07-24] MEDS ORDERED: ATORVASTATIN 40 MG TAB PO SCH (21:00)
[2023-07-24] MEDS ORDERED: ENOXAPARIN 80 MG/0.8 ML SQ ONE (21:11)
[2023-07-24 23:04] VITALS: BMI 29.8
[2023-07-25 07:24] LABS: Absolute Lymphocytes (CBC) 1.2 K/uL (0.7-4.9); Hematocrit 42.6 % (36.0-45.0); Lymphocytes % 26.4 % (15.3-44.8); MCV 93.9 fL (80-100); MPV 7.7 fL (7.6-11.3); Platelets 287 thou/uL (152-406); RBC Red Blood Cell Count 4.53 M/uL (3.86-4.86)
[2023-07-25] MEDS: INSULIN REGULAR (HUMAN) 100 UNIT/ML SQ SCH ×3 (07:30→16:30)
[2023-07-25 07:51] LABS: Magnesium 2.5 mg/dL (1.6-2.4); Phosphorus 2.6 mg/dL (2.5-4.9); Potassium 4.3 mEq/L (3.5-5.1); Thyroid Stimulating Hormone 1.46 uIU/mL (0.358-3.740)
[2023-07-25] MEDS: ASPIRIN EC 81 MG TAB PO SCH (08:48)
[2023-07-25] MEDS ORDERED: ASPIRIN EC 81 MG TAB PO SCH (09:00)
[2023-07-25] MEDS ORDERED: NA CHLORIDE 0.9% 500 ML ONE (10:02)
--- NOTE | 2023-07-25 10:36 | P.PN ---
Subjective Date of Service: 07/25/23 Chief Complaint: failed outpatient nuclear stress test Subjective: No new changes HPI 07/24: Kerry Early is a 73 year old female with Pmhx brain aneurysm repaired surgically, COPD, NIDDM, GERD, hypertension, lupus, seizures who presented to the ED due to a failed outpatient nuclear stress test. Dr. Elliott sent Kerry to the ED preparation for a heart cath tomorrow morning. Kerry complains of nausea, headache, SOB, CP, dizziness, chills, PND, and orthopnea. She reports taking a nitroglycerin at least once every other week. Months ago she needed to take 3 for chest pain relief and 1 night. Chest pain has been noticed in the last 3 weeks, echo has been performed approximately 1 month ago. Initial vitals BP 127/94, heart rate 92, respirations 18, temp 98.2, pulse ox 97% on room air. Significant labs troponin 6.1 with redraw pending, BUN over creatinine 21/1.11, serum glucose 190. Chest x-ray showing no acute cardiopulmonary process. Kerry will be admitted to hospitalist service for further evaluation and treatment of chest pain rule out ACS. 07/25: Kerry is sleeping in bed this AM but arouses easily. She is aware of her heart cath this afternoon, Dr. Elliott spoke with her this morning. She denies fever, chills, SOB, BATEMAN, and n/v. Review of Systems 10-point ROS is otherwise unremarkable Physical Examination - Vital Signs Temperature: 97.0 F Blood Pressure: 160/70 Pulse: 75 Respirations: 16 Pulse Ox (%): 100 - Studies Laboratory Data (last 24 hrs) 07/24/23 07/24/23 07/24/23 14:35 14:35 14:35 WBC 5.40 Hgb 13.5 Hct 40.0 Plt Count 263 PT 11.0 INR 1.00 Sodium 135 L Potassium 4.3 BUN 21 H Creatinine 1.11 H Glucose 190 H Magnesium 2.4 Total Bilirubin 0.3 AST 15 ALT 17 Alkaline Phosphatase 100 Assessment And Plan - Plan Physical Exam General: Alert, In no apparent distress, Oriented x3 HEENT: Atraumatic, Normocephalic, PERRLA Neck: Supple, 2+ carotid pulse no bruit, JVD not distended Respiratory: Clear to auscultation bilaterally, Normal air movement Cardiovascular: No edema, Normal pulses, Regular rate/rhythm, Normal S1 S2 Capillary refill: <2 Seconds Gastrointestinal: Normal bowel sounds Musculoskeletal: No clubbing, No swelling, No contractures Integumentary: No rashes, No breakdown, No significant lesion, No tenderness/swelling Neurological: Normal speech, Normal strength at 5/5 x4 extr, Normal tone Assessment and plan Chest pain rule out ACS -failed outpatient nuclear stress test -Dr Elliott requested admission for heart cath today 07/25 -NPO after midnight -asa, statin, lovenox 1mg/kg once -lovenox one dose last night NIDDM -Accucheck with SSI HTN -restart home medication when available Lupus -restart home medication when available -supportive care DVT ppx: SCD for heart cath in the afternoon (07/25) Full code LOS 2 days Discharge Plan: Home Plan to discharge in: 24 Hours Time Spent Managing PTS Care (In Minutes): 35
[2023-07-25] MEDS ORDERED: MIDAZOLAM HCL 2 MG/2 ML INJ ONE (12:46)
[2023-07-25] MEDS ORDERED: HEPARIN 5000 UNIT/ML 1 ML VIAL ONE (12:46)
[2023-07-25] MEDS ORDERED: FENTANYL CITR 100 MCG/2 ML ONE (12:46)
[2023-07-25] MEDS ORDERED: VERAPAMIL HCL 10 MG/4 ML VIAL IV ONE (12:46)
[2023-07-25] MEDS ORDERED: CLOPIDOGREL 75 MG TABLET ONE (12:47)
[2023-07-25] MEDS ORDERED: ASPIRIN 325 MG TAB ONE (12:47)
[2023-07-25] MEDS ORDERED: ATROPINE SULF 1 MG/10 ML SYR IV ONE (12:47)
[2023-07-25] MEDS ORDERED: TICAGRELOR 90 MG TABLET PO ONE ×2 (12:47→12:48)
[2023-07-25] MEDS ORDERED: DIPHENHYDRAMINE 50 MG/ML VIAL ONE (12:47)
[2023-07-25] MEDS ORDERED: HEPARIN 10,000 UNIT/10 ML VIAL IV ONE (12:47)
[2023-07-25] MEDS ORDERED: METHYLPREDNISOLONE 125 MG INJ ONE (12:48)
[2023-07-25] MEDS ORDERED: HEPA 1000U/500MLS 2,000 UNIT/1,000 ML BAG IV ONE (12:50)
[2023-07-25] MEDS ORDERED: LIDOCAINE 1% 20 ML MDV ONE (12:51)
--- NOTE | 2023-07-25 13:20 | CON ---
Date of Consultation: 07/25/2023 Reason For Consultation: Chest pain. History Of Present Illness: A 73-year-old female who had a stress test yesterday and she started hav ing chest pain that would not go way, improved slightly with nitroglycerin. She was sent to the hosp ital and myocardial infarction was ruled out. She continues to have on and off chest pain and stress test was abnormal for reversible ischemia. Past Medical History: Hypertension, COPD, diabetes. Medication: Refer reconciliation sheet for detailed list. Allergies: TERAZOSIN, IODINE, NAPROXEN, ACETAMINOPHEN. Family History: No mention of coronary artery disease or cancer. Social History: She does not smoke or drink. Does not use any drugs. Review of Systems: All systems reviewed. They were negative except as mentioned in the HPI. Physical Examination: Vital Signs: Reviewed. Head and Neck: Pupils are equal, reactive to light. Intact eye movements. No JVD. No cervical lym phadenopathy. Neck is supple. Thyroid is not enlarged. Lungs: Clear to auscultation bilaterally. No rhonchi, rales, or crackles. No accessory muscle use. Heart: Regular rate and rhythm. No extra sounds. Abdomen: Soft, nontender. Bowel sounds positive. No organomegaly. No masses or hernia. No rigidi ty or rebound. Extremities: No edema, clubbing, cyanosis. Intact pulses. Skin: No rash. Neurologic: Alert, awake, oriented x3. No acute focal deficits appreciated. Investigations: BUN 17, creatinine 0.92, and cardiac enzymes are negative. Hemoglobin 14.9. Assessment/recommendation: 1.Unstable angina. She is n.p.o., plan for coronary angiogram today. 2.Dyslipidemia. Continue statin. 3.Hypertension. Blood pressure is elevated. Resume home medication. Adjust further as needed. SR/MODL Voice ID: [id number] Report ID: [id number]
--- NOTE | 2023-07-25 13:38 | EKG ---
Test Date: 2023-07-24 Test Time: 14:35:08 Dry Heat Room Attendant: MIRIAM MEASUREMENT RESULTS: Intervals: Rate: 80 DE: 130 QRSD: 76 QT: 380 QTc: 438 [place]: P: 47 DE: 130 QRS: 79 T: 88 INTERPRETIVE STATEMENTS: Normal sinus rhythm Normal ECG Compared to ECG 06/14/2023 12:28:01 Sinus bradycardia no longer present Electronically Signed On 07-25-23 13:36:52 CDT by Brayan Elliott
--- NOTE | 2023-07-25 13:57 | OP ---
Date of Procedure: 07/25/2023 Surgeon: KERON MCKEE Procedure Performed: 1.Selective coronary angiogram. 2.Left heart catheterization. Indication: Unstable angina with abnormal stress test. Access: Right radial artery 6-Andorran closed with TR band. Complications: None. Bleeding: Less than 20 mL. Description Of Procedure: After risks, benefits, and alternatives were explained, the patient agreed to procedure and signed informed consent. The patient was brought into cardiac catheterization [facility], prepped and draped in usual sterile fashion. Then, I accessed right radial artery using pedi atric micropuncture kit. Placed 6-Andorran Slender sheath and took 5-Andorran Odin 4 catheter over J-wi re into aortic root, engaged left main and then right coronary artery, took standard views. Catheter was pushed over the wire into the LV, measured the LVEDP. Pullback did not record any gradient. Th en, I removed the catheter and sheath and placed TR band with good hemostasis. Findings: 1.Left main large and normal. 2.LAD normal. Normal diagonal branches. 3.Left circumflex normal. 4.RCA; large and dominant with proximal 30% stenosis. 5.LVEDP borderline between 10 and 12 mmHg. 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 2.Borderline elevated LVEDP. Recommendation: Medical management. The patient can be released from my perspective today. /MODL Voice ID: [id number] Report ID: [id number]
[2023-07-25 14:02] VITALS: TEMP 98
[2023-07-25 15:17] VITALS: BP 130/50; O2SAT 96
--- NOTE | 2023-07-26 06:06 | P.DS ---
Admission Date: 07/24/23 Discharge Date: 07/25/23 Disposition: ROUTINE DISCHARGE Discharge Condition: GOOD Reason for Admission: failed outpatient nuclear stress test Brief History of Present Illness: Kerry Early is a 73 year old female with Pmhx brain aneurysm repaired surgically, COPD, NIDDM, GERD, hypertension, lupus, seizures who presented to the ED due to a failed outpatient nuclear stress test. Dr. Elliott sent Kerry to the ED preparation for a heart cath tomorrow morning. Kerry complains of nausea, headache, SOB, CP, dizziness, chills, PND, and orthopnea. She reports taking a nitroglycerin at least once every other week. Months ago she needed to take 3 for chest pain relief and 1 night. Chest pain has been noticed in the last 3 weeks, echo has been performed approximately 1 month ago. Initial vitals BP 127/94, heart rate 92, respirations 18, temp 98.2, pulse ox 97% on room air. Significant labs troponin 6.1 with redraw pending, BUN over creatinine 21/1.11, serum glucose 190. Chest x-ray showing no acute cardiopulmonary process. Kerry will be admitted to hospitalist service for further evaluation and treatment of chest pain rule out ACS. Hospital Course: Kerry is a pleasant 73-year-old female with a past medical history significant for brain aneurysm surgically repaired, COPD, NIDDM, GERD, hypertension, lupus, seizures who was admitted to the [facility] on 07/24/2023 for failed outpatient nuclear stress test. Kerry presented to the ED by recommendations from Dr. Elliott. She failed the outpatient nuclear stress test requiring a left heart catheterization. On admission Kerry was given asa, statin, and one dose of Lovenox and tolerated well. Dr Elliott performed the heart catheterization on 07/25/23. Dr. Elliott was satisfied with her safe discharge upon finding mild nonobstructive CAD involving the RCA at 30% stenosed. Kerry tolerated PO diet, she is ambulating independently in her room, She has stable blood pressure without chest pain. On 07/25/2020, Kerry was seen on morning rounds and deemed medically stable for discharge. Kerry was discharged with instructions to schedule follow-up appointments with Dr. Elliott and Dr Belcher. The patient and family members were given the opportunity to ask questions and reported no further questions. Furthermore, all questions were answered to the best of my ability. A copy of this discharge summary will be sent to the above providers to facilitate continuity of care. Today, I personally spent 55 minutes with 50, of which greater than 50% of the time was spent in patient education, counseling, and coordination of care as described above. Physical Exam General: Alert, In no apparent distress, Oriented x3 HEENT: Atraumatic, Normocephalic, PERRLA Neck: Supple, 2+ carotid pulse no bruit, JVD not distended Respiratory: Clear to auscultation bilaterally, Normal air movement Cardiovascular: No edema, Normal pulses, Regular rate/rhythm, Normal S1 S2 Capillary refill: <2 Seconds Gastrointestinal: Normal bowel sounds Musculoskeletal: No clubbing, No swelling, No contractures Integumentary: No rashes, No breakdown, No significant lesion, No tenderness/swelling Neurological: Normal speech, Normal strength at 5/5 x4 extr, Normal tone Vital Signs/Physical Exam: Temp Pulse Resp BP Pulse Ox 98 F 72 16 130/50 L 100 07/25/23 15:15 07/25/23 15:15 07/25/23 15:15 07/25/23 15:15 07/25/23 10:37 Laboratory Data at Discharge: WBC 4.50 thou/uL (4.3-10.9) 07/25/23 07:12 Hgb 14.9 g/dL (12.0-15.0) D 07/25/23 07:12 Hct 42.6 % (36.0-45.0) 07/25/23 07:12 Plt Count 287 thou/uL (152-406) 07/25/23 07:12 PT 11.0 SECONDS (9.5-12.5) 07/24/23 14:35 INR 1.00 07/24/23 14:35 Sodium 138 mEq/L (136-145) 07/25/23 07:12 Potassium 4.3 mEq/L (3.5-5.1) 07/25/23 07:12 BUN 17 mg/dL (7-18) 07/25/23 07:12 Creatinine 0.92 mg/dL (0.55-1.02) 07/25/23 07:12 Glucose 116 mg/dL (74-106) H 07/25/23 07:12 Phosphorus 2.6 mg/dL (2.5-4.9) 07/25/23 07:12 Magnesium 2.5 mg/dL (1.6-2.4) H 07/25/23 07:12 Total Bilirubin 0.3 mg/dL (0.2-1.0) 07/24/23 14:35 AST 15 U/L (15-37) 07/24/23 14:35 ALT 17 U/L (13-56) 07/24/23 14:35 Alkaline Phosphatase 100 U/L (45-117) 07/24/23 14:35 Triglycerides 110 mg/dL (<150) 07/25/23 07:12 Cholesterol 170 mg/dL (<200) 07/25/23 07:12 HDL Cholesterol 80 mg/dL (40-60) H 07/25/23 07:12 Cholesterol/HDL Ratio 2.13 07/25/23 07:12 Home Medications: Albuterol Sulfate [Proventil Hfa] 1 puff IN PRN 10/04/16 Levetiracetam [Keppra] 1,000 mg PO BID* 10/04/16 Albuterol Sulfate [Proair Hfa] 2 puff IH QID #1 hfa.aer.ad 01/19/17 B6/FA/B12/Co Q10/Herb No.225 [Healthy Heart Complex Tablet] 1 tab PO DAILY 12/11/19 Mecobalamin [B12 Active] 1 tab PO DAILY 12/11/19 Multivitamin [Multivitamins] 1 cap PO DAILY 12/11/19 Physician Discharge Instructions: -DC IV and DC home -Follow-up with PCP in 1 to 2 weeks -Follow-up with Cardiology as needed -Please call Dr. Blake at [phone] if any questions regarding hospital stay -Please call nursing station at [phone] if any nursing or medication que stions -Return to the emergency room if symptoms worsen Diet: AHA Activity: Fall precautions Followup: Dudley Belcher DO [Primary Care Provider] - 1-2 Weeks (call to schedule an appointment) Brayan Elliott MD [ACTIVE - CAN ADMIT] - (as needed) Time spent managing pt's care (in minutes): 55
== END 2023-07-25 18:45 | disposition home or self-care (01) ==
LOC: ER 14:01 → ERHOLD 16:23 → 4TH 18:33
PROVIDERS: ADMIT Hospitalist; ATTEND Hospitalist
DX: I25.110 Atherosclerotic heart disease of native coronary artery with unstable angina pectoris (principal); I34.1 Nonrheumatic mitral (valve) prolapse; I10 Essential (primary) hypertension; E11.9 Type 2 diabetes mellitus without complications; J44.9 Chronic obstructive pulmonary disease, unspecified; K21.9 Gastro-esophageal reflux disease without esophagitis; M32.9 Systemic lupus erythematosus, unspecified; R56.9 Unspecified convulsions; Z79.899 Other long term (current) drug therapy; Z88.8 Allergy status to other drugs, medicaments and biological substances; Z88.6 Allergy status to analgesic agent; Z91.018 Allergy to other foods; Z90.710 Acquired absence of both cervix and uterus; Z82.49 Family history of ischemic heart disease and other diseases of the circulatory system; Z83.3 Family history of diabetes mellitus; Z80.9 Family history of malignant neoplasm, unspecified
CPT/HCPCS: 93005; 85025 ×2; 80048 ×2; 36415; 83735 ×2; 84100; 85610; 80061; 82947 ×3; 80076; 84443; 84484 ×3; 84439; 83880; 71045; 93458; 76937; 99285; C1893; Q9966; J1644; J2001; J1200; J2250; J3010; J2930; G0378 ×5; J7040; J0461

== ENCOUNTER 2024-07-14 11:50 | Emergency (ER) | payer OTHER ==
--- NOTE | 2024-07-14 12:49 | RAD REPORT ---
EXAM: Head Brain Wo Cont HISTORY: Headache;Trauma COMPARISON: 08/11/2021 TECHNIQUE: Multiple contiguous axial images were obtained for a CT of the brain without contrast. Sag ittal and coronal reformats were performed. One or more of the following dose reduction techniques were used: Automated exposure control, adjus tment of the mA and kV according to patient size, and iterative reconstruction. Unless otherwise specified, incidental findings do not require dedicated imaging follow-up. FINDINGS: Sequelae of left suboccipital craniotomy and aneurysm clipping again seen. Encephalomalacia involving the left inferior cerebellar hemisphere, stable. No evidence of hydrocephalus, intracranial hemorrhage, or extra-axial fluid collection. Small foci of mineralization along the right frontal cortex and along the ependyma of the right later al ventricle anterior horn are stable. The brain is otherwise normal in morphology. The calvarium is intact. The visualized paranasal sinuses and mastoid air cells are essentially clear . IMPRESSION: No evidence of acute intracranial abnormality. Postsurgical sequelae as above.
[2024-07-14 13:12] LABS: Absolute Eosinophils 0.1 K/uL (0-0.5); Absolute Lymphocytes (CBC) 0.9 K/uL (0.7-4.9); Absolute Monocytes 0.4 K/uL (0.1-1.3); Absolute Neutrophil 4.1 K/uL (1.8-8.0); Basophils % 0.6 % (0-1.3); Hematocrit 42.7 % (36.0-45.0); Lymphocytes % 15.6 % (15.3-44.8); MCHC 32.9 g/dL (32.0-36.0); MCV 94.3 fL (80-100); MPV 8.4 fL (7.6-11.3); Monocytes % 6.7 % (3.3-12.3); Neutrophils % 75.1 % (41.7-73.7); Platelets 264 thou/uL (152-406); RBC Red Blood Cell Count 4.53 M/uL (3.86-4.86); Red Cell Distribution Width 13.9 % (12.1-15.2)
[2024-07-14 13:15] LABS: Anion Gap 6.5 mEq/L (5.0-15.0); Potassium 4.5 mEq/L (3.5-5.1)
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
--- NOTE | 2024-07-14 13:44 | EDPHYS ---
Physician Documentation [facility] Name: Kerry Early Age: 74 yrs Sex: Female : 1950 Arrival Date: 07/14/2024 Time: 11:50 Bed 7 Private MD: ED Physician Zachariah Jacobs HPI: 07/14 12:32 This 74 yrs old Female presents to ER via Ambulatory with complaints of ms3 Headache - x1wk post head inj. 12:32 74-year-old female with past medical history of brain aneurysm, COPD, diabetes, GERD, ms3 hypertension, lupus, seizures presents to the emergency department 10 days status post hitting her head on a truck lid. Patient states she has had intermittent headache since that time on the left side of her head. Patient denies any alleviating or inciting factors.. Historical: - Allergies: 12:11 Darvocet-N 100; hb 12:11 Iodine; hb 12:11 Naproxen; hb 12:11 Terazosin; hb 12:11 tramadol; hb - PMHx: 12:11 brain aneurysm; COPD; Diabetes - NIDDM; GERD; Hypertension; Lupus; Seizures; hb - PSHx: 12:11 Cholecystectomy; Tonsillectomy; Total abdominal hysterectomy; hb - Immunization history:: Adult Immunizations up to date. - Infectious Disease History:: Denies. - Social history:: Smoking status: Patient denies any tobacco usage or history of. ROS: 12:32 Constitutional: Negative for fever, and chills. Cardiovascular: Negative for chest ms3 pain, and palpitations. Respiratory: Negative for shortness of breath, cough, wheezing, and pleuritic chest pain, Abdomen/GI: Negative for abdominal pain, nausea, vomiting, diarrhea, and constipation, MS/Extremity: Negative for injury and deformity, 12:32 Neuro: Positive for headache, Exam: 12:32 Constitutional: This is a well developed, well nourished patient who is awake, alert, ms3 and in no acute distress. Chest/axilla: Normal chest wall appearance and motion. Nontender with no deformity. Cardiovascular: Regular rate and rhythm with a normal S1 and S2. No gallops, murmurs, or rubs. Normal PMI, no JVD. No pulse deficits. Respiratory: Lungs have equal breath sounds bilaterally, clear to auscultation and percussion. No rales, rhonchi or wheezes noted. No increased work of breathing, no retractions or nasal flaring. Abdomen/GI: Soft, non-tender, with normal bowel sounds. No distension or tympany. No guarding or rebound. No evidence of tenderness throughout. Skin: Warm, dry with normal turgor. Normal color with no rashes, no lesions, and no evidence of cellulitis. 12:32 Neuro: Orientation: is normal, to person, place, time \T\ situation. Mentation: is normal, Memory: is normal, Cranial nerves: CN I not tested, CN II- XII are normal as tested, Cerebellar function: normal finger to nose testing, Motor: is normal, Sensation: is normal, no obvious gross deficits, Vital Signs: 12:09 BP 153 / 76; Pulse 58; Resp 16; Temp 97.7; Pulse Ox 99% on R/A; Weight 72.57 kg; Height hb 5 ft. 4 in. ; Pain 8/10; 13:45 BP 144 / 68; Pulse 53; Resp 18; Pulse Ox 98% on R/A; rs6 12:09 Body Mass Index 27.46 (72.57 kg, 162.56 cm) hb 12:09 Pain Scale: Adult hb MDM: 12:32 Differential diagnosis: migraine, subdural hematoma. ms3 12:34 Patient medically screened. ms3 14:17 Data reviewed: vital signs, nurses notes, lab test result(s), radiologic studies, CT ms3 scan, and as a result, I will discharge patient. Independent interpretation of the following test(s) in the Emergency Department CT Scan: My interpretation is CT head without contrast images reviewed by me do not reveal ICH. Counseling: I had a detailed discussion with the patient and/or guardian regarding the historical points, exam findings, and any diagnostic results supporting the discharge/admit diagnosis, lab results, radiology results, the need for outpatient follow up, to return to the emergency department if symptoms worsen or persist or if there are any questions or concerns that arise at home. ED course: Discussed lumbar puncture with patient and patient declines. Discussed possibility of missed infection, subarachnoid bleed, or other pathology. Patient understands and accepts risk. Patient to follow-up with her primary care physician in 2 to 3 days. Patient understands and agrees with plan. All questions were answered. Return precautions discussed include worsening symptoms, or any other concerns.. 07/14 12:30 Order name: CBC with Diff; Complete Time: 13:29 ms3 07/14 12:30 Order name: BMP; Complete Time: 13:29 ms3 07/14 12:30 Order name: CT Head Brain wo Cont; Complete Time: 12:57 ms3 Administered Medications: No medications were administered Disposition Summary: 07/14/24 13:44 Discharge Ordered Notes: Location: Home ms3 Problem: new ms3 Symptoms: are unchanged ms3 Condition: Stable ms3 Diagnosis - Headache ms3 Followup: ms3 - With: Private Physician - When: 2 - 3 days - Reason: Recheck today's complaints Discharge Instructions: - Discharge Summary Sheet ms3 - General Headache Without Cause ms3 Forms: - Medication Reconciliation Form ms3 - Antibiotic Education ms3 - Prescription Opioid Use ms3 - Patient Portal Instructions ms3 - Leadership Thank You Letter ms3 Signatures: Dispatcher [employer] Kat Magdaleno RN RN Zachariah Watson DO DO ms3
[2024-07-14] MEDS ORDERED: ACETAMINOPHEN 500 MG TAB ONE (14:07)
[2024-07-14 14:15] VITALS: TEMP 97.7
[2024-07-14 14:17] VITALS: BP 144/68; O2SAT 98
== END 2024-07-14 14:11 | disposition home or self-care (01) ==
LOC: ER 11:50
DX: R51.9 Headache, unspecified (principal); E11.9 Type 2 diabetes mellitus without complications; I10 Essential (primary) hypertension
CPT/HCPCS: 36415; 70450; 80048; 85025; 99283

== ENCOUNTER 2024-11-03 13:32 | Day surgery (SDC) | payer OTHER ==
--- NOTE | 2024-10-29 11:27 | RAD REPORT ---
Procedure: Chest Pa And Lat (2 Views) HISTORY: Preop for cardiac catheterization COMPARISON: 2022 FINDINGS: The lungs appear clear of acute infiltrate. No significant pleural effusion noted. The heart is normal size. IMPRESSION: No acute abnormality is displayed.
[2024-10-29 11:42] LABS: Absolute Lymphocytes (CBC) 0.7 K/uL (0.7-4.9); Absolute Monocytes 0.3 K/uL (0.1-1.3); Absolute Neutrophil 6.6 K/uL (1.8-8.0); Basophils % 0.4 % (0-1.3); Hematocrit 43.6 % (36.0-45.0); Hemoglobin 14.4 g/dL (12.0-15.0); Lymphocytes % 9.7 % (15.3-44.8); MCH 30.6 pg (27.0-35.0); MCHC 33.1 g/dL (32.0-36.0); MCV 92.4 fL (80-100); MPV 7.7 fL (7.6-11.3); Monocytes % 3.6 % (3.3-12.3); Neutrophils % 86.3 % (41.7-73.7); Nucleated Red Blood Cells % 0.1 % (0-0); Platelets 401 thou/uL (152-406); RBC Red Blood Cell Count 4.72 M/uL (3.86-4.86); Red Cell Distribution Width 13.5 % (12.1-15.2)
[2024-10-29 11:59] LABS: Anion Gap 5.6 mEq/L (5.0-15.0); Potassium 4.6 mEq/L (3.5-5.1)
[2024-10-29 12:00] LABS: PT Prothrombin Time 11.2 SECONDS (9.4-12.5); PTT, Activated Partial Thromb 28.5 SECONDS (24.3-36.9); Protime INR 1.07
[2024-10-29 12:38] LABS: Blood Morphology Comment NOT SEEN (NOT SEEN); Platelet Estimate ADEQ; Platelets Clumped FEW; White Blood Cell Scan OK (OK)
--- NOTE | 2024-10-30 15:09 | EKG ---
Test Date: 2024-10-29 Test Time: 11:57:29 Seat Builder: GISELLA MEASUREMENT RESULTS: Intervals: Rate: 67 CO: 122 QRSD: 84 QT: 396 QTc: 418 [place]: P: 62 CO: 122 QRS: 73 T: 84 INTERPRETIVE STATEMENTS: Normal sinus rhythm Normal ECG Compared to ECG 07/24/2023 14:35:08 No significant changes Electronically Signed On 10-30-24 15:06:42 SPECIAL AGENT IN CHARGE by Brayan Elliott
[2024-11-03] MEDS ORDERED: NA CHLORIDE 0.9% 500 ML ONE (13:38)
[2024-11-03] MEDS ORDERED: HEPARIN 10,000 UNIT/10 ML VIAL IV ONE (15:27)
[2024-11-03] MEDS ORDERED: HEPA 1000U/500MLS 2,000 UNIT/1,000 ML BAG IV ONE (15:27)
[2024-11-03] MEDS ORDERED: MIDAZOLAM HCL 2 MG/2 ML INJ ONE (15:28)
[2024-11-03] MEDS ORDERED: LIDOCAINE 1% 20 ML MDV ONE (15:28)
[2024-11-03] MEDS ORDERED: ATROPINE SULF 1 MG/10 ML SYR IV ONE (15:28)
[2024-11-03] MEDS ORDERED: VERAPAMIL HCL 10 MG/4 ML VIAL IV ONE (15:28)
[2024-11-03] MEDS ORDERED: HEPARIN 5000 UNIT/ML 1 ML VIAL ONE (15:28)
[2024-11-03] MEDS ORDERED: CLOPIDOGREL 75 MG TABLET ONE (15:28)
[2024-11-03] MEDS ORDERED: FENTANYL CITR 100 MCG/2 ML ONE (15:29)
[2024-11-03] MEDS ORDERED: TICAGRELOR 90 MG TABLET PO ONE (15:29)
[2024-11-03] MEDS ORDERED: ASPIRIN 325 MG TAB ONE (15:29)
[2024-11-03] MEDS ORDERED: DIPHENHYDRAMINE 50 MG/ML VIAL ONE (15:30)
[2024-11-03] MEDS ORDERED: METHYLPREDNISOLONE 125 MG INJ ONE (15:30)
[2024-11-03 19:02] VITALS: BP 154/65; O2SAT 97
--- NOTE | 2024-11-04 02:52 | OP ---
Date of Procedure: 11/03/2024 Surgeon: KERON MCKEE Procedure Performed: 1.Selective coronary angiogram. 2.Left heart catheterization. Indication: Unstable angina. Access: Right radial artery 6-Lao, closed with TR band. Anesthesia: Total sedation time is 45 minutes. Used fentanyl, Versed, and premedicated with IV Solu -Medrol and Benadryl due to iodine allergy. Complications: None. Bleeding: Less than 50 mL. Description Of Procedure: After risks, benefits, and alternatives were explained, the patient agreed to procedure and signed informed consent. The patient was brought into cardiac catheterization [facility], prepped and draped in sterile fashion. Then, I accessed right radial artery using pediatric micropuncture kit, placed 6-Lao slender sheath and took 5-Lao [place] 4 catheter over J-wire into the aortic root across the aortic valve. Measured the LVEDP. Pullback did not record any gradient, and then engaged the left main, took standard views and then the RCA, took standard views and then r emoved the catheter and the sheath, placed TR band with good hemostasis. Findings: 1.Left main is normal. 2.LAD is normal. Normal diagonal branches. 3.Left circumflex is codominant and large and normal. 4.RCA is codominant and large with proximal 40% stenosis. Rest of it is normal. 5.LVEDP is between 10 and 50 mmHg. 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 Otherwise, no coronary artery di sease. Recommendation: Medical management. SR/MODL Voice ID: [id number] Report ID: [id number]
== END 2024-11-03 19:11 | disposition home or self-care (01) ==
LOC: CCL 13:32
PROVIDERS: ATTEND Internal Medicine
DX: I25.110 Atherosclerotic heart disease of native coronary artery with unstable angina pectoris (principal); I65.23 Occlusion and stenosis of bilateral carotid arteries; I10 Essential (primary) hypertension; E11.9 Type 2 diabetes mellitus without complications; Z79.84 Long term (current) use of oral hypoglycemic drugs; Z79.899 Other long term (current) drug therapy
CPT/HCPCS: 36415; 71046; 76937; 80048; 82947; 85025; 85610; 85730; 93005; 93458; 99152; 99153; C1893; J0461; J1200; J1644; J2003; J2250; J2919; J3010; J7040; Q9966